=== PATIENT | male | born 1975 | race African-American/Black ===

== ENCOUNTER 2016-09-17 10:47 | Inpatient (IN) | payer OTHER ==
[2016-09-17 12:53] VITALS: BMI 31.3
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
[2016-09-17] MEDS ORDERED: guaiFENesin/D-METHORPHAN HB 10 ML UNIT-DOSE CUPS PO PRN (15:58)
[2016-09-17] MEDS ORDERED: NICOTINE POLACRILEX 4 MG GUM BC PRN (15:58)
[2016-09-17] MEDS ORDERED: MAGNESIUM HYDROX 2400MG/30ML ORAL SUSPENSION 30 ML CUP PO PRN (15:58)
[2016-09-17] MEDS ORDERED: hydrOXYzine PAMOATE 50 MG CAPSULE (FP) PO PRN (15:58)
[2016-09-17] MEDS ORDERED: LOPERAMIDE HCL 2 MG CAPSULE PO PRN (15:58)
[2016-09-17] MEDS ORDERED: P-EPHED 60MG/TRIPROLIDI 2.5MG TABLET PO PRN (15:58)
[2016-09-17] MEDS ORDERED: IBUPROFEN 400 MG TABLET (FP) PO PRN (15:58)
[2016-09-17] MEDS ORDERED: MENTHOL/PHENOL 1 EACH UD MM PRN (15:58)
[2016-09-17] MEDS ORDERED: MAGNESIUM CITRATE 300 ML BOTTLE PO PRN (15:58)
[2016-09-17] MEDS: LIPASE/PROTEASE/AMYLASE 6,000 UNIT CAPSULE PO SCH (17:54)
[2016-09-17 21:12] LABS: PH,URINE 5.5 (4.5-8); URINE APPEARANCE Clear; URINE BILIRUBIN Negative (NEGATIVE); URINE BLOOD Negative (NEGATIVE); URINE GLUCOSE (UA) Negative (NEGATIVE); URINE KETONE Trace (NEGATIVE); URINE LEUK ESTERASE Negative (NEGATIVE); URINE NITRITE Negative (NEGATIVE); URINE PROTEIN Negative (NEGATIVE); URINE UROBILINOGEN 0.2 E.U/dl (0.2-1.0)
[2016-09-17 21:13] LABS: URINE COLOR YELLOW
[2016-09-17] MEDS: diphenhydrAMINE HCL 50 MG CAPSULE PO PRN (21:41)
[2016-09-17] MEDS: THIAMINE HCL 100 MG TABLET (FP) PO SCH (21:41)
[2016-09-18] MEDS: LIPASE/PROTEASE/AMYLASE 6,000 UNIT CAPSULE PO SCH ×3 (07:47→17:46)
[2016-09-18] MEDS: PRENATAL VITAMINS W/ FOLIC ACID TABLET (FP) PO SCH (09:47)
[2016-09-18] MEDS: LISINOPRIL 10 MG TABLET (FP) PO SCH (09:47)
[2016-09-18] MEDS: NICOTINE 21 MG/24 HOURS TOPICAL PATCH TD SCH (09:48)
[2016-09-18] MEDS ORDERED: PANTOPRAZOLE 40 MG TABLET (FP) PO SCH (10:00)
[2016-09-18] MEDS ORDERED: PANTOPRAZOLE 40 MG TABLET (FP) PO ONE (10:00)
[2016-09-18 10:38] LABS: MCH 28.6 pg (25.7-33.7); MCHC 32.6 g/dl (32.0-35.9); MEAN CELL VOLUME 87.5 fl (80-96); MEAN PLT VOLUME 9.7 fl (7.5-11.1); PLATELET COUNT 166 K/MM3 (134-434); RDW 17.1 % (11.9-15.9)
[2016-09-18 11:25] LABS: ALBUMIN 3.6 g/dl (3.4-5.0); BILIRUBIN,TOTAL 0.4 mg/dL (0.2-1.0); COCKROFT - GAULT 83.15; CREATININE 1.5 mg/dL (0.7-1.3); TOT PROT 6.9 g/dl (6.4-8.2)
[2016-09-18] MEDS ORDERED: PT OWN MED DRAWER 7, Y5N ONE ×2 (12:53→16:59)
[2016-09-18] MEDS: THIAMINE HCL 100 MG TABLET (FP) PO SCH (21:14)
[2016-09-18] MEDS: diphenhydrAMINE HCL 50 MG CAPSULE PO PRN (21:14)
[2016-09-19] MEDS: PANTOPRAZOLE 40 MG TABLET (FP) PO SCH (06:08)
[2016-09-19] MEDS: ACETAMINOPHEN 325 MG TABLET (FP) PO PRN ×2 (07:43→16:57)
[2016-09-19] MEDS: LIPASE/PROTEASE/AMYLASE 6,000 UNIT CAPSULE PO SCH ×3 (07:43→17:04)
[2016-09-19] MEDS: NICOTINE 21 MG/24 HOURS TOPICAL PATCH TD SCH (10:05)
[2016-09-19] MEDS: PRENATAL VITAMINS W/ FOLIC ACID TABLET (FP) PO SCH (10:05)
[2016-09-19] MEDS: LISINOPRIL 10 MG TABLET (FP) PO SCH (10:05)
[2016-09-19] MEDS ORDERED: PT OWN MED DRAWER 7, Y5N ONE (16:26)
[2016-09-19] MEDS: THIAMINE HCL 100 MG TABLET (FP) PO SCH (21:25)
[2016-09-19] MEDS: diphenhydrAMINE HCL 50 MG CAPSULE PO PRN (21:25)
[2016-09-20] MEDS: MAG HYDROX/AL HYDROX/SIMETH 30 ML UNIT-DOSE CUP PO PRN ×2 (01:07→21:27)
[2016-09-20] MEDS: PANTOPRAZOLE 40 MG TABLET (FP) PO SCH (06:16)
[2016-09-20] MEDS: LIPASE/PROTEASE/AMYLASE 6,000 UNIT CAPSULE PO SCH ×3 (07:46→17:00)
[2016-09-20] MEDS ORDERED: PT OWN MED DRAWER 7, Y5N ONE (08:42)
[2016-09-20] MEDS: NICOTINE 21 MG/24 HOURS TOPICAL PATCH TD SCH (10:14)
[2016-09-20] MEDS: LISINOPRIL 10 MG TABLET (FP) PO SCH (10:14)
[2016-09-20] MEDS: PRENATAL VITAMINS W/ FOLIC ACID TABLET (FP) PO SCH (10:14)
[2016-09-20] MEDS: ACETAMINOPHEN 325 MG TABLET (FP) PO PRN (10:17)
--- NOTE | 2016-09-20 11:36 | EKG ---
Test Reason : Blood Pressure : / mmHG Vent. Rate : 068 BPM Atrial Rate : 068 BPM P-R Int : 146 ms QRS Dur : 090 ms QT Int : 392 ms P-R-T Axes : 066 045 059 degrees QTc Int : 416 ms NORMAL SINUS RHYTHM NORMAL ECG NO PREVIOUS ECGS AVAILABLE Confirmed by REZA BEASLEY MD ([id number]) on 09/20/2016 11:35:40 AM Referred By: Confirmed By:REZA BEASLEY MD
--- NOTE | 2016-09-20 12:46 | HP ---
Psychiatrist Admission - Data Date of interview: 09/20/16 Admission source: Self Identifying data: This is the first [facility] rehabiliotation admissionfor thus 41 years yrars old AA male, single, unempl;oyed , on PA, livig alone with no history of psychiatrioc hospitalization, Patient reports 4- 5 additiona rehabiltation admissions at different locations, all of them successfully completed. Medical History: Denies significant medical oriblem Psychiatric History: Patient reports history of depressiojn and anxiety, reports no history of npsychiatric hisoutalizations, reports taking prior mto admissionjh: Seroquel 100mg po qhs. Zoloft 50mg po qd Physical/Sexual Abuse/Trauma History: Denies Additional Comment: Patient reports long history of abusing Cocaine, Crack, Alcohoil, Nicotine and Cannabis, reports Vital Signs: Vital Signs - 24 hr 09/20/16 09/20/16 09/20/16 00:30 03:30 07:01 Temperature 98.6 F Pulse Rate 78 Respiratory 18 18 18 Rate Blood Pressure 130/92 09/20/16 11:01 Temperature Pulse Rate 78 Respiratory 18 Rate Blood Pressure 128/76 Allergies/Adverse Reactions: Allergies Allergy/AdvReac Type Severity Reaction Status Date / Time No Known Drug Allergies Allergy Verified 09/17/16 15:24 shellfish derived AdvReac Severe Swelling Verified 09/17/16 19:22
[2016-09-20] MEDS: SERTRALINE HCL 50 MG TABLET (FP) PO SCH (13:38)
[2016-09-20] MEDS: THIAMINE HCL 100 MG TABLET (FP) PO SCH (21:03)
[2016-09-20] MEDS: diphenhydrAMINE HCL 50 MG CAPSULE PO PRN (21:03)
[2016-09-20] MEDS: QUEtiapine FUMARATE 100 MG TABLET (FP) PO SCH (21:04)
[2016-09-21] MEDS: MAG HYDROX/AL HYDROX/SIMETH 30 ML UNIT-DOSE CUP PO PRN (02:27)
[2016-09-21] MEDS ORDERED: PT OWN MED DRAWER 7, Y5N ONE ×3 (04:29→17:01)
[2016-09-21] MEDS: PANTOPRAZOLE 40 MG TABLET (FP) PO SCH (06:29)
[2016-09-21] MEDS: LIPASE/PROTEASE/AMYLASE 6,000 UNIT CAPSULE PO SCH ×3 (07:40→17:01)
[2016-09-21] MEDS: SERTRALINE HCL 50 MG TABLET (FP) PO SCH (09:42)
[2016-09-21] MEDS: PRENATAL VITAMINS W/ FOLIC ACID TABLET (FP) PO SCH (09:42)
[2016-09-21] MEDS: LISINOPRIL 10 MG TABLET (FP) PO SCH (09:42)
[2016-09-21] MEDS: ACETAMINOPHEN 325 MG TABLET (FP) PO PRN (09:44)
[2016-09-21] MEDS: NICOTINE 21 MG/24 HOURS TOPICAL PATCH TD SCH (09:45)
[2016-09-21] MEDS ORDERED: SERTRALINE HCL 50 MG TABLET (FP) PO SCH (10:00)
[2016-09-21] MEDS ORDERED: ONDANSETRON 8 MG TABLET (FP) PO PRN (17:51)
[2016-09-21] MEDS ORDERED: ONDANSETRON *ODT* 4 MG TABLET SL PRN (18:03)
[2016-09-21] MEDS: diphenhydrAMINE HCL 50 MG CAPSULE PO PRN (21:08)
[2016-09-21] MEDS: THIAMINE HCL 100 MG TABLET (FP) PO SCH (21:08)
[2016-09-21] MEDS: QUEtiapine FUMARATE 100 MG TABLET (FP) PO SCH (21:08)
[2016-09-22] MEDS: MAG HYDROX/AL HYDROX/SIMETH 30 ML UNIT-DOSE CUP PO PRN ×3 (02:07→21:07)
[2016-09-22] MEDS: PANTOPRAZOLE 40 MG TABLET (FP) PO SCH (06:25)
[2016-09-22] MEDS: LIPASE/PROTEASE/AMYLASE 6,000 UNIT CAPSULE PO SCH ×3 (07:54→16:49)
[2016-09-22] MEDS: ACETAMINOPHEN 325 MG TABLET (FP) PO PRN (07:54)
[2016-09-22] MEDS: NICOTINE 21 MG/24 HOURS TOPICAL PATCH TD SCH (10:13)
[2016-09-22] MEDS: PRENATAL VITAMINS W/ FOLIC ACID TABLET (FP) PO SCH (10:13)
[2016-09-22] MEDS: LISINOPRIL 10 MG TABLET (FP) PO SCH (10:13)
[2016-09-22] MEDS: SERTRALINE HCL 50 MG TABLET (FP) PO SCH (10:13)
[2016-09-22] MEDS: QUEtiapine FUMARATE 100 MG TABLET (FP) PO SCH (21:07)
[2016-09-22] MEDS: diphenhydrAMINE HCL 50 MG CAPSULE PO PRN (21:07)
[2016-09-22] MEDS: THIAMINE HCL 100 MG TABLET (FP) PO SCH (21:07)
[2016-09-23] MEDS: MAG HYDROX/AL HYDROX/SIMETH 30 ML UNIT-DOSE CUP PO PRN (02:23)
[2016-09-23] MEDS: PANTOPRAZOLE 40 MG TABLET (FP) PO SCH (06:00)
[2016-09-23] MEDS: LIPASE/PROTEASE/AMYLASE 6,000 UNIT CAPSULE PO SCH ×3 (07:53→17:00)
[2016-09-23] MEDS: PRENATAL VITAMINS W/ FOLIC ACID TABLET (FP) PO SCH (10:00)
[2016-09-23] MEDS: NICOTINE 21 MG/24 HOURS TOPICAL PATCH TD SCH (10:01)
[2016-09-23] MEDS: SERTRALINE HCL 50 MG TABLET (FP) PO SCH (10:01)
[2016-09-23] MEDS: LISINOPRIL 10 MG TABLET (FP) PO SCH (10:01)
[2016-09-23] MEDS: ACETAMINOPHEN 325 MG TABLET (FP) PO PRN (12:40)
[2016-09-23] MEDS: diphenhydrAMINE HCL 50 MG CAPSULE PO PRN (21:18)
[2016-09-23] MEDS: THIAMINE HCL 100 MG TABLET (FP) PO SCH (21:18)
[2016-09-23] MEDS: QUEtiapine FUMARATE 100 MG TABLET (FP) PO SCH (21:18)
[2016-09-23] MEDS ORDERED: RANITIDINE HCL 150 MG TABLET (FP) PO SCH (22:00)
[2016-09-24] MEDS: LIPASE/PROTEASE/AMYLASE 6,000 UNIT CAPSULE PO SCH (07:21)
[2016-09-24 07:33] VITALS: BP 126/91; PULSE 113; TEMP 99
== END 2016-09-24 07:25 | disposition home or self-care (01) | DRG 772 ==
LOC: YASAS 10:47 → Y3W 16:54
PROVIDERS: ADMIT Psychiatry & Neurology Psychiatry; ATTEND Psychiatry & Neurology Psychiatry
PROC: HZ42ZZZ Group Counseling for Substance Abuse Treatment, Cognitive-Behavioral (ICD-10-PCS; principal; 2016-09-24)
DX: F11.20 Opioid dependence, uncomplicated (principal); F14.20 Cocaine dependence, uncomplicated; F17.210 Nicotine dependence, cigarettes, uncomplicated; I10 Essential (primary) hypertension; K21.9 Gastro-esophageal reflux disease without esophagitis; Z21 Asymptomatic human immunodeficiency virus [HIV] infection status
CPT/HCPCS: 36415; 80053; 81003; 85027; 86593; 86780; 93005; 93010

== ENCOUNTER 2017-02-06 20:59 | Inpatient (IN) | payer OTHER ==
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
[2017-02-06 21:46] VITALS: BMI 34.4
[2017-02-06] MEDS ORDERED: MAGNESIUM CITRATE 300 ML BOTTLE PO PRN (21:46)
[2017-02-06] MEDS ORDERED: chlordiazePOXIDE HCL 25 MG CAPSULE PO ONE (21:46)
[2017-02-06] MEDS ORDERED: diphenhydrAMINE HCL 50 MG CAPSULE PO PRN (21:46)
[2017-02-06] MEDS ORDERED: MAGNESIUM HYDROX 2400MG/30ML ORAL SUSPENSION 30 ML CUP PO PRN (21:46)
[2017-02-06] MEDS ORDERED: LOPERAMIDE HCL 2 MG CAPSULE PO PRN (21:46)
[2017-02-06] MEDS ORDERED: IBUPROFEN 400 MG TABLET (FP) PO PRN (21:46)
[2017-02-06] MEDS ORDERED: hydrOXYzine PAMOATE 25 MG CAPSULE (FP) PO PRN (21:46)
[2017-02-06] MEDS ORDERED: P-EPHED 60MG/TRIPROLIDI 2.5MG TABLET PO PRN (21:46)
[2017-02-06] MEDS ORDERED: chlordiazePOXIDE HCL 25 MG CAPSULE PO PRN (21:46)
[2017-02-06] MEDS ORDERED: MAG HYDROX/AL HYDROX/SIMETH 30 ML UNIT-DOSE CUP PO PRN (21:46)
[2017-02-06] MEDS ORDERED: guaiFENesin/D-METHORPHAN HB 10 ML UNIT-DOSE CUPS PO PRN (21:46)
[2017-02-06] MEDS ORDERED: NICOTINE POLACRILEX 4 MG GUM BC PRN (21:46)
[2017-02-06] MEDS ORDERED: MENTHOL/PHENOL 1 EACH UD MM PRN (21:46)
[2017-02-06] MEDS ORDERED: THIAMINE HCL 100 MG TABLET (FP) PO SCH (22:00)
[2017-02-06] MEDS: PANTOPRAZOLE 20 MG TABLET (FP) PO SCH (23:29)
[2017-02-06] MEDS: chlordiazePOXIDE HCL 25 MG CAPSULE PO SCH (23:34)
[2017-02-07] MEDS: chlordiazePOXIDE HCL 25 MG CAPSULE PO SCH ×3 (05:50→17:28)
[2017-02-07 09:42] LABS: URINE APPEARANCE CLEAR; URINE BILIRUBIN NEGATIVE (NEGATIVE); URINE BLOOD NEGATIVE (NEGATIVE); URINE GLUCOSE (UA) NEGATIVE (NEGATIVE); URINE KETONE NEGATIVE (NEGATIVE); URINE NITRITE NEGATIVE (NEGATIVE); URINE PROTEIN NEGATIVE (NEGATIVE); URINE UROBILINOGEN 0.2 mg/dL (0.2-1.0)
[2017-02-07 09:45] LABS: URINE COLOR YELLOW
[2017-02-07 09:47] LABS: MCH 28.1 pg (25.7-33.7); MEAN CELL VOLUME 85.2 fl (80-96); MEAN PLT VOLUME 9.2 fl (7.5-11.1); PLATELET COUNT 192 K/MM3 (134-434); RDW 16.7 % (11.9-15.9); WHITE BLOOD COUNT 8.7 K/mm3 (4.0-10.0)
[2017-02-07 09:53] LABS: SGOT/AST 50 U/L (15-37); SGPT/ALT 35 U/L (12-78)
--- NOTE | 2017-02-07 09:57 | PN ---
S CIWA - CIWA Score Nausea/Vomitin-No Nausea/No Vomiting Muscle Tremors: 4-Moderate,w/Arms Extend Anxiety: 3 Agitation: 4-Moderately Restless Paroxysmal Sweats: 3 Orientation: 0-Oriented Tacttile Disturbances: 0-None Auditory Disturbances: 0-None Visual Disturbances: 0-None Headache: 1-Very Mild CIWA-Ar Total Score: 15 [facility] Progress Note (SOAP) Subjective: shakes sweats jittery leg cramps agitation interrupted sleep Objective: 02/07/17 09:58 Vital Signs Temperature 97.9 F 02/07/17 06:03 Pulse Rate 93 H 02/07/17 06:03 Respiratory Rate 18 02/07/17 06:03 Blood Pressure 112/81 02/07/17 06:03 O2 Sat by Pulse Oximetry (%) Laboratory Tests 02/07/17 02/07/17 02/07/17 07:00 07:00 07:00 WBC 8.7 D RBC 4.53 Hgb 12.7 D Hct 38.6 MCV 85.2 MCH 28.1 MCHC 33.0 RDW 16.7 H Plt Count 192 MPV 9.2 Sodium 141 Potassium 3.7 Chloride 108 H AST 50 H D ALT 35 D Urine Color Yellow Urine Appearance Clear Urine pH 6.0 Urine Protein Negative Urine Glucose (UA) Negative Urine Ketones Negative Urine Blood Negative Urine Nitrite Negative Urine Bilirubin Negative Urine Urobilinogen 0.2 labs pending [id number] ambulating no acute distress Assessment: 02/07/17 10:01 withdrawal sx Plan: continue detox increase fluids labs pending
[2017-02-07 09:58] LABS: ALBUMIN 3.2 g/dl (3.4-5.0); ALK PHOS 75 U/L (45-117); ANION GAP 8 (8-16); BILIRUBIN,TOTAL 0.2 mg/dL (0.2-1.0); CALCIUM 8.3 mg/dL (8.5-10.1); CO2 25 mmol/L (21-32); CREATININE 1.3 mg/dL (0.7-1.3); GLUCOSE,RANDOM 110 mg/dL (74-106); TOT PROT 6.4 g/dl (6.4-8.2)
[2017-02-07] MEDS ORDERED: PRENATAL VITAMINS W/ FOLIC ACID TABLET (FP) PO SCH (10:00)
[2017-02-07] MEDS ORDERED: NICOTINE 21 MG/24 HOURS TOPICAL PATCH TD SCH (10:00)
[2017-02-07] MEDS ORDERED: HYDROCHLOROTHIAZIDE 25 MG TABLET (FP) PO SCH (10:00)
[2017-02-07] MEDS: PANTOPRAZOLE 20 MG TABLET (FP) PO SCH (10:08)
[2017-02-07] MEDS: ACETAMINOPHEN 325 MG TABLET (FP) PO PRN ×2 (10:09→17:28)
[2017-02-07] MEDS: CYCLOBENZAPRINE HCL 10 MG TABLET (FP) PO PRN ×2 (10:09→18:05)
[2017-02-07 17:02] LABS: URINE LEUK ESTERASE Negative (NEGATIVE)
[2017-02-07 18:43] VITALS: BP 120/70; PULSE 96; TEMP 97.2
[2017-02-07] MEDS ORDERED: chlordiazePOXIDE HCL 25 MG CAPSULE PO SCH (23:00)
--- NOTE | 2017-02-08 00:03 | DS ---
[facility] Detox Discharge Summary Admission Date: 02/06/17 Discharge Date: 02/07/17 - History Present History: Alcohol Dependence, Cannabis Dependence, Cocaine Dependence Additional Comments: received nurse call that the patient insists to leave the facility, refuses to wait face to face with the provider Pertinent Past History: hiv hypertension gerd - Physical Exam Results Vital Signs: Vital Signs Temperature 97.2 F L 02/07/17 18:42 Pulse Rate 96 H 02/07/17 18:42 Respiratory Rate 18 02/07/17 18:42 Blood Pressure 120/70 02/07/17 18:42 O2 Sat by Pulse Oximetry (%) Pertinent Admission Physical Exam Findings: withdrawal sx Laboratory Last Values WBC 8.7 K/mm3 (4.0-10.0) D 02/07/17 07:00 RBC 4.53 M/mm3 (4.00-5.60) 02/07/17 07:00 Hgb 12.7 GM/dL (11.7-16.9) D 02/07/17 07:00 Hct 38.6 % (35.4-49) 02/07/17 07:00 MCV 85.2 fl (80-96) 02/07/17 07:00 MCH 28.1 pg (25.7-33.7) 02/07/17 07:00 MCHC 33.0 g/dl (32.0-35.9) 02/07/17 07:00 RDW 16.7 % (11.9-15.9) H 02/07/17 07:00 Plt Count 192 K/MM3 (134-434) 02/07/17 07:00 MPV 9.2 fl (7.5-11.1) 02/07/17 07:00 Sodium 141 mmol/L (136-145) 02/07/17 07:00 Potassium 3.7 mmol/L (3.5-5.1) 02/07/17 07:00 Chloride 108 mmol/L (98-107) H 02/07/17 07:00 Carbon Dioxide 25 mmol/L (21-32) 02/07/17 07:00 Anion Gap 8 (8-16) 02/07/17 07:00 BUN 15 mg/dL (7-18) 02/07/17 07:00 Creatinine 1.3 mg/dL (0.7-1.3) 02/07/17 07:00 Creat Clearance w eGFR > 60 (>60) 02/07/17 07:00 Random Glucose 110 mg/dL (74-106) H 02/07/17 07:00 Calcium 8.3 mg/dL (8.5-10.1) L 02/07/17 07:00 Total Bilirubin 0.2 mg/dL (0.2-1.0) D 02/07/17 07:00 AST 50 U/L (15-37) H D 02/07/17 07:00 ALT 35 U/L (12-78) D 02/07/17 07:00 Alkaline Phosphatase 75 U/L (45-117) 02/07/17 07:00 Total Protein 6.4 g/dl (6.4-8.2) 02/07/17 07:00 Albumin 3.2 g/dl (3.4-5.0) L 02/07/17 07:00 Urine Color Yellow 02/07/17 07:00 Urine Appearance Clear 02/07/17 07:00 Urine pH 6.0 (5.0-8.0) 02/07/17 07:00 Ur Specific Wyatt 1.020 (1.005-1.025) 02/07/17 07:00 Urine Protein Negative (NEGATIVE) 02/07/17 07:00 Urine Glucose (UA) Negative (NEGATIVE) 02/07/17 07:00 Urine Ketones Negative (NEGATIVE) 02/07/17 07:00 Urine Blood Negative (NEGATIVE) 02/07/17 07:00 Urine Nitrite Negative (NEGATIVE) 02/07/17 07:00 Urine Bilirubin Negative (NEGATIVE) 02/07/17 07:00 Urine Urobilinogen 0.2 mg/dL (0.2-1.0) 02/07/17 07:00 Ur Leukocyte Esterase Negative (NEGATIVE) 02/07/17 07:00 RPR Titer Nonreactive (NONREACTIVE) D 02/07/17 07:00 lab noted - Treatment Hospital Course: Detox Protocol Followed, Responded well - Medication Discharge Medications: Ambulatory Orders Omeprazole [Prilosec] 40 mg PO DAILY 08/20/15 Elviteg/Lulu/Emtric/Tenofo Ala [Genvoya Tablet] 1 each PO DAILY 09/17/16 - Diagnosis (1) Acid reflux disease Status: Chronic Qualifiers: Esophagitis presence: without esophagitis Qualified Code(s): K21.9 - Gastro-esophageal reflux disease without esophagitis; K21.9 - Gastro- esophageal reflux disease without esophagitis; K21.9 - Gastro-esophageal reflux disease without esophagitis (2) Alcohol dependence with uncomplicated withdrawal Status: Acute (3) HIV (human immunodeficiency virus infection) Status: Chronic (4) Hypertension Status: Chronic Qualifiers: Hypertension type: essential hypertension Qualified Code(s): I10 - Essential (primary) hypertension; I10 - Essential (primary) hypertension; I10 - Essential (primary) hypertension (5) Nicotine dependence Status: Acute Qualifiers: Nicotine product type: cigarettes Substance use status: in withdrawal Qualified Code(s): F17.213 - Nicotine dependence, cigarettes, with withdrawal; F17.213 - Nicotine dependence, cigarettes, with withdrawal - AMA Did Patient Leave Against Medical Advice: Yes
--- NOTE | 2017-02-08 07:22 | EKG ---
Test Reason : Blood Pressure : / mmHG Vent. Rate : 095 BPM Atrial Rate : 095 BPM P-R Int : 152 ms QRS Dur : 088 ms QT Int : 362 ms P-R-T Axes : 052 036 052 degrees QTc Int : 454 ms NORMAL SINUS RHYTHM NORMAL ECG WHEN COMPARED WITH ECG OF 17-SEP-2016 20:15, NO SIGNIFICANT CHANGE WAS FOUND Confirmed by MELANIE LOWRY MD ([id number]) on 02/08/2017 7:22:37 AM Referred By: Courtney Huerta Confirmed By:MELANIE LOWRY MD
[2017-02-08] MEDS ORDERED: chlordiazePOXIDE 5 MG CAPSULE PO SCH (23:00)
[2017-02-09] MEDS ORDERED: chlordiazePOXIDE HCL 10 MG CAPSULE PO SCH (23:00)
== END 2017-02-07 20:00 | disposition left against medical advice (07) | DRG 770 ==
LOC: YASAS 20:59 → Y6N 21:28
PROVIDERS: ADMIT Internal Medicine; ATTEND Internal Medicine
PROC: HZ2ZZZZ Detoxification Services for Substance Abuse Treatment (ICD-10-PCS; principal; 2017-02-06)
DX: F10.230 Alcohol dependence with withdrawal, uncomplicated (principal); F17.213 Nicotine dependence, cigarettes, with withdrawal; I10 Essential (primary) hypertension; K21.9 Gastro-esophageal reflux disease without esophagitis; Z21 Asymptomatic human immunodeficiency virus [HIV] infection status; Z87.438 Personal history of other diseases of male genital organs; Z90.5 Acquired absence of kidney
CPT/HCPCS: 36415; 80053; 81003; 85027; 86593; 93005; 93010

== ENCOUNTER 2017-04-30 14:32 | Inpatient (IN) | payer OTHER ==
[2017-04-30 16:38] VITALS: BMI 33.8
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
[2017-04-30] MEDS ORDERED: MAGNESIUM HYDROX 2400MG/30ML ORAL SUSPENSION 30 ML CUP PO PRN (17:32)
[2017-04-30] MEDS ORDERED: hydrOXYzine PAMOATE 50 MG CAPSULE (FP) PO PRN (17:32)
[2017-04-30] MEDS ORDERED: MENTHOL/PHENOL 1 EACH UD MM PRN (17:32)
[2017-04-30] MEDS ORDERED: P-EPHED 60MG/TRIPROLIDI 2.5MG TABLET PO PRN (17:32)
[2017-04-30] MEDS ORDERED: IBUPROFEN 400 MG TABLET (FP) PO PRN (17:32)
[2017-04-30] MEDS ORDERED: guaiFENesin/D-METHORPHAN HB 10 ML UNIT-DOSE CUPS PO PRN (17:32)
[2017-04-30] MEDS ORDERED: chlordiazePOXIDE HCL 25 MG CAPSULE PO PRN (17:32)
[2017-04-30] MEDS ORDERED: chlordiazePOXIDE HCL 25 MG CAPSULE PO ONE (17:32)
[2017-04-30] MEDS ORDERED: LOPERAMIDE HCL 2 MG CAPSULE PO PRN (17:32)
[2017-04-30] MEDS ORDERED: MAG HYDROX/AL HYDROX/SIMETH 30 ML UNIT-DOSE CUP PO PRN (17:32)
[2017-04-30] MEDS ORDERED: MAGNESIUM CITRATE 300 ML BOTTLE PO PRN (17:32)
[2017-04-30] MEDS: NICOTINE 21 MG/24 HOURS TOPICAL PATCH TD SCH (18:19)
[2017-04-30 22:10] LABS: URINE APPEARANCE CLEAR; URINE BILIRUBIN NEGATIVE (NEGATIVE); URINE BLOOD NEGATIVE (NEGATIVE); URINE COLOR LTYELLOW; URINE GLUCOSE (UA) NEGATIVE (NEGATIVE); URINE KETONE NEGATIVE (NEGATIVE); URINE LEUK ESTERASE NEGATIVE (NEGATIVE); URINE NITRITE NEGATIVE (NEGATIVE); URINE PROTEIN NEGATIVE (NEGATIVE); URINE UROBILINOGEN NEGATIVE mg/dL (0.2-1.0)
[2017-04-30] MEDS: THIAMINE HCL 100 MG TABLET (FP) PO SCH (22:26)
[2017-04-30] MEDS: chlordiazePOXIDE HCL 25 MG CAPSULE PO SCH (22:26)
[2017-04-30] MEDS ORDERED: cloNIDine HCL 0.1 MG TABLET PO ONE (22:45)
[2017-05-01] MEDS: chlordiazePOXIDE HCL 25 MG CAPSULE PO SCH ×4 (05:43→22:23)
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
[2017-05-01 10:23] LABS: HEMATOCRIT 38.7 % (35.4-49); HEMOGLOBIN 12.8 GM/dL (11.7-16.9); MCH 28.6 pg (25.7-33.7); MCHC 32.9 g/dl (32.0-35.9); MEAN CELL VOLUME 86.8 fl (80-96); MEAN PLT VOLUME 9.6 fl (7.5-11.1); PLATELET COUNT 186 K/MM3 (134-434); RBC 4.46 M/mm3 (4.00-5.60); RDW 17.3 % (11.9-15.9); WHITE BLOOD COUNT 5.9 K/mm3 (4.0-10.0)
[2017-05-01 10:24] LABS: CHLORIDE 107 mmol/L (98-107); POTASSIUM 3.7 mmol/L (3.5-5.1); SODIUM 140 mmol/L (136-145)
[2017-05-01] MEDS: NICOTINE 21 MG/24 HOURS TOPICAL PATCH TD SCH (10:26)
[2017-05-01] MEDS: PRENATAL VITAMINS W/ FOLIC ACID TABLET (FP) PO SCH (10:26)
[2017-05-01] MEDS: PANTOPRAZOLE 40 MG TABLET (FP) PO SCH (10:26)
[2017-05-01] MEDS: METOPROLOL SUCCINATE 25 MG TAB.SR.24H (FP) PO SCH (10:26)
[2017-05-01] MEDS: THIAMINE HCL 100 MG TABLET (FP) PO SCH ×2 (10:26→22:22)
[2017-05-01] MEDS: SERTRALINE HCL 50 MG TABLET (FP) PO SCH (10:27)
[2017-05-01] MEDS: NICOTINE POLACRILEX 2 MG GUM BC PRN (10:27)
[2017-05-01 10:32] LABS: ALBUMIN 3.4 g/dl (3.4-5.0); ALK PHOS 76 U/L (45-117); ANION GAP 8 (8-16); BILIRUBIN,TOTAL 0.5 mg/dL (0.2-1.0); BLOOD UREA NITROGEN 14 mg/dL (7-18); CALCIUM 8.1 mg/dL (8.5-10.1); CO2 25 mmol/L (21-32); CREATININE 1.3 mg/dL (0.7-1.3); GLUCOSE,RANDOM 95 mg/dL (74-106); SGOT/AST 22 U/L (15-37); SGPT/ALT 34 U/L (12-78); TOT PROT 6.5 g/dl (6.4-8.2)
--- NOTE | 2017-05-01 11:38 | EKG ---
Test Reason : Blood Pressure : / mmHG Vent. Rate : 099 BPM Atrial Rate : 099 BPM P-R Int : 154 ms QRS Dur : 076 ms QT Int : 346 ms P-R-T Axes : 055 048 057 degrees QTc Int : 444 ms NORMAL SINUS RHYTHM NORMAL ECG WHEN COMPARED WITH ECG OF 06-FEB-2017 23:20, T WAVE AMPLITUDE HAS INCREASED IN LATERAL LEADS Confirmed by LEEROY WISE MD ([id number]) on 05/01/2017 11:38:24 AM Referred By: Confirmed By:LEEROY WISE MD
--- NOTE | 2017-05-01 13:14 | PN ---
S CIWA - CIWA Score Nausea/Vomitin-Mild Nausea/No Vomiting Muscle Tremors: 3 Anxiety: 4-Mod. Anxious/Guarded Agitation: 3 Paroxysmal Sweats: 3 Orientation: 0-Oriented Tacttile Disturbances: 0-None Auditory Disturbances: 0-None Visual Disturbances: 0-None Headache: 0-None Present CIWA-Ar Total Score: 14 BHS Progress Note (SOAP) Subjective: Anxiety,tremors,sweating,interrupted sleep,restless Objective: 05/01/17 13:13 Vital Signs - 8 hr 05/01/17 05/01/17 06:10 09:51 Temperature 97 F L 96.3 F L Pulse Rate 83 94 H Respiratory 18 16 Rate Blood Pressure 131/85 142/96 Laboratory Tests 04/30/17 05/01/17 05/01/17 21:00 07:40 07:40 WBC 5.9 D RBC 4.46 Hgb 12.8 Hct 38.7 MCV 86.8 MCH 28.6 MCHC 32.9 RDW 17.3 H Plt Count 186 MPV 9.6 Sodium 140 Potassium 3.7 Chloride 107 Carbon Dioxide 25 Anion Gap 8 BUN 14 Creatinine 1.3 Creat Clearance w eGFR > 60 Random Glucose 95 Calcium 8.1 L Total Bilirubin 0.5 D AST 22 D ALT 34 Alkaline Phosphatase 76 Total Protein 6.5 Albumin 3.4 Urine Color Ltyellow Urine Appearance Clear Urine pH 7.0 Ur Specific [place] 1.017 Urine Protein Negative Urine Glucose (UA) Negative Urine Ketones Negative Urine Blood Negative Urine Nitrite Negative Urine Bilirubin Negative Urine Urobilinogen Negative Ur Leukocyte Esterase Negative labs noted, WNL Assessment: 05/01/17 13:13 Withdrawal sx. Plan: Continue detox
[2017-05-01] MEDS: QUEtiapine FUMARATE 100 MG TABLET (FP) PO SCH (22:23)
[2017-05-01] MEDS: ZOLPIDEM TARTRATE 5 MG TABLET PO PRN (22:23)
[2017-05-01] MEDS: ACETAMINOPHEN 325 MG TABLET (FP) PO PRN (22:24)
[2017-05-02] MEDS: chlordiazePOXIDE HCL 25 MG CAPSULE PO SCH ×3 (05:51→17:14)
[2017-05-02] MEDS: PRENATAL VITAMINS W/ FOLIC ACID TABLET (FP) PO SCH (10:42)
[2017-05-02] MEDS: PANTOPRAZOLE 40 MG TABLET (FP) PO SCH (10:42)
[2017-05-02] MEDS: METOPROLOL SUCCINATE 25 MG TAB.SR.24H (FP) PO SCH (10:42)
[2017-05-02] MEDS: SERTRALINE HCL 50 MG TABLET (FP) PO SCH (10:42)
[2017-05-02] MEDS: THIAMINE HCL 100 MG TABLET (FP) PO SCH ×2 (10:42→22:17)
[2017-05-02] MEDS: NICOTINE 21 MG/24 HOURS TOPICAL PATCH TD SCH (10:46)
--- NOTE | 2017-05-02 11:45 | PN ---
[facility] CIWA - CIWA Score Nausea/Vomitin-No Nausea/No Vomiting Muscle Tremors: 4-Moderate,w/Arms Extend Anxiety: 4-Mod. Anxious/Guarded Agitation: 4-Moderately Restless Paroxysmal Sweats: 1-Minimal Palms Moist Orientation: 0-Oriented Tacttile Disturbances: 3-Moderate Itch/Numb/Burn Auditory Disturbances: 0-None Visual Disturbances: 0-None Headache: 0-None Present CIWA-Ar Total Score: 16 S Progress Note (SOAP) Subjective: ANXIETY,DIARRHEA,NAUSEA/VOMITING,SWEATS. Objective: Vital Signs Temperature 98.3 F 05/02/17 10:00 Pulse Rate 104 H 05/02/17 10:00 Respiratory Rate 18 05/02/17 10:00 Blood Pressure 141/92 05/02/17 10:00 O2 Sat by Pulse Oximetry (%) Laboratory Last Values WBC 5.9 K/mm3 (4.0-10.0) D 05/01/17 07:40 RBC 4.46 M/mm3 (4.00-5.60) 05/01/17 07:40 Hgb 12.8 GM/dL (11.7-16.9) 05/01/17 07:40 Hct 38.7 % (35.4-49) 05/01/17 07:40 MCV 86.8 fl (80-96) 05/01/17 07:40 MCH 28.6 pg (25.7-33.7) 05/01/17 07:40 MCHC 32.9 g/dl (32.0-35.9) 05/01/17 07:40 RDW 17.3 % (11.9-15.9) H 05/01/17 07:40 Plt Count 186 K/MM3 (134-434) 05/01/17 07:40 MPV 9.6 fl (7.5-11.1) 05/01/17 07:40 Sodium 140 mmol/L (136-145) 05/01/17 07:40 Potassium 3.7 mmol/L (3.5-5.1) 05/01/17 07:40 Chloride 107 mmol/L (98-107) 05/01/17 07:40 Carbon Dioxide 25 mmol/L (21-32) 05/01/17 07:40 Anion Gap 8 (8-16) 05/01/17 07:40 BUN 14 mg/dL (7-18) 05/01/17 07:40 Creatinine 1.3 mg/dL (0.7-1.3) 05/01/17 07:40 Creat Clearance w eGFR > 60 (>60) 05/01/17 07:40 Random Glucose 95 mg/dL (74-106) 05/01/17 07:40 Calcium 8.1 mg/dL (8.5-10.1) L 05/01/17 07:40 Total Bilirubin 0.5 mg/dL (0.2-1.0) D 05/01/17 07:40 AST 22 U/L (15-37) D 05/01/17 07:40 ALT 34 U/L (12-78) 05/01/17 07:40 Alkaline Phosphatase 76 U/L (45-117) 05/01/17 07:40 Total Protein 6.5 g/dl (6.4-8.2) 05/01/17 07:40 Albumin 3.4 g/dl (3.4-5.0) 05/01/17 07:40 Urine Color Ltyellow 04/30/17 21:00 Urine Appearance Clear 04/30/17 21:00 Urine pH 7.0 (5.0-8.0) 04/30/17 21:00 Ur Specific [place] 1.017 (1.001-1.035) 04/30/17 21:00 Urine Protein Negative (NEGATIVE) 04/30/17 21:00 Urine Glucose (UA) Negative (NEGATIVE) 04/30/17 21:00 Urine Ketones Negative (NEGATIVE) 04/30/17 21:00 Urine Blood Negative (NEGATIVE) 04/30/17 21:00 Urine Nitrite Negative (NEGATIVE) 04/30/17 21:00 Urine Bilirubin Negative (NEGATIVE) 04/30/17 21:00 Urine Urobilinogen Negative mg/dL (0.2-1.0) 04/30/17 21:00 Ur Leukocyte Esterase Negative (NEGATIVE) 04/30/17 21:00 Assessment: 05/02/17 11:51 WITHDRAWAL SX Plan: CONTINUE DETOX ZOFRAN ORDERED.
[2017-05-02] MEDS ORDERED: NON-FORMULARY MED PO ONE (12:45)
[2017-05-02 14:09] LABS: RPR REACTIVE 1:16 (NONREACTIVE)
[2017-05-02 14:11] LABS: TREPONEMA ANTIBODY REACTIVE (NONREACTIVE)
[2017-05-02] MEDS ORDERED: PENICILLIN G BENZATHINE 2,400,000 UNIT/4 ML PFS IM ONE (16:30)
[2017-05-02] MEDS: chlordiazePOXIDE 5 MG CAPSULE PO SCH (22:18)
[2017-05-02] MEDS: QUEtiapine FUMARATE 100 MG TABLET (FP) PO SCH (22:18)
[2017-05-02] MEDS: ZOLPIDEM TARTRATE 5 MG TABLET PO PRN (22:18)
[2017-05-02] MEDS: ACETAMINOPHEN 325 MG TABLET (FP) PO PRN (22:19)
[2017-05-03] MEDS: chlordiazePOXIDE 5 MG CAPSULE PO SCH ×3 (06:18→17:18)
[2017-05-03] MEDS ORDERED: ONDANSETRON 8 MG TABLET (FP) PO PRN (06:19)
[2017-05-03] MEDS ORDERED: ONDANSETRON 4 MG TABLET PO PRN (07:43)
[2017-05-03] MEDS: NICOTINE 21 MG/24 HOURS TOPICAL PATCH TD SCH (10:58)
[2017-05-03] MEDS: NICOTINE POLACRILEX 2 MG GUM BC PRN (10:58)
[2017-05-03] MEDS: PRENATAL VITAMINS W/ FOLIC ACID TABLET (FP) PO SCH (10:59)
[2017-05-03] MEDS: METOPROLOL SUCCINATE 25 MG TAB.SR.24H (FP) PO SCH (11:00)
[2017-05-03] MEDS: NON-FORMULARY MED PO SCH (11:00)
[2017-05-03] MEDS: SERTRALINE HCL 50 MG TABLET (FP) PO SCH (11:00)
[2017-05-03] MEDS ORDERED: ONDANSETRON *ODT* 4 MG TABLET SL PRN (11:04)
--- NOTE | 2017-05-03 11:11 | PN ---
BHS Progress Note (SOAP) Subjective: IRRITABILITY,NAUSEA,PROFUSED SWEATING,ANXIETY,PAIN TO RIGHT BUTTOCK INJ. SITE. Objective: 05/03/17 11:07 Vital Signs Temperature 97.4 F L 05/03/17 10:01 Pulse Rate 122 H 05/03/17 10:01 Respiratory Rate 18 05/03/17 10:01 Blood Pressure 143/90 05/03/17 10:01 O2 Sat by Pulse Oximetry (%) Laboratory Last Values WBC 5.9 K/mm3 (4.0-10.0) D 05/01/17 07:40 RBC 4.46 M/mm3 (4.00-5.60) 05/01/17 07:40 Hgb 12.8 GM/dL (11.7-16.9) 05/01/17 07:40 Hct 38.7 % (35.4-49) 05/01/17 07:40 MCV 86.8 fl (80-96) 05/01/17 07:40 MCH 28.6 pg (25.7-33.7) 05/01/17 07:40 MCHC 32.9 g/dl (32.0-35.9) 05/01/17 07:40 RDW 17.3 % (11.9-15.9) H 05/01/17 07:40 Plt Count 186 K/MM3 (134-434) 05/01/17 07:40 MPV 9.6 fl (7.5-11.1) 05/01/17 07:40 Sodium 140 mmol/L (136-145) 05/01/17 07:40 Potassium 3.7 mmol/L (3.5-5.1) 05/01/17 07:40 Chloride 107 mmol/L (98-107) 05/01/17 07:40 Carbon Dioxide 25 mmol/L (21-32) 05/01/17 07:40 Anion Gap 8 (8-16) 05/01/17 07:40 BUN 14 mg/dL (7-18) 05/01/17 07:40 Creatinine 1.3 mg/dL (0.7-1.3) 05/01/17 07:40 Creat Clearance w eGFR > 60 (>60) 05/01/17 07:40 Random Glucose 95 mg/dL (74-106) 01/07/18 07:40 Calcium 8.1 mg/dL (8.5-10.1) L 05/01/17 07:40 Total Bilirubin 0.5 mg/dL (0.2-1.0) D 05/01/17 07:40 AST 22 U/L (15-37) D 05/01/17 07:40 ALT 34 U/L (12-78) 05/01/17 07:40 Alkaline Phosphatase 76 U/L (45-117) 05/01/17 07:40 Total Protein 6.5 g/dl (6.4-8.2) 05/01/17 07:40 Albumin 3.4 g/dl (3.4-5.0) 05/01/17 07:40 Urine Color Ltyellow 04/30/17 21:00 Urine Appearance Clear 04/30/17 21:00 Urine pH 7.0 (5.0-8.0) 04/30/17 21:00 Ur Specific [place] 1.017 (1.001-1.035) 04/30/17 21:00 Urine Protein Negative (NEGATIVE) 04/30/17 21:00 Urine Glucose (UA) Negative (NEGATIVE) 04/30/17 21:00 Urine Ketones Negative (NEGATIVE) 04/30/17 21:00 Urine Blood Negative (NEGATIVE) 04/30/17 21:00 Urine Nitrite Negative (NEGATIVE) 04/30/17 21:00 Urine Bilirubin Negative (NEGATIVE) 04/30/17 21:00 Urine Urobilinogen Negative mg/dL (0.2-1.0) 04/30/17 21:00 Ur Leukocyte Esterase Negative (NEGATIVE) 04/30/17 21:00 RPR Titer Reactive 1:16 (NONREACTIVE) H D 05/01/17 07:40 T.pallidum Ab (MHA) Reactive (NONREACTIVE) 05/01/17 07:40 LABS NOTED. PT REPORTS TREATMENT WITH PENICILLIN X 3 A YEAR OR MORE AGO. REPORTS RECENT POSSIBLE RE-EXPOSURE AND OPEN TO BOOSTER TX. Assessment: 05/03/17 11:08 WITHDRAWAL SX Plan: CONTINUE DETOX BICILLIN LA INJ X 1 GIVEN DIRECTED.
[2017-05-03] MEDS: THIAMINE HCL 100 MG TABLET (FP) PO SCH ×2 (11:15→22:06)
[2017-05-03] MEDS: chlordiazePOXIDE HCL 10 MG CAPSULE PO SCH (22:04)
[2017-05-03] MEDS: QUEtiapine FUMARATE 100 MG TABLET (FP) PO SCH (22:04)
[2017-05-03] MEDS: ZOLPIDEM TARTRATE 5 MG TABLET PO PRN (22:05)
[2017-05-04] MEDS: chlordiazePOXIDE HCL 10 MG CAPSULE PO SCH ×2 (04:37→10:36)
[2017-05-04 10:14] VITALS: BP 124/86; PULSE 98; TEMP 97.6
[2017-05-04] MEDS: PRENATAL VITAMINS W/ FOLIC ACID TABLET (FP) PO SCH (10:33)
[2017-05-04] MEDS: SERTRALINE HCL 50 MG TABLET (FP) PO SCH (10:33)
[2017-05-04] MEDS: THIAMINE HCL 100 MG TABLET (FP) PO SCH (10:34)
[2017-05-04] MEDS: METOPROLOL SUCCINATE 25 MG TAB.SR.24H (FP) PO SCH (10:34)
[2017-05-04] MEDS: NON-FORMULARY MED PO SCH (10:35)
[2017-05-04] MEDS: NICOTINE 21 MG/24 HOURS TOPICAL PATCH TD SCH (10:37)
[2017-05-04] MEDS ORDERED: HYDROCORTISONE 2.5% TOPICAL CREAM 30 GM TUBE TP SCH (11:15)
--- NOTE | 2017-05-04 13:24 | DS ---
[facility] Detox Discharge Summary Admission Date: 04/30/17 Discharge Date: 05/04/17 - History Present History: Alcohol Dependence, Cannabis Dependence, Cocaine Dependence Additional Comments: DETOX COMPLETED. NAD. C/O HX HEMORRHOIDS AND RECTAL BLEEDING ON BM DUE TO HARD STOOL TODAY. STARTED ON ANUSOL HC 2.5% CREAM TO BE CONTINUED IN REHAB. Pertinent Past History: SEE DX BELOW - Physical Exam Results Vital Signs: Vital Signs Temperature 97.6 F 05/04/17 10:13 Pulse Rate 98 H 05/04/17 10:13 Respiratory Rate 20 05/04/17 10:13 Blood Pressure 124/86 05/04/17 10:13 O2 Sat by Pulse Oximetry (%) Pertinent Admission Physical Exam Findings: WITHDRAWAL SX Laboratory Last Values WBC 5.9 K/mm3 (4.0-10.0) D 05/01/17 07:40 RBC 4.46 M/mm3 (4.00-5.60) 05/01/17 07:40 Hgb 12.8 GM/dL (11.7-16.9) 05/01/17 07:40 Hct 38.7 % (35.4-49) 05/01/17 07:40 MCV 86.8 fl (80-96) 05/01/17 07:40 MCH 28.6 pg (25.7-33.7) 05/01/17 07:40 MCHC 32.9 g/dl (32.0-35.9) 05/01/17 07:40 RDW 17.3 % (11.9-15.9) H 05/01/17 07:40 Plt Count 186 K/MM3 (134-434) 05/01/17 07:40 MPV 9.6 fl (7.5-11.1) 05/01/17 07:40 Sodium 140 mmol/L (136-145) 05/01/17 07:40 Potassium 3.7 mmol/L (3.5-5.1) 05/01/17 07:40 Chloride 107 mmol/L (98-107) 05/01/17 07:40 Carbon Dioxide 25 mmol/L (21-32) 05/01/17 07:40 Anion Gap 8 (8-16) 05/01/17 07:40 BUN 14 mg/dL (7-18) 05/01/17 07:40 Creatinine 1.3 mg/dL (0.7-1.3) 05/01/17 07:40 Creat Clearance w eGFR > 60 (>60) 05/01/17 07:40 Random Glucose 95 mg/dL (74-106) 05/01/17 07:40 Calcium 8.1 mg/dL (8.5-10.1) L 05/01/17 07:40 Total Bilirubin 0.5 mg/dL (0.2-1.0) D 05/01/17 07:40 AST 22 U/L (15-37) D 05/01/17 07:40 ALT 34 U/L (12-78) 05/01/17 07:40 Alkaline Phosphatase 76 U/L (45-117) 05/01/17 07:40 Total Protein 6.5 g/dl (6.4-8.2) 05/01/17 07:40 Albumin 3.4 g/dl (3.4-5.0) 05/01/17 07:40 Urine Color Ltyellow 04/30/17 21:00 Urine Appearance Clear 04/30/17 21:00 Urine pH 7.0 (5.0-8.0) 04/30/17 21:00 Ur Specific [place] 1.017 (1.001-1.035) 04/30/17 21:00 Urine Protein Negative (NEGATIVE) 04/30/17 21:00 Urine Glucose (UA) Negative (NEGATIVE) 04/30/17 21:00 Urine Ketones Negative (NEGATIVE) 04/30/17 21:00 Urine Blood Negative (NEGATIVE) 04/30/17 21:00 Urine Nitrite Negative (NEGATIVE) 04/30/17 21:00 Urine Bilirubin Negative (NEGATIVE) 04/30/17 21:00 Urine Urobilinogen Negative mg/dL (0.2-1.0) 04/30/17 21:00 Ur Leukocyte Esterase Negative (NEGATIVE) 04/30/17 21:00 RPR Titer Reactive 1:16 (NONREACTIVE) H D 05/01/17 07:40 T.pallidum Ab (MHA) Reactive (NONREACTIVE) 05/01/17 07:40 TREATED WITH BICILLIN X 1 IN DETOX. - Treatment Hospital Course: Detox Protocol Followed, Detoxed Safely, Responded well, Discharged Condition Good, Rehab Referral Accepted Patient has Accepted a Rehab Referral to: [facility] - Medication Discharge Medications: Ambulatory Orders Elviteg/Cob/Emtri/Tenof Alafen [Genvoya Tablet] 1 each PO DAILY 09/17/16 Esomeprazole Magnesium [Nexium 24Hr] 40 mg PO DAILY 04/30/17 Metoprolol Succinate [Toprol Xl] 25 mg PO DAILY 04/30/17 Multivitamin,Therapeutic [Thera] 1 each PO DAILY 04/30/17 Thiamine HCl [Vitamin B1 -] 100 mg PO DAILY 04/30/17 Quetiapine Fumarate [Seroquel] 100 mg PO HS #30 tablet 05/01/17 Sertraline HCl [Zoloft -] 50 mg PO DAILY #30 tablet 05/01/17 - Diagnosis (1) Alcohol dependence with uncomplicated withdrawal Status: Acute (2) History of nephrectomy, unilateral Status: Chronic (3) Hx of abdominal surgery Status: Chronic (4) Cocaine dependence Status: Acute Qualifiers: Substance use status: uncomplicated Qualified Code(s): F14.20 - Cocaine dependence, uncomplicated (5) Acid reflux disease Status: Chronic Qualifiers: Esophagitis presence: without esophagitis Qualified Code(s): K21.9 - Gastro -esophageal reflux disease without esophagitis (6) HIV (human immunodeficiency virus infection) Status: Chronic (7) Hypertension Status: Chronic Qualifiers: Hypertension type: essential hypertension (8) Nicotine dependence Status: Acute Qualifiers: Nicotine product type: cigarettes Substance use status: in withdrawal Qualified Code(s): F17.213 - Nicotine dependence, cigarettes, with withdrawal (9) Cannabis dependence, uncomplicated Status: Acute (10) History of hemorrhoids Status: Chronic - AMA Did Patient Leave Against Medical Advice: No
== END 2017-05-04 12:38 | disposition other institution (70) | DRG 774 ==
LOC: YASAS 14:32 → Y3N 17:03
PROVIDERS: ADMIT Internal Medicine; ATTEND Internal Medicine
PROC: HZ2ZZZZ Detoxification Services for Substance Abuse Treatment (ICD-10-PCS; principal; 2017-04-30)
DX: F10.230 Alcohol dependence with withdrawal, uncomplicated (principal); F14.20 Cocaine dependence, uncomplicated; F12.20 Cannabis dependence, uncomplicated; F17.210 Nicotine dependence, cigarettes, uncomplicated; F19.282 Other psychoactive substance dependence with psychoactive substance-induced sleep disorder; F19.24 Other psychoactive substance dependence with psychoactive substance-induced mood disorder; F33.1 Major depressive disorder, recurrent, moderate; I10 Essential (primary) hypertension; K21.9 Gastro-esophageal reflux disease without esophagitis; Z21 Asymptomatic human immunodeficiency virus [HIV] infection status; Z87.19 Personal history of other diseases of the digestive system; Z98.890 Other specified postprocedural states; Z90.5 Acquired absence of kidney
CPT/HCPCS: 36415; 80053; 81003; 85027; 86593; 86780; 93005; 93010

== ENCOUNTER 2017-05-04 13:35 | Inpatient (IN) | payer OTHER ==
[2017-05-04] MEDS ORDERED: P-EPHED 60MG/TRIPROLIDI 2.5MG TABLET PO PRN ×2 (14:27→16:21)
[2017-05-04] MEDS ORDERED: hydrOXYzine PAMOATE 50 MG CAPSULE (FP) PO PRN (14:27)
[2017-05-04] MEDS ORDERED: MAGNESIUM CITRATE 300 ML BOTTLE PO PRN ×2 (14:27→16:21)
[2017-05-04] MEDS ORDERED: IBUPROFEN 400 MG TABLET (FP) PO PRN ×2 (14:27→16:21)
[2017-05-04] MEDS ORDERED: NICOTINE POLACRILEX 2 MG GUM BUC PRN ×2 (14:27→16:21)
[2017-05-04] MEDS ORDERED: ACETAMINOPHEN 325 MG TABLET (FP) PO PRN ×2 (14:27→16:21)
[2017-05-04] MEDS ORDERED: LOPERAMIDE HCL 2 MG CAPSULE PO PRN ×2 (14:27→16:21)
[2017-05-04] MEDS ORDERED: MAG HYDROX/AL HYDROX/SIMETH 30 ML UNIT-DOSE CUP PO PRN ×2 (14:27→16:21)
[2017-05-04] MEDS ORDERED: MAGNESIUM HYDROX 2400MG/30ML ORAL SUSPENSION 30 ML CUP PO PRN ×2 (14:27→16:21)
[2017-05-04] MEDS ORDERED: guaiFENesin/D-METHORPHAN HB 10 ML UNIT-DOSE CUPS PO PRN ×2 (14:27→16:21)
[2017-05-04] MEDS ORDERED: MENTHOL/PHENOL 1 EACH UD MM PRN ×2 (14:27→16:21)
--- NOTE | 2017-05-04 14:27 | HP ---
[facility] Rehab Assess/Revision - Admission History Admitted to Rehab from: [facility] Date of Admission to Rehab: 05/04/2017 - Vital signs Vital Signs: vitalsigns and labs reeviewed - Findings Detox History & Physical reviewed: Yes Concur with findings: Yes Inpatient Rehab Admission - Initial Determination Are CD services needed?: Yes Free of communicable disease: Yes Not in need of hospitalization: Yes - Rehab Admission Criteria Comorbidities: Yes Lacks judgement: Yes Patient is meeting Inpatient Rehab admission criteria:: Yes
[2017-05-04 14:28] VITALS: BP 129/85; PULSE 67; TEMP 97.8
[2017-05-04] MEDS ORDERED: NICOTINE 14 MG/24 HOURS TOPICAL PATCH TD PRN (16:21)
[2017-05-04] MEDS ORDERED: DOCUSATE SODIUM 100 MG CAPSULE (FP) PO SCH (22:00)
[2017-05-04] MEDS ORDERED: THIAMINE HCL 100 MG TABLET (FP) PO SCH ×2 (22:00)
[2017-05-05] MEDS ORDERED: PATIENT'S OWN MEDICATION (NON-FORMULARY) (Esomeprazole Magnesium [Nexium 24hr] 40 MG) PO SCH (06:00)
[2017-05-05] MEDS ORDERED: NICOTINE 14 MG/24 HOURS TOPICAL PATCH TD SCH (10:00)
[2017-05-05] MEDS ORDERED: METOPROLOL SUCCINATE 25 MG TAB.SR.24H (FP) PO SCH (10:00)
[2017-05-05] MEDS ORDERED: PATIENT'S OWN MEDICATION (NON-FORMULARY) (Elviteg/Cob/Emtri/Tenof Alafen 1 EACH) PO SCH (10:00)
[2017-05-05] MEDS ORDERED: PRENATAL VITAMINS W/ FOLIC ACID TABLET (FP) PO SCH ×2 (10:00)
== END 2017-05-04 15:16 | disposition left against medical advice (07) | DRG 770 ==
LOC: YASAS 13:35 → Y3W 13:36
PROVIDERS: ADMIT Psychiatry & Neurology Psychiatry; ATTEND Psychiatry & Neurology Psychiatry
PROC: HZ42ZZZ Group Counseling for Substance Abuse Treatment, Cognitive-Behavioral (ICD-10-PCS; principal; 2017-05-04)
DX: F10.20 Alcohol dependence, uncomplicated (principal); F14.20 Cocaine dependence, uncomplicated; F12.20 Cannabis dependence, uncomplicated; F17.213 Nicotine dependence, cigarettes, with withdrawal; I10 Essential (primary) hypertension; K21.9 Gastro-esophageal reflux disease without esophagitis; F32.9 Major depressive disorder, single episode, unspecified

== ENCOUNTER 2017-08-19 14:00 | Inpatient (IN) | payer OTHER ==
[2017-08-19 17:21] VITALS: BMI 31.3
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
[2017-08-19] MEDS ORDERED: MAGNESIUM HYDROX 2400MG/30ML ORAL SUSPENSION 30 ML CUP PO PRN (18:43)
[2017-08-19] MEDS ORDERED: MAGNESIUM CITRATE 300 ML BOTTLE PO PRN (18:43)
[2017-08-19] MEDS ORDERED: LOPERAMIDE HCL 2 MG CAPSULE PO PRN (18:43)
[2017-08-19] MEDS ORDERED: guaiFENesin/D-METHORPHAN HB 10 ML UNIT-DOSE CUPS PO PRN (18:43)
[2017-08-19] MEDS ORDERED: MENTHOL/PHENOL 1 EACH UD MM PRN (18:43)
[2017-08-19] MEDS ORDERED: MAG HYDROX/AL HYDROX/SIMETH 30 ML UNIT-DOSE CUP PO PRN (18:43)
[2017-08-19] MEDS ORDERED: P-EPHED 60MG/TRIPROLIDI 2.5MG TABLET PO PRN (18:43)
[2017-08-19] MEDS ORDERED: NICOTINE POLACRILEX 2 MG GUM BUC PRN (18:56)
[2017-08-19] MEDS: chlordiazePOXIDE HCL 25 MG CAPSULE PO PRN (20:34)
[2017-08-19] MEDS: ACETAMINOPHEN 325 MG TABLET (FP) PO PRN (20:35)
[2017-08-19] MEDS: THIAMINE HCL 100 MG TABLET (FP) PO SCH (22:15)
[2017-08-19] MEDS: chlordiazePOXIDE HCL 25 MG CAPSULE PO SCH (22:53)
[2017-08-20] MEDS: chlordiazePOXIDE HCL 25 MG CAPSULE PO SCH ×4 (05:14→22:13)
[2017-08-20] MEDS: IBUPROFEN 400 MG TABLET (FP) PO PRN ×3 (05:16→23:45)
[2017-08-20] MEDS ORDERED: PATIENT'S OWN MEDICATION (NON-FORMULARY) (Esomeprazole Magnesium [Nexium 24hr] 40 MG) PO SCH (10:00)
[2017-08-20] MEDS ORDERED: LISINOPRIL 20 MG TABLET (FP) PO SCH (10:00)
[2017-08-20] MEDS ORDERED: PATIENT'S OWN MEDICATION (NON-FORMULARY) (Elviteg/Cob/Emtri/Tenof Alafen 1 EACH) PO SCH (10:00)
--- NOTE | 2017-08-20 10:08 | PN ---
BHS CIWA - CIWA Score Nausea/Vomitin Muscle Tremors: 3 Anxiety: 2 Agitation: 2 Paroxysmal Sweats: 1-Minimal Palms Moist Orientation: 0-Oriented Tacttile Disturbances: 1-Very Mild Itch/Numbness Auditory Disturbances: 1-Very Mild Visual Disturbances: 0-None Headache: 2-Mild CIWA-Ar Total Score: 15 BHS Progress Note (SOAP) Subjective: ALERT,IRRITABLE,ANXIOUS,INTERRUPTED SLEEP,TREMOR Objective: 08/20/17 10:06 Vital Signs Temperature 98.1 F 08/20/17 10:00 Pulse Rate 87 08/20/17 10:00 Respiratory Rate 18 08/20/17 10:00 Blood Pressure 123/82 08/20/17 10:00 O2 Sat by Pulse Oximetry (%) 08/20/17 10:06 EKG NSR,NORMAL ECG PROLONG QT 376/436 LABS PENDING Assessment: 08/20/17 10:07 WITHDRAWAL SYMPTOM Plan: CONTINUE DETOX
[2017-08-20] MEDS: PRENATAL VITAMINS W/ FOLIC ACID TABLET (FP) PO SCH (10:13)
[2017-08-20] MEDS: LISINOPRIL 20 MG TABLET (FP) PO SCH (10:13)
[2017-08-20] MEDS: NICOTINE 21 MG/24 HOURS TOPICAL PATCH TD SCH (10:14)
[2017-08-20] MEDS: PANTOPRAZOLE 40 MG TABLET (FP) PO SCH (10:14)
[2017-08-20] MEDS: hydrOXYzine PAMOATE 50 MG CAPSULE (FP) PO PRN (10:14)
[2017-08-20 10:18] LABS: URINE APPEARANCE CLEAR; URINE BILIRUBIN NEGATIVE (<2.0 mg/dL); URINE BLOOD NEGATIVE (NEGATIVE); URINE COLOR LTYELLOW; URINE GLUCOSE (UA) NEGATIVE (NEGATIVE); URINE KETONE NEGATIVE (NEGATIVE); URINE LEUK ESTERASE NEGATIVE (NEGATIVE); URINE NITRITE NEGATIVE (NEGATIVE); URINE PROTEIN NEGATIVE (NEGATIVE); URINE UROBILINOGEN NEGATIVE mg/dL (0.2-1.0)
[2017-08-20 10:25] LABS: ALBUMIN 3.6 g/dl (3.4-5.0); ANION GAP 5 (8-16); BILIRUBIN,TOTAL 0.4 mg/dL (0.2-1.0); BLOOD UREA NITROGEN 13 mg/dL (7-18); CHLORIDE 108 mmol/L (98-107); CO2 27 mmol/L (21-32); CREATININE 1.2 mg/dL (0.7-1.3); GLUCOSE,RANDOM 108 mg/dL (74-106); POTASSIUM 4.2 mmol/L (3.5-5.1); SGOT/AST 23 U/L (15-37); SGPT/ALT 18 U/L (12-78); SODIUM 140 mmol/L (136-145); TOT PROT 7.1 g/dl (6.4-8.2)
[2017-08-20 10:26] LABS: ALK PHOS 80 U/L (45-117); CALCIUM 8.4 mg/dL (8.5-10.1)
[2017-08-20 10:29] LABS: HEMATOCRIT 39.6 % (35.4-49); HEMOGLOBIN 13.4 GM/dL (11.7-16.9); MCH 28.7 pg (25.7-33.7); MCHC 33.8 g/dl (32.0-35.9); MEAN CELL VOLUME 84.8 fl (80-96); MEAN PLT VOLUME 9.4 fl (7.5-11.1); PLATELET COUNT 162 K/MM3 (134-434); RBC 4.67 M/mm3 (4.00-5.60); RDW 16.2 % (11.9-15.9); WHITE BLOOD COUNT 9.5 K/mm3 (4.0-10.0)
--- NOTE | 2017-08-20 11:36 | EKG ---
Test Reason : Blood Pressure : / mmHG Vent. Rate : 081 BPM Atrial Rate : 081 BPM P-R Int : 156 ms QRS Dur : 088 ms QT Int : 376 ms P-R-T Axes : 054 055 056 degrees QTc Int : 436 ms NORMAL SINUS RHYTHM NORMAL ECG WHEN COMPARED WITH ECG OF 30-APR-2017 19:24, NO SIGNIFICANT CHANGE WAS FOUND Confirmed by ASHLEY VELEZ MD ([id number]) on 08/20/2017 11:36:08 AM Referred By: Confirmed By:ASHLEY VELEZ MD
[2017-08-20 11:53] LABS: RPR REACTIVE 1:4 (NONREACTIVE)
[2017-08-20 11:54] LABS: TREPONEMA ANTIBODY PREVIOUSLY REACTIVE (NONREACTIVE)
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
[2017-08-20] MEDS: chlordiazePOXIDE HCL 25 MG CAPSULE PO PRN (14:37)
[2017-08-20] MEDS: THIAMINE HCL 100 MG TABLET (FP) PO SCH (22:13)
[2017-08-20] MEDS: QUEtiapine FUMARATE 100 MG TABLET (FP) PO SCH (22:13)
[2017-08-20] MEDS: MELATONIN 5 MG TABLETS PO PRN (22:16)
[2017-08-20] MEDS: ACETAMINOPHEN 325 MG TABLET (FP) PO PRN (22:17)
[2017-08-21] MEDS: chlordiazePOXIDE HCL 25 MG CAPSULE PO SCH ×3 (05:50→18:11)
[2017-08-21] MEDS: IBUPROFEN 400 MG TABLET (FP) PO PRN ×3 (05:52→20:06)
--- NOTE | 2017-08-21 06:48 | PN ---
[facility] Progress Note Note: Patient reports " My tooth hurts". Patient was seen and examined at bedside. Vital Signs Temperature 97.9 F 08/21/17 07:07 Pulse Rate 87 08/21/17 07:07 Respiratory Rate 18 08/21/17 07:07 Blood Pressure 108/68 08/21/17 07:07 O2 Sat by Pulse Oximetry (%) Laboratory Last Value WBC 9.5 K/mm3 (4.0-10.0) D 08/20/17 07:40 RBC 4.67 M/mm3 (4.00-5.60) 08/20/17 07:40 Hgb 13.4 GM/dL (11.7-16.9) 08/20/17 07:40 Hct 39.6 % (35.4-49) 08/20/17 07:40 MCV 84.8 fl (80-96) 08/20/17 07:40 MCH 28.7 pg (25.7-33.7) 08/20/17 07:40 MCHC 33.8 g/dl (32.0-35.9) 08/20/17 07:40 RDW 16.2 % (11.9-15.9) H 08/20/17 07:40 Plt Count 162 K/MM3 (134-434) 08/20/17 07:40 MPV 9.4 fl (7.5-11.1) 08/20/17 07:40 Sodium 140 mmol/L (136-145) 08/20/17 07:40 Potassium 4.2 mmol/L (3.5-5.1) 08/20/17 07:40 Chloride 108 mmol/L (98-107) H 08/20/17 07:40 Carbon Dioxide 27 mmol/L (21-32) 08/20/17 07:40 Anion Gap 5 (8-16) L 08/20/17 07:40 BUN 13 mg/dL (7-18) 08/20/17 07:40 Creatinine 1.2 mg/dL (0.7-1.3) 08/20/17 07:40 Creat Clearance w eGFR > 60 (>60) 08/20/17 07:40 Random Glucose 108 mg/dL (74-106) H 08/20/17 07:40 Calcium 8.4 mg/dL (8.5-10.1) L 08/20/17 07:40 Total Bilirubin 0.4 mg/dL (0.2-1.0) 08/20/17 07:40 AST 23 U/L (15-37) 08/20/17 07:40 ALT 18 U/L (12-78) D 08/20/17 07:40 Alkaline Phosphatase 80 U/L (45-117) 08/20/17 07:40 Total Protein 7.1 g/dl (6.4-8.2) 08/20/17 07:40 Albumin 3.6 g/dl (3.4-5.0) 08/20/17 07:40 Urine Color Ltyellow 08/20/17 07:40 Urine Appearance Clear 08/20/17 07:40 Urine pH 5.0 (5.0-8.0) D 08/20/17 07:40 Ur Specific [place] 1.023 (1.001-1.035) 08/20/17 07:40 Urine Protein Negative (NEGATIVE) 08/20/17 07:40 Urine Glucose (UA) Negative (NEGATIVE) 08/20/17 07:40 Urine Ketones Negative (NEGATIVE) 08/20/17 07:40 Urine Blood Negative (NEGATIVE) 08/20/17 07:40 Urine Nitrite Negative (NEGATIVE) 08/20/17 07:40 Urine Bilirubin Negative (<2.0 mg/dL) 08/20/17 07:40 Urine Urobilinogen Negative mg/dL (0.2-1.0) 08/20/17 07:40 Ur Leukocyte Esterase Negative (NEGATIVE) 08/20/17 07:40 RPR Titer Reactive 1:4 (NONREACTIVE) H D 08/20/17 07:40 T.pallidum Ab (MHA) Previously reactive (NONREACTIVE) 08/20/17 07:40 ACTION: Lidocaine 2% viscous oral 20ML mm Q6H PRN X 3 days ordered.
[2017-08-21] MEDS ORDERED: ONDANSETRON *ODT* 4 MG TABLET SL PRN (09:52)
--- NOTE | 2017-08-21 09:55 | PN ---
S CIWA - CIWA Score Nausea/Vomitin-Mild Nausea/No Vomiting Muscle Tremors: 4-Moderate,w/Arms Extend Anxiety: 3 Agitation: 3 Paroxysmal Sweats: 2 Orientation: 0-Oriented Tacttile Disturbances: 0-None Auditory Disturbances: 0-None Visual Disturbances: 0-None Headache: 0-None Present CIWA-Ar Total Score: 13 BHS Progress Note (SOAP) Subjective: sweats tooth ache nausea interrupted sleep Objective: 08/21/17 09:54 Vital Signs Temperature 97.9 F 08/21/17 07:07 Pulse Rate 87 08/21/17 07:07 Respiratory Rate 18 08/21/17 07:07 Blood Pressure 108/68 08/21/17 07:07 O2 Sat by Pulse Oximetry (%) Laboratory Tests 08/20/17 08/20/17 08/20/17 07:40 07:40 07:40 WBC 9.5 D RBC 4.67 Hgb 13.4 Hct 39.6 MCV 84.8 MCH 28.7 MCHC 33.8 RDW 16.2 H Plt Count 162 MPV 9.4 Sodium 140 Potassium 4.2 Chloride 108 H Carbon Dioxide 27 Anion Gap 5 L BUN 13 Creatinine 1.2 Creat Clearance w eGFR > 60 Random Glucose 108 H Calcium 8.4 L Total Bilirubin 0.4 AST 23 ALT 18 D Alkaline Phosphatase 80 Total Protein 7.1 Albumin 3.6 Urine Color Urine Appearance Urine pH Ur Specific [place] Urine Protein Urine Glucose (UA) Urine Ketones Urine Blood Urine Nitrite Urine Bilirubin Urine Urobilinogen Ur Leukocyte Esterase RPR Titer Reactive 1:4 H D T.pallidum Ab (A) Previously reactive 08/20/17 07:40 WBC RBC Hgb Hct MCV MCH MCHC RDW Plt Count MPV Sodium Potassium Chloride Carbon Dioxide Anion Gap BUN Creatinine Creat Clearance w eGFR Random Glucose Calcium Total Bilirubin AST ALT Alkaline Phosphatase Total Protein Albumin Urine Color Ltyellow Urine Appearance Clear Urine pH 5.0 D Ur Specific [place] 1.023 Urine Protein Negative Urine Glucose (UA) Negative Urine Ketones Negative Urine Blood Negative Urine Nitrite Negative Urine Bilirubin Negative Urine Urobilinogen Negative Ur Leukocyte Esterase Negative RPR Titer T.pallidum Ab (MHA) aaox3 ambulating no acute distress Assessment: 08/21/17 09:54 withdrawal sx Plan: continue detox increase fluids continue lidocaine s/s zofran SL prn
[2017-08-21] MEDS: PANTOPRAZOLE 40 MG TABLET (FP) PO SCH (10:08)
[2017-08-21] MEDS: hydrOXYzine PAMOATE 50 MG CAPSULE (FP) PO PRN (10:08)
[2017-08-21] MEDS: PRENATAL VITAMINS W/ FOLIC ACID TABLET (FP) PO SCH (10:08)
[2017-08-21] MEDS: LISINOPRIL 20 MG TABLET (FP) PO SCH (10:09)
[2017-08-21] MEDS: NICOTINE 21 MG/24 HOURS TOPICAL PATCH TD SCH (10:09)
[2017-08-21] MEDS ORDERED: COLLOIDAL OATMEAL 1 BAR EACH TP PRN (10:17)
[2017-08-21] MEDS: LIDOCAINE VISCOUS 2% ORAL/TOP 20 ML UNIT-DOSE CUP MM PRN ×2 (10:19→19:24)
[2017-08-21] MEDS: QUEtiapine FUMARATE 100 MG TABLET (FP) PO SCH (22:12)
[2017-08-21] MEDS: MELATONIN 5 MG TABLETS PO PRN (22:12)
[2017-08-21] MEDS: THIAMINE HCL 100 MG TABLET (FP) PO SCH (22:13)
[2017-08-21] MEDS: chlordiazePOXIDE 5 MG CAPSULE PO SCH (22:13)
[2017-08-22] MEDS: IBUPROFEN 400 MG TABLET (FP) PO PRN (04:48)
[2017-08-22] MEDS: chlordiazePOXIDE 5 MG CAPSULE PO SCH ×3 (05:10→17:42)
--- NOTE | 2017-08-22 10:07 | PN ---
S Progress Note (SOAP) Subjective: ALERT,IRRITABLE,INTERRUPTED SLEEP Objective: 08/22/17 10:06 Vital Signs Temperature 98.2 F 08/22/17 09:49 Pulse Rate 99 H 08/22/17 09:49 Respiratory Rate 20 08/22/17 09:49 Blood Pressure 137/97 08/22/17 09:49 O2 Sat by Pulse Oximetry (%) 08/22/17 10:10 Laboratory Last Values WBC 9.5 K/mm3 (4.0-10.0) D 08/20/17 07:40 RBC 4.67 M/mm3 (4.00-5.60) 08/20/17 07:40 Hgb 13.4 GM/dL (11.7-16.9) 08/20/17 07:40 Hct 39.6 % (35.4-49) 08/20/17 07:40 MCV 84.8 fl (80-96) 08/20/17 07:40 MCH 28.7 pg (25.7-33.7) 08/20/17 07:40 MCHC 33.8 g/dl (32.0-35.9) 08/20/17 07:40 RDW 16.2 % (11.9-15.9) H 08/20/17 07:40 Plt Count 162 K/MM3 (134-434) 08/20/17 07:40 MPV 9.4 fl (7.5-11.1) 08/20/17 07:40 Sodium 140 mmol/L (136-145) 08/20/17 07:40 Potassium 4.2 mmol/L (3.5-5.1) 08/20/17 07:40 Chloride 108 mmol/L (98-107) H 08/20/17 07:40 Carbon Dioxide 27 mmol/L (21-32) 08/20/17 07:40 Anion Gap 5 (8-16) L 08/20/17 07:40 BUN 13 mg/dL (7-18) 08/20/17 07:40 Creatinine 1.2 mg/dL (0.7-1.3) 08/20/17 07:40 Creat Clearance w eGFR > 60 (>60) 08/20/17 07:40 Random Glucose 108 mg/dL (74-106) H 08/20/17 07:40 Calcium 8.4 mg/dL (8.5-10.1) L 08/20/17 07:40 Total Bilirubin 0.4 mg/dL (0.2-1.0) 08/20/17 07:40 AST 23 U/L (15-37) 08/20/17 07:40 ALT 18 U/L (12-78) D 08/20/17 07:40 Alkaline Phosphatase 80 U/L (45-117) 08/20/17 07:40 Total Protein 7.1 g/dl (6.4-8.2) 08/20/17 07:40 Albumin 3.6 g/dl (3.4-5.0) 08/20/17 07:40 Urine Color Ltyellow 08/20/17 07:40 Urine Appearance Clear 08/20/17 07:40 Urine pH 5.0 (5.0-8.0) D 08/20/17 07:40 Ur Specific [place] 1.023 (1.001-1.035) 08/20/17 07:40 Urine Protein Negative (NEGATIVE) 08/20/17 07:40 Urine Glucose (UA) Negative (NEGATIVE) 08/20/17 07:40 Urine Ketones Negative (NEGATIVE) 08/20/17 07:40 Urine Blood Negative (NEGATIVE) 08/20/17 07:40 Urine Nitrite Negative (NEGATIVE) 08/20/17 07:40 Urine Bilirubin Negative (<2.0 mg/dL) 08/20/17 07:40 Urine Urobilinogen Negative mg/dL (0.2-1.0) 08/20/17 07:40 Ur Leukocyte Esterase Negative (NEGATIVE) 08/20/17 07:40 RPR Titer Reactive 1:4 (NONREACTIVE) H D 08/20/17 07:40 T.pallidum Ab (MHA) Previously reactive (NONREACTIVE) 08/20/17 07:40 PREVIOUSLY TREATED FOR SYPHILIS Assessment: 08/22/17 10:11 WITHDRAWAL SYMPTOM Plan: CONTINUE DETOX,DISCHARGE IN AM
[2017-08-22] MEDS: NICOTINE 21 MG/24 HOURS TOPICAL PATCH TD SCH (10:33)
[2017-08-22] MEDS: PANTOPRAZOLE 40 MG TABLET (FP) PO SCH (10:33)
[2017-08-22] MEDS: LISINOPRIL 20 MG TABLET (FP) PO SCH (10:33)
[2017-08-22] MEDS: PRENATAL VITAMINS W/ FOLIC ACID TABLET (FP) PO SCH (10:33)
[2017-08-22] MEDS: CYCLOBENZAPRINE HCL 10 MG TABLET (FP) PO PRN ×2 (11:36→20:31)
[2017-08-22] MEDS: MELATONIN 5 MG TABLETS PO PRN (22:10)
[2017-08-22] MEDS: chlordiazePOXIDE HCL 10 MG CAPSULE PO SCH (22:10)
[2017-08-22] MEDS: THIAMINE HCL 100 MG TABLET (FP) PO SCH (22:10)
[2017-08-22] MEDS: QUEtiapine FUMARATE 100 MG TABLET (FP) PO SCH (22:10)
[2017-08-23] MEDS: chlordiazePOXIDE HCL 10 MG CAPSULE PO SCH ×2 (05:08→10:11)
[2017-08-23] MEDS: CYCLOBENZAPRINE HCL 10 MG TABLET (FP) PO PRN (05:09)
--- NOTE | 2017-08-23 09:08 | PN ---
S Progress Note (SOAP) Subjective: ALERT,NO COMPLAINT Objective: 08/23/17 09:07 Vital Signs Temperature 97.9 F 08/23/17 06:22 Pulse Rate 98 H 08/23/17 06:22 Respiratory Rate 18 08/23/17 06:22 Blood Pressure 119/78 08/23/17 06:22 O2 Sat by Pulse Oximetry (%) Assessment: 08/23/17 09:07 DETOX COMPLETED,NO WITHDRAWAL SYMPTOM Plan: DISCHARGE TODAY,FOLLOW UP WITH AFTER CARE PROGRAM ARRANGEMENT
--- NOTE | 2017-08-23 09:14 | DS ---
[facility] Detox Discharge Summary Admission Date: 08/19/17 Discharge Date: 08/23/17 - History Present History: Alcohol Dependence, Cannabis Dependence, Cocaine Dependence Additional Comments: FOLLOW UP WITH AFTER CARE PROGRAM REVELATION ARRANGEMENT Pertinent Past History: NICOTINE DEPENDENCE DEHYDRATION HISTORY OF SYPHILIS - Physical Exam Results Vital Signs: Vital Signs Temperature 97.9 F 08/23/17 06:22 Pulse Rate 98 H 08/23/17 06:22 Respiratory Rate 18 08/23/17 06:22 Blood Pressure 119/78 08/23/17 06:22 O2 Sat by Pulse Oximetry (%) Pertinent Admission Physical Exam Findings: WITHDRAWAL SIGNS AND SYMPTOM Laboratory Last Values WBC 9.5 K/mm3 (4.0-10.0) D 08/20/17 07:40 RBC 4.67 M/mm3 (4.00-5.60) 08/20/17 07:40 Hgb 13.4 GM/dL (11.7-16.9) 08/20/17 07:40 Hct 39.6 % (35.4-49) 08/20/17 07:40 MCV 84.8 fl (80-96) 08/20/17 07:40 MCH 28.7 pg (25.7-33.7) 08/20/17 07:40 MCHC 33.8 g/dl (32.0-35.9) 08/20/17 07:40 RDW 16.2 % (11.9-15.9) H 08/20/17 07:40 Plt Count 162 K/MM3 (134-434) 08/20/17 07:40 MPV 9.4 fl (7.5-11.1) 08/20/17 07:40 Sodium 140 mmol/L (136-145) 08/20/17 07:40 Potassium 4.2 mmol/L (3.5-5.1) 08/20/17 07:40 Chloride 108 mmol/L (98-107) H 08/20/17 07:40 Carbon Dioxide 27 mmol/L (21-32) 08/20/17 07:40 Anion Gap 5 (8-16) L 08/20/17 07:40 BUN 13 mg/dL (7-18) 08/20/17 07:40 Creatinine 1.2 mg/dL (0.7-1.3) 08/20/17 07:40 Creat Clearance w eGFR > 60 (>60) 08/20/17 07:40 Random Glucose 108 mg/dL (74-106) H 08/20/17 07:40 Calcium 8.4 mg/dL (8.5-10.1) L 08/20/17 07:40 Total Bilirubin 0.4 mg/dL (0.2-1.0) 08/20/17 07:40 AST 23 U/L (15-37) 08/20/17 07:40 ALT 18 U/L (12-78) D 08/20/17 07:40 Alkaline Phosphatase 80 U/L (45-117) 08/20/17 07:40 Total Protein 7.1 g/dl (6.4-8.2) 08/20/17 07:40 Albumin 3.6 g/dl (3.4-5.0) 08/20/17 07:40 Urine Color Ltyellow 08/20/17 07:40 Urine Appearance Clear 08/20/17 07:40 Urine pH 5.0 (5.0-8.0) D 08/20/17 07:40 Ur Specific [place] 1.023 (1.001-1.035) 08/20/17 07:40 Urine Protein Negative (NEGATIVE) 08/20/17 07:40 Urine Glucose (UA) Negative (NEGATIVE) 08/20/17 07:40 Urine Ketones Negative (NEGATIVE) 08/20/17 07:40 Urine Blood Negative (NEGATIVE) 08/20/17 07:40 Urine Nitrite Negative (NEGATIVE) 08/20/17 07:40 Urine Bilirubin Negative (<2.0 mg/dL) 08/20/17 07:40 Urine Urobilinogen Negative mg/dL (0.2-1.0) 08/20/17 07:40 Ur Leukocyte Esterase Negative (NEGATIVE) 08/20/17 07:40 RPR Titer Reactive 1:4 (NONREACTIVE) H D 08/20/17 07:40 T.pallidum Ab (MHA) Previously reactive (NONREACTIVE) 08/20/17 07:40 Vital Signs Temperature 97.9 F 08/23/17 06:22 Pulse Rate 98 H 08/23/17 06:22 Respiratory Rate 18 08/23/17 06:22 Blood Pressure 119/78 08/23/17 06:22 O2 Sat by Pulse Oximetry (%) - Treatment Hospital Course: Detox Protocol Followed, Detoxed Safely, Responded well, Discharged Condition Good, Rehab Referral Accepted (BIBI) Patient has Accepted a Rehab Referral to: BIBI - Medication Discharge Medications: Ambulatory Orders Elviteg/Cob/Emtri/Tenof Alafen [Genvoya Tablet] 1 each PO DAILY 09/17/16 Esomeprazole Magnesium [Nexium 24Hr] 40 mg PO DAILY 04/30/17 Multivitamin,Therapeutic [Thera] 1 each PO DAILY 04/30/17 Thiamine HCl [Vitamin B1 -] 100 mg PO DAILY 04/30/17 Quetiapine Fumarate [Seroquel] 100 mg PO HS #30 tablet 05/01/17 Lisinopril 25 mg PO DAILY 08/19/17 Quetiapine Fumarate [Seroquel] 100 mg PO HS #30 tablet 08/20/17 - Diagnosis (1) Alcohol dependence with uncomplicated withdrawal Current Visit: Yes Status: Chronic (2) Nicotine dependence Current Visit: Yes Status: Acute Qualifiers: Nicotine product type: cigarettes Substance use status: uncomplicated Qualified Code(s): F17.210 - Nicotine dependence, cigarettes, uncomplicated (3) Cannabis dependence, uncomplicated Current Visit: Yes Status: Chronic (4) Cocaine dependence Current Visit: Yes Status: Chronic Qualifiers: Substance use status: uncomplicated Qualified Code(s): F14.20 - Cocaine dependence, uncomplicated (5) Acid reflux disease Current Visit: Yes Status: Chronic Qualifiers: Esophagitis presence: without esophagitis Qualified Code(s): K21.9 - Gastro -esophageal reflux disease without esophagitis (6) HIV (human immunodeficiency virus infection) Current Visit: Yes Status: Chronic (7) History of syphilis Current Visit: Yes Status: Acute - AMA Did Patient Leave Against Medical Advice: No
[2017-08-23] MEDS ORDERED: RANITIDINE HCL 150 MG TABLET (FP) PO SCH (10:00)
[2017-08-23] MEDS: LISINOPRIL 20 MG TABLET (FP) PO SCH (10:10)
[2017-08-23] MEDS: NICOTINE 21 MG/24 HOURS TOPICAL PATCH TD SCH (10:11)
[2017-08-23] MEDS: PRENATAL VITAMINS W/ FOLIC ACID TABLET (FP) PO SCH (10:11)
[2017-08-23 10:27] VITALS: BP 135/88; PULSE 109; TEMP 97.7
== END 2017-08-23 11:25 | disposition other institution (70) | DRG 774 ==
LOC: YASAS 14:00 → Y6N 18:58
PROVIDERS: ADMIT Internal Medicine; ATTEND Internal Medicine
PROC: HZ2ZZZZ Detoxification Services for Substance Abuse Treatment (ICD-10-PCS; principal; 2017-08-19)
DX: F10.230 Alcohol dependence with withdrawal, uncomplicated (principal); F14.20 Cocaine dependence, uncomplicated; F12.20 Cannabis dependence, uncomplicated; F17.210 Nicotine dependence, cigarettes, uncomplicated; F19.24 Other psychoactive substance dependence with psychoactive substance-induced mood disorder; F19.282 Other psychoactive substance dependence with psychoactive substance-induced sleep disorder; F33.2 Major depressive disorder, recurrent severe without psychotic features; I10 Essential (primary) hypertension; K64.8 Other hemorrhoids; K21.9 Gastro-esophageal reflux disease without esophagitis; Z21 Asymptomatic human immunodeficiency virus [HIV] infection status; G47.00 Insomnia, unspecified; K08.89 Other specified disorders of teeth and supporting structures; Z87.438 Personal history of other diseases of male genital organs; Z90.5 Acquired absence of kidney; Z91.013 Allergy to seafood
CPT/HCPCS: 36415; 80053; 81003; 85027; 86593; 86780; 93005; 93010; Q0162

== ENCOUNTER 2017-08-23 11:34 | Inpatient (IN) | payer OTHER ==
[2017-08-23 12:15] VITALS: BMI 32.2
[2017-08-23 12:25] VITALS: BP 143/95; PULSE 110; TEMP 98.6
--- NOTE | 2017-08-23 13:10 | HP ---
[facility] Rehab Assess/Revision - Admission History Admitted to Rehab from: [facility] [place] Date of Admission to Rehab: 08/23/17 - Vital signs Vital Signs: Vital Signs Period Temp Pulse Resp BP Sys/Prakash Pulse Ox Last 24 Hr 98.6 F 110 18 143/95 - Findings Detox History & Physical reviewed: Yes Concur with findings: Yes Comments/Additional Findings: for rehab as protocol Inpatient Rehab Admission - Initial Determination Are CD services needed?: Yes Free of communicable disease: Yes Not in need of hospitalization: Yes - Rehab Admission Criteria Previous failed treatment: Yes Poor recovery environment: Yes Comorbidities: Yes Lacks judgement: No Patient is meeting Inpatient Rehab admission criteria:: Yes
[2017-08-23] MEDS ORDERED: MAG HYDROX/AL HYDROX/SIMETH 30 ML UNIT-DOSE CUP PO PRN (13:13)
[2017-08-23] MEDS ORDERED: MENTHOL/PHENOL 1 EACH UD MM PRN (13:13)
[2017-08-23] MEDS ORDERED: P-EPHED 60MG/TRIPROLIDI 2.5MG TABLET PO PRN (13:13)
[2017-08-23] MEDS ORDERED: LOPERAMIDE HCL 2 MG CAPSULE PO PRN (13:13)
[2017-08-23] MEDS ORDERED: MAGNESIUM HYDROX 2400MG/30ML ORAL SUSPENSION 30 ML CUP PO PRN (13:13)
[2017-08-23] MEDS ORDERED: hydrOXYzine PAMOATE 50 MG CAPSULE (FP) PO PRN (13:13)
[2017-08-23] MEDS ORDERED: ACETAMINOPHEN 325 MG TABLET (FP) PO PRN (13:13)
[2017-08-23] MEDS ORDERED: IBUPROFEN 400 MG TABLET (FP) PO PRN (13:13)
[2017-08-23] MEDS ORDERED: MAGNESIUM CITRATE 300 ML BOTTLE PO PRN (13:13)
[2017-08-23] MEDS ORDERED: guaiFENesin/D-METHORPHAN HB 10 ML UNIT-DOSE CUPS PO PRN (13:13)
[2017-08-23] MEDS ORDERED: NICOTINE 21 MG/24 HOURS TOPICAL PATCH TD SCH (13:15)
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
[2017-08-23] MEDS ORDERED: MELATONIN 5 MG TABLETS PO PRN (22:00)
[2017-08-23] MEDS ORDERED: QUEtiapine FUMARATE 100 MG TABLET (FP) PO SCH (22:00)
[2017-08-23] MEDS ORDERED: THIAMINE HCL 100 MG TABLET (FP) PO SCH (22:00)
[2017-08-24] MEDS ORDERED: RANITIDINE HCL 150 MG TABLET (FP) PO SCH (10:00)
[2017-08-24] MEDS ORDERED: LISINOPRIL 20 MG TABLET (FP) PO SCH (10:00)
[2017-08-24] MEDS ORDERED: PRENATAL VITAMINS W/ FOLIC ACID TABLET (FP) PO SCH (10:00)
[2017-08-24] MEDS ORDERED: SERTRALINE HCL 50 MG TABLET (FP) PO SCH (10:00)
== END 2017-08-23 18:40 | disposition left against medical advice (07) | DRG 770 ==
LOC: YASAS 11:34 → Y3W 11:35
PROVIDERS: ADMIT Psychiatry & Neurology Psychiatry; ATTEND Psychiatry & Neurology Psychiatry
PROC: HZ42ZZZ Group Counseling for Substance Abuse Treatment, Cognitive-Behavioral (ICD-10-PCS; principal; 2017-08-23)
DX: F10.20 Alcohol dependence, uncomplicated (principal); F14.20 Cocaine dependence, uncomplicated; F12.20 Cannabis dependence, uncomplicated; F11.10 Opioid abuse, uncomplicated; F17.210 Nicotine dependence, cigarettes, uncomplicated; F19.24 Other psychoactive substance dependence with psychoactive substance-induced mood disorder; F19.282 Other psychoactive substance dependence with psychoactive substance-induced sleep disorder; F33.2 Major depressive disorder, recurrent severe without psychotic features; I10 Essential (primary) hypertension; K21.9 Gastro-esophageal reflux disease without esophagitis; Z21 Asymptomatic human immunodeficiency virus [HIV] infection status; G47.00 Insomnia, unspecified; Z87.438 Personal history of other diseases of male genital organs; Z90.5 Acquired absence of kidney; Z91.013 Allergy to seafood

== ENCOUNTER 2017-10-04 21:55 | Inpatient (IN) | payer OTHER ==
[2017-10-04] MEDS ORDERED: MELATONIN 5 MG TABLETS PO PRN (22:00)
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
[2017-10-04] MEDS ORDERED: chlordiazePOXIDE HCL 25 MG CAPSULE PO PRN (23:13)
[2017-10-04] MEDS ORDERED: guaiFENesin/D-METHORPHAN HB 10 ML UNIT-DOSE CUPS PO PRN (23:13)
[2017-10-04] MEDS ORDERED: ACETAMINOPHEN 325 MG TABLET (FP) PO PRN (23:13)
[2017-10-04] MEDS ORDERED: MENTHOL/PHENOL 1 EACH UD MM PRN (23:13)
[2017-10-04] MEDS ORDERED: MAG HYDROX/AL HYDROX/SIMETH 30 ML UNIT-DOSE CUP PO PRN (23:13)
[2017-10-04] MEDS ORDERED: LOPERAMIDE HCL 2 MG CAPSULE PO PRN (23:13)
[2017-10-04] MEDS ORDERED: MAGNESIUM HYDROX 2400MG/30ML ORAL SUSPENSION 30 ML CUP PO PRN (23:13)
[2017-10-04] MEDS ORDERED: NICOTINE POLACRILEX 2 MG GUM BC PRN (23:13)
[2017-10-04] MEDS ORDERED: MAGNESIUM CITRATE 300 ML BOTTLE PO PRN (23:13)
[2017-10-04] MEDS ORDERED: P-EPHED 60MG/TRIPROLIDI 2.5MG TABLET PO PRN (23:13)
[2017-10-04] MEDS ORDERED: IBUPROFEN 400 MG TABLET (FP) PO PRN (23:13)
[2017-10-04] MEDS ORDERED: cloNIDine HCL 0.1 MG TABLET PO ONE (23:58)
[2017-10-05 00:06] VITALS: BMI 32.5
[2017-10-05] MEDS: chlordiazePOXIDE HCL 25 MG CAPSULE PO SCH ×5 (02:42→22:29)
--- NOTE | 2017-10-05 07:43 | CONSULT ---
[facility] Psychiatric Consult - Data Date of interview: 10/05/17 Admission source: [facility] Identifying data: 42 Y.O. MALE WITH LONG HX/O ALCOHOLS HERE FOR DETOX. CLIENT IS KNOWN TO THIS PROGRAM. LAST DC 08/23/2017 BUT HAS SINCE RELAPSED. REFERRED BY [facility] AFTER PRESENTING THERE FOR ALCOHOL ABUSE. REPORTS LONGEST TIME 2.5 YEARS. HX/O ETOH RELATED SEIZURE. LAST EPISODE 04/2017. DENIES A/V HALLUCINATIONS, SI/HI, AND OVERDOSE.
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
--- NOTE | 2017-10-05 09:15 | PN ---
S CIWA - CIWA Score Nausea/Vomitin-Mild Nausea/No Vomiting Muscle Tremors: 4-Moderate,w/Arms Extend Anxiety: 4-Mod. Anxious/Guarded Agitation: 4-Moderately Restless Paroxysmal Sweats: 1-Minimal Palms Moist Orientation: 1-Uncertain about Date Tacttile Disturbances: 1-Very Mild Itch/Numbness Auditory Disturbances: 0-None Visual Disturbances: 0-None Headache: 2-Mild CIWA-Ar Total Score: 18 BHS Progress Note (SOAP) Subjective: headache sweat tremor restlessness anxiety trouble sleep at night I HAVE ONE KIDNEY I CAN NOT HAVE MOTRIN Objective: 10/05/17 09:18 Vital Signs Temperature 97.7 F 10/05/17 06:00 Pulse Rate 67 10/05/17 06:00 Respiratory Rate 18 10/05/17 06:30 Blood Pressure 141/103 10/05/17 06:00 O2 Sat by Pulse Oximetry (%) lab not available at this time received nurse reported that the patient has elevated blood pressure 10/05/17 09:20 recommend administering librium prn and antihypertensant Assessment: 10/05/17 09:22 withdrawal sx hypertension hiv 10/05/17 09:23 LEFT KIDNEY REMOVED BY HISTORY Plan: continue detox encourage bring in own ART while detoxing from alcohol DISCONTINUE MOTRIN
--- NOTE | 2017-10-05 09:38 | EKG ---
Test Reason : Blood Pressure : / mmHG Vent. Rate : 066 BPM Atrial Rate : 066 BPM P-R Int : 146 ms QRS Dur : 092 ms QT Int : 394 ms P-R-T Axes : 042 053 059 degrees QTc Int : 413 ms NORMAL SINUS RHYTHM NORMAL ECG WHEN COMPARED WITH ECG OF 19-AUG-2017 20:45, NO SIGNIFICANT CHANGE WAS FOUND Confirmed by KATELYN KIRKLAND MD ([id number]) on 10/05/2017 9:38:22 AM Referred By: Confirmed By:KATELYN KIRKLAND MD
[2017-10-05] MEDS: PANTOPRAZOLE 40 MG TABLET (FP) PO SCH (10:22)
[2017-10-05] MEDS: PRENATAL VITAMINS W/ FOLIC ACID TABLET (FP) PO SCH (10:22)
[2017-10-05] MEDS: LISINOPRIL 20 MG TABLET (FP) PO SCH (10:22)
[2017-10-05] MEDS: NICOTINE 14 MG/24 HOURS TOPICAL PATCH TD SCH (10:22)
[2017-10-05 11:52] LABS: HEMATOCRIT 39.4 % (35.4-49); HEMOGLOBIN 13.1 GM/dL (11.7-16.9); MCH 28.5 pg (25.7-33.7); MCHC 33.1 g/dl (32.0-35.9); MEAN CELL VOLUME 86.2 fl (80-96); MEAN PLT VOLUME 9.6 fl (7.5-11.1); RBC 4.57 M/mm3 (4.00-5.60); RDW 17.8 % (11.9-15.9); WHITE BLOOD COUNT 8.1 K/mm3 (4.0-10.0)
[2017-10-05 13:20] LABS: ALBUMIN 3.4 g/dl (3.4-5.0); ANION GAP 14 (8-16); BLOOD UREA NITROGEN 15 mg/dL (7-18); CALCIUM 8.7 mg/dL (8.5-10.1); CHLORIDE 107 mmol/L (98-107); CO2 21 mmol/L (21-32); GLUCOSE,RANDOM 111 mg/dL (74-106); POTASSIUM 3.7 mmol/L (3.5-5.1); SODIUM 142 mmol/L (136-145)
[2017-10-05 13:34] LABS: ALK PHOS 73 U/L (45-117); BILIRUBIN,TOTAL 0.3 mg/dL (0.2-1.0); CREATININE 1.3 mg/dL (0.7-1.3); SGOT/AST 20 U/L (15-37); SGPT/ALT 25 U/L (12-78); TOT PROT 7.1 g/dl (6.4-8.2)
--- NOTE | 2017-10-05 17:33 | PN ---
BHS Progress Note Note: c/o of back pain. Vital Signs Temperature 97.5 F L 10/05/17 14:03 Pulse Rate 82 10/05/17 14:03 Respiratory Rate 18 10/05/17 14:03 Blood Pressure 134/84 10/05/17 14:03 O2 Sat by Pulse Oximetry (%) Flexeril 5mg TID PRN increase fluids ambulate continue to monitor
[2017-10-05 18:24] LABS: URINE APPEARANCE TURBID; URINE BILIRUBIN NEGATIVE (<2.0 mg/dL); URINE BLOOD NEGATIVE (NEGATIVE); URINE COLOR YELLOW; URINE GLUCOSE (UA) NEGATIVE (NEGATIVE); URINE KETONE NEGATIVE (NEGATIVE); URINE LEUK ESTERASE TRACE (NEGATIVE); URINE NITRITE NEGATIVE (NEGATIVE); URINE PROTEIN NEGATIVE (NEGATIVE); URINE UROBILINOGEN NEGATIVE mg/dL (0.2-1.0)
[2017-10-05 18:31] LABS: URINE MUCUS MANY
[2017-10-05] MEDS: QUEtiapine FUMARATE 100 MG TABLET (FP) PO SCH (22:29)
[2017-10-05] MEDS: CYCLOBENZAPRINE HCL 5 MG TABLET PO SCH (22:29)
[2017-10-05] MEDS: THIAMINE HCL 100 MG TABLET (FP) PO SCH (22:29)
[2017-10-06] MEDS ORDERED: ONDANSETRON *ODT* 4 MG TABLET SL ONE (09:52)
--- NOTE | 2017-10-06 09:56 | PN ---
[facility] CIWA - CIWA Score Nausea/Vomitin-Mild Nausea/No Vomiting Muscle Tremors: 4-Moderate,w/Arms Extend Anxiety: 4-Mod. Anxious/Guarded Agitation: 4-Moderately Restless Paroxysmal Sweats: 1-Minimal Palms Moist Orientation: 0-Oriented Tacttile Disturbances: 0-None Auditory Disturbances: 0-None Visual Disturbances: 0-None Headache: 0-None Present CIWA-Ar Total Score: 14 S Progress Note (SOAP) Subjective: tremor sweat hot and cold chill anxiety restlessness Objective: 10/06/17 09:54 Vital Signs Temperature 97.9 F 10/06/17 09:14 Pulse Rate 105 H 10/06/17 09:14 Respiratory Rate 18 10/06/17 09:14 Blood Pressure 136/77 10/06/17 09:14 O2 Sat by Pulse Oximetry (%) Laboratory Last Values WBC 8.1 K/mm3 (4.0-10.0) 10/05/17 06:40 RBC 4.57 M/mm3 (4.00-5.60) 10/05/17 06:40 Hgb 13.1 GM/dL (11.7-16.9) 10/05/17 06:40 Hct 39.4 % (35.4-49) 10/05/17 06:40 MCV 86.2 fl (80-96) 10/05/17 06:40 MCH 28.5 pg (25.7-33.7) 10/05/17 06:40 MCHC 33.1 g/dl (32.0-35.9) 10/05/17 06:40 RDW 17.8 % (11.9-15.9) H 10/05/17 06:40 Plt Count K/MM3 (134-434) 10/05/17 06:40 MPV 9.6 fl (7.5-11.1) 10/05/17 06:40 Platelet Comment Slt plt clumping 10/05/17 06:40 Sodium 142 mmol/L (136-145) 10/05/17 06:40 Potassium 3.7 mmol/L (3.5-5.1) 10/05/17 06:40 Chloride 107 mmol/L (98-107) 10/05/17 06:40 Carbon Dioxide 21 mmol/L (21-32) D 10/05/17 06:40 Anion Gap 14 (8-16) 10/05/17 06:40 BUN 15 mg/dL (7-18) 10/05/17 06:40 Creatinine 1.3 mg/dL (0.7-1.3) 10/05/17 06:40 Creat Clearance w eGFR > 60 (>60) 10/05/17 06:40 Random Glucose 111 mg/dL (74-106) H 10/05/17 06:40 Calcium 8.7 mg/dL (8.5-10.1) 10/05/17 06:40 Total Bilirubin 0.3 mg/dL (0.2-1.0) D 10/05/17 06:40 AST 20 U/L (15-37) 10/05/17 06:40 ALT 25 U/L (12-78) D 10/05/17 06:40 Alkaline Phosphatase 73 U/L (45-117) 10/05/17 06:40 Total Protein 7.1 g/dl (6.4-8.2) 10/05/17 06:40 Albumin 3.4 g/dl (3.4-5.0) 10/05/17 06:40 Urine Color Yellow 10/05/17 18:02 Urine Appearance Turbid 10/05/17 18:02 Urine pH 5.0 (5.0-8.0) 10/05/17 18:02 Ur Specific [place] 1.030 (1.001-1.035) 10/05/17 18:02 Urine Protein Negative (NEGATIVE) 10/05/17 18:02 Urine Glucose (UA) Negative (NEGATIVE) 10/05/17 18:02 Urine Ketones Negative (NEGATIVE) 10/05/17 18:02 Urine Blood Negative (NEGATIVE) 10/05/17 18:02 Urine Nitrite Negative (NEGATIVE) 10/05/17 18:02 Urine Bilirubin Negative (<2.0 mg/dL) 10/05/17 18:02 Urine Urobilinogen Negative mg/dL (0.2-1.0) 10/05/17 18:02 Ur Leukocyte Esterase Trace (NEGATIVE) 10/05/17 18:02 Urine WBC (Auto) 13 /hpf (3-5) 10/05/17 18:02 Urine RBC (Auto) 8 /hpf (0-3) 10/05/17 18:02 Urine Mucus Many 06/13/18 18:02 lab noted Assessment: 10/06/17 09:55 withdrawal sx Plan: continue detox
[2017-10-06] MEDS: chlordiazePOXIDE HCL 25 MG CAPSULE PO SCH ×3 (10:25→20:21)
[2017-10-06] MEDS: LISINOPRIL 20 MG TABLET (FP) PO SCH (10:25)
[2017-10-06] MEDS: PANTOPRAZOLE 40 MG TABLET (FP) PO SCH (10:25)
[2017-10-06] MEDS: PRENATAL VITAMINS W/ FOLIC ACID TABLET (FP) PO SCH (10:26)
[2017-10-06] MEDS: NICOTINE 14 MG/24 HOURS TOPICAL PATCH TD SCH (10:26)
[2017-10-06] MEDS: CYCLOBENZAPRINE HCL 5 MG TABLET PO SCH ×3 (12:21→22:37)
[2017-10-06 13:23] LABS: RPR REACTIVE 1:1 (NONREACTIVE)
[2017-10-06 13:24] LABS: TREPONEMA ANTIBODY PREVIOUSLY REACTIVE (NONREACTIVE)
[2017-10-06] MEDS: THIAMINE HCL 100 MG TABLET (FP) PO SCH (22:36)
[2017-10-06] MEDS: chlordiazePOXIDE 5 MG CAPSULE PO SCH (22:37)
[2017-10-06] MEDS: QUEtiapine FUMARATE 100 MG TABLET (FP) PO SCH (22:37)
[2017-10-07] MEDS: CYCLOBENZAPRINE HCL 5 MG TABLET PO SCH ×2 (06:47→14:18)
[2017-10-07] MEDS: chlordiazePOXIDE 5 MG CAPSULE PO SCH ×2 (06:47→11:17)
[2017-10-07] MEDS: PRENATAL VITAMINS W/ FOLIC ACID TABLET (FP) PO SCH (11:17)
[2017-10-07] MEDS: LISINOPRIL 20 MG TABLET (FP) PO SCH (11:17)
[2017-10-07] MEDS: PANTOPRAZOLE 40 MG TABLET (FP) PO SCH (11:17)
[2017-10-07] MEDS: NICOTINE 14 MG/24 HOURS TOPICAL PATCH TD SCH (11:18)
--- NOTE | 2017-10-07 11:48 | PN ---
BHS Progress Note (SOAP) Subjective: ANXIETY,SWEATS,HEARTBURN.ALERT O X 3. OOB AMBULATING WITH STEADY GAIT. Objective: 10/07/17 11:47 Vital Signs 10/07/17 10/07/17 07:19 10:03 Temperature 97.7 F 97.7 F Pulse Rate 100 H 103 H Respiratory 20 16 Rate Blood Pressure 116/72 138/72 Laboratory Tests 10/05/17 10/05/17 10/05/17 06:40 06:40 06:40 WBC 8.1 RBC 4.57 Hgb 13.1 Hct 39.4 MCV 86.2 MCH 28.5 MCHC 33.1 RDW 17.8 H Plt Count MPV 9.6 Platelet Comment Slt plt clumping Sodium 142 Potassium 3.7 Chloride 107 Carbon Dioxide 21 D Anion Gap 14 BUN 15 Creatinine 1.3 Creat Clearance w eGFR > 60 Random Glucose 111 H Calcium 8.7 Total Bilirubin 0.3 D AST 20 ALT 25 D Alkaline Phosphatase 73 Total Protein 7.1 Albumin 3.4 Urine Color Urine Appearance Urine pH Ur Specific [place] Urine Protein Urine Glucose (UA) Urine Ketones Urine Blood Urine Nitrite Urine Bilirubin Urine Urobilinogen Ur Leukocyte Esterase Urine WBC (Auto) Urine RBC (Auto) Urine Mucus RPR Titer Reactive 1:1 H D T.pallidum Ab (A) Previously reactive 10/05/17 18:02 WBC RBC Hgb Hct MCV MCH MCHC RDW Plt Count MPV Platelet Comment Sodium Potassium Chloride Carbon Dioxide Anion Gap BUN Creatinine Creat Clearance w eGFR Random Glucose Calcium Total Bilirubin AST ALT Alkaline Phosphatase Total Protein Albumin Urine Color Yellow Urine Appearance Turbid Urine pH 5.0 Ur Specific [place] 1.030 Urine Protein Negative Urine Glucose (UA) Negative Urine Ketones Negative Urine Blood Negative Urine Nitrite Negative Urine Bilirubin Negative Urine Urobilinogen Negative Ur Leukocyte Esterase Trace Urine WBC (Auto) 13 Urine RBC (Auto) 8 Urine Mucus Many RPR Titer T.pallidum Ab (MHA) Assessment: 10/07/17 11:47 WITHDRAWAL SX Plan: CONTINUE DETOX INCREASE PO FLUIDS. [place] PRN
[2017-10-07 14:30] VITALS: BP 136/89; PULSE 109; TEMP 98.1
--- NOTE | 2017-10-07 18:34 | PN ---
[facility] Progress Note Note: Met w/ patient because he insists on signing out AMA. Discussed risk of relapse and prevention techniques and patient verbalizes an understanding. 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 Patient is alert and oriented and in no distress and is leaving AMA.
--- NOTE | 2017-10-07 18:41 | DS ---
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 - Physical Exam Results Vital Signs: Vital Signs Temperature 98.1 F 10/07/17 14:00 Pulse Rate 109 H 10/07/17 14:00 Respiratory Rate 18 10/07/17 14:00 Blood Pressure 136/89 10/07/17 14:00 O2 Sat by Pulse Oximetry (%) Pertinent Admission Physical Exam Findings: Patient insists on leaving AMA despite discussion r/t potential relapse and overdose risks. Discussed preventive techniques. - Treatment Hospital Course: Responded well - Medication Discharge Medications: Ambulatory Orders Elviteg/Cob/Emtri/Tenof Alafen [Genvoya (Non-Formulary)] 1 each PO DAILY Esomeprazole Magnesium [Nexium 24Hr] 40 mg PO DAILY 04/30/17 Multivitamin,Therapeutic [Thera] 1 each PO DAILY 04/30/17 Lisinopril 20 mg PO DAILY #30 tablet 08/23/17 Quetiapine Fumarate [Seroquel] 100 mg PO HS #30 tablet 10/05/17
[2017-10-07] MEDS ORDERED: chlordiazePOXIDE HCL 10 MG CAPSULE PO SCH (23:00)
== END 2017-10-07 17:15 | disposition left against medical advice (07) | DRG 770 ==
LOC: YASAS 21:55 → Y6N 23:43
PROVIDERS: ADMIT Surgery; ATTEND Surgery
PROC: HZ2ZZZZ Detoxification Services for Substance Abuse Treatment (ICD-10-PCS; principal; 2017-10-04)
DX: F10.230 Alcohol dependence with withdrawal, uncomplicated (principal); F14.20 Cocaine dependence, uncomplicated; F12.20 Cannabis dependence, uncomplicated; F17.213 Nicotine dependence, cigarettes, with withdrawal; F19.24 Other psychoactive substance dependence with psychoactive substance-induced mood disorder; F19.282 Other psychoactive substance dependence with psychoactive substance-induced sleep disorder; F33.2 Major depressive disorder, recurrent severe without psychotic features; K21.9 Gastro-esophageal reflux disease without esophagitis; Z21 Asymptomatic human immunodeficiency virus [HIV] infection status; I10 Essential (primary) hypertension; E66.9 Obesity, unspecified; Z68.32 Body mass index [BMI] 32.0-32.9, adult; Z86.69 Personal history of other diseases of the nervous system and sense organs; Z90.5 Acquired absence of kidney; Z87.438 Personal history of other diseases of male genital organs; Z91.013 Allergy to seafood
CPT/HCPCS: 36415; 80053; 81003; 81015; 85027; 86593; 86780; 93005; 93010; J0735; Q0162

== ENCOUNTER 2018-01-06 11:56 | Inpatient (IN) | payer OTHER ==
[2018-01-06 16:44] VITALS: BMI 31.3
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
[2018-01-06] MEDS ORDERED: guaiFENesin/D-METHORPHAN HB 10 ML UNIT-DOSE CUPS PO PRN (18:34)
[2018-01-06] MEDS ORDERED: MAGNESIUM HYDROX 2400MG/30ML ORAL SUSPENSION 30 ML CUP PO PRN (18:34)
[2018-01-06] MEDS ORDERED: MENTHOL/PHENOL 1 EACH UD MM PRN (18:34)
[2018-01-06] MEDS ORDERED: ACETAMINOPHEN 325 MG TABLET (FP) PO PRN (18:34)
[2018-01-06] MEDS ORDERED: IBUPROFEN 400 MG TABLET (FP) PO PRN (18:34)
[2018-01-06] MEDS ORDERED: LOPERAMIDE HCL 2 MG CAPSULE PO PRN (18:34)
[2018-01-06] MEDS ORDERED: NICOTINE POLACRILEX 2 MG GUM BC PRN (18:34)
[2018-01-06] MEDS ORDERED: MAGNESIUM CITRATE 300 ML BOTTLE PO PRN (18:34)
[2018-01-06] MEDS ORDERED: P-EPHED 60MG/TRIPROLIDI 2.5MG TABLET PO PRN (18:34)
[2018-01-06] MEDS ORDERED: chlordiazePOXIDE HCL 25 MG CAPSULE PO ONE (20:37)
[2018-01-06] MEDS ORDERED: chlordiazePOXIDE HCL 25 MG CAPSULE PO PRN (20:37)
[2018-01-06] MEDS: chlordiazePOXIDE HCL 25 MG CAPSULE PO SCH (22:11)
[2018-01-06] MEDS: THIAMINE HCL 100 MG TABLET (FP) PO SCH (22:11)
[2018-01-06] MEDS: MELATONIN 5 MG TABLETS PO PRN (22:11)
[2018-01-07] MEDS: chlordiazePOXIDE HCL 25 MG CAPSULE PO SCH ×4 (05:20→22:38)
[2018-01-07] MEDS ORDERED: PATIENT'S OWN MEDICATION (NON-FORMULARY) (Elviteg/Cob/Emtri/Tenof Alafen 1 EACH) PO SCH (10:00)
[2018-01-07] MEDS ORDERED: LISINOPRIL 20 MG TABLET (FP) PO SCH (10:00)
[2018-01-07] MEDS: PRENATAL VITAMINS W/ FOLIC ACID TABLET (FP) PO SCH (10:37)
[2018-01-07] MEDS: amLODIPine BESYLATE 10 MG TABLET (FP) PO SCH (10:37)
[2018-01-07] MEDS: NICOTINE 21 MG/24 HOURS TOPICAL PATCH TD SCH (10:38)
[2018-01-07] MEDS: OMEPRAZOLE MAGNESIUM 40 MG PO SCH (10:38)
[2018-01-07 11:20] LABS: ALBUMIN 3.4 g/dl (3.4-5.0); ANION GAP 11 MMOL/L (8-16); BLOOD UREA NITROGEN 14 mg/dL (7-18); CALCIUM 8.6 mg/dL (8.5-10.1); CHLORIDE 107 mmol/L (98-107); CO2 24 mmol/L (21-32); CREATININE 1.1 mg/dL (0.55-1.3); GLUCOSE,RANDOM 105 mg/dL (74-106); POTASSIUM 3.8 mmol/L (3.5-5.1); SGOT/AST 23 U/L (15-37); SGPT/ALT 21 U/L (13-61); SODIUM 142 mmol/L (136-145)
[2018-01-07 11:21] LABS: HEMATOCRIT 40.9 % (35.4-49); HEMOGLOBIN 13.5 GM/dL (11.7-16.9); MCH 28.2 pg (25.7-33.7); MCHC 32.9 g/dl (32.0-35.9); MEAN CELL VOLUME 85.7 fl (80-96); MEAN PLT VOLUME 9.1 fl (7.5-11.1); PLATELET COUNT 161 K/MM3 (134-434); RBC 4.77 M/mm3 (4.00-5.60); RDW 18.7 % (11.9-15.9); WHITE BLOOD COUNT 5.2 K/mm3 (4.0-10.0)
[2018-01-07 11:23] LABS: ALK PHOS 67 U/L (45-117); BILIRUBIN,TOTAL 0.3 mg/dL (0.2-1.0); TOT PROT 7.1 g/dl (6.4-8.2)
[2018-01-07 11:40] LABS: RPR REACTIVE 1:1 (NONREACTIVE)
[2018-01-07 11:41] LABS: TREPONEMA ANTIBODY PREVIOUSLY REACTIVE (NONREACTIVE)
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
[2018-01-07 17:56] LABS: URINE APPEARANCE CLEAR; URINE BILIRUBIN NEGATIVE (<2.0 mg/dL); URINE COLOR LTYELLOW; URINE GLUCOSE (UA) NEGATIVE (NEGATIVE); URINE KETONE NEGATIVE (NEGATIVE); URINE LEUK ESTERASE NEGATIVE (NEGATIVE); URINE NITRITE NEGATIVE (NEGATIVE); URINE PROTEIN NEGATIVE (NEGATIVE); URINE UROBILINOGEN NEGATIVE mg/dL (0.2-1.0)
[2018-01-07] MEDS: METHOCARBAMOL 500 MG TABLET PO PRN (18:54)
[2018-01-07] MEDS: THIAMINE HCL 100 MG TABLET (FP) PO SCH (22:38)
[2018-01-07] MEDS: QUEtiapine FUMARATE 100 MG TABLET (FP) PO SCH (22:38)
[2018-01-07] MEDS: MELATONIN 5 MG TABLETS PO PRN (22:39)
[2018-01-08] MEDS: MAG HYDROX/AL HYDROX/SIMETH 30 ML UNIT-DOSE CUP PO PRN ×2 (01:25→10:45)
[2018-01-08] MEDS: chlordiazePOXIDE HCL 25 MG CAPSULE PO SCH ×3 (05:17→17:14)
[2018-01-08] MEDS: OMEPRAZOLE MAGNESIUM 40 MG PO SCH (10:43)
[2018-01-08] MEDS: SERTRALINE HCL 50 MG TABLET (FP) PO SCH (10:43)
[2018-01-08] MEDS: amLODIPine BESYLATE 10 MG TABLET (FP) PO SCH (10:43)
[2018-01-08] MEDS: NICOTINE 21 MG/24 HOURS TOPICAL PATCH TD SCH (10:44)
[2018-01-08] MEDS: PRENATAL VITAMINS W/ FOLIC ACID TABLET (FP) PO SCH (10:44)
--- NOTE | 2018-01-08 14:52 | PN ---
S CIWA - CIWA Score Nausea/Vomitin Muscle Tremors: 4-Moderate,w/Arms Extend Anxiety: 4-Mod. Anxious/Guarded Agitation: 4-Moderately Restless Paroxysmal Sweats: 3 Orientation: 0-Oriented Tacttile Disturbances: 1-Very Mild Itch/Numbness Auditory Disturbances: 0-None Visual Disturbances: 0-None Headache: 0-None Present CIWA-Ar Total Score: 18 [facility] Progress Note (SOAP) Subjective: Interrupted sleep, chills, body ache, legs/arms hurt. Patient requesting to change omeprazole to earlier (0700) time daily Objective: 01/08/18 14:51 Last Vital Signs Temp Pulse Resp BP Pulse Ox 97.5 F L 106 H 18 132/88 01/08/18 13:53 01/08/18 13:53 01/08/18 13:53 01/08/18 13:53 Laboratory Tests 01/07/18 01/07/18 01/07/18 07:50 07:50 07:50 WBC 5.2 RBC 4.77 Hgb 13.5 Hct 40.9 MCV 85.7 MCH 28.2 MCHC 32.9 RDW 18.7 H Plt Count 161 MPV 9.1 Sodium 142 Potassium 3.8 Chloride 107 Carbon Dioxide 24 Anion Gap 11 BUN 14 Creatinine 1.1 Creat Clearance w eGFR > 60 Random Glucose 105 Calcium 8.6 Total Bilirubin 0.3 AST 23 ALT 21 Alkaline Phosphatase 67 Total Protein 7.1 Albumin 3.4 Urine Color Urine Appearance Urine pH Ur Specific [place] Urine Protein Urine Glucose (UA) Urine Ketones Urine Blood Urine Nitrite Urine Bilirubin Urine Urobilinogen Ur Leukocyte Esterase RPR Titer Reactive 1:1 H T.pallidum Ab (A) Previously reactive 01/07/18 12:23 WBC RBC Hgb Hct MCV MCH MCHC RDW Plt Count MPV Sodium Potassium Chloride Carbon Dioxide Anion Gap BUN Creatinine Creat Clearance w eGFR Random Glucose Calcium Total Bilirubin AST ALT Alkaline Phosphatase Total Protein Albumin Urine Color Ltyellow Urine Appearance Clear Urine pH 6.0 Ur Specific [place] 1.013 Urine Protein Negative Urine Glucose (UA) Negative Urine Ketones Negative Urine Blood Negative Urine Nitrite Negative Urine Bilirubin Negative Urine Urobilinogen Negative Ur Leukocyte Esterase Negative RPR Titer T.pallidum Ab (A) Labs reviewed Assessment: 01/08/18 14:52 Withdrawal symptoms Plan: Continue detox
[2018-01-08] MEDS: METHOCARBAMOL 500 MG TABLET PO PRN (17:15)
[2018-01-08] MEDS: hydrOXYzine PAMOATE 50 MG CAPSULE (FP) PO PRN (19:18)
[2018-01-08] MEDS: QUEtiapine FUMARATE 100 MG TABLET (FP) PO SCH (22:03)
[2018-01-08] MEDS: chlordiazePOXIDE 5 MG CAPSULE PO SCH (22:03)
[2018-01-08] MEDS: THIAMINE HCL 100 MG TABLET (FP) PO SCH (22:03)
[2018-01-08] MEDS: MELATONIN 5 MG TABLETS PO PRN (22:03)
--- NOTE | 2018-01-08 22:33 | EKG ---
Test Reason : Blood Pressure : / mmHG Vent. Rate : 083 BPM Atrial Rate : 083 BPM P-R Int : 146 ms QRS Dur : 084 ms QT Int : 354 ms P-R-T Axes : 051 063 066 degrees QTc Int : 415 ms NORMAL SINUS RHYTHM NORMAL ECG WHEN COMPARED WITH ECG OF 05-OCT-2017 01:55, NO SIGNIFICANT CHANGE WAS FOUND Confirmed by STUATR DAWSON MD ([id number]) on 01/08/2018 10:33:32 PM Referred By: Confirmed By:STUART DAWSON MD
[2018-01-09] MEDS: chlordiazePOXIDE 5 MG CAPSULE PO SCH ×3 (06:01→17:27)
[2018-01-09] MEDS ORDERED: OMEPRAZOLE MAGNESIUM 40 MG PO SCH (07:00)
[2018-01-09] MEDS: SERTRALINE HCL 50 MG TABLET (FP) PO SCH (10:43)
[2018-01-09] MEDS: amLODIPine BESYLATE 10 MG TABLET (FP) PO SCH (10:43)
[2018-01-09] MEDS: NICOTINE 21 MG/24 HOURS TOPICAL PATCH TD SCH (10:43)
[2018-01-09] MEDS: PRENATAL VITAMINS W/ FOLIC ACID TABLET (FP) PO SCH (10:43)
[2018-01-09] MEDS: METHOCARBAMOL 500 MG TABLET PO PRN ×2 (10:45→17:27)
--- NOTE | 2018-01-09 16:24 | PN ---
[facility] Progress Note Note: Vital Signs Temperature 97.4 F L 01/09/18 13:25 Pulse Rate 98 H 01/09/18 13:25 Respiratory Rate 18 01/09/18 13:25 Blood Pressure 126/71 01/09/18 13:25 O2 Sat by Pulse Oximetry (%) Patient reports he will have his Genvoya delivered to the facility.
[2018-01-09 17:54] VITALS: BP 128/73; PULSE 107; TEMP 98.5
--- NOTE | 2018-01-09 18:09 | PN ---
[facility] CIWA - CIWA Score Nausea/Vomitin Muscle Tremors: 3 Anxiety: 3 Agitation: 2 Paroxysmal Sweats: 3 Orientation: 0-Oriented Tacttile Disturbances: 0-None Auditory Disturbances: 0-None Visual Disturbances: 0-None Headache: 0-None Present CIWA-Ar Total Score: 13 [facility] Progress Note (SOAP) Subjective: Sweats shakes Objective: 01/09/18 18:08 A & O x 3 Anxious Unlabored breathing Vital Signs Temperature 98.5 F 01/09/18 17:53 Pulse Rate 107 H 01/09/18 17:53 Respiratory Rate 20 01/09/18 17:53 Blood Pressure 128/73 01/09/18 17:53 O2 Sat by Pulse Oximetry (%) Assessment: 01/09/18 18:08 withdrawal sx Anxiety Plan: continue detox
[2018-01-09] MEDS: hydrOXYzine PAMOATE 50 MG CAPSULE (FP) PO PRN (20:13)
[2018-01-09] MEDS: QUEtiapine FUMARATE 100 MG TABLET (FP) PO SCH (22:02)
[2018-01-09] MEDS: THIAMINE HCL 100 MG TABLET (FP) PO SCH (22:02)
[2018-01-09] MEDS ORDERED: chlordiazePOXIDE HCL 10 MG CAPSULE PO SCH (23:00)
--- NOTE | 2018-01-09 23:45 | DS ---
[facility] Detox Discharge Summary Admission Date: 01/06/18 Discharge Date: 01/09/18 - History Present History: Alcohol Dependence, Cannabis Dependence, Cocaine Dependence Pertinent Past History: SANDI HIV HTN NICOTINE DEP OBESITY - Physical Exam Results Vital Signs: Vital Signs Temperature 98.5 F 01/09/18 17:53 Pulse Rate 107 H 01/09/18 17:53 Respiratory Rate 20 01/09/18 17:53 Blood Pressure 128/73 01/09/18 17:53 O2 Sat by Pulse Oximetry (%) Pertinent Admission Physical Exam Findings: WITHDRAWAL SX'S - Treatment Hospital Course: Discharged Condition Good Patient has Accepted a Rehab Referral to: [facility]CL[facility]ED - Medication Discharge Medications: Ambulatory Orders Elviteg/Cob/Emtri/Tenof Alafen [Genvoya (Non-Formulary)] 1 each PO DAILY Multivitamin,Therapeutic [Thera] 1 each PO DAILY 04/30/17 Lisinopril 20 mg PO DAILY #30 tablet 08/23/17 Amlodipine Besylate [Norvasc -] 10 mg PO DAILY 01/06/18 Omeprazole Magnesium [Acid Underground [employer]] 40 mg PO DAILY 01/06/18 Quetiapine Fumarate [Seroquel] 50 mg PO HS 01/06/18 Sertraline HCl [Zoloft -] 25 mg PO DAILY 01/06/18 - Diagnosis (1) Alcohol dependence with uncomplicated withdrawal Status: Acute (2) Cocaine dependence Status: Acute Qualifiers: (3) Insomnia Status: Acute (4) Substance induced mood disorder Status: Acute (5) Cannabis dependence, uncomplicated Status: Chronic (6) Drug-induced mood disorder Status: Chronic (7) GERD (gastroesophageal reflux disease) Status: Chronic Qualifiers: Esophagitis presence: esophagitis presence not specified Qualified Code(s) : K21.9 - Gastro-esophageal reflux disease without esophagitis (8) HIV (human immunodeficiency virus infection) Status: Chronic (9) HTN (hypertension) Status: Chronic Qualifiers: Hypertension type: essential hypertension Qualified Code(s): I10 - Essential (primary) hypertension (10) Nicotine dependence Status: Chronic Qualifiers: Nicotine product type: cigarettes Substance use status: in withdrawal Qualified Code(s): F17.213 - Nicotine dependence, cigarettes, with withdrawal (11) Obesity (BMI 30.0-34.9) Status: Chronic - AMA Did Patient Leave Against Medical Advice: Yes (CLIENT DID NOT WANT TO CONTINUE WITH HIS TXMENT)
== END 2018-01-09 23:34 | disposition left against medical advice (07) | DRG 770 ==
LOC: YASAS 11:56 → Y3N 17:47
PROC: HZ2ZZZZ Detoxification Services for Substance Abuse Treatment (ICD-10-PCS; principal; 2018-01-06)
DX: F10.230 Alcohol dependence with withdrawal, uncomplicated (principal); F14.20 Cocaine dependence, uncomplicated; F12.20 Cannabis dependence, uncomplicated; F17.213 Nicotine dependence, cigarettes, with withdrawal; F19.24 Other psychoactive substance dependence with psychoactive substance-induced mood disorder; F19.282 Other psychoactive substance dependence with psychoactive substance-induced sleep disorder; F33.1 Major depressive disorder, recurrent, moderate; Z21 Asymptomatic human immunodeficiency virus [HIV] infection status; I10 Essential (primary) hypertension; K21.9 Gastro-esophageal reflux disease without esophagitis; G47.00 Insomnia, unspecified; E66.9 Obesity, unspecified; Z68.31 Body mass index [BMI] 31.0-31.9, adult; Z91.013 Allergy to seafood
CPT/HCPCS: 36415; 80053; 81003; 85027; 86593; 86780; 93005; 93010

== ENCOUNTER 2018-03-24 15:25 | Inpatient (IN) | payer OTHER ==
[2018-03-24 16:28] VITALS: BMI 33.5
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
[2018-03-24] MEDS ORDERED: IBUPROFEN 400 MG TABLET (FP) PO PRN (19:23)
[2018-03-24] MEDS ORDERED: MENTHOL/PHENOL 1 EACH UD MM PRN (19:23)
[2018-03-24] MEDS ORDERED: MAGNESIUM HYDROX 2400MG/30ML ORAL SUSPENSION 30 ML CUP PO PRN (19:23)
[2018-03-24] MEDS ORDERED: NICOTINE POLACRILEX 2 MG GUM BUC PRN (19:23)
[2018-03-24] MEDS ORDERED: MAGNESIUM CITRATE 300 ML BOTTLE PO PRN (19:23)
[2018-03-24] MEDS ORDERED: chlordiazePOXIDE HCL 25 MG CAPSULE PO ONE (19:23)
[2018-03-24] MEDS ORDERED: chlordiazePOXIDE HCL 25 MG CAPSULE PO PRN (19:23)
[2018-03-24] MEDS ORDERED: ACETAMINOPHEN 325 MG TABLET (FP) PO PRN (19:23)
[2018-03-24] MEDS ORDERED: LOPERAMIDE HCL 2 MG CAPSULE PO PRN (19:23)
[2018-03-24] MEDS ORDERED: cloNIDine HCL 0.1 MG TABLET PO ONE (19:28)
[2018-03-24] MEDS ORDERED: MELATONIN 5 MG TABLETS PO PRN (22:00)
[2018-03-24] MEDS: MAG HYDROX/AL HYDROX/SIMETH 30 ML UNIT-DOSE CUP PO PRN (22:28)
[2018-03-24] MEDS: chlordiazePOXIDE HCL 25 MG CAPSULE PO SCH (22:52)
[2018-03-24] MEDS: THIAMINE HCL 100 MG TABLET (FP) PO SCH (22:52)
[2018-03-24 23:17] LABS: URINE APPEARANCE CLEAR; URINE BILIRUBIN NEGATIVE (<2.0 mg/dL); URINE COLOR STRAW; URINE GLUCOSE (UA) NEGATIVE (NEGATIVE); URINE KETONE NEGATIVE (NEGATIVE); URINE LEUK ESTERASE NEGATIVE (NEGATIVE); URINE NITRITE NEGATIVE (NEGATIVE); URINE PROTEIN NEGATIVE (NEGATIVE); URINE UROBILINOGEN NEGATIVE mg/dL (0.2-1.0)
[2018-03-25] MEDS: MAG HYDROX/AL HYDROX/SIMETH 30 ML UNIT-DOSE CUP PO PRN ×2 (04:04→09:27)
[2018-03-25] MEDS: chlordiazePOXIDE HCL 25 MG CAPSULE PO SCH ×4 (05:50→22:13)
[2018-03-25] MEDS ORDERED: OMEPRAZOLE MAGNESIUM 40 MG PO SCH (10:00)
[2018-03-25] MEDS ORDERED: PANTOPRAZOLE 40 MG TABLET (FP) PO SCH (10:00)
[2018-03-25] MEDS: PRENATAL VITAMINS W/ FOLIC ACID TABLET (FP) PO SCH (10:04)
[2018-03-25] MEDS: NICOTINE 21 MG/24 HOURS TOPICAL PATCH TD SCH (10:04)
[2018-03-25] MEDS ORDERED: OMEPRAZOLE MAGNESIUM PO SCH (12:00)
--- NOTE | 2018-03-25 12:05 | PN ---
[facility] CIWA - CIWA Score Nausea/Vomitin Muscle Tremors: 2 Anxiety: 3 Agitation: 3 Paroxysmal Sweats: 2 Orientation: 0-Oriented Tacttile Disturbances: 0-None Auditory Disturbances: 0-None Visual Disturbances: 0-None Headache: 0-None Present CIWA-Ar Total Score: 13 S Progress Note (SOAP) Subjective: HEART BURN - STATES HE CANNOT TOLERATE PROTONIX AND WANTS TO CONTINUE OWN OMEPRAZOLE, STATES FURTHER THAT HE WILL CALL HIS MD ON TUESDAY TO SEND PRESCRIPTION OMEPRAZOLE TO [facility] TO USE WHEN HE GOES TO REHAB NAUSEOUS ANXIETY Objective: 03/25/18 12:02 A & O X 3 GAIT STEADY ANXIOUS Vital Signs Temperature 97.9 F 03/25/18 10:37 Pulse Rate 87 03/25/18 10:37 Respiratory Rate 18 03/25/18 10:37 Blood Pressure 145/97 03/25/18 10:37 O2 Sat by Pulse Oximetry (%) Laboratory Last Values Urine Color Straw 03/24/18 23:00 Urine Appearance Clear 03/24/18 23:00 Urine pH 6.0 (5.0-8.0) 03/24/18 23:00 Ur Specific [place] 1.015 (1.010-1.035) 03/24/18 23:00 Urine Protein Negative (NEGATIVE) 03/24/18 23:00 Urine Glucose (UA) Negative (NEGATIVE) 03/24/18 23:00 Urine Ketones Negative (NEGATIVE) 03/24/18 23:00 Urine Blood Negative (NEGATIVE) 03/24/18 23:00 Urine Nitrite Negative (NEGATIVE) 03/24/18 23:00 Urine Bilirubin Negative (<2.0 mg/dL) 03/24/18 23:00 Urine Urobilinogen Negative mg/dL (0.2-1.0) 03/24/18 23:00 Ur Leukocyte Esterase Negative (NEGATIVE) 03/24/18 23:00 UA NOTED LABS PENDING Assessment: 03/25/18 12:05 WITHDRAWAL SX ACID REFLUX Plan: CONTINUE DETOX SWITCH PROTONIX FOR PT'S STOCK OF OMEPRAZOLE
[2018-03-25] MEDS: amLODIPine BESYLATE 10 MG TABLET (FP) PO SCH (14:40)
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
[2018-03-25] MEDS ORDERED: QUEtiapine FUMARATE 100 MG TABLET (FP) PO SCH (22:00)
[2018-03-25] MEDS: THIAMINE HCL 100 MG TABLET (FP) PO SCH (22:12)
[2018-03-26] MEDS: chlordiazePOXIDE HCL 25 MG CAPSULE PO SCH ×3 (05:24→17:32)
--- NOTE | 2018-03-26 09:26 | PN ---
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 patient request to have acid reductant now for today and follow up at before breakfast tremor sweat gi distress Objective: 03/26/18 14:21 Vital Signs Temperature 98.1 F 03/26/18 13:56 Pulse Rate 98 H 03/26/18 13:56 Respiratory Rate 18 03/26/18 13:56 Blood Pressure 116/70 03/26/18 13:56 O2 Sat by Pulse Oximetry (%) Laboratory Last Values WBC 6.1 K/mm3 (4.0-10.0) 03/26/18 07:10 RBC 4.64 M/mm3 (4.00-5.60) 03/26/18 07:10 Hgb 13.1 GM/dL (11.7-16.9) 03/26/18 07:10 Hct 40.5 % (35.4-49) 03/26/18 07:10 MCV 87.3 fl (80-96) 03/26/18 07:10 MCH 28.2 pg (25.7-33.7) 03/26/18 07:10 MCHC 32.3 g/dl (32.0-35.9) 03/26/18 07:10 RDW 16.9 % (11.9-15.9) H 03/26/18 07:10 Plt Count 206 K/MM3 (134-434) D 03/26/18 07:10 MPV 9.3 fl (7.5-11.1) 03/26/18 07:10 Sodium 140 mmol/L (136-145) 03/26/18 07:10 Potassium 3.6 mmol/L (3.5-5.1) 03/26/18 07:10 Chloride 105 mmol/L (98-107) 03/26/18 07:10 Carbon Dioxide 25 mmol/L (21-32) 03/26/18 07:10 Anion Gap 10 MMOL/L (8-16) 03/26/18 07:10 BUN 15 mg/dL (7-18) 03/26/18 07:10 Creatinine 1.3 mg/dL (0.55-1.3) 03/26/18 07:10 Creat Clearance w eGFR > 60 (>60) 03/26/18 07:10 Random Glucose 118 mg/dL (74-106) H 03/26/18 07:10 Calcium 8.3 mg/dL (8.5-10.1) L 03/26/18 07:10 Total Bilirubin 0.2 mg/dL (0.2-1) 03/26/18 07:10 AST 18 U/L (15-37) 03/26/18 07:10 ALT 25 U/L (13-61) 03/26/18 07:10 Alkaline Phosphatase 70 U/L (45-117) 03/26/18 07:10 Total Protein 7.1 g/dl (6.4-8.2) 03/26/18 07:10 Albumin 3.5 g/dl (3.4-5.0) 03/26/18 07:10 Urine Color Straw 03/24/18 23:00 Urine Appearance Clear 03/24/18 23:00 Urine pH 6.0 (5.0-8.0) 03/24/18 23:00 Ur Specific [place] 1.015 (1.010-1.035) 03/24/18 23:00 Urine Protein Negative (NEGATIVE) 03/24/18 23:00 Urine Glucose (UA) Negative (NEGATIVE) 03/24/18 23:00 Urine Ketones Negative (NEGATIVE) 03/24/18 23:00 Urine Blood Negative (NEGATIVE) 03/24/18 23:00 Urine Nitrite Negative (NEGATIVE) 03/24/18 23:00 Urine Bilirubin Negative (<2.0 mg/dL) 03/24/18 23:00 Urine Urobilinogen Negative mg/dL (0.2-1.0) 03/24/18 23:00 Ur Leukocyte Esterase Negative (NEGATIVE) 03/24/18 23:00 RPR Titer Reactive 1:1 (NONREACTIVE) H 03/26/18 07:10 T.pallidum Ab (MHA) Previously reactive (NONREACTIVE) 03/26/18 07:10 lab noted + serum syphilis since 04/2017 treated current 1:1 ratio with previously reaction Assessment: 03/26/18 09:27 withdrawal sx acid reflux Plan: continue detox change acid reductant to before breakfast
[2018-03-26] MEDS ORDERED: OMEPRAZOLE MAGNESIUM 20 MG PO SCH (09:30)
[2018-03-26] MEDS: amLODIPine BESYLATE 10 MG TABLET (FP) PO SCH (09:41)
[2018-03-26] MEDS: PRENATAL VITAMINS W/ FOLIC ACID TABLET (FP) PO SCH (09:41)
[2018-03-26] MEDS: NICOTINE 21 MG/24 HOURS TOPICAL PATCH TD SCH (09:41)
[2018-03-26] MEDS ORDERED: SERTRALINE HCL 50 MG TABLET (FP) PO SCH (10:00)
[2018-03-26 10:43] LABS: HEMATOCRIT 40.5 % (35.4-49); HEMOGLOBIN 13.1 GM/dL (11.7-16.9); MCH 28.2 pg (25.7-33.7); MCHC 32.3 g/dl (32.0-35.9); MEAN CELL VOLUME 87.3 fl (80-96); MEAN PLT VOLUME 9.3 fl (7.5-11.1); PLATELET COUNT 206 K/MM3 (134-434); RBC 4.64 M/mm3 (4.00-5.60); RDW 16.9 % (11.9-15.9); WHITE BLOOD COUNT 6.1 K/mm3 (4.0-10.0)
[2018-03-26 10:56] LABS: ALBUMIN 3.5 g/dl (3.4-5.0); ALK PHOS 70 U/L (45-117); ANION GAP 10 MMOL/L (8-16); BILIRUBIN,TOTAL 0.2 mg/dL (0.2-1); BLOOD UREA NITROGEN 15 mg/dL (7-18); CALCIUM 8.3 mg/dL (8.5-10.1); CHLORIDE 105 mmol/L (98-107); CO2 25 mmol/L (21-32); CREATININE 1.3 mg/dL (0.55-1.3); GLUCOSE,RANDOM 118 mg/dL (74-106); POTASSIUM 3.6 mmol/L (3.5-5.1); SGOT/AST 18 U/L (15-37); SGPT/ALT 25 U/L (13-61); SODIUM 140 mmol/L (136-145); TOT PROT 7.1 g/dl (6.4-8.2)
[2018-03-26 12:23] LABS: RPR REACTIVE 1:1 (NONREACTIVE)
[2018-03-26 12:24] LABS: TREPONEMA ANTIBODY PREVIOUSLY REACTIVE (NONREACTIVE)
[2018-03-26 22:05] VITALS: BP 146/96; PULSE 106; TEMP 97.9
--- NOTE | 2018-03-26 22:54 | DS ---
[facility] Detox Discharge Summary Admission Date: 03/24/18 - Physical Exam Results Vital Signs: Vital Signs Temperature 97.9 F 03/26/18 22:04 Pulse Rate 106 H 03/26/18 22:04 Respiratory Rate 18 03/26/18 22:04 Blood Pressure 146/96 03/26/18 22:04 O2 Sat by Pulse Oximetry (%) - Medication Discharge Medications: Ambulatory Orders Elviteg/Cob/Emtri/Tenof Alafen [Genvoya (Non-Formulary)] 1 each PO DAILY Amlodipine Besylate [Norvasc -] 10 mg PO DAILY 01/06/18 Omeprazole Magnesium [Acid General Contractor] 40 mg PO DAILY 01/06/18 Sertraline HCl [Zoloft -] 25 mg PO DAILY 01/06/18 Quetiapine Fumarate [Seroquel] 100 mg PO HS 03/24/18 Omeprazole Magnesium [Acid General Contractor] 20 mg PO ONCE 03/26/18
[2018-03-26] MEDS ORDERED: chlordiazePOXIDE 5 MG CAPSULE PO SCH (23:00)
[2018-03-27] MEDS ORDERED: OMEPRAZOLE MAGNESIUM 40 MG PO SCH (07:00)
[2018-03-27] MEDS ORDERED: chlordiazePOXIDE HCL 10 MG CAPSULE PO SCH (23:00)
== END 2018-03-26 22:32 | disposition left against medical advice (07) | DRG 770 ==
LOC: YASAS 15:25 → Y6N 19:35
PROC: HZ2ZZZZ Detoxification Services for Substance Abuse Treatment (ICD-10-PCS; principal; 2018-03-24)
DX: F10.230 Alcohol dependence with withdrawal, uncomplicated (principal); F13.20 Sedative, hypnotic or anxiolytic dependence, uncomplicated; F14.20 Cocaine dependence, uncomplicated; F12.20 Cannabis dependence, uncomplicated; F17.213 Nicotine dependence, cigarettes, with withdrawal; F19.24 Other psychoactive substance dependence with psychoactive substance-induced mood disorder; Z21 Asymptomatic human immunodeficiency virus [HIV] infection status; G47.00 Insomnia, unspecified; K21.9 Gastro-esophageal reflux disease without esophagitis; Z90.5 Acquired absence of kidney
CPT/HCPCS: 36415; 80053; 81003; 85027; 86593; 86780; J0735

== ENCOUNTER 2018-05-25 14:44 | Inpatient (IN) | payer OTHER ==
[2018-05-25 16:47] VITALS: BMI 32.8
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
[2018-05-25] MEDS ORDERED: LOPERAMIDE HCL 2 MG CAPSULE PO PRN (19:07)
[2018-05-25] MEDS ORDERED: MAGNESIUM CITRATE 300 ML BOTTLE PO PRN (19:07)
[2018-05-25] MEDS ORDERED: P-EPHED 60MG/TRIPROLIDI 2.5MG TABLET PO PRN (19:07)
[2018-05-25] MEDS ORDERED: MAGNESIUM HYDROX 2400MG/30ML ORAL SUSPENSION 30 ML CUP PO PRN (19:07)
[2018-05-25] MEDS ORDERED: MAG HYDROX/AL HYDROX/SIMETH 30 ML UNIT-DOSE CUP PO PRN (19:07)
[2018-05-25] MEDS ORDERED: diazePAM 5 MG TABLET PO PRN (19:07)
[2018-05-25] MEDS ORDERED: MENTHOL/PHENOL 1 EACH UD MM PRN (19:07)
[2018-05-25] MEDS ORDERED: NICOTINE POLACRILEX 2 MG GUM BC PRN (19:07)
[2018-05-25] MEDS ORDERED: ACETAMINOPHEN 325 MG TABLET (FP) PO PRN (19:07)
[2018-05-25] MEDS ORDERED: IBUPROFEN 400 MG TABLET (FP) PO PRN (19:07)
[2018-05-25] MEDS ORDERED: diazePAM 5 MG TABLET PO ONE (20:00)
[2018-05-25] MEDS ORDERED: PRAVASTATIN SODIUM PO SCH (22:00)
[2018-05-25] MEDS: diazePAM 5 MG TABLET PO SCH (22:10)
[2018-05-25] MEDS: MELATONIN 5 MG TABLETS PO PRN (22:11)
[2018-05-25] MEDS: THIAMINE HCL 100 MG TABLET (FP) PO SCH (22:30)
[2018-05-26 02:13] LABS: URINE APPEARANCE CLEAR; URINE BILIRUBIN NEGATIVE (<2.0 mg/dL); URINE COLOR STRAW; URINE GLUCOSE (UA) NEGATIVE (NEGATIVE); URINE KETONE NEGATIVE (NEGATIVE); URINE LEUK ESTERASE NEGATIVE (NEGATIVE); URINE NITRITE NEGATIVE (NEGATIVE); URINE PROTEIN NEGATIVE (NEGATIVE); URINE UROBILINOGEN NEGATIVE mg/dL (0.2-1.0)
[2018-05-26] MEDS: diazePAM 5 MG TABLET PO SCH ×3 (05:07→22:13)
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
[2018-05-26] MEDS ORDERED: NICOTINE 14 MG/24 HOURS TOPICAL PATCH TD SCH (10:00)
[2018-05-26] MEDS ORDERED: PRENATAL VITAMINS W/ FOLIC ACID TABLET (FP) PO SCH (10:00)
[2018-05-26] MEDS ORDERED: amLODIPine BESYLATE 10 MG TABLET (FP) PO SCH (10:00)
[2018-05-26] MEDS ORDERED: OMEPRAZOLE MAGNESIUM 40 MG PO SCH (10:00)
[2018-05-26] MEDS ORDERED: SERTRALINE HCL 50 MG TABLET (FP) PO SCH (10:00)
[2018-05-26 10:43] LABS: ALBUMIN 3.6 g/dl (3.4-5.0); ALK PHOS 77 U/L (45-117); ANION GAP 8 MMOL/L (8-16); BILIRUBIN,TOTAL 0.4 mg/dL (0.2-1); BLOOD UREA NITROGEN 14 mg/dL (7-18); CALCIUM 9.1 mg/dL (8.5-10.1); CHLORIDE 106 mmol/L (98-107); CO2 26 mmol/L (21-32); CREATININE 1.3 mg/dL (0.55-1.3); GLUCOSE,RANDOM 95 mg/dL (74-106); POTASSIUM 4.4 mmol/L (3.5-5.1); SGOT/AST 22 U/L (15-37); SGPT/ALT 23 U/L (13-61); SODIUM 140 mmol/L (136-145); TOT PROT 7.3 g/dl (6.4-8.2)
[2018-05-26 10:54] LABS: HEMATOCRIT 39.9 % (35.4-49); HEMOGLOBIN 13.5 GM/dL (11.7-16.9); MCH 29.4 pg (25.7-33.7); MCHC 33.8 g/dl (32.0-35.9); MEAN CELL VOLUME 86.9 fl (80-96); PLATELET COUNT 233 K/MM3 (134-434); RBC 4.59 M/mm3 (4.00-5.60); RDW 17.3 % (11.9-15.9); WHITE BLOOD COUNT 6.2 K/mm3 (4.0-10.0)
[2018-05-26] MEDS: CYCLOBENZAPRINE HCL 10 MG TABLET (FP) PO PRN ×2 (14:17→22:13)
--- NOTE | 2018-05-26 14:43 | PN ---
S CIWA - CIWA Score Nausea/Vomitin-No Nausea/No Vomiting Muscle Tremors: 3 Anxiety: 0-No Anxiety, at Ease Agitation: 0-Normal Activity Paroxysmal Sweats: 3 Orientation: 0-Oriented Tacttile Disturbances: 2-Mild Itch/Numbness/Burn Auditory Disturbances: 1-Very Mild Visual Disturbances: 2-Mild Sensitivity Headache: 3-Moderate CIWA-Ar Total Score: 14 BHS Progress Note (SOAP) Subjective: Stomach Cramping, H/A, Body Aches, Tremors. Objective: PATIENT A & O X 3, OBSERVED AMBULATING ON UNIT. IN NO ACUTE DISTRESS. 05/26/18 14:49 Vital Signs Temperature 98.4 F 05/26/18 13:03 Pulse Rate 98 H 05/26/18 13:03 Respiratory Rate 18 05/26/18 13:03 Blood Pressure 137/87 05/26/18 13:03 O2 Sat by Pulse Oximetry (%) Laboratory Tests 05/26/18 05/26/18 05/26/18 00:30 07:00 07:00 WBC 6.2 RBC 4.59 Hgb 13.5 Hct 39.9 MCV 86.9 MCH 29.4 MCHC 33.8 RDW 17.3 H Plt Count 233 MPV 9.0 Sodium 140 Potassium 4.4 Chloride 106 Carbon Dioxide 26 Anion Gap 8 BUN 14 Creatinine 1.3 Creat Clearance w eGFR > 60 Random Glucose 95 Calcium 9.1 Total Bilirubin 0.4 AST 22 ALT 23 Alkaline Phosphatase 77 Total Protein 7.3 Albumin 3.6 Urine Color Straw Urine Appearance Clear Urine pH 6.0 Ur Specific [place] 1.005 L Urine Protein Negative Urine Glucose (UA) Negative Urine Ketones Negative Urine Blood Negative Urine Nitrite Negative Urine Bilirubin Negative Urine Urobilinogen Negative Ur Leukocyte Esterase Negative LABS NOTED. RPR RESULT PENDING. 05/26/18 14:51 05/26/18 14:51 Assessment: 05/26/18 14:49 WITHDRAWAL SYMPTOMS. Plan: CONTINUE DETOX. PRN FLEXERIL FOR BODY ACHES / MUSCLE SPASMS.
[2018-05-26] MEDS ORDERED: QUEtiapine FUMARATE 100 MG TABLET (FP) PO SCH (22:00)
[2018-05-26] MEDS ORDERED: PATIENT'S OWN MEDICATION (NON-FORMULARY) (Pravastatin Sodium 20 MG) PO SCH (22:00)
[2018-05-26] MEDS: THIAMINE HCL 100 MG TABLET (FP) PO SCH (22:13)
[2018-05-26] MEDS: MELATONIN 5 MG TABLETS PO PRN (22:14)
[2018-05-27 06:03] VITALS: BP 105/67; PULSE 90; TEMP 97.1
[2018-05-27] MEDS ORDERED: diazePAM 5 MG TABLET PO SCH (10:00)
[2018-05-27 10:15] LABS: RPR REACTIVE 1:1 (NONREACTIVE)
[2018-05-27 10:16] LABS: TREPONEMA ANTIBODY PREVIOUSLY REACTIVE (NONREACTIVE)
--- NOTE | 2018-05-27 14:10 | PN ---
S CIWA - CIWA Score Nausea/Vomitin-No Nausea/No Vomiting Muscle Tremors: 3 Anxiety: 3 Agitation: 2 Paroxysmal Sweats: No Perspiration Orientation: 0-Oriented Tacttile Disturbances: 1-Very Mild Itch/Numbness Auditory Disturbances: 0-None Visual Disturbances: 1-Very Mild Sensitivity Headache: 0-None Present CIWA-Ar Total Score: 10 BHS Progress Note (SOAP) Subjective: Stomach Cramping, Body Aches, Tremors. Objective: PATIENT A & O X 3, OBSERVED AMBULATING ON UNIT. IN NO ACUTE DISTRESS. 05/27/18 14:11 Vital Signs Temperature 97.1 F L 05/27/18 06:02 Pulse Rate 90 05/27/18 06:02 Respiratory Rate 18 05/27/18 06:02 Blood Pressure 105/67 05/27/18 06:02 O2 Sat by Pulse Oximetry (%) Laboratory Tests 05/26/18 05/26/18 05/26/18 00:30 07:00 07:00 WBC 6.2 RBC 4.59 Hgb 13.5 Hct 39.9 MCV 86.9 MCH 29.4 MCHC 33.8 RDW 17.3 H Plt Count 233 MPV 9.0 Sodium 140 Potassium 4.4 Chloride 106 Carbon Dioxide 26 Anion Gap 8 BUN 14 Creatinine 1.3 Creat Clearance w eGFR > 60 Random Glucose 95 Calcium 9.1 Total Bilirubin 0.4 AST 22 ALT 23 Alkaline Phosphatase 77 Total Protein 7.3 Albumin 3.6 Urine Color Straw Urine Appearance Clear Urine pH 6.0 Ur Specific [place] 1.005 L Urine Protein Negative Urine Glucose (UA) Negative Urine Ketones Negative Urine Blood Negative Urine Nitrite Negative Urine Bilirubin Negative Urine Urobilinogen Negative Ur Leukocyte Esterase Negative RPR Titer T.pallidum Ab (MHA) 05/26/18 07:00 WBC RBC Hgb Hct MCV MCH MCHC RDW Plt Count MPV Sodium Potassium Chloride Carbon Dioxide Anion Gap BUN Creatinine Creat Clearance w eGFR Random Glucose Calcium Total Bilirubin AST ALT Alkaline Phosphatase Total Protein Albumin Urine Color Urine Appearance Urine pH Ur Specific [place] Urine Protein Urine Glucose (UA) Urine Ketones Urine Blood Urine Nitrite Urine Bilirubin Urine Urobilinogen Ur Leukocyte Esterase RPR Titer Reactive 1:1 H T.pallidum Ab (MHA) Previously reactive LABS NOTED. Assessment: 05/27/18 14:11 WITHDRAWAL SYMPTOMS. Plan: CONTINUE DETOX.
--- NOTE | 2018-05-27 14:17 | DS ---
[facility] Detox Discharge Summary Admission Date: 05/25/18 Discharge Date: 05/27/18 - History Present History: Alcohol Dependence, Cannabis Dependence, Cocaine Dependence, Opioid Dependence Additional Comments: PATIENT REPORTS "FAMILY EMERGENCY" THAT HE MUST ATTEND TO QUICKLY AND THAT HE DOES NOT WISH TO REMAIN TO COMPLETE DETOX REGIMEN. RISKS OF LEAVING DETOX UNIT AGAINST MEDICAL ADVICE AND PRIOR TO COMPLETION OF DETOX REGIMEN EXPLAINED TO PATIENT. PATIENT ADVISED TO GO IMMEDIATELY TO NEAREST ER SHOULD ANY INTOLERABLE DETOX SYMPTOMS DEVELOP AT ANY TIME. PATIENT VERBALIZED UNDERSTANDING OF ALL INFORMATION / RECOMMENDATIONS PRESENTED TO HIM PRIOR TO DEPARTURE FROM DETOX UNIT. PATIENT DECLINED OFFER OF MEDICATION PRESCRIPTION FOR HOME MEDICATION AT TIME OF DISCHARGE FROM DETOX, NOTING THAT HE CURRENTLY HAS ADEQUATE SUPPLIES OF ALL PRESCRIBED HOME MEDICATIONS AT HOME. PATIENT LEFT DETOX UNIT IN STABLE MEDICAL CONDITION. Pertinent Past History: HTN, History of Nephrectomy (Unilateral), Nicotine Dependence, G.E.R.D., Major Depressive Disorder, History of P.T.S.D. - Physical Exam Results Vital Signs: Vital Signs Temperature 97.1 F L 05/27/18 06:02 Pulse Rate 90 05/27/18 06:02 Respiratory Rate 18 05/27/18 06:02 Blood Pressure 105/67 05/27/18 06:02 O2 Sat by Pulse Oximetry (%) Pertinent Admission Physical Exam Findings: WITHDRAWAL SYMPTOMS. Laboratory Tests 05/26/18 05/26/18 05/26/18 00:30 07:00 07:00 WBC 6.2 RBC 4.59 Hgb 13.5 Hct 39.9 MCV 86.9 MCH 29.4 MCHC 33.8 RDW 17.3 H Plt Count 233 MPV 9.0 Sodium 140 Potassium 4.4 Chloride 106 Carbon Dioxide 26 Anion Gap 8 BUN 14 Creatinine 1.3 Creat Clearance w eGFR > 60 Random Glucose 95 Calcium 9.1 Total Bilirubin 0.4 AST 22 ALT 23 Alkaline Phosphatase 77 Total Protein 7.3 Albumin 3.6 Urine Color Straw Urine Appearance Clear Urine pH 6.0 Ur Specific [place] 1.005 L Urine Protein Negative Urine Glucose (UA) Negative Urine Ketones Negative Urine Blood Negative Urine Nitrite Negative Urine Bilirubin Negative Urine Urobilinogen Negative Ur Leukocyte Esterase Negative RPR Titer T.pallidum Ab (MHA) 05/26/18 07:00 WBC RBC Hgb Hct MCV MCH MCHC RDW Plt Count MPV Sodium Potassium Chloride Carbon Dioxide Anion Gap BUN Creatinine Creat Clearance w eGFR Random Glucose Calcium Total Bilirubin AST ALT Alkaline Phosphatase Total Protein Albumin Urine Color Urine Appearance Urine pH Ur Specific [place] Urine Protein Urine Glucose (UA) Urine Ketones Urine Blood Urine Nitrite Urine Bilirubin Urine Urobilinogen Ur Leukocyte Esterase RPR Titer Reactive 1:1 H T.pallidum Ab (MHA) Previously reactive LABS NOTED. - Treatment Hospital Course: Detoxed Safely - Medication Discharge Medications: Ambulatory Orders Elviteg/Cob/Emtri/Tenof Alafen [Genvoya (Non-Formulary)] 1 each PO DAILY Amlodipine Besylate [Norvasc -] 10 mg PO DAILY 01/06/18 Omeprazole Magnesium [Acid Sintering Press Operator] 40 mg PO DAILY 01/06/18 Sertraline HCl [Zoloft -] 25 mg PO DAILY 01/06/18 Quetiapine Fumarate [Seroquel] 100 mg PO HS 03/24/18 Pravastatin Sodium [Pravachol (Nf)] 20 mg PO HS 05/25/18 - Diagnosis (1) Alcohol dependence with uncomplicated withdrawal Status: Acute (2) Cannabis dependence, uncomplicated Status: Acute (3) Cocaine dependence Status: Acute Qualifiers: Substance use status: uncomplicated Qualified Code(s): F14.20 - Cocaine dependence, uncomplicated (4) Sedative, hypnotic or anxiolytic dependence with withdrawal, unspecified Status: Acute (5) Depression Status: Chronic Qualifiers: Depression Type: unspecified Qualified Code(s): F32.9 - Major depressive disorder, single episode, unspecified (6) GERD (gastroesophageal reflux disease) Status: Chronic Qualifiers: Esophagitis presence: esophagitis presence not specified Qualified Code(s) : K21.9 - Gastro-esophageal reflux disease without esophagitis (7) HIV (human immunodeficiency virus infection) Status: Chronic Qualifiers: HIV symptom status: unspecified Qualified Code(s): B20 - Human immunodeficiency virus [HIV] disease (8) HTN (hypertension) Status: Chronic Qualifiers: Hypertension type: essential hypertension Qualified Code(s): I10 - Essential (primary) hypertension (9) History of nephrectomy, unilateral Status: Chronic (10) MDD (major depressive disorder), recurrent episode, moderate Status: Chronic (11) Nicotine dependence Status: Chronic Qualifiers: Nicotine product type: cigarettes Substance use status: in withdrawal Qualified Code(s): F17.213 - Nicotine dependence, cigarettes, with withdrawal (12) Obesity (BMI 30.0-34.9) Status: Chronic (13) Post traumatic stress disorder (PTSD) Status: Chronic (14) Substance induced mood disorder Status: Acute (15) Substance-induced sleep disorder Status: Acute - AMA Did Patient Leave Against Medical Advice: Yes (PT HAD FAMILY EMERGENCY AND DOES NOT WITH WISH TO REMAIN TO COMPLETE DETOX.)
--- NOTE | 2018-05-27 16:02 | PN ---
[facility] Progress Note Note: RECEIVED REPORT FROM Lillie ALVAREZ OF [facility] OF RPR RESULT: REACTIVE 1:1. MHATP: PREVIOUSLY REACTIVE. PATIENT HAS HAD REACTIVE RPR RESULTS ON PREVIOUS ADMISSIONS. PATIENT LEFT DETOX UNIT AGAINST MEDICAL ADVICE BEFORE RESULT WAS MADE AVAILABLE AND BEFORE RESULT COULD BE DISCUSSED WITH HIM. Gauri SANABRIA NP
[2018-05-29] MEDS ORDERED: diazePAM 5 MG TABLET PO SCH (10:00)
== END 2018-05-27 09:00 | disposition left against medical advice (07) | DRG 770 ==
LOC: YASAS 14:44 → Y3N 19:39
PROVIDERS: ADMIT Neuromusculoskeletal Medicine & OMM; ATTEND Neuromusculoskeletal Medicine & OMM
PROC: HZ2ZZZZ Detoxification Services for Substance Abuse Treatment (ICD-10-PCS; principal; 2018-05-25)
DX: F10.230 Alcohol dependence with withdrawal, uncomplicated (principal); F13.230 Sedative, hypnotic or anxiolytic dependence with withdrawal, uncomplicated; F14.20 Cocaine dependence, uncomplicated; F12.20 Cannabis dependence, uncomplicated; F17.210 Nicotine dependence, cigarettes, uncomplicated; F33.1 Major depressive disorder, recurrent, moderate; F43.10 Post-traumatic stress disorder, unspecified; F19.282 Other psychoactive substance dependence with psychoactive substance-induced sleep disorder; F19.24 Other psychoactive substance dependence with psychoactive substance-induced mood disorder; I10 Essential (primary) hypertension; Z21 Asymptomatic human immunodeficiency virus [HIV] infection status; K21.9 Gastro-esophageal reflux disease without esophagitis; R00.0 Tachycardia, unspecified; E78.5 Hyperlipidemia, unspecified; E66.9 Obesity, unspecified; Z68.32 Body mass index [BMI] 32.0-32.9, adult; Z86.69 Personal history of other diseases of the nervous system and sense organs; Z90.5 Acquired absence of kidney; Z87.438 Personal history of other diseases of male genital organs; Z91.013 Allergy to seafood
CPT/HCPCS: 36415; 80053; 81003; 85027; 86593; 86780

== ENCOUNTER 2018-06-26 11:06 | Inpatient (IN) | payer OTHER ==
[2018-06-26 12:56] VITALS: BMI 34.0
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
[2018-06-26] MEDS ORDERED: MAGNESIUM CITRATE 300 ML BOTTLE PO PRN (13:27)
[2018-06-26] MEDS ORDERED: guaiFENesin/D-METHORPHAN HB 10 ML UNIT-DOSE CUPS PO PRN (13:27)
[2018-06-26] MEDS ORDERED: MAGNESIUM HYDROX 2400MG/30ML ORAL SUSPENSION 30 ML CUP PO PRN (13:27)
[2018-06-26] MEDS ORDERED: LOPERAMIDE HCL 2 MG CAPSULE PO PRN (13:27)
[2018-06-26] MEDS ORDERED: IBUPROFEN 400 MG TABLET (FP) PO PRN (13:27)
[2018-06-26] MEDS ORDERED: MENTHOL/PHENOL 1 EACH UD MM PRN (13:27)
[2018-06-26] MEDS ORDERED: P-EPHED 60MG/TRIPROLIDI 2.5MG TABLET PO PRN (13:27)
[2018-06-26] MEDS ORDERED: NICOTINE POLACRILEX 2 MG GUM BUC PRN (13:27)
[2018-06-26] MEDS ORDERED: ACETAMINOPHEN 325 MG TABLET (FP) PO PRN (13:27)
[2018-06-26] MEDS: diazePAM 5 MG TABLET PO SCH ×2 (14:52→22:03)
[2018-06-26] MEDS: MAG HYDROX/AL HYDROX/SIMETH 30 ML UNIT-DOSE CUP PO PRN (16:44)
[2018-06-26] MEDS ORDERED: RANITIDINE HCL 150 MG TABLET (FP) PO SCH (22:00)
[2018-06-26] MEDS: ATORVASTATIN CA 10 MG TABLET (FP) PO SCH (22:03)
[2018-06-26] MEDS: THIAMINE HCL 100 MG TABLET (FP) PO SCH (22:03)
[2018-06-26] MEDS: MELATONIN 5 MG TABLETS PO PRN (22:04)
[2018-06-27] MEDS: diazePAM 5 MG TABLET PO SCH ×3 (05:38→22:40)
[2018-06-27] MEDS: RANITIDINE HCL 150 MG TABLET (FP) PO SCH ×2 (07:40→22:40)
[2018-06-27] MEDS: diazePAM 5 MG TABLET PO PRN (10:23)
[2018-06-27] MEDS: PRENATAL VITAMINS W/ FOLIC ACID TABLET (FP) PO SCH (10:24)
[2018-06-27] MEDS: amLODIPine BESYLATE 10 MG TABLET (FP) PO SCH (10:24)
[2018-06-27] MEDS: NICOTINE 21 MG/24 HOURS TOPICAL PATCH TD SCH (10:24)
[2018-06-27 10:54] LABS: HEMATOCRIT 40.8 % (35.4-49); HEMOGLOBIN 13.6 GM/dL (11.7-16.9); MCH 29.2 pg (25.7-33.7); MCHC 33.4 g/dl (32.0-35.9); MEAN CELL VOLUME 87.4 fl (80-96); MEAN PLT VOLUME 10.7 fl (7.5-11.1); PLATELET COUNT 215 K/MM3 (134-434); RBC 4.66 M/mm3 (4.00-5.60); RDW 17.4 % (11.9-15.9); WHITE BLOOD COUNT 5.8 K/mm3 (4.0-10.0)
[2018-06-27 11:08] LABS: ALBUMIN 3.9 g/dl (3.4-5.0); ALK PHOS 92 U/L (45-117); ANION GAP 11 MMOL/L (8-16); BILIRUBIN,TOTAL 0.5 mg/dL (0.2-1); BLOOD UREA NITROGEN 16 mg/dL (7-18); CALCIUM 8.5 mg/dL (8.5-10.1); CHLORIDE 108 mmol/L (98-107); CO2 21 mmol/L (21-32); CREATININE 1.5 mg/dL (0.55-1.3); GLUCOSE,RANDOM 94 mg/dL (74-106); SGOT/AST 44 U/L (15-37); SGPT/ALT 44 U/L (13-61); SODIUM 140 mmol/L (136-145)
--- NOTE | 2018-06-27 11:13 | PN ---
S CIWA - CIWA Score Nausea/Vomitin Muscle Tremors: 2 Anxiety: 2 Agitation: 2 Paroxysmal Sweats: 1-Minimal Palms Moist Orientation: 0-Oriented Tacttile Disturbances: 1-Very Mild Itch/Numbness Auditory Disturbances: 1-Very Mild Visual Disturbances: 0-None Headache: 2-Mild CIWA-Ar Total Score: 13 BHS Progress Note (SOAP) Subjective: alert,irritable,anxious,interrupted sleep,tremor,pain in the right foot Objective: 06/27/18 11:13 Vital Signs Temperature 98.2 F 06/27/18 09:30 Pulse Rate 92 H 06/27/18 09:30 Respiratory Rate 18 06/27/18 09:30 Blood Pressure 152/93 06/27/18 09:30 O2 Sat by Pulse Oximetry (%) Laboratory Last Values WBC 5.8 K/mm3 (4.0-10.0) 06/27/18 05:50 RBC 4.66 M/mm3 (4.00-5.60) 06/27/18 05:50 Hgb 13.6 GM/dL (11.7-16.9) 06/27/18 05:50 Hct 40.8 % (35.4-49) 06/27/18 05:50 MCV 87.4 fl (80-96) 06/27/18 05:50 MCH 29.2 pg (25.7-33.7) 06/27/18 05:50 MCHC 33.4 g/dl (32.0-35.9) 06/27/18 05:50 RDW 17.4 % (11.9-15.9) H 06/27/18 05:50 Plt Count 215 K/MM3 (134-434) 06/27/18 05:50 MPV 10.7 fl (7.5-11.1) D 06/27/18 05:50 Sodium 140 mmol/L (136-145) 06/27/18 05:50 Potassium 4.0 mmol/L (3.5-5.1) 06/27/18 05:50 Chloride 108 mmol/L (98-107) H 06/27/18 05:50 Carbon Dioxide 21 mmol/L (21-32) 06/27/18 05:50 Anion Gap 11 MMOL/L (8-16) 06/27/18 05:50 BUN 16 mg/dL (7-18) 06/27/18 05:50 Creatinine 1.5 mg/dL (0.55-1.3) H 06/27/18 05:50 Creat Clearance w eGFR 51.32 (>60) 06/27/18 05:50 Random Glucose 94 mg/dL (74-106) 06/27/18 05:50 Calcium 8.5 mg/dL (8.5-10.1) 06/27/18 05:50 Total Bilirubin 0.5 mg/dL (0.2-1) 06/27/18 05:50 AST 44 U/L (15-37) H 06/27/18 05:50 ALT 44 U/L (13-61) 06/27/18 05:50 Alkaline Phosphatase 92 U/L (45-117) 06/27/18 05:50 Total Protein 8.0 g/dl (6.4-8.2) 06/27/18 05:50 Albumin 3.9 g/dl (3.4-5.0) 06/27/18 05:50 Assessment: 06/27/18 11:13 withdrawal symptom 06/27/18 11:13 cyst dorsal aspect of right foot r/o ganglion 0.5x0.5 cm Plan: withdrawal symptom,continue detox
[2018-06-27] MEDS: CYCLOBENZAPRINE HCL 10 MG TABLET (FP) PO PRN ×2 (11:38→22:42)
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
--- NOTE | 2018-06-27 14:41 | PN ---
[facility] Progress Note Note: bp 144/101,withdrawal symptom,clonidine 0.1 mg po now ,bp monitoring
[2018-06-27] MEDS: hydrOXYzine PAMOATE 50 MG CAPSULE (FP) PO PRN (14:50)
[2018-06-27] MEDS ORDERED: cloNIDine HCL 0.1 MG TABLET PO ONE (15:00)
[2018-06-27] MEDS: ATORVASTATIN CA 10 MG TABLET (FP) PO SCH (22:39)
[2018-06-27] MEDS: THIAMINE HCL 100 MG TABLET (FP) PO SCH (22:40)
[2018-06-27] MEDS: QUEtiapine FUMARATE 100 MG TABLET (FP) PO SCH (22:40)
[2018-06-28] MEDS: CYCLOBENZAPRINE HCL 10 MG TABLET (FP) PO PRN ×3 (05:42→21:18)
[2018-06-28] MEDS: diazePAM 5 MG TABLET PO PRN (05:42)
[2018-06-28] MEDS: RANITIDINE HCL 150 MG TABLET (FP) PO SCH ×2 (06:30→21:18)
[2018-06-28] MEDS ORDERED: diazePAM 5 MG TABLET PO ONE (10:00)
[2018-06-28] MEDS: SERTRALINE HCL 50 MG TABLET (FP) PO SCH (10:51)
[2018-06-28] MEDS: PRENATAL VITAMINS W/ FOLIC ACID TABLET (FP) PO SCH (10:51)
[2018-06-28] MEDS: amLODIPine BESYLATE 10 MG TABLET (FP) PO SCH (10:51)
[2018-06-28] MEDS: NICOTINE 21 MG/24 HOURS TOPICAL PATCH TD SCH (10:51)
[2018-06-28] MEDS: diazePAM 5 MG TABLET PO SCH ×2 (10:52→21:18)
--- NOTE | 2018-06-28 15:01 | PN ---
S CIWA - CIWA Score Nausea/Vomitin-No Nausea/No Vomiting Muscle Tremors: 1-None Visible, but [place] Anxiety: 1-Mildly Anxious Agitation: 0-Normal Activity Paroxysmal Sweats: No Perspiration Orientation: 0-Oriented Tacttile Disturbances: 0-None Auditory Disturbances: 0-None Visual Disturbances: 0-None Headache: 0-None Present CIWA-Ar Total Score: 2 [facility] Progress Note (SOAP) Subjective: pt states he is doing well with detox protocol, c/o pain of R ankle area- medial ankle, denies injury, does not remember if he may have twisted this ankle. Says has had pain for about 2 weeks but states he did not seek medical attention PE ganglion cyst vs lipoma of dorsal aspect of R foot, R ankle pain with 1+ swelling of medial aspect Vital Signs - 24 hr 06/27/18 06/27/18 06/28/18 17:22 21:30 00:30 Temperature 98.1 F 97.9 F Pulse Rate 87 69 Respiratory 18 18 18 Rate Blood Pressure 132/83 134/80 06/28/18 06/28/18 06/28/18 03:30 08:10 09:21 Temperature 97.7 F 97.7 F Pulse Rate 95 H 103 H Respiratory 18 20 18 Rate Blood Pressure 135/91 156/94 06/28/18 12:59 Temperature 98.1 F Pulse Rate 112 H Respiratory 18 Rate Blood Pressure 136/96 Laboratory Tests 06/27/18 06/27/18 06/27/18 05:50 05:50 05:50 WBC 5.8 RBC 4.66 Hgb 13.6 Hct 40.8 MCV 87.4 MCH 29.2 MCHC 33.4 RDW 17.4 H Plt Count 215 MPV 10.7 D Sodium 140 Potassium 4.0 Chloride 108 H Carbon Dioxide 21 Anion Gap 11 BUN 16 Creatinine 1.5 H Creat Clearance w eGFR 51.32 Random Glucose 94 Calcium 8.5 Total Bilirubin 0.5 AST 44 H ALT 44 Alkaline Phosphatase 92 Total Protein 8.0 Albumin 3.9 RPR Titer Nonreactive D a/p continue detox protocol labs WNL R ankle swelling- xray ordered
[2018-06-28] MEDS: MAG HYDROX/AL HYDROX/SIMETH 30 ML UNIT-DOSE CUP PO PRN (18:06)
[2018-06-28] MEDS: THIAMINE HCL 100 MG TABLET (FP) PO SCH (21:18)
[2018-06-28] MEDS: ATORVASTATIN CA 10 MG TABLET (FP) PO SCH (21:18)
[2018-06-28] MEDS: MELATONIN 5 MG TABLETS PO PRN (21:18)
[2018-06-28] MEDS: QUEtiapine FUMARATE 100 MG TABLET (FP) PO SCH (21:18)
[2018-06-29] MEDS: MAG HYDROX/AL HYDROX/SIMETH 30 ML UNIT-DOSE CUP PO PRN ×2 (01:06→10:53)
[2018-06-29] MEDS: RANITIDINE HCL 150 MG TABLET (FP) PO SCH (06:31)
[2018-06-29] MEDS: CYCLOBENZAPRINE HCL 10 MG TABLET (FP) PO PRN ×2 (06:32→14:47)
--- NOTE | 2018-06-29 10:22 | PN ---
S Progress Note (SOAP) Subjective: alert,no complaint Objective: 06/29/18 10:20 Vital Signs Temperature 97.9 F 06/29/18 09:54 Pulse Rate 106 H 06/29/18 09:54 Respiratory Rate 18 06/29/18 09:54 Blood Pressure 116/65 06/29/18 09:54 O2 Sat by Pulse Oximetry (%) Assessment: 06/29/18 10:20 no withdrawal symptom xray of right foot and ankle no pathology on 06/28/18 Plan: stable for discharge to rehab for further level of care today
--- NOTE | 2018-06-29 10:26 | DS ---
[facility] Detox Discharge Summary Admission Date: 06/26/18 Discharge Date: 06/29/18 - History Present History: Alcohol Dependence, Cannabis Dependence, Cocaine Dependence Additional Comments: stable for discharge to rehab today Pertinent Past History: gerd hiv hypertension history of left nephrectomy post trauma r/o ganglion of right foot - Physical Exam Results Vital Signs: Vital Signs Temperature 97.9 F 06/29/18 09:54 Pulse Rate 106 H 06/29/18 09:54 Respiratory Rate 18 06/29/18 09:54 Blood Pressure 116/65 06/29/18 09:54 O2 Sat by Pulse Oximetry (%) - Treatment Hospital Course: Detox Protocol Followed, Detoxed Safely, Responded well, Discharged Condition Good, Rehab Referral Accepted Patient has Accepted a Rehab Referral to: [facility] - Medication Discharge Medications: Ambulatory Orders Elviteg/Cob/Emtri/Tenof Alafen [Genvoya (Non-Formulary)] 1 each PO DAILY Amlodipine Besylate [Norvasc -] 10 mg PO DAILY 01/06/18 Omeprazole Magnesium [Acid Procurement Representative] 40 mg PO DAILY 01/06/18 Sertraline HCl [Zoloft -] 25 mg PO DAILY 01/06/18 Quetiapine Fumarate [Seroquel] 100 mg PO HS 03/24/18 Pravastatin Sodium [Pravachol (Nf)] 20 mg PO HS 05/25/18 - Diagnosis (1) Alcohol dependence with uncomplicated withdrawal Current Visit: Yes Status: Acute (2) Cannabis dependence, uncomplicated Current Visit: Yes Status: Chronic (3) Cocaine dependence Current Visit: Yes Status: Chronic Qualifiers: Substance use status: uncomplicated Qualified Code(s): F14.20 - Cocaine dependence, uncomplicated (4) GERD (gastroesophageal reflux disease) Current Visit: No Status: Chronic Qualifiers: Esophagitis presence: esophagitis presence not specified Qualified Code(s) : K21.9 - Gastro-esophageal reflux disease without esophagitis (5) HIV (human immunodeficiency virus infection) Current Visit: No Status: Chronic Qualifiers: HIV symptom status: unspecified Qualified Code(s): B20 - Human immunodeficiency virus [HIV] disease (6) HTN (hypertension) Current Visit: No Status: Chronic Qualifiers: Hypertension type: essential hypertension Qualified Code(s): I10 - Essential (primary) hypertension (7) History of nephrectomy, unilateral Current Visit: No Status: Chronic (8) Hx of abdominal surgery Current Visit: No Status: Chronic (9) Post traumatic stress disorder (PTSD) Current Visit: Yes Status: Chronic (10) Weight loss Current Visit: Yes Status: Acute (11) Depression Current Visit: Yes Status: Acute - AMA Did Patient Leave Against Medical Advice: No
[2018-06-29] MEDS: PRENATAL VITAMINS W/ FOLIC ACID TABLET (FP) PO SCH (10:51)
[2018-06-29] MEDS: NICOTINE 21 MG/24 HOURS TOPICAL PATCH TD SCH (10:51)
[2018-06-29] MEDS: SERTRALINE HCL 50 MG TABLET (FP) PO SCH (10:51)
[2018-06-29] MEDS: amLODIPine BESYLATE 10 MG TABLET (FP) PO SCH (10:51)
[2018-06-29] MEDS: diazePAM 5 MG TABLET PO SCH (10:52)
[2018-06-29 13:51] VITALS: BP 137/92; PULSE 108; TEMP 97.7
[2018-06-29] MEDS: hydrOXYzine PAMOATE 50 MG CAPSULE (FP) PO PRN (14:47)
== END 2018-06-29 15:23 | disposition other institution (70) | DRG 774 ==
LOC: YASAS 11:06 → Y6N 14:01
PROVIDERS: ADMIT Surgery; ATTEND Surgery
PROC: HZ2ZZZZ Detoxification Services for Substance Abuse Treatment (ICD-10-PCS; principal; 2018-06-26)
DX: F10.230 Alcohol dependence with withdrawal, uncomplicated (principal); F14.20 Cocaine dependence, uncomplicated; F12.20 Cannabis dependence, uncomplicated; F33.1 Major depressive disorder, recurrent, moderate; F43.10 Post-traumatic stress disorder, unspecified; F19.282 Other psychoactive substance dependence with psychoactive substance-induced sleep disorder; Z21 Asymptomatic human immunodeficiency virus [HIV] infection status; I10 Essential (primary) hypertension; K21.9 Gastro-esophageal reflux disease without esophagitis; R63.4 Abnormal weight loss; Z68.34 Body mass index [BMI] 34.0-34.9, adult; Z98.890 Other specified postprocedural states; Z90.5 Acquired absence of kidney; Z91.013 Allergy to seafood
CPT/HCPCS: 36415; 73610-TC-RT-FY; 73630-TC-RT-FY; 80053; 85027; 86593; J0735

== ENCOUNTER 2018-06-29 15:29 | Inpatient (IN) | payer OTHER ==
[2018-06-29 15:58] VITALS: BMI 33.5
--- NOTE | 2018-06-29 19:38 | HP ---
[facility] Rehab Assess/Revision - Admission History Admitted to Rehab from: [facility] Date of Admission to Rehab: 06/29/18 - Vital signs Vital Signs: Vital Signs Period Temp Pulse Resp BP Sys/Prakash Pulse Ox Last 24 Hr 98 F 89 19 125/86 - Findings Detox History & Physical reviewed: Yes Concur with findings: Yes Inpatient Rehab Admission - Rehab Decision to Admit Inpatient rehab admission?: Yes - Initial Determination Are CD services needed?: Yes Free of communicable disease: Yes Not in need of hospitalization: Yes - Rehab Admission Criteria Previous failed treatment: Yes Poor recovery environment: Yes Comorbidities: Yes Lacks judgement: Yes Patient is meeting Inpatient Rehab admission criteria:: Yes
[2018-06-29] MEDS ORDERED: MAGNESIUM HYDROX 2400MG/30ML ORAL SUSPENSION 30 ML CUP PO PRN (19:39)
[2018-06-29] MEDS ORDERED: LOPERAMIDE HCL 2 MG CAPSULE PO PRN (19:39)
[2018-06-29] MEDS ORDERED: IBUPROFEN 400 MG TABLET (FP) PO PRN (19:39)
[2018-06-29] MEDS ORDERED: P-EPHED 60MG/TRIPROLIDI 2.5MG TABLET PO PRN (19:39)
[2018-06-29] MEDS ORDERED: guaiFENesin 200 MG/10 ML 10 ML UNIT-DOSE CUPS PO PRN (19:39)
[2018-06-29] MEDS ORDERED: MAGNESIUM CITRATE 300 ML BOTTLE PO PRN (19:39)
[2018-06-29] MEDS ORDERED: MENTHOL/PHENOL 1 EACH UD MM PRN (19:39)
[2018-06-29] MEDS ORDERED: NICOTINE POLACRILEX 2 MG GUM BUC PRN (19:40)
[2018-06-29] MEDS: MAG HYDROX/AL HYDROX/SIMETH 30 ML UNIT-DOSE CUP PO PRN (19:53)
[2018-06-29] MEDS: QUEtiapine FUMARATE 100 MG TABLET (FP) PO SCH (21:24)
[2018-06-29] MEDS: THIAMINE HCL 100 MG TABLET (FP) PO SCH (21:24)
[2018-06-29] MEDS: RANITIDINE HCL 150 MG TABLET (FP) PO SCH (21:24)
[2018-06-29] MEDS: ATORVASTATIN CA 10 MG TABLET (FP) PO SCH (21:24)
[2018-06-29] MEDS: MELATONIN 5 MG TABLETS PO PRN (21:24)
[2018-06-30] MEDS: ACETAMINOPHEN 325 MG TABLET (FP) PO PRN (06:20)
[2018-06-30] MEDS: RANITIDINE HCL 150 MG TABLET (FP) PO SCH (06:20)
[2018-06-30] MEDS: MAG HYDROX/AL HYDROX/SIMETH 30 ML UNIT-DOSE CUP PO PRN ×3 (08:36→23:43)
[2018-06-30] MEDS ORDERED: PANTOPRAZOLE 40 MG TABLET (FP) PO SCH (10:00)
[2018-06-30] MEDS: PRENATAL VITAMINS W/ FOLIC ACID TABLET (FP) PO SCH (10:00)
[2018-06-30] MEDS: amLODIPine BESYLATE 10 MG TABLET (FP) PO SCH (10:00)
[2018-06-30] MEDS: SERTRALINE HCL 50 MG TABLET (FP) PO SCH (10:00)
[2018-06-30] MEDS: CYCLOBENZAPRINE HCL 10 MG TABLET (FP) PO PRN ×2 (10:01→23:42)
[2018-06-30] MEDS: NICOTINE 14 MG/24 HOURS TOPICAL PATCH TD SCH (10:02)
[2018-06-30] MEDS: PANTOPRAZOLE 20 MG TABLET (FP) PO SCH ×2 (10:28→23:43)
[2018-06-30] MEDS ORDERED: MAG HYDROX/ALH/SMC/DPHA/LIDO 240 ML MOUTHWASH MM PRN ×2 (14:41→15:27)
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
[2018-06-30] MEDS: ATORVASTATIN CA 10 MG TABLET (FP) PO SCH (23:42)
[2018-06-30] MEDS: QUEtiapine FUMARATE 100 MG TABLET (FP) PO SCH (23:43)
[2018-06-30] MEDS: MELATONIN 5 MG TABLETS PO PRN (23:43)
[2018-06-30] MEDS: THIAMINE HCL 100 MG TABLET (FP) PO SCH (23:43)
[2018-07-01] MEDS: PANTOPRAZOLE 20 MG TABLET (FP) PO SCH (09:36)
[2018-07-01] MEDS: NICOTINE 14 MG/24 HOURS TOPICAL PATCH TD SCH (09:36)
[2018-07-01] MEDS: PRENATAL VITAMINS W/ FOLIC ACID TABLET (FP) PO SCH (09:36)
[2018-07-01] MEDS: amLODIPine BESYLATE 10 MG TABLET (FP) PO SCH (09:36)
[2018-07-01] MEDS: SERTRALINE HCL 50 MG TABLET (FP) PO SCH (09:36)
[2018-07-01] MEDS: ACETAMINOPHEN 325 MG TABLET (FP) PO PRN (09:37)
[2018-07-01] MEDS: CYCLOBENZAPRINE HCL 10 MG TABLET (FP) PO PRN ×2 (09:37→18:53)
[2018-07-01] MEDS: RANITIDINE HCL 150 MG TABLET (FP) PO SCH (13:32)
[2018-07-01] MEDS: MAG HYDROX/AL HYDROX/SIMETH 30 ML UNIT-DOSE CUP PO PRN ×2 (14:01→21:55)
[2018-07-01] MEDS: THIAMINE HCL 100 MG TABLET (FP) PO SCH (21:11)
[2018-07-01] MEDS: QUEtiapine FUMARATE 100 MG TABLET (FP) PO SCH (21:12)
[2018-07-01] MEDS: ATORVASTATIN CA 10 MG TABLET (FP) PO SCH (21:12)
[2018-07-01] MEDS: MELATONIN 5 MG TABLETS PO PRN (21:12)
[2018-07-01] MEDS ORDERED: RANITIDINE HCL 150 MG TABLET (FP) PO ONE (22:00)
[2018-07-02] MEDS: MAG HYDROX/AL HYDROX/SIMETH 30 ML UNIT-DOSE CUP PO PRN ×3 (08:26→21:58)
[2018-07-02] MEDS: SERTRALINE HCL 50 MG TABLET (FP) PO SCH (10:05)
[2018-07-02] MEDS: NICOTINE 14 MG/24 HOURS TOPICAL PATCH TD SCH (10:05)
[2018-07-02] MEDS: PRENATAL VITAMINS W/ FOLIC ACID TABLET (FP) PO SCH (10:05)
[2018-07-02] MEDS: CYCLOBENZAPRINE HCL 10 MG TABLET (FP) PO PRN ×3 (10:05→21:31)
[2018-07-02] MEDS: RANITIDINE HCL 150 MG TABLET (FP) PO SCH (10:05)
[2018-07-02] MEDS: amLODIPine BESYLATE 10 MG TABLET (FP) PO SCH (10:05)
[2018-07-02] MEDS ORDERED: PT OWN MED DRAWER 7, Y5N ONE (12:10)
[2018-07-02] MEDS: THIAMINE HCL 100 MG TABLET (FP) PO SCH (21:29)
[2018-07-02] MEDS: ATORVASTATIN CA 10 MG TABLET (FP) PO SCH (21:30)
[2018-07-02] MEDS: QUEtiapine FUMARATE 100 MG TABLET (FP) PO SCH (21:30)
[2018-07-02] MEDS: MELATONIN 5 MG TABLETS PO PRN (21:30)
[2018-07-02] MEDS ORDERED: RANITIDINE HCL 150 MG TABLET (FP) PO ONE (22:00)
[2018-07-03] MEDS: CYCLOBENZAPRINE HCL 10 MG TABLET (FP) PO PRN ×2 (06:13→21:55)
[2018-07-03] MEDS: MAG HYDROX/AL HYDROX/SIMETH 30 ML UNIT-DOSE CUP PO PRN ×2 (06:13→14:55)
[2018-07-03] MEDS: NICOTINE 14 MG/24 HOURS TOPICAL PATCH TD SCH (10:08)
[2018-07-03] MEDS: PRENATAL VITAMINS W/ FOLIC ACID TABLET (FP) PO SCH (10:08)
[2018-07-03] MEDS: amLODIPine BESYLATE 10 MG TABLET (FP) PO SCH (10:08)
[2018-07-03] MEDS: SERTRALINE HCL 50 MG TABLET (FP) PO SCH (10:08)
[2018-07-03] MEDS: RANITIDINE HCL 150 MG TABLET (FP) PO SCH (10:08)
[2018-07-03] MEDS: ACETAMINOPHEN 325 MG TABLET (FP) PO PRN (10:09)
--- NOTE | 2018-07-03 10:44 | PN ---
S Progress Note Note: PATIENT SEEN FOR C/O RIGHT INNER ANKLE DISCOMFORT. PATIENT REPORTS PAIN NON- RADIATING, DULL ACHE, LEVEL 4/10. PATIENT DENIES RECENT INJURY TO FOOT/ANKLE. Vital Signs Temperature 97.8 F 07/03/18 07:10 Pulse Rate 107 H 07/03/18 10:00 Respiratory Rate 20 07/03/18 10:00 Blood Pressure 125/78 07/03/18 10:00 O2 Sat by Pulse Oximetry (%) PE: ALERT AND ORIENTED X 3 SKIN WARM AND DRY EXT TRACE SWELLING AT RIGHT INNER MALLEOLUS AREA/FOOT. NO REDNESS. FULL ROM. AMB AD CRISTIANO A/P; MILD SWELLING OF RIGHT INNER MALLEOLUS/FOOT LEG ELEVATION NO NSAIDS DUE TO GERD LIDOCAINE PATCH 5% TP DAILY MONITOR CLINICALLY
[2018-07-03] MEDS ORDERED: LIDOCAINE 5% TOPICAL PATCH TP SCH (10:45)
[2018-07-03] MEDS: LIDOCAINE 5% TOPICAL PATCH TP SCH (14:03)
[2018-07-03] MEDS: THIAMINE HCL 100 MG TABLET (FP) PO SCH (21:55)
[2018-07-03] MEDS: QUEtiapine FUMARATE 100 MG TABLET (FP) PO SCH (21:55)
[2018-07-03] MEDS: LIDOCAINE PATCH REMOVAL MC SCH (21:55)
[2018-07-03] MEDS: ATORVASTATIN CA 10 MG TABLET (FP) PO SCH (21:55)
[2018-07-03] MEDS: MELATONIN 5 MG TABLETS PO PRN (21:55)
[2018-07-04] MEDS: MAG HYDROX/AL HYDROX/SIMETH 30 ML UNIT-DOSE CUP PO PRN ×2 (01:07→10:17)
[2018-07-04] MEDS: RANITIDINE HCL 150 MG TABLET (FP) PO PRN ×2 (05:47→10:16)
[2018-07-04] MEDS: NICOTINE 14 MG/24 HOURS TOPICAL PATCH TD SCH (10:16)
[2018-07-04] MEDS: CYCLOBENZAPRINE HCL 10 MG TABLET (FP) PO PRN ×2 (10:16→21:25)
[2018-07-04] MEDS: SERTRALINE HCL 50 MG TABLET (FP) PO SCH (10:16)
[2018-07-04] MEDS: PRENATAL VITAMINS W/ FOLIC ACID TABLET (FP) PO SCH (10:16)
[2018-07-04] MEDS: amLODIPine BESYLATE 10 MG TABLET (FP) PO SCH (10:16)
[2018-07-04] MEDS: LIDOCAINE 5% TOPICAL PATCH TP SCH (10:17)
--- NOTE | 2018-07-04 10:30 | PN ---
S Progress Note (SOAP) Subjective: Client c/o abd pain, States he thew up twice last night. hx of GERD. Was on Omeprozole at home, received Protonix here, but states that it irritated his stomach; was changed to Ranitidine,prn. States relief with ranitidine. Objective: 07/04/18 10:29 abd soft, non-tender, non-distended, positive bowel sounds. Assessment: 07/04/18 10:30 GERD Plan: Ranitidine changed to standing order; PRN order discontinued.
--- NOTE | 2018-07-04 18:33 | PN ---
[facility] Progress Note Note: Vital Signs Temperature 98.2 F 07/04/18 09:26 Pulse Rate 109 H 07/04/18 09:26 Respiratory Rate 18 07/04/18 09:26 Blood Pressure 130/69 07/04/18 09:26 O2 Sat by Pulse Oximetry (%) c/o of nausea and vomiting. Patient seen by provider earlier this morning. one time dose tigan ordered fluids as tolerated continue to monitor
[2018-07-04] MEDS ORDERED: TRIMETHOBENZAMIDE HCL 200MG/2ML INJ IM ONE (18:45)
[2018-07-04] MEDS: LIDOCAINE PATCH REMOVAL MC SCH (21:23)
[2018-07-04] MEDS: THIAMINE HCL 100 MG TABLET (FP) PO SCH (21:23)
[2018-07-04] MEDS: RANITIDINE HCL 150 MG TABLET (FP) PO SCH (21:24)
[2018-07-04] MEDS: ATORVASTATIN CA 10 MG TABLET (FP) PO SCH (21:24)
[2018-07-04] MEDS: MELATONIN 5 MG TABLETS PO PRN (21:24)
[2018-07-04] MEDS: QUEtiapine FUMARATE 100 MG TABLET (FP) PO SCH (21:24)
[2018-07-05] MEDS: MAG HYDROX/AL HYDROX/SIMETH 30 ML UNIT-DOSE CUP PO PRN ×2 (08:25→19:02)
[2018-07-05] MEDS: PRENATAL VITAMINS W/ FOLIC ACID TABLET (FP) PO SCH (09:56)
[2018-07-05] MEDS: NICOTINE 14 MG/24 HOURS TOPICAL PATCH TD SCH (09:56)
[2018-07-05] MEDS: SERTRALINE HCL 50 MG TABLET (FP) PO SCH (09:56)
[2018-07-05] MEDS: RANITIDINE HCL 150 MG TABLET (FP) PO SCH ×2 (09:56→21:19)
[2018-07-05] MEDS: amLODIPine BESYLATE 10 MG TABLET (FP) PO SCH (09:56)
[2018-07-05] MEDS: LIDOCAINE 5% TOPICAL PATCH TP SCH (09:56)
[2018-07-05] MEDS: CYCLOBENZAPRINE HCL 10 MG TABLET (FP) PO PRN (09:58)
[2018-07-05] MEDS: MAG HYDROX/ALH/SMC/DPHA/LIDO 240 ML MOUTHWASH MM SCH ×3 (12:14→23:00)
[2018-07-05] MEDS ORDERED: PT OWN MED DRAWER 7, Y5N ONE (16:24)
[2018-07-05] MEDS: LIDOCAINE PATCH REMOVAL MC SCH (21:18)
[2018-07-05] MEDS: QUEtiapine FUMARATE 100 MG TABLET (FP) PO SCH (21:19)
[2018-07-05] MEDS: THIAMINE HCL 100 MG TABLET (FP) PO SCH (21:19)
[2018-07-05] MEDS: MELATONIN 5 MG TABLETS PO PRN (21:19)
[2018-07-05] MEDS: ATORVASTATIN CA 10 MG TABLET (FP) PO SCH (21:20)
[2018-07-06] MEDS: MAG HYDROX/AL HYDROX/SIMETH 30 ML UNIT-DOSE CUP PO PRN ×2 (01:58→18:48)
[2018-07-06] MEDS: MAG HYDROX/ALH/SMC/DPHA/LIDO 240 ML MOUTHWASH MM SCH ×4 (06:18→23:10)
[2018-07-06] MEDS: RANITIDINE HCL 150 MG TABLET (FP) PO SCH ×2 (07:14→21:21)
--- NOTE | 2018-07-06 09:21 | PN ---
S Progress Note Note: client has needed tigan at night for the past 2 days. PRN order placed if needed again in the next 3 days.
--- NOTE | 2018-07-06 09:23 | PN ---
[facility] Progress Note Note: Note from pharmacy indicating that patient is on several medications that may suppress respirations; pt with hx of COPD. Melatonin discontinued; psych consult to review the psych medications.
[2018-07-06] MEDS: PRENATAL VITAMINS W/ FOLIC ACID TABLET (FP) PO SCH (10:23)
[2018-07-06] MEDS: LIDOCAINE 5% TOPICAL PATCH TP SCH (10:23)
[2018-07-06] MEDS: NICOTINE 14 MG/24 HOURS TOPICAL PATCH TD SCH (10:24)
[2018-07-06] MEDS: amLODIPine BESYLATE 10 MG TABLET (FP) PO SCH (10:24)
[2018-07-06] MEDS: SERTRALINE HCL 50 MG TABLET (FP) PO SCH (10:24)
[2018-07-06] MEDS: CYCLOBENZAPRINE HCL 10 MG TABLET (FP) PO PRN ×3 (10:26→21:23)
[2018-07-06] MEDS: QUEtiapine FUMARATE 100 MG TABLET (FP) PO SCH (21:21)
[2018-07-06] MEDS: MELATONIN 5 MG TABLETS PO PRN (21:21)
[2018-07-06] MEDS: LIDOCAINE PATCH REMOVAL MC SCH (21:21)
[2018-07-06] MEDS: ATORVASTATIN CA 10 MG TABLET (FP) PO SCH (21:21)
[2018-07-06] MEDS: THIAMINE HCL 100 MG TABLET (FP) PO SCH (21:21)
[2018-07-07] MEDS: RANITIDINE HCL 150 MG TABLET (FP) PO SCH ×2 (06:29→21:15)
[2018-07-07] MEDS: MAG HYDROX/ALH/SMC/DPHA/LIDO 240 ML MOUTHWASH MM SCH ×4 (06:29→23:15)
[2018-07-07] MEDS: SERTRALINE HCL 50 MG TABLET (FP) PO SCH (09:57)
[2018-07-07] MEDS: amLODIPine BESYLATE 10 MG TABLET (FP) PO SCH (09:57)
[2018-07-07] MEDS: PRENATAL VITAMINS W/ FOLIC ACID TABLET (FP) PO SCH (09:57)
[2018-07-07] MEDS: LIDOCAINE 5% TOPICAL PATCH TP SCH (09:58)
[2018-07-07] MEDS: NICOTINE 14 MG/24 HOURS TOPICAL PATCH TD SCH (09:58)
[2018-07-07] MEDS: CYCLOBENZAPRINE HCL 10 MG TABLET (FP) PO PRN ×2 (09:59→21:15)
[2018-07-07] MEDS: MAG HYDROX/AL HYDROX/SIMETH 30 ML UNIT-DOSE CUP PO PRN (13:29)
[2018-07-07] MEDS: THIAMINE HCL 100 MG TABLET (FP) PO SCH (21:14)
[2018-07-07] MEDS: LIDOCAINE PATCH REMOVAL MC SCH (21:15)
[2018-07-07] MEDS: QUEtiapine FUMARATE 100 MG TABLET (FP) PO SCH (21:15)
[2018-07-07] MEDS: ATORVASTATIN CA 10 MG TABLET (FP) PO SCH (21:15)
[2018-07-07] MEDS: MELATONIN 5 MG TABLETS PO PRN (21:15)
[2018-07-07] MEDS: TRIMETHOBENZAMIDE HCL 300 MG CAPSULE PO PRN (22:16)
[2018-07-08] MEDS: MAG HYDROX/ALH/SMC/DPHA/LIDO 240 ML MOUTHWASH MM SCH ×3 (06:25→17:39)
[2018-07-08] MEDS: RANITIDINE HCL 150 MG TABLET (FP) PO SCH ×2 (06:25→21:18)
[2018-07-08] MEDS: PRENATAL VITAMINS W/ FOLIC ACID TABLET (FP) PO SCH (10:13)
[2018-07-08] MEDS: SERTRALINE HCL 50 MG TABLET (FP) PO SCH (10:13)
[2018-07-08] MEDS: amLODIPine BESYLATE 10 MG TABLET (FP) PO SCH (10:13)
[2018-07-08] MEDS: LIDOCAINE 5% TOPICAL PATCH TP SCH (10:14)
[2018-07-08] MEDS: NICOTINE 14 MG/24 HOURS TOPICAL PATCH TD SCH (10:14)
[2018-07-08] MEDS: CYCLOBENZAPRINE HCL 10 MG TABLET (FP) PO PRN ×2 (10:15→17:39)
[2018-07-08] MEDS: TRIMETHOBENZAMIDE HCL 300 MG CAPSULE PO PRN (13:22)
[2018-07-08] MEDS: MAG HYDROX/AL HYDROX/SIMETH 30 ML UNIT-DOSE CUP PO PRN (14:58)
[2018-07-08] MEDS: QUEtiapine FUMARATE 100 MG TABLET (FP) PO SCH (21:18)
[2018-07-08] MEDS: THIAMINE HCL 100 MG TABLET (FP) PO SCH (21:18)
[2018-07-08] MEDS: MELATONIN 5 MG TABLETS PO PRN (21:18)
[2018-07-08] MEDS: ATORVASTATIN CA 10 MG TABLET (FP) PO SCH (21:18)
[2018-07-08] MEDS: LIDOCAINE PATCH REMOVAL MC SCH (21:20)
[2018-07-09] MEDS: MAG HYDROX/ALH/SMC/DPHA/LIDO 240 ML MOUTHWASH MM SCH ×4 (00:30→17:42)
[2018-07-09] MEDS: RANITIDINE HCL 150 MG TABLET (FP) PO SCH ×2 (06:21→22:11)
[2018-07-09 06:55] VITALS: TEMP 98
[2018-07-09 08:57] VITALS: BP 137/91; PULSE 103
[2018-07-09] MEDS: SERTRALINE HCL 50 MG TABLET (FP) PO SCH (09:43)
[2018-07-09] MEDS: amLODIPine BESYLATE 10 MG TABLET (FP) PO SCH (09:43)
[2018-07-09] MEDS: PRENATAL VITAMINS W/ FOLIC ACID TABLET (FP) PO SCH (09:43)
[2018-07-09] MEDS: NICOTINE 14 MG/24 HOURS TOPICAL PATCH TD SCH (09:43)
[2018-07-09] MEDS: LIDOCAINE 5% TOPICAL PATCH TP SCH (09:44)
[2018-07-09] MEDS: MAG HYDROX/AL HYDROX/SIMETH 30 ML UNIT-DOSE CUP PO PRN (09:45)
[2018-07-09] MEDS: CYCLOBENZAPRINE HCL 10 MG TABLET (FP) PO PRN (09:45)
[2018-07-09] MEDS: ATORVASTATIN CA 10 MG TABLET (FP) PO SCH (22:10)
[2018-07-09] MEDS: MELATONIN 5 MG TABLETS PO PRN (22:10)
[2018-07-09] MEDS: THIAMINE HCL 100 MG TABLET (FP) PO SCH (22:10)
[2018-07-09] MEDS: QUEtiapine FUMARATE 100 MG TABLET (FP) PO SCH (22:11)
[2018-07-09] MEDS: LIDOCAINE PATCH REMOVAL MC SCH (22:12)
[2018-07-10] MEDS: MAG HYDROX/ALH/SMC/DPHA/LIDO 240 ML MOUTHWASH MM SCH (00:17)
--- NOTE | 2018-07-10 00:56 | PN ---
[facility] Progress Note Note: Patient admitted with complaint of alcohol dependence left against medical advice. Patient states 'I just want to leave as per nurse, Ms Cole Jones. Patient has medical history of HIV, hypertension, GERD and depression. I was informed that patient left ad did not want to see a provider when I went up to see the patient Vital Signs Temperature 98 F 07/09/18 06:54 Pulse Rate 103 H 07/09/18 08:56 Respiratory Rate 18 07/09/18 06:54 Blood Pressure 137/91 07/09/18 08:56 O2 Sat by Pulse Oximetry (%)
== END 2018-07-10 00:15 | disposition left against medical advice (07) | DRG 770 ==
LOC: YASAS 15:29 → Y3W 15:31
PROVIDERS: ADMIT Neuromusculoskeletal Medicine & OMM; ATTEND Neuromusculoskeletal Medicine & OMM
PROC: HZ42ZZZ Group Counseling for Substance Abuse Treatment, Cognitive-Behavioral (ICD-10-PCS; principal; 2018-06-29)
DX: F10.20 Alcohol dependence, uncomplicated (principal); F14.20 Cocaine dependence, uncomplicated; F12.20 Cannabis dependence, uncomplicated; F17.210 Nicotine dependence, cigarettes, uncomplicated; I10 Essential (primary) hypertension; Z21 Asymptomatic human immunodeficiency virus [HIV] infection status; K21.9 Gastro-esophageal reflux disease without esophagitis; R22.43 Localized swelling, mass and lump, lower limb, bilateral; E66.9 Obesity, unspecified; Z68.33 Body mass index [BMI] 33.0-33.9, adult; Z90.5 Acquired absence of kidney

== ENCOUNTER 2018-09-19 17:52 | Inpatient (IN) | payer OTHER ==
[2018-09-19 21:39] VITALS: BMI 33.2
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
[2018-09-19] MEDS ORDERED: NICOTINE POLACRILEX 2 MG GUM BUC PRN (23:45)
[2018-09-19] MEDS ORDERED: MENTHOL/PHENOL 1 EACH UD MM PRN (23:45)
[2018-09-19] MEDS ORDERED: MAGNESIUM CITRATE 300 ML BOTTLE PO PRN (23:45)
[2018-09-19] MEDS ORDERED: IBUPROFEN 400 MG TABLET (FP) PO PRN (23:45)
[2018-09-19] MEDS ORDERED: ACETAMINOPHEN 325 MG TABLET (FP) PO PRN ×2 (23:45)
[2018-09-19] MEDS ORDERED: hydrOXYzine PAMOATE 25 MG CAPSULE (FP) PO PRN (23:45)
[2018-09-19] MEDS ORDERED: BISMUTH SUBSALICYLATE 524 MG/30 ML UD PO PRN (23:45)
[2018-09-19] MEDS ORDERED: MAGNESIUM HYDROX 2400MG/30ML ORAL SUSPENSION 30 ML CUP PO PRN (23:45)
[2018-09-20] MEDS: MAG HYDROX/AL HYDROX/SIMETH 30 ML UNIT-DOSE CUP PO PRN (00:36)
[2018-09-20] MEDS: diazePAM 5 MG TABLET PO PRN ×2 (00:36→10:20)
[2018-09-20] MEDS: MELATONIN 5 MG TABLETS PO PRN (00:36)
[2018-09-20] MEDS ORDERED: cloNIDine HCL 0.1 MG TABLET PO ONE (00:39)
[2018-09-20] MEDS: diazePAM 5 MG TABLET PO SCH ×4 (00:41→17:20)
--- NOTE | 2018-09-20 00:42 | PN ---
S Progress Note Note: Patient's blood pressure is B/P 160/112. Patient is asymptomatic Vital Signs Temperature 97.9 F 09/20/18 00:33 Pulse Rate 78 09/20/18 00:33 Respiratory Rate 18 09/20/18 00:33 Blood Pressure 160/112 H 09/20/18 00:33 O2 Sat by Pulse Oximetry (%) Action: Clonidine 01mg tablet oral ordered
[2018-09-20] MEDS: RANITIDINE HCL 150 MG TABLET (FP) PO SCH ×2 (07:46→22:09)
[2018-09-20] MEDS ORDERED: ONDANSETRON *ODT* 4 MG TABLET SL ONE (08:48)
[2018-09-20] MEDS ORDERED: RANITIDINE HCL 150 MG TABLET (FP) PO ONE (10:00)
[2018-09-20] MEDS: NICOTINE 14 MG/24 HOURS TOPICAL PATCH TD SCH (10:16)
[2018-09-20] MEDS: METHOCARBAMOL 500 MG TABLET PO PRN ×2 (10:18→17:20)
[2018-09-20] MEDS: amLODIPine BESYLATE 10 MG TABLET (FP) PO SCH (10:18)
[2018-09-20] MEDS: PRENATAL VITAMINS W/ FOLIC ACID TABLET (FP) PO SCH (10:18)
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
--- NOTE | 2018-09-20 10:53 | PN ---
[facility] CIWA - CIWA Score Nausea/Vomitin-Mild Nausea/No Vomiting Muscle Tremors: 3 Anxiety: 3 Agitation: 3 Paroxysmal Sweats: 1-Minimal Palms Moist Orientation: 0-Oriented Tacttile Disturbances: 0-None Auditory Disturbances: 0-None Visual Disturbances: 0-None Headache: 2-Mild CIWA-Ar Total Score: 13 [facility] Progress Note (SOAP) Subjective: feeling nausea after breakfast zofrain sl 4 mg x 1 Objective: 09/20/18 10:56 Vital Signs Temperature 97.7 F 09/20/18 09:05 Pulse Rate 88 09/20/18 09:05 Respiratory Rate 18 09/20/18 09:05 Blood Pressure 125/80 09/20/18 09:05 O2 Sat by Pulse Oximetry (%) lab pending Assessment: 09/20/18 10:56 alcohol withdrawal sx Plan: continue detox
[2018-09-20] MEDS ORDERED: SERTRALINE HCL 25 MG TABLET (FP) PO ONE (10:56)
[2018-09-20 12:05] LABS: HEMATOCRIT 40.7 % (35.4-49); HEMOGLOBIN 13.3 GM/dL (11.7-16.9); MCHC 32.6 g/dl (32.0-35.9); MEAN CELL VOLUME 85.9 fl (80-96); MEAN PLT VOLUME 9.8 fl (7.5-11.1); PLATELET COUNT 197 K/MM3 (134-434); RBC 4.73 M/mm3 (4.00-5.60); RDW 15.4 % (11.9-15.9); WHITE BLOOD COUNT 5.2 K/mm3 (4.0-10.0)
[2018-09-20 12:07] LABS: ALBUMIN 3.4 g/dl (3.4-5.0); BILIRUBIN,TOTAL 0.4 mg/dL (0.2-1); CALCIUM 8.6 mg/dL (8.5-10.1); CREATININE 1.3 mg/dL (0.55-1.3); POTASSIUM 3.8 mmol/L (3.5-5.1); TOT PROT 7.1 g/dl (6.4-8.2)
[2018-09-20] MEDS: THIAMINE HCL 100 MG TABLET (FP) PO SCH (22:09)
[2018-09-20] MEDS: QUEtiapine FUMARATE 100 MG TABLET (FP) PO SCH (22:09)
[2018-09-20] MEDS: ATORVASTATIN CA 10 MG TABLET (FP) PO SCH (22:09)
[2018-09-21] MEDS ORDERED: diazePAM 5 MG TABLET PO ONE (06:00)
[2018-09-21] MEDS: RANITIDINE HCL 150 MG TABLET (FP) PO SCH ×2 (06:17→22:03)
[2018-09-21] MEDS: NICOTINE 14 MG/24 HOURS TOPICAL PATCH TD SCH (10:17)
[2018-09-21] MEDS: PRENATAL VITAMINS W/ FOLIC ACID TABLET (FP) PO SCH (10:20)
[2018-09-21] MEDS: diazePAM 5 MG TABLET PO PRN ×3 (10:20→22:05)
[2018-09-21] MEDS: amLODIPine BESYLATE 10 MG TABLET (FP) PO SCH (10:20)
[2018-09-21] MEDS: SERTRALINE HCL 25 MG TABLET (FP) PO SCH (10:20)
[2018-09-21] MEDS: MAG HYDROX/AL HYDROX/SIMETH 30 ML UNIT-DOSE CUP PO PRN ×2 (10:22→17:08)
--- NOTE | 2018-09-21 11:13 | PN ---
S CIWA - CIWA Score Nausea/Vomitin-Mild Nausea/No Vomiting Muscle Tremors: 3 Anxiety: 2 Agitation: 3 Paroxysmal Sweats: 1-Minimal Palms Moist Orientation: 1-Uncertain about Date Tacttile Disturbances: 0-None Auditory Disturbances: 0-None Visual Disturbances: 0-None Headache: 1-Very Mild CIWA-Ar Total Score: 12 S Progress Note (SOAP) Subjective: tremor muscle sore anxious Objective: 09/21/18 11:12 Vital Signs Temperature 97.6 F 09/21/18 09:15 Pulse Rate 84 09/21/18 09:15 Respiratory Rate 18 09/21/18 09:15 Blood Pressure 128/86 09/21/18 09:15 O2 Sat by Pulse Oximetry (%) Laboratory Last Values WBC 5.2 K/mm3 (4.0-10.0) 09/20/18 08:35 RBC 4.73 M/mm3 (4.00-5.60) 09/20/18 08:35 Hgb 13.3 GM/dL (11.7-16.9) 09/20/18 08:35 Hct 40.7 % (35.4-49) 09/20/18 08:35 MCV 85.9 fl (80-96) 09/20/18 08:35 MCH 28.0 pg (25.7-33.7) 09/20/18 08:35 MCHC 32.6 g/dl (32.0-35.9) 09/20/18 08:35 RDW 15.4 % (11.9-15.9) D 09/20/18 08:35 Plt Count 197 K/MM3 (134-434) 09/20/18 08:35 MPV 9.8 fl (7.5-11.1) 09/20/18 08:35 Sodium 138 mmol/L (136-145) 09/20/18 08:35 Potassium 3.8 mmol/L (3.5-5.1) 09/20/18 08:35 Chloride 104 mmol/L (98-107) 09/20/18 08:35 Carbon Dioxide 24 mmol/L (21-32) 09/20/18 08:35 Anion Gap 10 MMOL/L (8-16) 09/20/18 08:35 BUN 12 mg/dL (7-18) 09/20/18 08:35 Creatinine 1.3 mg/dL (0.55-1.3) 09/20/18 08:35 Est GFR (CKD-EPI)AfAm 77.45 09/20/18 08:35 Est GFR (CKD-EPI)NonAf 66.83 09/20/18 08:35 Random Glucose 137 mg/dL (74-106) H 09/20/18 08:35 Calcium 8.6 mg/dL (8.5-10.1) 09/20/18 08:35 Total Bilirubin 0.4 mg/dL (0.2-1) 09/20/18 08:35 AST 20 U/L (15-37) 09/20/18 08:35 ALT 24 U/L (13-61) 09/20/18 08:35 Alkaline Phosphatase 69 U/L (45-117) 09/20/18 08:35 Total Protein 7.1 g/dl (6.4-8.2) 09/20/18 08:35 Albumin 3.4 g/dl (3.4-5.0) 09/20/18 08:35 RPR Titer Nonreactive (NONREACTIVE) 09/20/18 08:35 lab noted Assessment: 09/21/18 11:13 alcohol withdrawal sx Plan: continue detox
[2018-09-21] MEDS: METHOCARBAMOL 500 MG TABLET PO PRN (17:07)
[2018-09-21] MEDS: THIAMINE HCL 100 MG TABLET (FP) PO SCH (22:03)
[2018-09-21] MEDS: QUEtiapine FUMARATE 100 MG TABLET (FP) PO SCH (22:03)
[2018-09-21] MEDS: MELATONIN 5 MG TABLETS PO PRN (22:04)
[2018-09-21] MEDS: ATORVASTATIN CA 10 MG TABLET (FP) PO SCH (22:04)
[2018-09-22] MEDS: MAG HYDROX/AL HYDROX/SIMETH 30 ML UNIT-DOSE CUP PO PRN (02:48)
[2018-09-22] MEDS: RANITIDINE HCL 150 MG TABLET (FP) PO SCH (06:30)
[2018-09-22 09:37] VITALS: BP 132/92; PULSE 96; TEMP 97
[2018-09-22] MEDS: SERTRALINE HCL 25 MG TABLET (FP) PO SCH (10:17)
[2018-09-22] MEDS: PRENATAL VITAMINS W/ FOLIC ACID TABLET (FP) PO SCH (10:17)
[2018-09-22] MEDS: amLODIPine BESYLATE 10 MG TABLET (FP) PO SCH (10:17)
[2018-09-22] MEDS: METHOCARBAMOL 500 MG TABLET PO PRN (10:18)
[2018-09-22] MEDS: NICOTINE 14 MG/24 HOURS TOPICAL PATCH TD SCH (10:19)
--- NOTE | 2018-09-22 11:51 | PN ---
S CIWA - CIWA Score Nausea/Vomitin-No Nausea/No Vomiting Muscle Tremors: None Anxiety: 1-Mildly Anxious Agitation: 1-Slight > Activity Paroxysmal Sweats: No Perspiration Orientation: 0-Oriented Tacttile Disturbances: 0-None Auditory Disturbances: 0-None Visual Disturbances: 0-None Headache: 1-Very Mild CIWA-Ar Total Score: 3 [facility] Progress Note (SOAP) Subjective: alert,no complaint Objective: 09/22/18 11:49 Vital Signs Temperature 97.0 F L 09/22/18 09:36 Pulse Rate 96 H 09/22/18 09:36 Respiratory Rate 18 09/22/18 09:36 Blood Pressure 132/92 09/22/18 09:36 O2 Sat by Pulse Oximetry (%) Assessment: 09/22/18 11:49 detox completed,no withdrawal symptom Plan: discharge today to rehab
--- NOTE | 2018-09-22 11:54 | DS ---
[facility] Detox Discharge Summary Admission Date: 09/19/18 Discharge Date: 09/22/18 - History Present History: Alcohol Dependence, Cocaine Dependence, Sedative Dependence Additional Comments: follow up with [facility] arrangement today Pertinent Past History: hypertension hypercholesterolemia gerd jiv hypertension nicotine dependence - Physical Exam Results Vital Signs: Vital Signs Temperature 97.0 F L 09/22/18 09:36 Pulse Rate 96 H 09/22/18 09:36 Respiratory Rate 18 09/22/18 09:36 Blood Pressure 132/92 09/22/18 09:36 O2 Sat by Pulse Oximetry (%) Pertinent Admission Physical Exam Findings: withdrawal signs and symptom Vital Signs Temperature 97.0 F L 09/22/18 09:36 Pulse Rate 96 H 09/22/18 09:36 Respiratory Rate 18 09/22/18 09:36 Blood Pressure 132/92 09/22/18 09:36 O2 Sat by Pulse Oximetry (%) Laboratory Last Values WBC 5.2 K/mm3 (4.0-10.0) 09/20/18 08:35 RBC 4.73 M/mm3 (4.00-5.60) 09/20/18 08:35 Hgb 13.3 GM/dL (11.7-16.9) 09/20/18 08:35 Hct 40.7 % (35.4-49) 09/20/18 08:35 MCV 85.9 fl (80-96) 09/20/18 08:35 MCH 28.0 pg (25.7-33.7) 09/20/18 08:35 MCHC 32.6 g/dl (32.0-35.9) 09/20/18 08:35 RDW 15.4 % (11.9-15.9) D 09/20/18 08:35 Plt Count 197 K/MM3 (134-434) 09/20/18 08:35 MPV 9.8 fl (7.5-11.1) 09/20/18 08:35 Sodium 138 mmol/L (136-145) 09/20/18 08:35 Potassium 3.8 mmol/L (3.5-5.1) 09/20/18 08:35 Chloride 104 mmol/L (98-107) 09/20/18 08:35 Carbon Dioxide 24 mmol/L (21-32) 09/20/18 08:35 Anion Gap 10 MMOL/L (8-16) 09/20/18 08:35 BUN 12 mg/dL (7-18) 09/20/18 08:35 Creatinine 1.3 mg/dL (0.55-1.3) 09/20/18 08:35 Est GFR (CKD-EPI)AfAm 77.45 09/20/18 08:35 Est GFR (CKD-EPI)NonAf 66.83 09/20/18 08:35 Random Glucose 137 mg/dL (74-106) H 09/20/18 08:35 Calcium 8.6 mg/dL (8.5-10.1) 09/20/18 08:35 Total Bilirubin 0.4 mg/dL (0.2-1) 09/20/18 08:35 AST 20 U/L (15-37) 09/20/18 08:35 ALT 24 U/L (13-61) 09/20/18 08:35 Alkaline Phosphatase 69 U/L (45-117) 09/20/18 08:35 Total Protein 7.1 g/dl (6.4-8.2) 09/20/18 08:35 Albumin 3.4 g/dl (3.4-5.0) 09/20/18 08:35 RPR Titer Nonreactive (NONREACTIVE) 09/20/18 08:35 - Treatment Hospital Course: Detox Protocol Followed, Detoxed Safely, Responded well, Discharged Condition Good, Rehab Referral Accepted - Medication Discharge Medications: Ambulatory Orders Elviteg/Cob/Emtri/Tenof Alafen [Genvoya (Non-Formulary)] 1 each PO DAILY Amlodipine Besylate [Norvasc -] 10 mg PO DAILY 01/06/18 Omeprazole Magnesium [Acid Project Eng] 40 mg PO DAILY 01/06/18 Sertraline HCl [Zoloft -] 50 mg PO DAILY 01/06/18 Quetiapine Fumarate [Seroquel] 100 mg PO HS 03/24/18 Pravastatin Sodium [Pravachol (Nf)] 20 mg PO HS 05/25/18 Atorvastatin Ca [Lipitor] 10 mg PO HS tablet 06/29/18 Ranitidine [Zantac -] 150 mg PO BID@0700,2200 tablet 06/29/18 - Diagnosis (1) Alcohol dependence with uncomplicated withdrawal Current Visit: Yes Status: Acute (2) Sedative, hypnotic or anxiolytic dependence with withdrawal, unspecified Current Visit: Yes Status: Acute (3) Cocaine dependence Current Visit: Yes Status: Chronic Qualifiers: Substance use status: uncomplicated Qualified Code(s): F14.20 - Cocaine dependence, uncomplicated (4) GERD (gastroesophageal reflux disease) Current Visit: Yes Status: Chronic Qualifiers: Esophagitis presence: esophagitis presence not specified (5) HIV (human immunodeficiency virus infection) Current Visit: Yes Status: Chronic Qualifiers: HIV symptom status: unspecified (6) HTN (hypertension) Current Visit: Yes Status: Chronic Qualifiers: Hypertension type: essential hypertension (7) Nicotine dependence Current Visit: Yes Status: Chronic Qualifiers: Nicotine product type: cigarettes Substance use status: uncomplicated Qualified Code(s): F17.210 - Nicotine dependence, cigarettes, uncomplicated (8) PTSD (post-traumatic stress disorder) Current Visit: Yes Status: Chronic (9) Anxiolytic withdrawal without complication Current Visit: No Status: Acute - AMA Did Patient Leave Against Medical Advice: No
== END 2018-09-22 12:35 | disposition home or self-care (01) | DRG 774 ==
LOC: YASAS 17:52 → Y3N 23:48
PROVIDERS: ADMIT Surgery; ATTEND Surgery
PROC: HZ2ZZZZ Detoxification Services for Substance Abuse Treatment (ICD-10-PCS; principal; 2018-09-19)
DX: F10.230 Alcohol dependence with withdrawal, uncomplicated (principal); F13.230 Sedative, hypnotic or anxiolytic dependence with withdrawal, uncomplicated; F14.20 Cocaine dependence, uncomplicated; F12.20 Cannabis dependence, uncomplicated; F17.210 Nicotine dependence, cigarettes, uncomplicated; F43.10 Post-traumatic stress disorder, unspecified; F19.24 Other psychoactive substance dependence with psychoactive substance-induced mood disorder; F32.9 Major depressive disorder, single episode, unspecified; I10 Essential (primary) hypertension; K21.9 Gastro-esophageal reflux disease without esophagitis; Z21 Asymptomatic human immunodeficiency virus [HIV] infection status; E78.00 Pure hypercholesterolemia, unspecified; Z91.013 Allergy to seafood; Z90.5 Acquired absence of kidney
CPT/HCPCS: 36415; 80053; 85027; 86593; J0735; Q0162

== ENCOUNTER 2018-09-22 12:48 | Inpatient (IN) | payer OTHER ==
[2018-09-22] MEDS ORDERED: guaiFENesin 200 MG/10 ML 10 ML UNIT-DOSE CUPS PO PRN (15:05)
[2018-09-22] MEDS ORDERED: LOPERAMIDE HCL 2 MG CAPSULE PO PRN (15:05)
[2018-09-22] MEDS ORDERED: ACETAMINOPHEN 325 MG TABLET (FP) PO PRN (15:05)
[2018-09-22] MEDS ORDERED: MAGNESIUM CITRATE 300 ML BOTTLE PO PRN (15:05)
[2018-09-22] MEDS ORDERED: P-EPHED 60MG/TRIPROLIDI 2.5MG TABLET PO PRN (15:05)
[2018-09-22] MEDS ORDERED: NICOTINE POLACRILEX 2 MG GUM BUC PRN ×2 (15:05→15:06)
[2018-09-22] MEDS ORDERED: MAGNESIUM HYDROX 2400MG/30ML ORAL SUSPENSION 30 ML CUP PO PRN (15:05)
[2018-09-22] MEDS ORDERED: MENTHOL/PHENOL 1 EACH UD MM PRN (15:05)
--- NOTE | 2018-09-22 15:10 | HP ---
[facility] Rehab Assess/Revision - Admission History Admitted to Rehab from: [facility] Date of Admission to Rehab: 09/22/18 - Vital signs Vital Signs: Vital Signs Period Temp Pulse Resp BP Sys/Prakash Pulse Ox Last 24 Hr 97.3 F 100 18 135/80 - Findings Detox History & Physical reviewed: Yes Concur with findings: Yes Inpatient Rehab Admission - Rehab Decision to Admit Inpatient rehab admission?: Yes - Initial Determination Are CD services needed?: Yes Free of communicable disease: Yes Not in need of hospitalization: Yes - Rehab Admission Criteria Previous failed treatment: Yes Poor recovery environment: Yes Comorbidities: Yes Lacks judgement: No Patient is meeting Inpatient Rehab admission criteria:: Yes
[2018-09-22] MEDS: MAG HYDROX/AL HYDROX/SIMETH 30 ML UNIT-DOSE CUP PO PRN ×2 (15:39→21:56)
[2018-09-22] MEDS: THIAMINE HCL 100 MG TABLET (FP) PO SCH (21:54)
[2018-09-22] MEDS: RANITIDINE HCL 150 MG TABLET (FP) PO SCH (21:54)
[2018-09-22] MEDS: ATORVASTATIN CA 10 MG TABLET (FP) PO SCH ×2 (21:55)
[2018-09-22] MEDS: QUEtiapine FUMARATE 100 MG TABLET (FP) PO SCH (21:55)
[2018-09-22] MEDS ORDERED: MELATONIN 5 MG TABLETS PO PRN (22:00)
[2018-09-23] MEDS: MAG HYDROX/AL HYDROX/SIMETH 30 ML UNIT-DOSE CUP PO PRN ×4 (02:57→21:23)
[2018-09-23] MEDS: IBUPROFEN 400 MG TABLET (FP) PO PRN (06:29)
[2018-09-23] MEDS: RANITIDINE HCL 150 MG TABLET (FP) PO SCH ×2 (06:29→21:23)
[2018-09-23] MEDS: NICOTINE 14 MG/24 HOURS TOPICAL PATCH TD SCH (10:00)
[2018-09-23] MEDS: SERTRALINE HCL 50 MG TABLET (FP) PO SCH (10:00)
[2018-09-23] MEDS ORDERED: NICOTINE 21 MG/24 HOURS TOPICAL PATCH TD SCH (10:00)
[2018-09-23] MEDS: PRENATAL VITAMINS W/ FOLIC ACID TABLET (FP) PO SCH (10:00)
[2018-09-23] MEDS: amLODIPine BESYLATE 10 MG TABLET (FP) PO SCH (10:00)
[2018-09-23] MEDS: hydrOXYzine PAMOATE 50 MG CAPSULE (FP) PO PRN (10:01)
[2018-09-23] MEDS ORDERED: ONDANSETRON *ODT* 4 MG TABLET SL PRN (11:55)
--- NOTE | 2018-09-23 13:53 | PN ---
[facility] Progress Note Note: Psychiatric nurse practitioner note: Patient reports poor sleep. Will d/c melatonin 5mg and order melatonin 10mg. Verbal consent given.
--- NOTE | 2018-09-23 17:50 | PN ---
S Progress Note (SOAP) Subjective: Abdominal discomfort, nausea Objective: 09/23/18 17:47 Hx: GERD, HTN, HLD Vital Signs Temperature 98.1 F 09/23/18 06:53 Pulse Rate 98 H 09/23/18 10:00 Respiratory Rate 18 09/23/18 06:53 Blood Pressure 120/76 09/23/18 10:00 O2 Sat by Pulse Oximetry (%) Abdomen: BS x4, NT, ND soft, well healed mid-abdominal scar r/t renal surgery Mild epigastric tenderness Had nausea this morning, zofran was given with good effect Assessment: 09/23/18 17:49 GERD Plan: Continue zantac and maalox
[2018-09-23] MEDS: ATORVASTATIN CA 10 MG TABLET (FP) PO SCH ×2 (21:23→21:25)
[2018-09-23] MEDS: QUEtiapine FUMARATE 100 MG TABLET (FP) PO SCH (21:23)
[2018-09-23] MEDS: THIAMINE HCL 100 MG TABLET (FP) PO SCH (21:23)
[2018-09-23] MEDS ORDERED: MELATONIN 5 MG TABLETS PO PRN (22:00)
[2018-09-24] MEDS: MAG HYDROX/AL HYDROX/SIMETH 30 ML UNIT-DOSE CUP PO PRN ×2 (01:21→10:07)
[2018-09-24] MEDS: RANITIDINE HCL 150 MG TABLET (FP) PO SCH (06:25)
[2018-09-24] MEDS: NICOTINE 14 MG/24 HOURS TOPICAL PATCH TD SCH (10:06)
[2018-09-24] MEDS: PRENATAL VITAMINS W/ FOLIC ACID TABLET (FP) PO SCH (10:06)
[2018-09-24] MEDS: amLODIPine BESYLATE 10 MG TABLET (FP) PO SCH (10:06)
[2018-09-24] MEDS: SERTRALINE HCL 50 MG TABLET (FP) PO SCH (10:06)
[2018-09-24] MEDS: IBUPROFEN 400 MG TABLET (FP) PO PRN (14:11)
[2018-09-24] MEDS: hydrOXYzine PAMOATE 50 MG CAPSULE (FP) PO PRN (14:11)
[2018-09-24 21:11] VITALS: BP 150/95; PULSE 105; TEMP 98.3
--- NOTE | 2018-09-25 07:09 | PN ---
[facility] Progress Note Note: LATE ENTRY FOR 09/24/2018 AT 2100 Discharge Summary Patient Name: PAYAL MENDOSA Date of : 75 Patient Status: Inpatient Attending Provider: Liz Florian Date: 09/25/18 07:02 Initialization Date: 09/25/18 07:02 Discharge Summary Admission Date: 09/22/18 Discharge Date: 09/24/18 - History Present History: Alcohol Dependence, Cannabis Dependence, Cocaine Dependence, Sedative Dependence Additional Comments: CLIENT SIGNED OUT AMA. DID NOT WANT TO SHARE WITH PROVIDER OR DISCUSS. HE IS A/ O X3 WITH NO COMPLAINTS OFFERED, NAD UNRECEPTIVE TO ANY DISCUSSIONS/ ENCOURAGEMENT TO CONTINUE TREATMENT. CLIENT ALSO REFUSED TO WAIT TO SPEAK WITH COUNSELOR IN THE MORNING. Pertinent Past History: PTSD. MOOD D/O, HTN, HIV, GERD, DEPRESSION - Physical Exam Results Vital Signs: Vital Signs Temperature 98.3 F 09/24/18 21:10 Pulse Rate 105 H 09/24/18 21:10 Respiratory Rate 18 09/24/18 21:10 Blood Pressure 150/95 09/24/18 21:10 O2 Sat by Pulse Oximetry (%) Pertinent Admission Physical Exam Findings: TRANSFER FROM DETOX - Treatment Hospital Course: Discharged Condition Good Patient has Accepted a Rehab Referral to: [facility] - Medication Discharge Medications: Ambulatory Orders Elviteg/Cob/Emtri/Tenof Alafen [Genvoya (Non-Formulary)] 1 each PO DAILY Amlodipine Besylate [Norvasc -] 10 mg PO DAILY 01/06/18 Omeprazole Magnesium [Acid [employer]] 40 mg PO DAILY 01/06/18 Sertraline HCl [Zoloft -] 50 mg PO DAILY 01/06/18 Quetiapine Fumarate [Seroquel] 100 mg PO HS 03/24/18 Pravastatin Sodium [Pravachol (Nf)] 20 mg PO HS 05/25/18 Atorvastatin Ca [Lipitor] 10 mg PO HS tablet 06/29/18 Ranitidine [Zantac -] 150 mg PO BID@0700,2200 tablet 06/29/18 Nicotine Patch [Nicoderm Patch -] 14 mg TD DAILY patch 09/22/18 Nicotine Polacrilex [Nicorelief -] 2 mg BUC Q2H PRN gum 09/22/18 - Diagnosis (1) Drug-induced mood disorder Status: Chronic (2) Substance-induced sleep disorder Status: Chronic (3) Acid reflux disease Status: Chronic Qualifiers: (4) Alcohol dependence Status: Chronic Qualifiers: (5) Cannabis dependence, uncomplicated Status: Chronic (6) Cocaine dependence Status: Chronic Qualifiers: (7) Depression Status: Chronic Qualifiers: (8) Depression Status: Chronic Qualifiers: (9) GERD (gastroesophageal reflux disease) Status: Chronic Qualifiers: (10) HIV (human immunodeficiency virus infection) Status: Chronic Qualifiers: (11) HTN (hypertension) Status: Chronic Qualifiers: (12) Nicotine dependence Status: Chronic Qualifiers: (13) Post traumatic stress disorder (PTSD) Status: Chronic - AMA Did Patient Leave Against Medical Advice: Yes
== END 2018-09-24 21:32 | disposition left against medical advice (07) | DRG 770 ==
LOC: YASAS 12:48 → Y5N 12:49
PROVIDERS: ADMIT Neuromusculoskeletal Medicine & OMM; ATTEND Neuromusculoskeletal Medicine & OMM
PROC: HZ42ZZZ Group Counseling for Substance Abuse Treatment, Cognitive-Behavioral (ICD-10-PCS; principal; 2018-09-22)
DX: F10.20 Alcohol dependence, uncomplicated (principal); F14.20 Cocaine dependence, uncomplicated; F12.20 Cannabis dependence, uncomplicated; F17.210 Nicotine dependence, cigarettes, uncomplicated; F19.24 Other psychoactive substance dependence with psychoactive substance-induced mood disorder; F19.282 Other psychoactive substance dependence with psychoactive substance-induced sleep disorder; F43.10 Post-traumatic stress disorder, unspecified; F32.9 Major depressive disorder, single episode, unspecified; Z21 Asymptomatic human immunodeficiency virus [HIV] infection status; I10 Essential (primary) hypertension; K21.9 Gastro-esophageal reflux disease without esophagitis
CPT/HCPCS: Q0162

== ENCOUNTER 2018-12-02 14:04 | Inpatient (IN) | payer OTHER | END 2018-12-05 12:18 | LOC: YASAS 14:04 → Y3N 19:17 ==

== ENCOUNTER 2019-02-01 09:21 | Inpatient (IN) | payer OTHER ==
[2019-02-01 10:05] VITALS: BMI 32.8
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
[2019-02-01] MEDS ORDERED: ACETAMINOPHEN 325 MG TABLET (FP) PO PRN ×2 (12:49)
[2019-02-01] MEDS ORDERED: MAGNESIUM CITRATE 300 ML BOTTLE PO PRN (12:49)
[2019-02-01] MEDS ORDERED: MAGNESIUM HYDROX 2400MG/30ML ORAL SUSPENSION 30 ML CUP PO PRN (12:49)
[2019-02-01] MEDS ORDERED: BISMUTH SUBSALICYLATE 524 MG/30 ML UD PO PRN (12:49)
[2019-02-01] MEDS ORDERED: MENTHOL/PHENOL 1 EACH UD MM PRN (12:49)
--- NOTE | 2019-02-01 13:06 | PN ---
Teaching Attending Note Name of Resident: Phillip Woods ATTENDING PHYSICIAN STATEMENT I saw and evaluated the patient. I reviewed the resident's note and discussed the case with the resident. I agree with the resident's findings and plan as documented. SUBJECTIVE: Agree with subjective findings of resident. OBJECTIVE: Agree with objective findings of resident. ASSESSMENT AND PLAN: Agree with admission for detox.
[2019-02-01] MEDS: diazePAM 5 MG TABLET PO SCH ×2 (13:23→22:06)
[2019-02-01] MEDS: METHOCARBAMOL 500 MG TABLET PO PRN ×2 (14:34→22:06)
[2019-02-01 17:48] LABS: HEMATOCRIT 42.8 % (35.4-49); MCH 28.3 pg (25.7-33.7); MCHC 32.7 g/dl (32.0-35.9); MEAN CELL VOLUME 86.5 fl (80-96); RBC 4.94 M/mm3 (4.00-5.60); RDW 17.5 % (11.9-15.9); WHITE BLOOD COUNT 5.8 K/mm3 (4.0-10.0)
[2019-02-01 18:03] LABS: ALBUMIN 3.8 g/dl (3.4-5.0); BILIRUBIN,TOTAL 0.4 mg/dL (0.2-1); BLOOD UREA NITROGEN 13.2 mg/dL (7-18); CALCIUM 8.7 mg/dL (8.5-10.1); CREATININE 1.3 mg/dL (0.55-1.3); TOT PROT 7.7 g/dl (6.4-8.2)
[2019-02-01 18:29] LABS: MEAN PLT VOLUME 9.3 fl (7.5-11.1)
[2019-02-01 18:30] LABS: PLATELET COUNT 206 K/MM3 (134-434)
[2019-02-01] MEDS ORDERED: PATIENT'S OWN MEDICATION (NON-FORMULARY) (Pravastatin Sodium 20 MG) PO SCH (22:00)
[2019-02-01] MEDS: MELATONIN 5 MG TABLETS PO PRN (22:06)
[2019-02-01] MEDS: THIAMINE HCL 100 MG TABLET (FP) PO SCH (22:07)
[2019-02-01] MEDS: MAG HYDROX/AL HYDROX/SIMETH 30 ML UNIT-DOSE CUP PO PRN (22:08)
[2019-02-02] MEDS: METHOCARBAMOL 500 MG TABLET PO PRN (05:50)
[2019-02-02] MEDS: diazePAM 5 MG TABLET PO SCH ×3 (05:50→22:08)
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
[2019-02-02] MEDS ORDERED: PANTOPRAZOLE 40 MG TABLET (FP) PO SCH (10:00)
[2019-02-02] MEDS ORDERED: PATIENT'S OWN MEDICATION (NON-FORMULARY) (Bictegrav/Emtricit/Tenofov Ala 1 EACH) PO SCH ×2 (10:00)
[2019-02-02] MEDS: NICOTINE 14 MG/24 HOURS TOPICAL PATCH TD SCH (10:32)
[2019-02-02] MEDS: diazePAM 5 MG TABLET PO PRN ×2 (10:36→17:21)
[2019-02-02] MEDS: amLODIPine BESYLATE 10 MG TABLET (FP) PO SCH (10:36)
[2019-02-02] MEDS: PRENATAL VITAMINS W/ FOLIC ACID TABLET (FP) PO SCH (10:37)
[2019-02-02] MEDS: SERTRALINE HCL 50 MG TABLET (FP) PO SCH (11:46)
[2019-02-02] MEDS ORDERED: FLU VACCINE QUAD 60 MCG/0.5 ML (MDV 19-20) IM ONE (12:00)
--- NOTE | 2019-02-02 13:28 | PN ---
S CIWA - CIWA Score Nausea/Vomitin-No Nausea/No Vomiting Muscle Tremors: 3 Anxiety: 2 Agitation: 2 Paroxysmal Sweats: 2 Orientation: 0-Oriented Tacttile Disturbances: 0-None Auditory Disturbances: 0-None Visual Disturbances: 0-None Headache: 0-None Present CIWA-Ar Total Score: 9 BHS Progress Note (SOAP) Subjective: sweats agitation restless interrupted sleep Objective: 02/02/19 13:25 Vital Signs Temperature 97.7 F 02/02/19 13:16 Pulse Rate 96 H 02/02/19 13:16 Respiratory Rate 18 02/02/19 13:16 Blood Pressure 147/91 02/02/19 13:16 O2 Sat by Pulse Oximetry (%) Laboratory Tests 02/01/19 02/01/19 02/01/19 14:00 14:00 14:00 WBC 5.8 RBC 4.94 Hgb 14.0 Hct 42.8 MCV 86.5 MCH 28.3 MCHC 32.7 RDW 17.5 H Plt Count 206 MPV 9.3 Sodium 140 Potassium 4.0 Chloride 109 H Carbon Dioxide 23 Anion Gap 9 BUN 13.2 Creatinine 1.3 Est GFR (CKD-EPI)AfAm 77.45 Est GFR (CKD-EPI)NonAf 66.83 Random Glucose 110 H Calcium 8.7 Total Bilirubin 0.4 AST 21 ALT 22 Alkaline Phosphatase 73 Total Protein 7.7 Albumin 3.8 RPR Titer Nonreactive labs noted aaox3 ambulating no acute distress Assessment: 02/02/19 13:26 withdrawal sx Plan: continue detox increase fluids pt prefers to use his own meloxicam and omperazole; pt brought his own medication pending verification.
[2019-02-02] MEDS: MAG HYDROX/AL HYDROX/SIMETH 30 ML UNIT-DOSE CUP PO PRN (14:14)
[2019-02-02] MEDS: MELOXICAM 15 MG PO PRN (19:26)
[2019-02-02] MEDS: PATIENT'S OWN MEDICATION (NON-FORMULARY) (Omeprazole 40 MG) PO SCH (19:27)
[2019-02-02] MEDS: THIAMINE HCL 100 MG TABLET (FP) PO SCH (22:09)
[2019-02-02] MEDS: MELATONIN 5 MG TABLETS PO PRN (22:09)
[2019-02-02] MEDS: QUEtiapine FUMARATE 100 MG TABLET (FP) PO SCH (22:09)
[2019-02-03] MEDS: diazePAM 5 MG TABLET PO SCH ×2 (05:30→17:27)
[2019-02-03] MEDS ORDERED: OMEPRAZOLE 40 MG PO SCH (10:00)
[2019-02-03] MEDS: PRENATAL VITAMINS W/ FOLIC ACID TABLET (FP) PO SCH (10:12)
[2019-02-03] MEDS: amLODIPine BESYLATE 10 MG TABLET (FP) PO SCH (10:12)
[2019-02-03] MEDS: PATIENT'S OWN MEDICATION (NON-FORMULARY) (Omeprazole 40 MG) PO SCH (10:13)
[2019-02-03] MEDS: IBUPROFEN 400 MG TABLET (FP) PO PRN (10:14)
[2019-02-03] MEDS: SERTRALINE HCL 50 MG TABLET (FP) PO SCH (10:14)
[2019-02-03] MEDS: NICOTINE 14 MG/24 HOURS TOPICAL PATCH TD SCH (10:14)
[2019-02-03] MEDS: diazePAM 5 MG TABLET PO PRN (10:17)
--- NOTE | 2019-02-03 13:19 | PN ---
S CIWA - CIWA Score Nausea/Vomitin-No Nausea/No Vomiting Muscle Tremors: 3 Anxiety: 3 Agitation: 3 Paroxysmal Sweats: 3 Orientation: 0-Oriented Tacttile Disturbances: 0-None Auditory Disturbances: 0-None Visual Disturbances: 0-None Headache: 0-None Present CIWA-Ar Total Score: 12 BHS Progress Note (SOAP) Subjective: restless sweats chills body aches Objective: 02/03/19 13:17 Vital Signs Temperature 96.6 F L 02/03/19 09:24 Pulse Rate 91 H 02/03/19 09:24 Respiratory Rate 16 02/03/19 09:24 Blood Pressure 145/89 02/03/19 09:24 O2 Sat by Pulse Oximetry (%) Laboratory Tests 02/01/19 02/01/19 02/01/19 14:00 14:00 14:00 WBC 5.8 RBC 4.94 Hgb 14.0 Hct 42.8 MCV 86.5 MCH 28.3 MCHC 32.7 RDW 17.5 H Plt Count 206 MPV 9.3 Sodium 140 Potassium 4.0 Chloride 109 H Carbon Dioxide 23 Anion Gap 9 BUN 13.2 Creatinine 1.3 Est GFR (CKD-EPI)AfAm 77.45 Est GFR (CKD-EPI)NonAf 66.83 Random Glucose 110 H Calcium 8.7 Total Bilirubin 0.4 AST 21 ALT 22 Alkaline Phosphatase 73 Total Protein 7.7 Albumin 3.8 RPR Titer Nonreactive aaox3 ambulating no acute distress Assessment: 02/03/19 13:17 withdrawal sx Plan: continue detox increase fluids pt will remain until tuesday for a safe transition to rehab. pt is at risk of relapse if he is d/c tomorrow.
[2019-02-03] MEDS: THIAMINE HCL 100 MG TABLET (FP) PO SCH (21:20)
[2019-02-03] MEDS: QUEtiapine FUMARATE 100 MG TABLET (FP) PO SCH (21:20)
[2019-02-03] MEDS: MELATONIN 5 MG TABLETS PO PRN (21:21)
[2019-02-04] MEDS: IBUPROFEN 400 MG TABLET (FP) PO PRN ×2 (05:41→20:02)
[2019-02-04] MEDS ORDERED: diazePAM 5 MG TABLET PO ONE (06:00)
[2019-02-04] MEDS: PRENATAL VITAMINS W/ FOLIC ACID TABLET (FP) PO SCH (10:06)
[2019-02-04] MEDS: SERTRALINE HCL 50 MG TABLET (FP) PO SCH (10:07)
[2019-02-04] MEDS: amLODIPine BESYLATE 10 MG TABLET (FP) PO SCH (10:07)
[2019-02-04] MEDS: NICOTINE 14 MG/24 HOURS TOPICAL PATCH TD SCH (10:08)
[2019-02-04] MEDS: PATIENT'S OWN MEDICATION (NON-FORMULARY) (Omeprazole 40 MG) PO SCH (11:26)
[2019-02-04] MEDS: diazePAM 5 MG TABLET PO PRN (11:28)
--- NOTE | 2019-02-04 12:55 | DS ---
[facility] Detox Discharge Summary Admission Date: 02/01/19 Discharge Date: 02/04/19 - History Present History: Alcohol Dependence, Cannabis Dependence, Cocaine Dependence, Sedative Dependence Additional Comments: Patient completed detox successfully and discharged safely. Patient denies any complaints. Instructed to follow up with PCP within 1 week. Pertinent Past History: HIV HTN Nicotine dependence GERD Alcohol dependence Cocaine dependence Cannabis dependence Benzo dependence HLD - Physical Exam Results Vital Signs: Vital Signs Temperature 97.9 F 02/04/19 09:08 Pulse Rate 96 H 02/04/19 09:08 Respiratory Rate 18 02/04/19 09:08 Blood Pressure 113/78 02/04/19 09:08 O2 Sat by Pulse Oximetry (%) Pertinent Admission Physical Exam Findings: Withdrawal sxs Laboratory Tests 02/01/19 02/01/19 02/01/19 14:00 14:00 14:00 WBC 5.8 RBC 4.94 Hgb 14.0 Hct 42.8 MCV 86.5 MCH 28.3 MCHC 32.7 RDW 17.5 H Plt Count 206 MPV 9.3 Sodium 140 Potassium 4.0 Chloride 109 H Carbon Dioxide 23 Anion Gap 9 BUN 13.2 Creatinine 1.3 Est GFR (CKD-EPI)AfAm 77.45 Est GFR (CKD-EPI)NonAf 66.83 Random Glucose 110 H Calcium 8.7 Total Bilirubin 0.4 AST 21 ALT 22 Alkaline Phosphatase 73 Total Protein 7.7 Albumin 3.8 RPR Titer Nonreactive Labs reviewed - Treatment Hospital Course: Detox Protocol Followed, Detoxed Safely, Responded well, Discharged Condition Good - Medication Discharge Medications: Ambulatory Orders Amlodipine Besylate [Norvasc -] 10 mg PO DAILY 01/06/18 Sertraline HCl [Zoloft -] 50 mg PO DAILY 01/06/18 Quetiapine Fumarate [Seroquel -] 100 mg PO HS 03/24/18 Pravastatin Sodium [Pravachol -] 20 mg PO HS 05/25/18 Bictegrav/Emtricit/Tenofov Ala [Biktarvy 50-200-25 mg Tablet] 1 each PO DAILY Meloxicam 15 mg PO PRN PRN 02/01/19 Omeprazole 40 mg PO DAILY 02/01/19 - Diagnosis (1) HLD (hyperlipidemia) Current Visit: Yes Status: Chronic (2) Alcohol dependence with uncomplicated withdrawal Current Visit: Yes Status: Acute (3) Cannabis dependence, uncomplicated Current Visit: Yes Status: Chronic (4) Cocaine dependence Current Visit: Yes Status: Chronic Qualifiers: (5) Sedative, hypnotic or anxiolytic dependence with withdrawal, unspecified Current Visit: Yes Status: Acute (6) GERD (gastroesophageal reflux disease) Current Visit: Yes Status: Chronic Qualifiers: Esophagitis presence: without esophagitis Qualified Code(s): K21.9 - Gastro -esophageal reflux disease without esophagitis (7) HIV (human immunodeficiency virus infection) Current Visit: Yes Status: Chronic Qualifiers: HIV symptom status: asymptomatic Qualified Code(s): Z21 - Asymptomatic human immunodeficiency virus [HIV] infection status (8) HTN (hypertension) Current Visit: Yes Status: Chronic Qualifiers: Hypertension type: essential hypertension Qualified Code(s): I10 - Essential (primary) hypertension (9) Nicotine dependence Current Visit: Yes Status: Chronic Qualifiers: Nicotine product type: cigarettes Substance use status: in withdrawal Qualified Code(s): F17.213 - Nicotine dependence, cigarettes, with withdrawal - AMA Did Patient Leave Against Medical Advice: No (Instructed to follow up with PCP within 1 week)
[2019-02-04] MEDS: MELOXICAM 15 MG PO PRN (16:34)
[2019-02-04] MEDS: hydrOXYzine PAMOATE 25 MG CAPSULE (FP) PO PRN (20:02)
[2019-02-04] MEDS: QUEtiapine FUMARATE 100 MG TABLET (FP) PO SCH (22:29)
[2019-02-04] MEDS: MELATONIN 5 MG TABLETS PO PRN (22:29)
[2019-02-04] MEDS: THIAMINE HCL 100 MG TABLET (FP) PO SCH (22:29)
--- NOTE | 2019-02-05 09:07 | DS ---
[facility] Detox Discharge Summary Admission Date: 02/01/19 Discharge Date: 02/05/19 - History Present History: Alcohol Dependence, Cannabis Dependence, Sedative Dependence - Physical Exam Results Vital Signs: Vital Signs Temperature 97.7 F 02/05/19 07:08 Pulse Rate 89 02/05/19 07:08 Respiratory Rate 20 02/05/19 07:08 Blood Pressure 117/79 02/05/19 07:08 O2 Sat by Pulse Oximetry (%) Pertinent Admission Physical Exam Findings: pt arrived in withdrawals Laboratory Tests 02/01/19 02/01/19 02/01/19 14:00 14:00 14:00 WBC 5.8 RBC 4.94 Hgb 14.0 Hct 42.8 MCV 86.5 MCH 28.3 MCHC 32.7 RDW 17.5 H Plt Count 206 MPV 9.3 Sodium 140 Potassium 4.0 Chloride 109 H Carbon Dioxide 23 Anion Gap 9 BUN 13.2 Creatinine 1.3 Est GFR (CKD-EPI)AfAm 77.45 Est GFR (CKD-EPI)NonAf 66.83 Random Glucose 110 H Calcium 8.7 Total Bilirubin 0.4 AST 21 ALT 22 Alkaline Phosphatase 73 Total Protein 7.7 Albumin 3.8 RPR Titer Nonreactive today pt is aaox3 ambulating no acute distress no s/s of withdrawals - Treatment Hospital Course: Detox Protocol Followed, Detoxed Safely, Responded well, Discharged Condition Good, Rehab Referral Accepted Patient has Accepted a Rehab Referral to: pt referral provided - Medication Discharge Medications: Ambulatory Orders Amlodipine Besylate [Norvasc -] 10 mg PO DAILY 01/06/18 Sertraline HCl [Zoloft -] 50 mg PO DAILY 01/06/18 Quetiapine Fumarate [Seroquel -] 100 mg PO HS 03/24/18 Pravastatin Sodium [Pravachol -] 20 mg PO HS 05/25/18 Bictegrav/Emtricit/Tenofov Ala [Biktarvy 50-200-25 mg Tablet] 1 each PO DAILY Meloxicam 15 mg PO PRN PRN 02/01/19 Omeprazole 40 mg PO DAILY 02/01/19 - Diagnosis (1) Alcohol dependence with uncomplicated withdrawal Current Visit: Yes Status: Chronic (2) Sedative, hypnotic or anxiolytic dependence with withdrawal, unspecified Current Visit: Yes Status: Chronic (3) Substance-induced anxiety disorder Current Visit: Yes Status: Acute (4) Cannabis dependence, uncomplicated Current Visit: Yes Status: Chronic (5) Cocaine dependence Current Visit: Yes Status: Chronic Qualifiers: Substance use status: uncomplicated (6) GERD (gastroesophageal reflux disease) Current Visit: Yes Status: Chronic Qualifiers: Esophagitis presence: without esophagitis Qualified Code(s): K21.9 - Gastro -esophageal reflux disease without esophagitis (7) HIV (human immunodeficiency virus infection) Current Visit: Yes Status: Chronic Qualifiers: HIV symptom status: unspecified Qualified Code(s): B20 - Human immunodeficiency virus [HIV] disease (8) HLD (hyperlipidemia) Current Visit: Yes Status: Chronic (9) HTN (hypertension) Current Visit: Yes Status: Chronic Qualifiers: Hypertension type: essential hypertension Qualified Code(s): I10 - Essential (primary) hypertension (10) Nicotine dependence Current Visit: Yes Status: Chronic Qualifiers: Nicotine product type: cigarettes Substance use status: uncomplicated Qualified Code(s): F17.210 - Nicotine dependence, cigarettes, uncomplicated (11) Anxiolytic withdrawal without complication Current Visit: No Status: Acute (12) Insomnia Current Visit: No Status: Acute (13) Opioid abuse Current Visit: No Status: Acute (14) Substance induced mood disorder Current Visit: No Status: Acute (15) Substance-induced sleep disorder Current Visit: No Status: Acute (16) Acid reflux disease Current Visit: No Status: Chronic Qualifiers: (17) Depression Current Visit: No Status: Chronic Qualifiers: (18) Depression Current Visit: No Status: Chronic Qualifiers: (19) Drug-induced mood disorder Current Visit: No Status: Chronic (20) History of hemorrhoids Current Visit: No Status: Chronic (21) History of nephrectomy, unilateral Current Visit: No Status: Chronic (22) MDD (major depressive disorder), recurrent episode, moderate Current Visit: No Status: Chronic (23) Non-compliance Current Visit: No Status: Chronic (24) Obesity (BMI 30.0-34.9) Current Visit: No Status: Chronic (25) Post traumatic stress disorder (PTSD) Current Visit: No Status: Chronic (26) Substance-induced sleep disorder Current Visit: No Status: Chronic (27) H/O left nephrectomy Current Visit: No Status: Suspected (28) History of fractured pelvis Current Visit: No Status: Suspected (29) Substance induced mood disorder Current Visit: No Status: Suspected - AMA Did Patient Leave Against Medical Advice: No
[2019-02-05 09:16] VITALS: BP 129/85; PULSE 106; TEMP 97.9
[2019-02-05] MEDS: NICOTINE 14 MG/24 HOURS TOPICAL PATCH TD SCH (10:36)
[2019-02-05] MEDS: amLODIPine BESYLATE 10 MG TABLET (FP) PO SCH (10:36)
[2019-02-05] MEDS: PRENATAL VITAMINS W/ FOLIC ACID TABLET (FP) PO SCH (10:36)
[2019-02-05] MEDS: SERTRALINE HCL 50 MG TABLET (FP) PO SCH (10:36)
[2019-02-05] MEDS: PATIENT'S OWN MEDICATION (NON-FORMULARY) (Omeprazole 40 MG) PO SCH (10:38)
[2019-02-05] MEDS: hydrOXYzine PAMOATE 25 MG CAPSULE (FP) PO PRN (11:15)
[2019-02-05] MEDS ORDERED: PATIENT'S OWN MEDICATION (NON-FORMULARY) (Biktarvy 1 TAB) PO SCH (11:45)
[2019-02-05] MEDS ORDERED: ATORVASTATIN CA 20 MG TABLET (FP) PO SCH (22:00)
== END 2019-02-05 11:49 | disposition home or self-care (01) | DRG 774 ==
LOC: YASAS 09:21 → Y6N 12:45
PROVIDERS: ADMIT Allergy & Immunology; ATTEND Allergy & Immunology
PROC: HZ2ZZZZ Detoxification Services for Substance Abuse Treatment (ICD-10-PCS; principal; 2019-02-01)
DX: F10.230 Alcohol dependence with withdrawal, uncomplicated (principal); F13.230 Sedative, hypnotic or anxiolytic dependence with withdrawal, uncomplicated; F14.20 Cocaine dependence, uncomplicated; F12.20 Cannabis dependence, uncomplicated; F17.210 Nicotine dependence, cigarettes, uncomplicated; F19.280 Other psychoactive substance dependence with psychoactive substance-induced anxiety disorder; F19.282 Other psychoactive substance dependence with psychoactive substance-induced sleep disorder; F19.24 Other psychoactive substance dependence with psychoactive substance-induced mood disorder; F43.10 Post-traumatic stress disorder, unspecified; F33.1 Major depressive disorder, recurrent, moderate; Z21 Asymptomatic human immunodeficiency virus [HIV] infection status; I10 Essential (primary) hypertension; E78.5 Hyperlipidemia, unspecified; K21.9 Gastro-esophageal reflux disease without esophagitis; E66.9 Obesity, unspecified; Z68.32 Body mass index [BMI] 32.0-32.9, adult; Z90.5 Acquired absence of kidney; Z87.81 Personal history of (healed) traumatic fracture; Z98.890 Other specified postprocedural states; Z91.013 Allergy to seafood; Z91.19 Patient's noncompliance with other medical treatment and regimen
CPT/HCPCS: 36415; 80053; 85027; 86593; Q2036

== ENCOUNTER 2019-02-05 12:02 | Inpatient (IN) | payer OTHER ==
[2019-02-05] MEDS ORDERED: MAG HYDROX/AL HYDROX/SIMETH 30 ML UNIT-DOSE CUP PO PRN (12:07)
[2019-02-05] MEDS ORDERED: NICOTINE POLACRILEX 4 MG GUM BUC PRN (12:07)
[2019-02-05] MEDS ORDERED: LOPERAMIDE HCL 2 MG CAPSULE PO PRN (12:07)
[2019-02-05] MEDS ORDERED: IBUPROFEN 400 MG TABLET (FP) PO PRN (12:07)
[2019-02-05] MEDS ORDERED: ACETAMINOPHEN 325 MG TABLET (FP) PO PRN (12:07)
[2019-02-05] MEDS ORDERED: P-EPHED 60MG/TRIPROLIDI 2.5MG TABLET PO PRN (12:07)
[2019-02-05] MEDS ORDERED: MAGNESIUM CITRATE 300 ML BOTTLE PO PRN (12:07)
[2019-02-05] MEDS ORDERED: MAGNESIUM HYDROX 2400MG/30ML ORAL SUSPENSION 30 ML CUP PO PRN (12:07)
[2019-02-05] MEDS ORDERED: guaiFENesin 200 MG/10 ML 10 ML UNIT-DOSE CUPS PO PRN (12:07)
[2019-02-05] MEDS ORDERED: MENTHOL/PHENOL 1 EACH UD MM PRN (12:07)
--- NOTE | 2019-02-05 12:07 | HP ---
MAKAY[facility] Rehab Assess/Revision - Admission History Admitted to Rehab from[facility] - Findings Detox History & Physical reviewed: Yes Concur with findings: Yes Inpatient Rehab Admission - Rehab Decision to Admit Inpatient rehab admission?: Yes - Initial Determination Are CD services needed?: Yes Free of communicable disease: Yes Not in need of hospitalization: Yes - Rehab Admission Criteria Previous failed treatment: Yes Poor recovery environment: Yes Comorbidities: Yes Lacks judgement: Yes Patient is meeting Inpatient Rehab admission criteria:: Yes
[2019-02-05] MEDS ORDERED: PATIENT'S OWN MEDICATION (NON-FORMULARY) (Meloxicam [Meloxicam] 15 MG) PO PRN ×2 (12:08→12:56)
[2019-02-05] MEDS ORDERED: QUEtiapine FUMARATE 50 MG TABLET ONE (21:22)
[2019-02-05] MEDS: THIAMINE HCL 100 MG TABLET (FP) PO SCH (21:22)
[2019-02-05] MEDS: ATORVASTATIN CA 20 MG TABLET (FP) PO SCH (21:23)
[2019-02-05] MEDS: MELATONIN 5 MG TABLETS PO PRN (21:23)
[2019-02-05] MEDS: QUEtiapine FUMARATE 100 MG TABLET (FP) PO SCH (21:23)
[2019-02-06] MEDS ORDERED: PT OWN MED DRAWER 7, Y5N ONE (08:53)
[2019-02-06] MEDS: amLODIPine BESYLATE 10 MG TABLET (FP) PO SCH (09:34)
[2019-02-06] MEDS: PRENATAL VITAMINS W/ FOLIC ACID TABLET (FP) PO SCH (09:34)
[2019-02-06] MEDS: SERTRALINE HCL 25 MG TABLET (FP) PO SCH (09:34)
[2019-02-06] MEDS: BICTEGRAV/EMTRICIT/TENOFOV (BIKTARVY) 50-200-25 MG TABLET PO SCH (09:34)
[2019-02-06] MEDS: PATIENT'S OWN MEDICATION (NON-FORMULARY) (Omeprazole 40 MG) PO SCH (09:34)
[2019-02-06] MEDS: NICOTINE 21 MG/24 HOURS TOPICAL PATCH TD SCH (09:35)
[2019-02-06] MEDS: hydrOXYzine PAMOATE 50 MG CAPSULE (FP) PO PRN (09:36)
[2019-02-06] MEDS: THIAMINE HCL 100 MG TABLET (FP) PO SCH (21:32)
[2019-02-06] MEDS: ATORVASTATIN CA 20 MG TABLET (FP) PO SCH (21:32)
[2019-02-06] MEDS: QUEtiapine FUMARATE 100 MG TABLET (FP) PO SCH (21:32)
[2019-02-06] MEDS: MELATONIN 5 MG TABLETS PO PRN (21:32)
[2019-02-07 07:09] VITALS: TEMP 98
[2019-02-07] MEDS ORDERED: PT OWN MED DRAWER 7, Y5N ONE ×3 (08:57→23:19)
[2019-02-07] MEDS: SERTRALINE HCL 25 MG TABLET (FP) PO SCH (09:47)
[2019-02-07] MEDS: NICOTINE 21 MG/24 HOURS TOPICAL PATCH TD SCH (09:47)
[2019-02-07] MEDS: PATIENT'S OWN MEDICATION (NON-FORMULARY) (Omeprazole 40 MG) PO SCH (09:47)
[2019-02-07] MEDS: BICTEGRAV/EMTRICIT/TENOFOV (BIKTARVY) 50-200-25 MG TABLET PO SCH (09:47)
[2019-02-07] MEDS: PRENATAL VITAMINS W/ FOLIC ACID TABLET (FP) PO SCH (09:47)
[2019-02-07] MEDS: amLODIPine BESYLATE 10 MG TABLET (FP) PO SCH (09:47)
[2019-02-07 09:52] VITALS: BP 128/78; PULSE 112
[2019-02-07] MEDS: hydrOXYzine PAMOATE 50 MG CAPSULE (FP) PO PRN (15:58)
[2019-02-07] MEDS: THIAMINE HCL 100 MG TABLET (FP) PO SCH (21:44)
[2019-02-07] MEDS: ATORVASTATIN CA 20 MG TABLET (FP) PO SCH (21:44)
[2019-02-07] MEDS: QUEtiapine FUMARATE 100 MG TABLET (FP) PO SCH (21:44)
[2019-02-07] MEDS: MELATONIN 5 MG TABLETS PO PRN (21:44)
--- NOTE | 2019-02-07 23:44 | DS ---
[facility] Rehab Discharge Summary - [facility] Rehab Discharge Summary Admission Date: 02/05/19 Discharge Date: 02/08/19 - History Additional Comments: Patient reports that he has changed his mind about completing Rehab. and want to go back to his day program. He states that he has been struggling to stay since this morning but has made up his mind to go home for a personal reason. Discussed with patient about risks and consequences of his action and the fact that it is raining and the weather is bad. He states that his girlfriend will send [facility] to pick him up. Patient is medically stable except that his heart rate is elevated. Patient denies chest pain or discomfort at this time. Patient instructed to follow up with PCP and Public Health Officer as needed Pertinent Past History: Opioid dependence, alcohol dependence, Cannabis dependence, sedative dependence , nicotine dependence, GERD, HIV, hyperlipidemia, depression,Insomnia, - Discharge Physical Exam Vital Signs: Vital Signs Temperature 98 F 02/07/19 07:08 Pulse Rate 112 H 02/07/19 09:30 Respiratory Rate 18 02/07/19 09:30 Blood Pressure 128/78 02/07/19 09:30 O2 Sat by Pulse Oximetry (%) Pertinent Admission Physical Exam Findings: Opioid withdrawal symptoms, nicotine dependence, sedative dependent, alcohol withdrawal symptoms - Medication Discharge Medications: Ambulatory Orders Amlodipine Besylate [Norvasc -] 10 mg PO DAILY 01/06/18 Sertraline HCl [Zoloft -] 50 mg PO DAILY 01/06/18 Quetiapine Fumarate [Seroquel -] 100 mg PO HS 03/24/18 Pravastatin Sodium [Pravachol -] 20 mg PO HS 05/25/18 Bictegrav/Emtricit/Tenofov Ala [Biktarvy 50-200-25 mg Tablet] 1 each PO DAILY Meloxicam 15 mg PO PRN PRN 02/01/19 Omeprazole 40 mg PO DAILY 02/01/19 - Medication-Assisted Treatment (MAT) Medication-Assisted Treatment (MAT): No - Discharge Instructions Diet, activity, other medical instructions: Diet: Cardiac heathy diet Activity: As tolerated Other medical instructions: F/U with PCP or Public Health Officer to evaluate elevated heart rate - Diagnosis (1) Anxiolytic withdrawal without complication Status: Chronic (2) Acid reflux disease Status: Chronic Qualifiers: (3) Alcohol dependence with uncomplicated withdrawal Status: Chronic (4) Cannabis dependence, uncomplicated Status: Chronic (5) Cocaine dependence Status: Chronic Qualifiers: Substance use status: uncomplicated Qualified Code(s): F14.20 - Cocaine dependence, uncomplicated (6) Depression Status: Chronic Qualifiers: (7) GERD (gastroesophageal reflux disease) Status: Chronic Qualifiers: Esophagitis presence: without esophagitis Qualified Code(s): K21.9 - Gastro -esophageal reflux disease without esophagitis (8) HIV (human immunodeficiency virus infection) Status: Chronic Qualifiers: HIV symptom status: unspecified Qualified Code(s): B20 - Human immunodeficiency virus [HIV] disease (9) HLD (hyperlipidemia) Status: Chronic (10) HTN (hypertension) Status: Chronic Qualifiers: Hypertension type: essential hypertension Qualified Code(s): I10 - Essential (primary) hypertension (11) History of hemorrhoids Status: Chronic (12) History of nephrectomy, unilateral Status: Chronic (13) MDD (major depressive disorder), recurrent episode, moderate Status: Chronic (14) Nicotine dependence Status: Chronic Qualifiers: Nicotine product type: cigarettes Substance use status: uncomplicated Qualified Code(s): F17.210 - Nicotine dependence, cigarettes, uncomplicated (15) Post traumatic stress disorder (PTSD) Status: Chronic (16) Sedative, hypnotic or anxiolytic dependence with withdrawal, unspecified Status: Chronic - AMA Did Patient Leave Against Medical Advice: Yes
== END 2019-02-07 23:25 | disposition left against medical advice (07) | DRG 770 ==
LOC: YASAS 12:02 → Y3W 12:03
PROVIDERS: ADMIT Neuromusculoskeletal Medicine & OMM; ATTEND Neuromusculoskeletal Medicine & OMM
PROC: HZ42ZZZ Group Counseling for Substance Abuse Treatment, Cognitive-Behavioral (ICD-10-PCS; principal; 2019-02-05)
DX: F10.20 Alcohol dependence, uncomplicated (principal); F13.20 Sedative, hypnotic or anxiolytic dependence, uncomplicated; F14.20 Cocaine dependence, uncomplicated; F12.20 Cannabis dependence, uncomplicated; F17.210 Nicotine dependence, cigarettes, uncomplicated; F43.10 Post-traumatic stress disorder, unspecified; F33.1 Major depressive disorder, recurrent, moderate; I10 Essential (primary) hypertension; Z21 Asymptomatic human immunodeficiency virus [HIV] infection status; K21.9 Gastro-esophageal reflux disease without esophagitis; E78.5 Hyperlipidemia, unspecified

== ENCOUNTER 2019-04-07 15:25 | Inpatient (IN) | payer OTHER ==
[2019-04-07 16:21] VITALS: BMI 33.5
--- NOTE | 2019-04-07 17:11 | HP ---
CIWA Score Nausea/Vomitin Muscle Tremors: 4-Moderate,w/Arms Extend Anxiety: 1-Mildly Anxious Agitation: 1-Slight > Activity Paroxysmal Sweats: 3 (Increased facial moisture) Orientation: 1-Uncertain about Date Tacttile Disturbances: 0-None Auditory Disturbances: 0-None Visual Disturbances: 0-None Headache: 0-None Present CIWA-Ar Total Score: 13 - Admission Criteria OASAS Guidelines: Admission for Medically Managed Detox: Requires at least one of the followin. CIWA greater than 12 2. Seizures within the past 24 hours 3. Delirium tremens within the past 24 hours 4. Hallucinations within the past 24 hours 5. Acute intervention needed for co occurring medical disorder 6. Acute intervention needed for co occurring psychiatric disorder 7. Severe withdrawal that cannot be handled at a lower level of care (continued vomiting, continued diarrhea, abnormal vital signs) requiring intravenous medication and/or fluids 8. Patient presents the following: CIWA greater than 12 Admission Criteria Met: Admission criteria met Admitting History and Physical - Smoking History Smoking history: Current every day smoker Have you smoked in the past 12 months: Yes Aproximately how many cigarettes per day: 6 - Alcohol/Substance Use Hx Alcohol Use: Yes Admission ROS S - HPI Chief Complaint: "My life is unmanageable. I need to get myself clean." Allergies/Adverse Reactions: Allergies Allergy/AdvReac Type Severity Reaction Status Date / Time No Known Drug Allergies Allergy Verified 02/05/19 13:24 shellfish derived AdvReac Severe Swelling Verified 04/07/19 16:08 History of Present Illness: 43 yo present w/ alcohol withdrawal seeking detox. Alcohol use since age 19. Currently drinks approx 1 pint daily w/ 5-6- 24 oz beers. Marijuana use since age 18. Currently smokes $20 daily. Cocaine use since age 27. Currently smokes $50-100 daily. Nicotine use disorder since age 18. Smokes 1/2 PPD. Xanax use disorder since age 40. Stopped 1.5 months ago. [facility] relapsed same day after last discharge in January. Hx: Chronic blackouts - last one 3 days ago. Denies falls. Denies overdose or seizures. Longest length of sobriety was about 2.5 years while receiving sponsors at the [facility]. PMHx: HTN, GERD, and HIV(+). [facility] has an appt w/ HIV Provider on 04/16 @ [facility] [place]. Encouraged to keep the appt. 01/06/18 EKG reviewed w/ NSR. MHHx: Insomnia, Depression. Denies thoughts of harming self or others. Compliant w/ meds. States HIV provider prescribed Zoloft until seen by MH Provider. Search Terms: Denver Emerson, 1975 Search Date: 04/07/2019 05:15:54 PM The Drug Utilization Report below displays all of the controlled substance prescriptions, if any, that your patient has filled in the last twelve months. The information displayed on this report is compiled from pharmacy submissions to the Department, and accurately reflects the information as submitted by the pharmacies. This report was requested by: Ivanna Reyez | Reference #: [id number] There are no results for the search terms that you entered. Exam Limitations: No Limitations - Ebola screening Have you traveled outside of the country in the last 21 days: No (N) Have you had contact with anyone from an Ebola affected area: No Have you been sick,other than usual withdrawal symptoms: No Do you have a fever: No - Review of Systems Constitutional: Chills, Diaphoresis, Changes in sleep (Difficulty staying asleep. Was on Seroquel in the past.) EENT: reports: Dental Problems (Cavities. Chews and swallows ok) Respiratory: reports: No Symptoms reported Cardiac: reports: No Symptoms Reported GI: reports: Diarrhea (earlier-watery, light brown x 2), Nausea, Vomiting (Last vomited a few minutes ago.), Indigestion (GERD) : reports: No Symptoms Reported Musculoskeletal: reports: Joint Swelling (Intermittent Omar ankle pain. (Achy/ sharp). "O" at this time. Increases in a.m.) Integumentary: reports: No Symptoms Reported Neuro: reports: Tremors Endocrine: reports: Increased Thirst Hematology: reports: Other (HIV+) Psychiatric: reports: Judgement Intact, Mood/Affect Appropiate, Orientated x3 ( Missed ay by 1), Anxious Patient History - Patient Medical History Hx Anemia: No Hx Asthma: No Hx Chronic Obstructive Pulmonary Disease (COPD): No Hx Cancer: No Hx Cardiac Disorders: No Hx Congestive Heart Failure: No Hx Hypertension: Yes (Amlodipine) Hx Hypercholesterolemia: Yes (Lipitor) Hx Pacemaker: No HX Cerebrovascular Accident: No Hx Seizures: No Hx Dementia: No Hx Diabetes: No Hx Gastrointestinal Disorders: Yes (GERD -Zantac) Hx Liver Disease: No Hx Genitourinary Disorders: No Hx Sexually Transmitted Disorders: Yes (HIV) Hx Renal Disease (ESRD): No Hx Thyroid Disease: No Hx Human Immunodeficiency Virus (HIV): Yes (2005 tcell 982 viral load 32.-) Hx Hepatitis C: No Hx Depression: Yes (Zoloft) Hx Suicide Attempt: No Hx Bipolar Disorder: No Hx Schizophrenia: No - Patient Surgical History Past Surgical History: Yes Hx Neurologic Surgery: No Hx Cataract Extraction: No Hx Cardiac Surgery: No Hx Lung Surgery: No Hx Breast Surgery: No Hx Breast Biopsy: No Hx Abdominal Surgery: Yes (in 1994 ([facility])) Hx Appendectomy: No Hx Cholecystectomy: No Hx Genitourinary Surgery: Yes (left nephrectomy in 1994 ([facility])) Hx Section: No Hx Orthopedic Surgery: Yes (fx, right upper arm IN 1994 ([facility])) Other Surgical History: left nephrectomy, 1994,fx of pelvis 1994 Anesthesia Reaction: No - PPD History Previous Implant?: Yes Documented Results: Negative w/proof Implanted On Prior R Admission?: Yes Date: 02/03/19 Results: 0 mm PPD to be Administered?: No - Smoking Cessation Smoking history: Current every day smoker Have you smoked in the past 12 months: Yes Aproximately how many cigarettes per day: 10 Cigars Per Day: 0 Hx Chewing Tobacco Use: No Initiated information on smoking cessation: Yes 'Breaking Loose' booklet given: 04/07/19 - Substance & Tx. History Hx Alcohol Use: Yes Hx Substance Use: Yes Substance Use Type: Alcohol, Cocaine, Marijuana, Tranquilizers (Xanax) Hx Substance Use Treatment: No (rehab, detox, long-term) - Substances abused Alcohol Substance route: Oral Frequency: Daily Amount used: 2 PINT VODKA, 4-5 24 ounce/beer can Age of first use: 19 Date of last use: 04/07/19 Cocaine Substance route: Smoking Frequency: Daily Amount used: $50-100 Age of first use: 27 Date of last use: 04/07/19 Marijuana/Hashish Substance route: Smoking Frequency: Daily Amount used: $20/day Age of first use: 19 Date of last use: 04/07/19 Alprazolam (Xanax) Substance route: Oral Frequency: 3-6 times per week Amount used: 12mg/day Age of first use: 40 Date of last use: 02/01/19 Admission Physical Exam [facility] - Vital Signs Vital Signs: Vital Signs - 24 hr 04/07/19 16:15 Temperature 99.9 F H Pulse Rate 111 H Respiratory 16 Rate Blood Pressure 107/72 - Physical General Appearance: Yes: Nourished, Mild Distress, Obese, Tremorous, Sweating ( Increased facial moisture), Anxious HEENTM: Yes: EOMI (Jerking movement of eyes upon (R) lateral gaze), Hearing grossly Normal, Normocephalic, Normal Voice, NIKO Respiratory: Yes: Lungs Clear (Pulse Ox = 98 %), Normal Breath Sounds, No Respiratory Distress Neck: Yes: No masses,lesions,Nodules, Supple Breast: Yes: Breast Exam Deferred Cardiology: Yes: Regular Rhythm, S1, S2, Tachycardia (HR: 106) Abdominal: Yes: Normal Bowel Sounds, Non Tender, Soft, Protuberent Genitourinary: Yes: Within Normal Limits Back: Yes: Normal Inspection Musculoskeletal: Yes: full range of Motion, Gait Steady, Joint swelling ((R) innner malleolus enlarged.) Extremities: Yes: Normal Capillary Refill (Periph pulses +. No edema.), Other ( Tip (R) middle finger w/ slight deformity. FROM. 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 NML intact (Jerking movement of eyes upon (R) lateral gaze), Fully Oriented, Alert, Motor Strength 5/5 Integumentary: Yes: Normal Color, Warm, Moist Lymphatic: Yes: Within Normal Limits - Diagnostic (1) Hx of fracture of ankle Current Visit: Yes Status: Acute (2) Acid reflux disease Current Visit: No Status: Chronic (3) Alcohol dependence with uncomplicated withdrawal Current Visit: No Status: Chronic (4) Cannabis dependence, uncomplicated Current Visit: No Status: Chronic (5) Cocaine dependence Current Visit: No Status: Chronic Qualifiers: Substance use status: uncomplicated Qualified Code(s): F14.20 - Cocaine dependence, uncomplicated (6) HIV (human immunodeficiency virus infection) Current Visit: No Status: Chronic Qualifiers: HIV symptom status: unspecified Qualified Code(s): B20 - Human immunodeficiency virus [HIV] disease Comment: Not being treated at this time. F/u encouraged w/ HIV provider. (7) HTN (hypertension) Current Visit: No Status: Chronic Qualifiers: Hypertension type: essential hypertension Qualified Code(s): I10 - Essential (primary) hypertension (8) Nicotine dependence Current Visit: No Status: Chronic Qualifiers: Nicotine product type: cigarettes Substance use status: uncomplicated Qualified Code(s): F17.210 - Nicotine dependence, cigarettes, uncomplicated (9) Obesity (BMI 30.0-34.9) Current Visit: No Status: Chronic Cleared for Admission [facility] - Detox or Rehab [facility] Level of Care: Medically Managed Detox Regimen/Protocol: Valium Claeared for Rehab Admission: No Breathalyzer - Breathalyzer Breathalyzer: 0 Urine Drug Screen - Test Device Lot number: [id number] Expiration date: 11/21/20 - Control Is test valid?: Yes - Results Drug screen NEGATIVE: No Urine drug screen results: THC-Marijuana, TAMIKO-Cocaine, BZO-Benzodiazepines Inpatient Rehab Admission - Rehab Decision to Admit Inpatient rehab admission?: No
[2019-04-07] MEDS ORDERED: MENTHOL/PHENOL 1 EACH UD MM PRN (17:56)
[2019-04-07] MEDS ORDERED: MAGNESIUM HYDROX 2400MG/30ML ORAL SUSPENSION 30 ML CUP PO PRN (17:56)
[2019-04-07] MEDS ORDERED: MAGNESIUM CITRATE 300 ML BOTTLE PO PRN (17:56)
[2019-04-07] MEDS ORDERED: diazePAM 5 MG TABLET PO ONE (17:56)
[2019-04-07] MEDS ORDERED: ACETAMINOPHEN 325 MG TABLET (FP) PO PRN ×2 (17:56)
[2019-04-07] MEDS ORDERED: NICOTINE POLACRILEX 2 MG GUM BUC PRN (17:56)
[2019-04-07] MEDS ORDERED: IBUPROFEN 400 MG TABLET (FP) PO PRN (17:56)
[2019-04-07] MEDS ORDERED: BISMUTH SUBSALICYLATE 524 MG/30 ML UD PO PRN (17:56)
[2019-04-07] MEDS: MAG HYDROX/AL HYDROX/SIMETH 30 ML UNIT-DOSE CUP PO PRN (19:26)
[2019-04-07] MEDS ORDERED: QUEtiapine FUMARATE 100 MG TABLET (FP) PO ONE (22:00)
[2019-04-07] MEDS: PANTOPRAZOLE 20 MG TABLET (FP) PO SCH (22:20)
[2019-04-07] MEDS: diazePAM 5 MG TABLET PO SCH (22:20)
[2019-04-07] MEDS: MELATONIN 5 MG TABLETS PO PRN (22:21)
[2019-04-07] MEDS: THIAMINE HCL 100 MG TABLET (FP) PO SCH (22:21)
[2019-04-07] MEDS: ONDANSETRON *ODT* 4 MG TABLET SL PRN (23:25)
[2019-04-08] MEDS: diazePAM 5 MG TABLET PO SCH ×3 (05:30→22:02)
[2019-04-08] MEDS: diazePAM 5 MG TABLET PO PRN ×2 (08:36→17:50)
[2019-04-08] MEDS ORDERED: ONDANSETRON *ODT* 4 MG TABLET SL ONE (09:17)
--- NOTE | 2019-04-08 09:22 | PN ---
S CIWA - CIWA Score Nausea/Vomitin Muscle Tremors: 3 Anxiety: 3 Agitation: 1-Slight > Activity Paroxysmal Sweats: 2 Orientation: 0-Oriented Tacttile Disturbances: 1-Very Mild Itch/Numbness Auditory Disturbances: 0-None Visual Disturbances: 0-None Headache: 0-None Present CIWA-Ar Total Score: 12 [facility] Progress Note (SOAP) Subjective: 43 years old male admitted on 04/07/19 for alcohol and benzo withdrawal sx management treating with Valium detox regimen c/o coughing at night oral pharyngeal no redness no swell no drooling no cervical lymphaedematous breathing ease and even mucinex 600 mg po bid claritin 10 mg po hs c/o nausea from alcohol withdrawal zofran 8 mg sl x 1 Objective: 04/08/19 09:22 Vital Signs Temperature 97.9 F 04/08/19 09:13 Pulse Rate 104 H 04/08/19 09:13 Respiratory Rate 18 04/08/19 09:13 Blood Pressure 112/76 04/08/19 09:13 O2 Sat by Pulse Oximetry (%) 04/08/19 09:22 lab pending Assessment: 04/08/19 09:22 alcohol and benzo withdrawal Plan: valium regimen
--- NOTE | 2019-04-08 10:15 | EKG ---
Test Reason : Blood Pressure : / mmHG Vent. Rate : 105 BPM Atrial Rate : 105 BPM P-R Int : 136 ms QRS Dur : 082 ms QT Int : 332 ms P-R-T Axes : 048 033 063 degrees QTc Int : 438 ms SINUS TACHYCARDIA OTHERWISE NORMAL ECG WHEN COMPARED WITH ECG OF 06-JAN-2018 20:25, NO SIGNIFICANT CHANGE WAS FOUND Confirmed by ASHLEY VELEZ MD ([id number]) on 04/08/2019 10:15:27 AM Referred By: Confirmed By:ASHLEY VELEZ MD
[2019-04-08] MEDS: NICOTINE 14 MG/24 HOURS TOPICAL PATCH TD SCH (10:17)
[2019-04-08] MEDS: PRENATAL VITAMINS W/ FOLIC ACID TABLET (FP) PO SCH (10:18)
[2019-04-08] MEDS: PANTOPRAZOLE 20 MG TABLET (FP) PO SCH ×2 (10:18→22:02)
[2019-04-08] MEDS: HYDROCHLOROTHIAZIDE 25 MG TABLET (FP) PO SCH (10:18)
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
[2019-04-08 11:03] LABS: HEMATOCRIT 42.8 % (35.4-49); HEMOGLOBIN 14.1 GM/dL (11.7-16.9); MCH 28.7 pg (25.7-33.7); MCHC 32.9 g/dl (32.0-35.9); MEAN PLT VOLUME 9.5 fl (7.5-11.1); PLATELET COUNT 220 K/MM3 (134-434); RBC 4.92 M/mm3 (4.00-5.60); RDW 17.1 % (11.9-15.9); WHITE BLOOD COUNT 6.1 K/mm3 (4.0-10.0)
[2019-04-08 11:13] LABS: ALBUMIN 3.5 g/dl (3.4-5.0); BILIRUBIN,TOTAL 0.4 mg/dL (0.2-1); BLOOD UREA NITROGEN 18.1 mg/dL (7-18); CALCIUM 8.8 mg/dL (8.5-10.1); CREATININE 1.6 mg/dL (0.55-1.3); POTASSIUM 3.9 mmol/L (3.5-5.1); TOT PROT 7.3 g/dl (6.4-8.2)
[2019-04-08] MEDS: guaiFENesin 600 MG TABLET.ER (FP) PO SCH ×2 (12:26→22:02)
[2019-04-08] MEDS: METHOCARBAMOL 500 MG TABLET PO PRN (12:26)
[2019-04-08] MEDS: MAG HYDROX/AL HYDROX/SIMETH 30 ML UNIT-DOSE CUP PO PRN (17:51)
[2019-04-08] MEDS: ONDANSETRON *ODT* 4 MG TABLET SL PRN (17:51)
[2019-04-08] MEDS ORDERED: QUEtiapine FUMARATE 100 MG TABLET (FP) PO SCH (22:00)
[2019-04-08] MEDS ORDERED: LORATADINE 10 MG TABLET PO SCH (22:00)
[2019-04-08] MEDS: THIAMINE HCL 100 MG TABLET (FP) PO SCH (22:02)
[2019-04-08] MEDS: MELATONIN 5 MG TABLETS PO PRN (22:02)
[2019-04-09] MEDS: diazePAM 5 MG TABLET PO SCH ×2 (05:29→17:29)
[2019-04-09] MEDS: METHOCARBAMOL 500 MG TABLET PO PRN (05:29)
[2019-04-09] MEDS: MAG HYDROX/AL HYDROX/SIMETH 30 ML UNIT-DOSE CUP PO PRN (07:52)
--- NOTE | 2019-04-09 09:20 | PN ---
[facility] CIWA - CIWA Score Nausea/Vomitin-Mild Nausea/No Vomiting Muscle Tremors: 2 Anxiety: 2 Agitation: 2 Paroxysmal Sweats: 1-Minimal Palms Moist Orientation: 0-Oriented Tacttile Disturbances: 0-None Auditory Disturbances: 0-None Visual Disturbances: 0-None Headache: 1-Very Mild CIWA-Ar Total Score: 9 S Progress Note (SOAP) Subjective: 43 years old male admitted on 04/07/19 for alcohol and benzo withdrawal sx management treating with valium detox regimen c/o long history of GERD and protonix not working for him discontinue protonix 20mg po bid begin pepcid 20 mg po bid and carafate 2g bid x 4 doses discontinue motrin c/o loose x 4 imodium 4 mg po x 1 now discontinue pepto discontinue citric of Magnesium and MOM Objective: 04/09/19 09:22 Vital Signs Temperature 97.3 F L 04/09/19 09:15 Pulse Rate 107 H 04/09/19 09:15 Respiratory Rate 19 04/09/19 09:15 Blood Pressure 95/65 04/09/19 09:15 O2 Sat by Pulse Oximetry (%) Laboratory Last Values WBC 6.1 K/mm3 (4.0-10.0) 04/08/19 08:00 RBC 4.92 M/mm3 (4.00-5.60) 04/08/19 08:00 Hgb 14.1 GM/dL (11.7-16.9) 04/08/19 08:00 Hct 42.8 % (35.4-49) 04/08/19 08:00 MCV 87.0 fl (80-96) 04/08/19 08:00 MCH 28.7 pg (25.7-33.7) 04/08/19 08:00 MCHC 32.9 g/dl (32.0-35.9) 04/08/19 08:00 RDW 17.1 % (11.9-15.9) H 04/08/19 08:00 Plt Count 220 K/MM3 (134-434) 04/08/19 08:00 MPV 9.5 fl (7.5-11.1) 04/08/19 08:00 Sodium 138 mmol/L (136-145) 04/08/19 08:00 Potassium 3.9 mmol/L (3.5-5.1) 04/08/19 08:00 Chloride 102 mmol/L (98-107) 04/08/19 08:00 Carbon Dioxide 26 mmol/L (21-32) 04/08/19 08:00 Anion Gap 11 MMOL/L (8-16) 04/08/19 08:00 BUN 18.1 mg/dL (7-18) H 04/08/19 08:00 Creatinine 1.6 mg/dL (0.55-1.3) H 04/08/19 08:00 Est GFR (CKD-EPI)AfAm 60.26 04/08/19 08:00 Est GFR (CKD-EPI)NonAf 51.99 04/08/19 08:00 Random Glucose 113 mg/dL (74-106) H 04/08/19 08:00 Calcium 8.8 mg/dL (8.5-10.1) 04/08/19 08:00 Total Bilirubin 0.4 mg/dL (0.2-1) 04/08/19 08:00 AST 46 U/L (15-37) H 04/08/19 08:00 ALT 45 U/L (13-61) 04/08/19 08:00 Alkaline Phosphatase 80 U/L (45-117) 04/08/19 08:00 Total Protein 7.3 g/dl (6.4-8.2) 04/08/19 08:00 Albumin 3.5 g/dl (3.4-5.0) 04/08/19 08:00 lab noted increase oral fluid Assessment: 04/09/19 09:24 alcohol and benzo withdrawal Plan: valium regimen
[2019-04-09] MEDS: ONDANSETRON *ODT* 4 MG TABLET SL PRN (09:35)
[2019-04-09] MEDS ORDERED: LOPERAMIDE HCL 2 MG CAPSULE PO ONE (10:00)
[2019-04-09] MEDS ORDERED: SERTRALINE HCL 50 MG TABLET (FP) PO SCH (10:00)
[2019-04-09] MEDS ORDERED: FAMOTIDINE 20 MG TABLET PO SCH (10:00)
[2019-04-09] MEDS: HYDROCHLOROTHIAZIDE 25 MG TABLET (FP) PO SCH (10:12)
[2019-04-09] MEDS: NICOTINE 14 MG/24 HOURS TOPICAL PATCH TD SCH (10:13)
[2019-04-09] MEDS: guaiFENesin 600 MG TABLET.ER (FP) PO SCH (10:13)
[2019-04-09] MEDS: PRENATAL VITAMINS W/ FOLIC ACID TABLET (FP) PO SCH (10:15)
[2019-04-09 11:10] LABS: PH,URINE 5.5 (5.0-8.0); URINE APPEARANCE CLEAR; URINE BILIRUBIN NEGATIVE (NEGATIVE); URINE COLOR YELLOW; URINE GLUCOSE (UA) NEGATIVE (NEGATIVE); URINE KETONE NEGATIVE (NEGATIVE); URINE LEUK ESTERASE NEGATIVE (NEGATIVE); URINE NITRITE NEGATIVE (NEGATIVE); URINE PROTEIN TRACE (NEGATIVE); URINE UROBILINOGEN 0.2 mg/dL (0.2-1.0)
[2019-04-09] MEDS ORDERED: SUCRALFATE 1 GM TABLET (FP) PO SCH (13:00)
[2019-04-09] MEDS: SUCRALFATE 1 GM TABLET (FP) PO SCH ×2 (13:02→18:01)
[2019-04-09] MEDS: diazePAM 5 MG TABLET PO PRN (13:03)
[2019-04-09 17:22] VITALS: BP 124/83; PULSE 112; TEMP 97.5
--- NOTE | 2019-04-09 18:26 | DS ---
[facility] Detox Discharge Summary Admission Date: 04/07/19 Discharge Date: 04/09/19 - History Present History: Alcohol Dependence, Cannabis Dependence, Cocaine Dependence Pertinent Past History: Hx: HTN, GERD, and HIV(+). - Physical Exam Results Vital Signs: Vital Signs Temperature 97.5 F L 04/09/19 17:20 Pulse Rate 112 H 04/09/19 17:20 Respiratory Rate 16 04/09/19 17:20 Blood Pressure 124/83 04/09/19 17:20 O2 Sat by Pulse Oximetry (%) Pertinent Admission Physical Exam Findings: 43 yo admitted w/ alcohol withdrawal symptoms. Alcohol use since age 19. Marijuana use since age 18. Cocaine use since age 27. Nicotine use disorder. Laboratory Last Values WBC 6.1 K/mm3 (4.0-10.0) 04/08/19 08:00 RBC 4.92 M/mm3 (4.00-5.60) 04/08/19 08:00 Hgb 14.1 GM/dL (11.7-16.9) 04/08/19 08:00 Hct 42.8 % (35.4-49) 04/08/19 08:00 MCV 87.0 fl (80-96) 04/08/19 08:00 MCH 28.7 pg (25.7-33.7) 04/08/19 08:00 MCHC 32.9 g/dl (32.0-35.9) 04/08/19 08:00 RDW 17.1 % (11.9-15.9) H 04/08/19 08:00 Plt Count 220 K/MM3 (134-434) 04/08/19 08:00 MPV 9.5 fl (7.5-11.1) 04/08/19 08:00 Sodium 138 mmol/L (136-145) 04/08/19 08:00 Potassium 3.9 mmol/L (3.5-5.1) 04/08/19 08:00 Chloride 102 mmol/L (98-107) 04/08/19 08:00 Carbon Dioxide 26 mmol/L (21-32) 04/08/19 08:00 Anion Gap 11 MMOL/L (8-16) 04/08/19 08:00 BUN 18.1 mg/dL (7-18) H 04/08/19 08:00 Creatinine 1.6 mg/dL (0.55-1.3) H 04/08/19 08:00 Est GFR (CKD-EPI)AfAm 60.26 04/08/19 08:00 Est GFR (CKD-EPI)NonAf 51.99 04/08/19 08:00 Random Glucose 113 mg/dL (74-106) H 04/08/19 08:00 Calcium 8.8 mg/dL (8.5-10.1) 04/08/19 08:00 Total Bilirubin 0.4 mg/dL (0.2-1) 04/08/19 08:00 AST 46 U/L (15-37) H 04/08/19 08:00 ALT 45 U/L (13-61) 04/08/19 08:00 Alkaline Phosphatase 80 U/L (45-117) 04/08/19 08:00 Total Protein 7.3 g/dl (6.4-8.2) 04/08/19 08:00 Albumin 3.5 g/dl (3.4-5.0) 04/08/19 08:00 Urine Color Yellow 04/09/19 08:15 Urine Appearance Clear 04/09/19 08:15 Urine pH 5.5 (5.0-8.0) 04/09/19 08:15 Ur Specific [place] 1.033 (1.010-1.035) 04/09/19 08:15 Urine Protein Trace (NEGATIVE) 04/09/19 08:15 Urine Glucose (UA) Negative (NEGATIVE) 04/09/19 08:15 Urine Ketones Negative (NEGATIVE) 04/09/19 08:15 Urine Blood Negative (NEGATIVE) 04/09/19 08:15 Urine Nitrite Negative (NEGATIVE) 04/09/19 08:15 Urine Bilirubin Negative (NEGATIVE) 04/09/19 08:15 Urine Urobilinogen 0.2 mg/dL (0.2-1.0) 04/09/19 08:15 Ur Leukocyte Esterase Negative (NEGATIVE) 04/09/19 08:15 Labs reviewed. - Treatment Hospital Course: Detox Protocol Followed, Detoxed Safely, Responded well, Discharged Condition Good Patient has Accepted a Rehab Referral to: Patient states has an appt at [facility] in [place] for 03/1719 - Medication Discharge Medications: Ambulatory Orders Sertraline HCl [Zoloft -] 50 mg PO DAILY 01/06/18 Quetiapine Fumarate [Seroquel -] 100 mg PO HS 03/24/18 Pravastatin Sodium [Pravachol -] 20 mg PO HS 05/25/18 Bictegrav/Emtricit/Tenofov Ala [Biktarvy 50-200-25 mg Tablet] 1 each PO DAILY Meloxicam 15 mg PO PRN PRN 02/01/19 Omeprazole 40 mg PO DAILY 02/01/19 Hydrochlorothiazide [Hctz -] 25 mg PO DAILY 04/07/19 - Diagnosis (1) Hx of fracture of ankle Status: Chronic (2) Acid reflux disease Status: Chronic Qualifiers: Esophagitis presence: without esophagitis Qualified Code(s): K21.9 - Gastro -esophageal reflux disease without esophagitis (3) Alcohol dependence with uncomplicated withdrawal Status: Acute (4) Cannabis dependence, uncomplicated Status: Chronic (5) Cocaine dependence Status: Chronic Qualifiers: Substance use status: uncomplicated Qualified Code(s): F14.20 - Cocaine dependence, uncomplicated (6) HIV (human immunodeficiency virus infection) Status: Chronic Qualifiers: HIV symptom status: unspecified Qualified Code(s): B20 - Human immunodeficiency virus [HIV] disease (7) HTN (hypertension) Status: Chronic Qualifiers: Hypertension type: essential hypertension Qualified Code(s): I10 - Essential (primary) hypertension (8) Nicotine dependence Status: Chronic Qualifiers: Nicotine product type: cigarettes Substance use status: uncomplicated Qualified Code(s): F17.210 - Nicotine dependence, cigarettes, uncomplicated (9) Obesity (BMI 30.0-34.9) Status: Chronic - AMA Did Patient Leave Against Medical Advice: No
[2019-04-10] MEDS ORDERED: diazePAM 5 MG TABLET PO ONE (06:00)
[2019-04-11] MEDS ORDERED: diazePAM 5 MG TABLET PO SCH (06:00)
== END 2019-04-09 18:33 | disposition home or self-care (01) | DRG 774 ==
LOC: YASAS 15:25 → Y3N 17:36
PROVIDERS: ADMIT Allergy & Immunology; ATTEND Allergy & Immunology
PROC: HZ2ZZZZ Detoxification Services for Substance Abuse Treatment (ICD-10-PCS; principal; 2019-04-07)
DX: F10.230 Alcohol dependence with withdrawal, uncomplicated (principal); F13.230 Sedative, hypnotic or anxiolytic dependence with withdrawal, uncomplicated; F14.20 Cocaine dependence, uncomplicated; F12.20 Cannabis dependence, uncomplicated; F17.210 Nicotine dependence, cigarettes, uncomplicated; F19.24 Other psychoactive substance dependence with psychoactive substance-induced mood disorder; F19.282 Other psychoactive substance dependence with psychoactive substance-induced sleep disorder; F43.10 Post-traumatic stress disorder, unspecified; I10 Essential (primary) hypertension; K21.9 Gastro-esophageal reflux disease without esophagitis; Z21 Asymptomatic human immunodeficiency virus [HIV] infection status; E78.5 Hyperlipidemia, unspecified; G62.9 Polyneuropathy, unspecified; R00.0 Tachycardia, unspecified; E66.9 Obesity, unspecified; Z68.33 Body mass index [BMI] 33.0-33.9, adult; Z86.69 Personal history of other diseases of the nervous system and sense organs; Z87.438 Personal history of other diseases of male genital organs; Z62.810 Personal history of physical and sexual abuse in childhood; Z91.013 Allergy to seafood
CPT/HCPCS: 36415; 80053; 81003; 85027; 93005; 93010; Q0162

== ENCOUNTER 2019-05-01 10:42 | Inpatient (IN) | payer OTHER ==
[2019-05-01 12:20] VITALS: BMI 32.5
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
[2019-05-01] MEDS ORDERED: chlordiazePOXIDE HCL 25 MG CAPSULE PO PRN (14:12)
[2019-05-01] MEDS ORDERED: MAGNESIUM CITRATE 300 ML BOTTLE PO PRN (14:12)
[2019-05-01] MEDS ORDERED: IBUPROFEN 400 MG TABLET (FP) PO PRN (14:12)
[2019-05-01] MEDS ORDERED: BISMUTH SUBSALICYLATE 262 MG/15 ML BTL PO PRN (14:12)
[2019-05-01] MEDS ORDERED: ONDANSETRON *ODT* 4 MG TABLET SL PRN (14:12)
[2019-05-01] MEDS ORDERED: ACETAMINOPHEN 325 MG TABLET (FP) PO PRN ×2 (14:12)
[2019-05-01] MEDS ORDERED: MENTHOL/PHENOL 1 EACH UD MM PRN (14:12)
[2019-05-01] MEDS: HYDROCHLOROTHIAZIDE 25 MG TABLET (FP) PO SCH (15:17)
[2019-05-01] MEDS: METHOCARBAMOL 500 MG TABLET PO PRN (16:49)
[2019-05-01] MEDS: MAG HYDROX/AL HYDROX/SIMETH 30 ML UNIT-DOSE CUP PO PRN (16:49)
[2019-05-01] MEDS: chlordiazePOXIDE HCL 25 MG CAPSULE PO SCH ×2 (16:49→21:59)
[2019-05-01 17:16] LABS: HEMATOCRIT 41.7 % (35.4-49); HEMOGLOBIN 13.6 GM/dL (11.7-16.9); MCH 28.6 pg (25.7-33.7); MCHC 32.7 g/dl (32.0-35.9); MEAN CELL VOLUME 87.5 fl (80-96); MEAN PLT VOLUME 9.3 fl (7.5-11.1); PLATELET COUNT 220 K/MM3 (134-434); RBC 4.76 M/mm3 (4.00-5.60); RDW 16.7 % (11.9-15.9); WHITE BLOOD COUNT 6.2 K/mm3 (4.0-10.0)
[2019-05-01 17:32] LABS: ALBUMIN 3.7 g/dl (3.4-5.0); BILIRUBIN,TOTAL 0.5 mg/dL (0.2-1); BLOOD UREA NITROGEN 16.6 mg/dL (7-18); CALCIUM 8.6 mg/dL (8.5-10.1); CREATININE 1.3 mg/dL (0.55-1.3); TOT PROT 7.4 g/dl (6.4-8.2)
[2019-05-01] MEDS: ATORVASTATIN CA 10 MG TABLET (FP) PO SCH (21:59)
[2019-05-01] MEDS: THIAMINE HCL 100 MG TABLET (FP) PO SCH (21:59)
[2019-05-01] MEDS: MELATONIN 5 MG TABLETS PO PRN (22:00)
[2019-05-01] MEDS: hydrOXYzine PAMOATE 25 MG CAPSULE (FP) PO PRN (22:01)
[2019-05-02] MEDS: MAG HYDROX/AL HYDROX/SIMETH 30 ML UNIT-DOSE CUP PO PRN (01:32)
[2019-05-02] MEDS: chlordiazePOXIDE HCL 25 MG CAPSULE PO SCH ×4 (05:48→22:29)
[2019-05-02] MEDS: METHOCARBAMOL 500 MG TABLET PO PRN ×2 (05:48→17:18)
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
[2019-05-02] MEDS ORDERED: PANTOPRAZOLE 40 MG TABLET (FP) PO SCH (10:00)
--- NOTE | 2019-05-02 10:21 | PN ---
S CIWA - CIWA Score Nausea/Vomitin-No Nausea/No Vomiting Muscle Tremors: 3 Anxiety: 3 Agitation: 3 Paroxysmal Sweats: 3 Orientation: 0-Oriented Tacttile Disturbances: 0-None Auditory Disturbances: 0-None Visual Disturbances: 0-None Headache: 0-None Present CIWA-Ar Total Score: 12 [facility] Progress Note (SOAP) Subjective: sweats shakes interrupted sleep i need my protonix at 6am. Objective: 05/02/19 10:24 Vital Signs Temperature 98.5 F 05/02/19 09:19 Pulse Rate 100 H 05/02/19 09:19 Respiratory Rate 18 05/02/19 09:19 Blood Pressure 127/66 05/02/19 09:19 O2 Sat by Pulse Oximetry (%) Laboratory Tests 05/01/19 05/01/19 05/01/19 15:00 15:00 15:00 WBC 6.2 RBC 4.76 Hgb 13.6 Hct 41.7 MCV 87.5 MCH 28.6 MCHC 32.7 RDW 16.7 H Plt Count 220 MPV 9.3 Sodium 139 Potassium 4.0 Chloride 108 H Carbon Dioxide 25 Anion Gap 6 L BUN 16.6 Creatinine 1.3 Est GFR (CKD-EPI)AfAm 77.45 Est GFR (CKD-EPI)NonAf 66.83 Random Glucose 111 H Calcium 8.6 Total Bilirubin 0.5 AST 34 ALT 45 Alkaline Phosphatase 71 Total Protein 7.4 Albumin 3.7 RPR Titer Nonreactive aaox3 ambulating no acute distress Assessment: 05/02/19 10:29 withdrawals Plan: continue detox increase fluids protonix scheduled for 6am as per pt request
[2019-05-02] MEDS: SERTRALINE HCL 50 MG TABLET (FP) PO SCH (10:25)
[2019-05-02] MEDS: PRENATAL VITAMINS W/ FOLIC ACID TABLET (FP) PO SCH (10:25)
[2019-05-02] MEDS: NICOTINE 21 MG/24 HOURS TOPICAL PATCH TD SCH (10:25)
[2019-05-02] MEDS: MAGNESIUM HYDROX 2400MG/30ML ORAL SUSPENSION 30 ML CUP PO PRN (10:28)
[2019-05-02] MEDS: HYDROCHLOROTHIAZIDE 25 MG TABLET (FP) PO SCH (10:45)
[2019-05-02] MEDS: hydrOXYzine PAMOATE 25 MG CAPSULE (FP) PO PRN (19:11)
[2019-05-02] MEDS: ATORVASTATIN CA 10 MG TABLET (FP) PO SCH (22:29)
[2019-05-02] MEDS: QUEtiapine FUMARATE 100 MG TABLET (FP) PO SCH (22:29)
[2019-05-02] MEDS: MELATONIN 5 MG TABLETS PO PRN (22:32)
[2019-05-02] MEDS: THIAMINE HCL 100 MG TABLET (FP) PO SCH (22:32)
[2019-05-03] MEDS: MAG HYDROX/AL HYDROX/SIMETH 30 ML UNIT-DOSE CUP PO PRN (03:56)
[2019-05-03] MEDS: chlordiazePOXIDE HCL 25 MG CAPSULE PO SCH ×4 (05:41→22:06)
[2019-05-03] MEDS: PANTOPRAZOLE 40 MG TABLET (FP) PO SCH (05:41)
--- NOTE | 2019-05-03 10:15 | PN ---
S CIWA - CIWA Score Nausea/Vomitin-No Nausea/No Vomiting Muscle Tremors: 3 Anxiety: 2 Agitation: 2 Paroxysmal Sweats: No Perspiration Orientation: 0-Oriented Tacttile Disturbances: 0-None Auditory Disturbances: 0-None Visual Disturbances: 0-None Headache: 0-None Present CIWA-Ar Total Score: 7 BHS Progress Note (SOAP) Subjective: agitation restless anxiety Objective: 05/03/19 10:15 Vital Signs Temperature 97.7 F 05/03/19 09:32 Pulse Rate 94 H 05/03/19 09:32 Respiratory Rate 19 05/03/19 09:32 Blood Pressure 154/94 05/03/19 09:32 O2 Sat by Pulse Oximetry (%) Laboratory Tests 05/01/19 05/01/19 05/01/19 15:00 15:00 15:00 WBC 6.2 RBC 4.76 Hgb 13.6 Hct 41.7 MCV 87.5 MCH 28.6 MCHC 32.7 RDW 16.7 H Plt Count 220 MPV 9.3 Sodium 139 Potassium 4.0 Chloride 108 H Carbon Dioxide 25 Anion Gap 6 L BUN 16.6 Creatinine 1.3 Est GFR (CKD-EPI)AfAm 77.45 Est GFR (CKD-EPI)NonAf 66.83 Random Glucose 111 H Calcium 8.6 Total Bilirubin 0.5 AST 34 ALT 45 Alkaline Phosphatase 71 Total Protein 7.4 Albumin 3.7 RPR Titer Nonreactive aaox3 ambulating no acute distress Assessment: 05/03/19 10:15 withdrawals Plan: continue detox
[2019-05-03] MEDS: NICOTINE 21 MG/24 HOURS TOPICAL PATCH TD SCH (10:16)
[2019-05-03] MEDS: PRENATAL VITAMINS W/ FOLIC ACID TABLET (FP) PO SCH (10:17)
[2019-05-03] MEDS: HYDROCHLOROTHIAZIDE 25 MG TABLET (FP) PO SCH (10:17)
[2019-05-03] MEDS: SERTRALINE HCL 50 MG TABLET (FP) PO SCH (10:17)
--- NOTE | 2019-05-03 10:18 | PN ---
Marisela Progress Note Note: press writer confirmed with pt pharmacy that the last time pt was prescribed his HIV medication Biktarvy was 09/2018. pt was advised to see his PCP or ID MD after detox and have a f/u and have new Rx for his HIV medication. pt in agreement.
[2019-05-03] MEDS: METHOCARBAMOL 500 MG TABLET PO PRN (16:42)
[2019-05-03] MEDS: MAGNESIUM HYDROX 2400MG/30ML ORAL SUSPENSION 30 ML CUP PO PRN (21:19)
[2019-05-03] MEDS: hydrOXYzine PAMOATE 25 MG CAPSULE (FP) PO PRN (21:32)
[2019-05-03] MEDS: QUEtiapine FUMARATE 100 MG TABLET (FP) PO SCH (22:06)
[2019-05-03] MEDS: ATORVASTATIN CA 10 MG TABLET (FP) PO SCH (22:06)
[2019-05-03] MEDS: THIAMINE HCL 100 MG TABLET (FP) PO SCH (22:07)
[2019-05-03] MEDS: MELATONIN 5 MG TABLETS PO PRN (22:07)
[2019-05-04] MEDS ORDERED: chlordiazePOXIDE HCL 10 MG CAPSULE PO PRN
[2019-05-04] MEDS: chlordiazePOXIDE HCL 10 MG CAPSULE PO SCH ×4 (06:37→22:20)
[2019-05-04] MEDS: PANTOPRAZOLE 40 MG TABLET (FP) PO SCH (06:37)
[2019-05-04] MEDS: METHOCARBAMOL 500 MG TABLET PO PRN ×2 (06:38→16:39)
[2019-05-04] MEDS: MAG HYDROX/AL HYDROX/SIMETH 30 ML UNIT-DOSE CUP PO PRN ×2 (09:23→16:39)
[2019-05-04] MEDS: SERTRALINE HCL 50 MG TABLET (FP) PO SCH (10:10)
[2019-05-04] MEDS: PRENATAL VITAMINS W/ FOLIC ACID TABLET (FP) PO SCH (10:10)
[2019-05-04] MEDS: HYDROCHLOROTHIAZIDE 25 MG TABLET (FP) PO SCH (10:10)
[2019-05-04] MEDS: NICOTINE 21 MG/24 HOURS TOPICAL PATCH TD SCH (10:11)
--- NOTE | 2019-05-04 11:00 | PN ---
S CIWA - CIWA Score Nausea/Vomitin-No Nausea/No Vomiting Muscle Tremors: 2 Anxiety: 2 Agitation: 2 Paroxysmal Sweats: 2 Orientation: 0-Oriented Tacttile Disturbances: 0-None Auditory Disturbances: 0-None Visual Disturbances: 0-None Headache: 0-None Present CIWA-Ar Total Score: 8 BHS Progress Note (SOAP) Subjective: sweats restless agitation interrupted sleep Objective: 05/04/19 10:59 Vital Signs Temperature 97.9 F 05/04/19 10:13 Pulse Rate 105 H 05/04/19 10:13 Respiratory Rate 18 05/04/19 10:13 Blood Pressure 145/83 05/04/19 10:13 O2 Sat by Pulse Oximetry (%) Laboratory Tests 05/01/19 05/01/19 05/01/19 15:00 15:00 15:00 WBC 6.2 RBC 4.76 Hgb 13.6 Hct 41.7 MCV 87.5 MCH 28.6 MCHC 32.7 RDW 16.7 H Plt Count 220 MPV 9.3 Sodium 139 Potassium 4.0 Chloride 108 H Carbon Dioxide 25 Anion Gap 6 L BUN 16.6 Creatinine 1.3 Est GFR (CKD-EPI)AfAm 77.45 Est GFR (CKD-EPI)NonAf 66.83 Random Glucose 111 H Calcium 8.6 Total Bilirubin 0.5 AST 34 ALT 45 Alkaline Phosphatase 71 Total Protein 7.4 Albumin 3.7 RPR Titer Nonreactive aaox3 ambulating no acute distress Assessment: 05/04/19 10:59 withdrawals Plan: continue detox increase fluids
[2019-05-04] MEDS: MELATONIN 5 MG TABLETS PO PRN (21:17)
[2019-05-04] MEDS: ATORVASTATIN CA 10 MG TABLET (FP) PO SCH (21:17)
[2019-05-04] MEDS: QUEtiapine FUMARATE 100 MG TABLET (FP) PO SCH (21:17)
[2019-05-04] MEDS: THIAMINE HCL 100 MG TABLET (FP) PO SCH (22:20)
[2019-05-05] MEDS: MAG HYDROX/AL HYDROX/SIMETH 30 ML UNIT-DOSE CUP PO PRN (01:59)
[2019-05-05] MEDS: chlordiazePOXIDE HCL 10 MG CAPSULE PO SCH ×2 (05:51→17:14)
[2019-05-05] MEDS: METHOCARBAMOL 500 MG TABLET PO PRN ×2 (05:51→17:14)
[2019-05-05] MEDS: PANTOPRAZOLE 40 MG TABLET (FP) PO SCH (05:51)
[2019-05-05] MEDS: NICOTINE 21 MG/24 HOURS TOPICAL PATCH TD SCH (10:08)
[2019-05-05] MEDS: PRENATAL VITAMINS W/ FOLIC ACID TABLET (FP) PO SCH (10:08)
[2019-05-05] MEDS: SERTRALINE HCL 50 MG TABLET (FP) PO SCH (10:08)
[2019-05-05] MEDS: HYDROCHLOROTHIAZIDE 25 MG TABLET (FP) PO SCH (10:09)
[2019-05-05] MEDS: hydrOXYzine PAMOATE 25 MG CAPSULE (FP) PO PRN ×2 (10:11→17:14)
--- NOTE | 2019-05-05 12:12 | PN ---
[facility] CIWA - CIWA Score Nausea/Vomitin-No Nausea/No Vomiting Muscle Tremors: 1-None Visible, but [place] Anxiety: 1-Mildly Anxious Agitation: 1-Slight > Activity Paroxysmal Sweats: 1-Minimal Palms Moist Orientation: 0-Oriented Tacttile Disturbances: 0-None Auditory Disturbances: 0-None Visual Disturbances: 0-None Headache: 0-None Present CIWA-Ar Total Score: 4 BHS Progress Note (SOAP) Subjective: anxiety Objective: 05/05/19 12:11 Vital Signs Temperature 97.6 F 05/05/19 09:35 Pulse Rate 94 H 05/05/19 09:35 Respiratory Rate 17 05/05/19 09:35 Blood Pressure 129/92 05/05/19 09:35 O2 Sat by Pulse Oximetry (%) aaox3 ambulating no acute distress Assessment: 05/05/19 12:11 mild withdrawal Plan: continue detox d/c in am
[2019-05-05] MEDS: MAGNESIUM HYDROX 2400MG/30ML ORAL SUSPENSION 30 ML CUP PO PRN (17:14)
[2019-05-05] MEDS: ATORVASTATIN CA 10 MG TABLET (FP) PO SCH (22:00)
[2019-05-05] MEDS: QUEtiapine FUMARATE 100 MG TABLET (FP) PO SCH (22:00)
[2019-05-05] MEDS: THIAMINE HCL 100 MG TABLET (FP) PO SCH (22:01)
[2019-05-06] MEDS ORDERED: chlordiazePOXIDE HCL 10 MG CAPSULE PO ONE (05:00)
[2019-05-06] MEDS: PANTOPRAZOLE 40 MG TABLET (FP) PO SCH (05:38)
[2019-05-06] MEDS: METHOCARBAMOL 500 MG TABLET PO PRN (05:38)
[2019-05-06 06:44] VITALS: BP 138/82; PULSE 97; TEMP 97.9
[2019-05-06] MEDS: MAG HYDROX/AL HYDROX/SIMETH 30 ML UNIT-DOSE CUP PO PRN (07:41)
--- NOTE | 2019-05-06 17:04 | DS ---
[facility] Detox Discharge Summary Admission Date: 05/01/19 Discharge Date: 05/06/19 - History Present History: Alcohol Dependence, Cannabis Dependence, Cocaine Dependence, Sedative Dependence Additional Comments: Patient completed detox successfully and discharged safely. Patient to follow up with PCP within 1-2 weeks. Pertinent Past History: GERD HIV HTN HLD - Physical Exam Results Vital Signs: Vital Signs Temperature 97.9 F 05/06/19 06:43 Pulse Rate 97 H 05/06/19 06:43 Respiratory Rate 18 05/06/19 06:43 Blood Pressure 138/82 05/06/19 06:43 O2 Sat by Pulse Oximetry (%) Pertinent Admission Physical Exam Findings: Withdrawal sxs Laboratory Tests 05/01/19 05/01/19 05/01/19 15:00 15:00 15:00 WBC 6.2 RBC 4.76 Hgb 13.6 Hct 41.7 MCV 87.5 MCH 28.6 MCHC 32.7 RDW 16.7 H Plt Count 220 MPV 9.3 Sodium 139 Potassium 4.0 Chloride 108 H Carbon Dioxide 25 Anion Gap 6 L BUN 16.6 Creatinine 1.3 Est GFR (CKD-EPI)AfAm 77.45 Est GFR (CKD-EPI)NonAf 66.83 Random Glucose 111 H Calcium 8.6 Total Bilirubin 0.5 AST 34 ALT 45 Alkaline Phosphatase 71 Total Protein 7.4 Albumin 3.7 RPR Titer Nonreactive Labs reviewed: hyperglycemia noted: denies dm, could be withdrawal related, follow up with PCP for monitoring - Treatment Hospital Course: Detox Protocol Followed, Detoxed Safely, Responded well, Discharged Condition Good - Medication Discharge Medications: Ambulatory Orders Sertraline HCl [Zoloft -] 50 mg PO DAILY 01/06/18 Quetiapine Fumarate [Seroquel -] 100 mg PO HS 03/24/18 Pravastatin Sodium [Pravachol -] 20 mg PO HS 05/25/18 Omeprazole 40 mg PO DAILY 02/01/19 Hydrochlorothiazide [Hctz -] 25 mg PO DAILY 04/07/19 - Diagnosis (1) Hyperglycemia Status: Acute (2) Alcohol dependence with uncomplicated withdrawal Status: Acute (3) Cannabis dependence Status: Chronic (4) Cocaine dependence Status: Chronic Qualifiers: Substance use status: uncomplicated Qualified Code(s): F14.20 - Cocaine dependence, uncomplicated (5) Sedative, hypnotic or anxiolytic dependence with withdrawal, unspecified Status: Acute (6) GERD (gastroesophageal reflux disease) Status: Chronic Qualifiers: Esophagitis presence: without esophagitis Qualified Code(s): K21.9 - Gastro -esophageal reflux disease without esophagitis (7) HIV (human immunodeficiency virus infection) Status: Chronic Qualifiers: HIV symptom status: unspecified Qualified Code(s): B20 - Human immunodeficiency virus [HIV] disease (8) HLD (hyperlipidemia) Status: Chronic Qualifiers: Hyperlipidemia type: unspecified Qualified Code(s): E78.5 - Hyperlipidemia , unspecified (9) HTN (hypertension) Status: Chronic Qualifiers: Hypertension type: essential hypertension Qualified Code(s): I10 - Essential (primary) hypertension (10) Nicotine dependence Status: Chronic Qualifiers: Nicotine product type: cigarettes Substance use status: uncomplicated Qualified Code(s): F17.210 - Nicotine dependence, cigarettes, uncomplicated - AMA Did Patient Leave Against Medical Advice: No (Follow up with PCP within 1-2 weeks)
== END 2019-05-06 09:25 | disposition home or self-care (01) | DRG 774 ==
LOC: YASAS 10:42 → Y6N 14:36
PROVIDERS: ADMIT Allergy & Immunology; ATTEND Allergy & Immunology
PROC: HZ2ZZZZ Detoxification Services for Substance Abuse Treatment (ICD-10-PCS; principal; 2019-05-01)
DX: F10.230 Alcohol dependence with withdrawal, uncomplicated (principal); F13.230 Sedative, hypnotic or anxiolytic dependence with withdrawal, uncomplicated; F14.20 Cocaine dependence, uncomplicated; F12.20 Cannabis dependence, uncomplicated; F17.210 Nicotine dependence, cigarettes, uncomplicated; F33.1 Major depressive disorder, recurrent, moderate; F43.10 Post-traumatic stress disorder, unspecified; F19.282 Other psychoactive substance dependence with psychoactive substance-induced sleep disorder; F19.24 Other psychoactive substance dependence with psychoactive substance-induced mood disorder; Z21 Asymptomatic human immunodeficiency virus [HIV] infection status; E78.5 Hyperlipidemia, unspecified; I10 Essential (primary) hypertension; K21.9 Gastro-esophageal reflux disease without esophagitis; R73.9 Hyperglycemia, unspecified; E66.9 Obesity, unspecified; Z68.32 Body mass index [BMI] 32.0-32.9, adult; Z86.69 Personal history of other diseases of the nervous system and sense organs; Z91.013 Allergy to seafood; Z86.19 Personal history of other infectious and parasitic diseases; Z90.5 Acquired absence of kidney
CPT/HCPCS: 36415; 80053; 85027; 86593; Q0162

== ENCOUNTER 2019-06-03 11:08 | Inpatient (IN) | payer OTHER ==
[2019-06-03 12:27] VITALS: BMI 31.3
--- NOTE | 2019-06-03 13:47 | HP ---
CIWA Score Nausea/Vomitin Muscle Tremors: 2 Anxiety: 2 Agitation: 2 Paroxysmal Sweats: 2 Orientation: 0-Oriented Tacttile Disturbances: 1-Very Mild Itch/Numbness Auditory Disturbances: 0-None Visual Disturbances: 2-Mild Sensitivity Headache: 1-Very Mild CIWA-Ar Total Score: 14 - Admission Criteria [facility]ASAS Guidelines: Admission for Medically Managed Detox: Requires at least one of the followin. CIWA greater than 12 2. Seizures within the past 24 hours 3. Delirium tremens within the past 24 hours 4. Hallucinations within the past 24 hours 5. Acute intervention needed for co occurring medical disorder 6. Acute intervention needed for co occurring psychiatric disorder 7. Severe withdrawal that cannot be handled at a lower level of care (continued vomiting, continued diarrhea, abnormal vital signs) requiring intravenous medication and/or fluids 8. 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 Cardiovascular: Yes: HTN, Hyperlipdemia Gastrointestinal: Yes: GERD Infectious Disease: Yes: HIV (since 2005, currently taking Biktarvy..last viral load 52, CD4 920.) Psych: Yes: Depression - Smoking History Smoking history: Current every day smoker Have you smoked in the past 12 months: Yes Aproximately how many cigarettes per day: 10 - Alcohol/Substance Use Hx Alcohol Use: Yes History of Substance Use: reports: Cocaine Date of Last Use: 04/30/19 - Social History ADL: Independent History of Recent Travel: No Admission ROS [facility] - HPI Chief Complaint: My life is still miserable, I want to get my life together Allergies/Adverse Reactions: Allergies Allergy/AdvReac Type Severity Reaction Status Date / Time No Known Drug Allergies Allergy Verified 06/03/19 12:18 shellfish derived AdvReac Severe Swelling Verified 06/03/19 12:18 History of Present Illness: Patient is a 43 years old man with multiple admissions who presents for detox. His last detox treatment was in April of this year. He denies seizures, reports several blackouts, last episode was 2 days ago. Patient has tachycardia (111), EKG on 04/07/19 with no significant findings except sinus tachycardia (105). Patient reports PCP aware of tachycardia which she attributes to current medication. Patient denies palpitation, CP or any other cardiac symptoms. Patient is HIV positive, he reports his HIV meds will be delivered by his pharmacy as he has done in the past. Exam Limitations: No Limitations - Ebola screening Have you traveled outside of the country in the last 21 days: No Have you had contact with anyone from an Ebola affected area: No Have you been sick,other than usual withdrawal symptoms: No Do you have a fever: No - Review of Systems Constitutional: Chills, Loss of Appetite, Changes in sleep EENT: reports: No Symptoms Reported Respiratory: reports: No Symptoms reported Cardiac: reports: No Symptoms Reported GI: reports: Nausea, Poor Appetite, Abdominal cramping : reports: No Symptoms Reported Musculoskeletal: reports: Joint Pain, Muscle Pain Neuro: reports: Headache, Numbness, Tremors Endocrine: reports: No Symptoms Reported Hematology: reports: No Symptoms Reported Psychiatric: reports: Depressed Other Systems: Reviewed and Negative Patient History - Patient Medical History Hx Anemia: No Hx Asthma: No Hx Chronic Obstructive Pulmonary Disease (COPD): No Hx Cancer: No Hx Cardiac Disorders: No Hx Congestive Heart Failure: No Hx Hypertension: Yes Hx Hypercholesterolemia: Yes (Lipitor 10mg) Hx Pacemaker: No HX Cerebrovascular Accident: No Hx Seizures: No Hx Dementia: No Hx Diabetes: No Hx Gastrointestinal Disorders: Yes (acid reflux) Hx Liver Disease: No Hx Genitourinary Disorders: Yes (L nephrectomy) Hx Sexually Transmitted Disorders: Yes (Hx of syphillis) Hx Renal Disease (ESRD): No Hx Thyroid Disease: No Hx Human Immunodeficiency Virus (HIV): Yes (2005 ) Hx Hepatitis C: No Hx Depression: Yes Hx Suicide Attempt: No Hx Bipolar Disorder: No Hx Schizophrenia: No - Patient Surgical History Past Surgical History: Yes Hx Neurologic Surgery: No Hx Cataract Extraction: No Hx Cardiac Surgery: No Hx Lung Surgery: No Hx Breast Surgery: No Hx Breast Biopsy: No Hx Abdominal Surgery: Yes (in 1994 ([facility])) Hx Appendectomy: No Hx Cholecystectomy: No Hx Genitourinary Surgery: Yes (left nephrectomy in 1994 ()) Hx Section: No Hx Orthopedic Surgery: Yes (fx, right upper arm IN 1994 (), left pelvis fx ( [facility])) Anesthesia Reaction: No - PPD History Previous Implant?: Yes Documented Results: Negative w/proof Implanted On Prior [facility] Admission?: Yes Date: 02/03/19 Results: 0 mm PPD to be Administered?: No - Smoking Cessation Smoking history: Current every day smoker Have you smoked in the past 12 months: Yes Aproximately how many cigarettes per day: 10 Cigars Per Day: 0 Hx Chewing Tobacco Use: No Initiated information on smoking cessation: Yes 'Breaking Loose' booklet given: 06/03/19 - Substances abused Alcohol Substance route: Oral Frequency: Daily Amount used: 1-2 pints of vodka/4 (24oz) beers Age of first use: 19 Date of last use: 06/02/19 Alprazolam (Xanax) Substance route: Oral Frequency: 3-6 times per week Amount used: 4-5sticks Age of first use: 41 Date of last use: 06/03/19 Cocaine Substance route: Smoking Frequency: Daily Amount used: 50-100$ Age of first use: 27 Date of last use: 06/03/19 Admission Physical Exam S - Vital Signs Vital Signs: Vital Signs - 24 hr 06/03/19 12:20 Temperature 97.3 F L Pulse Rate 111 H Respiratory 16 Rate Blood Pressure 120/82 - Physical General Appearance: Yes: Within Normal Limits HEENTM: Yes: Hearing grossly Normal, Normal ENT Inspection, Normocephalic, Normal Voice, Pharynx Normal Respiratory: Yes: Chest Non-Tender, Lungs Clear, Normal Breath Sounds, No Respiratory Distress, No Accessory Muscle Use Neck: Yes: No masses,lesions,Nodules, Supple Breast: Yes: Breast Exam Deferred Cardiology: Yes: Regular Rhythm, S1, S2, Tachycardia Abdominal: Yes: Normal Bowel Sounds, Non Tender, Soft Genitourinary: Yes: Within Normal Limits Back: Yes: Normal Inspection Musculoskeletal: Yes: full range of Motion Extremities: Yes: Tremors, Coldness 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: Yes: butcherette II-XII NML intact, Fully Oriented, Alert, Normal Mood/ Affect, Normal Response Integumentary: Yes: Normal Color, Moist Lymphatic: Yes: Within Normal Limits - Diagnostic (1) Alcohol dependence with uncomplicated withdrawal Current Visit: Yes Status: Acute (2) Sedative, hypnotic or anxiolytic dependence with withdrawal, unspecified Current Visit: Yes Status: Acute (3) Cannabis dependence, uncomplicated Current Visit: Yes Status: Acute (4) GERD (gastroesophageal reflux disease) Current Visit: Yes Status: Chronic Qualifiers: Esophagitis presence: without esophagitis Qualified Code(s): K21.9 - Gastro -esophageal reflux disease without esophagitis (5) HIV (human immunodeficiency virus infection) Current Visit: Yes Status: Chronic Qualifiers: HIV symptom status: asymptomatic Qualified Code(s): Z21 - Asymptomatic human immunodeficiency virus [HIV] infection status Comment: Not being treated at this time. F/u encouraged w/ HIV provider. (6) HLD (hyperlipidemia) Current Visit: Yes Status: Chronic Qualifiers: Hyperlipidemia type: other hyperlipidemia Qualified Code(s): E78.49 - Other hyperlipidemia; E78.4 - Other hyperlipidemia (7) HTN (hypertension) Current Visit: Yes Status: Chronic Qualifiers: Hypertension type: essential hypertension Qualified Code(s): I10 - Essential (primary) hypertension (8) MDD (major depressive disorder), recurrent episode, moderate Current Visit: Yes Status: Chronic (9) Nicotine dependence Current Visit: Yes Status: Acute Qualifiers: Nicotine product type: cigarettes Substance use status: uncomplicated Qualified Code(s): F17.210 - Nicotine dependence, cigarettes, uncomplicated (10) Substance-induced sleep disorder Current Visit: Yes Status: Chronic (11) Tachycardia Current Visit: Yes Status: Chronic Cleared for Admission S - Detox or Rehab [facility] Level of Care: Medically Managed Detox Regimen/Protocol: Librium Claeared for Rehab Admission: No Breathalyzer - Breathalyzer Breathalyzer: 0 Urine Drug Screen - Test Device Lot number: [id number] Expiration date: 11/16/20 - Control Is test valid?: Yes - Results Drug screen NEGATIVE: No Urine drug screen results: THC-Marijuana, TAMIKO-Cocaine, BZO-Benzodiazepines Inpatient Rehab Admission - Rehab Decision to Admit Inpatient rehab admission?: No
[2019-06-03] MEDS ORDERED: NICOTINE POLACRILEX 2 MG GUM BUC PRN (13:58)
[2019-06-03] MEDS ORDERED: chlordiazePOXIDE HCL 10 MG CAPSULE PO PRN (13:58)
[2019-06-03] MEDS ORDERED: MAGNESIUM CITRATE 300 ML BOTTLE PO PRN (13:58)
[2019-06-03] MEDS ORDERED: hydrOXYzine PAMOATE 25 MG CAPSULE (FP) PO PRN (13:58)
[2019-06-03] MEDS ORDERED: BISMUTH SUBSALICYLATE 524 MG/30 ML UD PO PRN (13:58)
[2019-06-03] MEDS ORDERED: ACETAMINOPHEN 325 MG TABLET (FP) PO PRN ×2 (13:58)
[2019-06-03] MEDS ORDERED: chlordiazePOXIDE HCL 25 MG CAPSULE PO ONE (13:58)
[2019-06-03] MEDS ORDERED: MENTHOL/PHENOL 1 EACH UD MM PRN (13:58)
[2019-06-03] MEDS ORDERED: MAGNESIUM HYDROX 2400MG/30ML ORAL SUSPENSION 30 ML CUP PO PRN (13:58)
[2019-06-03] MEDS: NICOTINE 14 MG/24 HOURS TOPICAL PATCH TD SCH (14:56)
[2019-06-03] MEDS: METHOCARBAMOL 500 MG TABLET PO PRN (14:57)
[2019-06-03] MEDS: IBUPROFEN 400 MG TABLET (FP) PO PRN (18:40)
[2019-06-03] MEDS: MAG HYDROX/AL HYDROX/SIMETH 30 ML UNIT-DOSE CUP PO PRN (18:40)
[2019-06-03] MEDS ORDERED: QUEtiapine FUMARATE 100 MG TABLET (FP) PO SCH (22:00)
[2019-06-03] MEDS: THIAMINE HCL 100 MG TABLET (FP) PO SCH (22:03)
[2019-06-03] MEDS: chlordiazePOXIDE HCL 25 MG CAPSULE PO SCH (22:03)
[2019-06-03] MEDS: ATORVASTATIN CA 10 MG TABLET (FP) PO SCH (22:03)
[2019-06-03] MEDS: MELATONIN 5 MG TABLETS PO PRN (22:03)
[2019-06-04] MEDS: MAG HYDROX/AL HYDROX/SIMETH 30 ML UNIT-DOSE CUP PO PRN ×3 (02:10→17:38)
[2019-06-04] MEDS: chlordiazePOXIDE HCL 25 MG CAPSULE PO SCH ×3 (05:40→22:03)
[2019-06-04] MEDS: METHOCARBAMOL 500 MG TABLET PO PRN ×2 (05:42→17:37)
--- NOTE | 2019-06-04 09:21 | PN ---
S CIWA - CIWA Score Nausea/Vomitin-Mild Nausea/No Vomiting Muscle Tremors: 4-Moderate,w/Arms Extend Anxiety: 4-Mod. Anxious/Guarded Agitation: 0-Normal Activity Paroxysmal Sweats: 2 Orientation: 0-Oriented Tacttile Disturbances: 0-None Auditory Disturbances: 0-None Visual Disturbances: 0-None Headache: 0-None Present CIWA-Ar Total Score: 11 S Progress Note (SOAP) Subjective: 43 years old male admitted on 06/03/19 for alcohol and benzo withdrawal sx management treating with librium detox regiment feeling ok today resting in bed feeling tired limited conversation with staff Objective: 06/04/19 09:20 Vital Signs Temperature 97.0 F L 06/04/19 05:37 Pulse Rate 95 H 06/04/19 05:37 Respiratory Rate 18 06/04/19 05:37 Blood Pressure 111/72 06/04/19 05:37 O2 Sat by Pulse Oximetry (%) 06/04/19 09:20 lab pending Assessment: 06/04/19 09:20 alcohol and benzo withdrawal Plan: librium regiment
[2019-06-04] MEDS ORDERED: SERTRALINE HCL 25 MG TABLET (FP) PO SCH (10:00)
[2019-06-04] MEDS ORDERED: PANTOPRAZOLE 40 MG TABLET PO SCH (10:00)
[2019-06-04 10:13] LABS: ALBUMIN 3.4 g/dl (3.4-5.0); BILIRUBIN,TOTAL 0.5 mg/dL (0.2-1); BLOOD UREA NITROGEN 21.9 mg/dL (7-18); CALCIUM 8.7 mg/dL (8.5-10.1); CREATININE 1.3 mg/dL (0.55-1.3); HEMATOCRIT 39.9 % (35.4-49); HEMOGLOBIN 13.2 GM/dL (11.7-16.9); MCH 28.6 pg (25.7-33.7); MCHC 33.2 g/dl (32.0-35.9); MEAN CELL VOLUME 86.3 fl (80-96); MEAN PLT VOLUME 9.2 fl (7.5-11.1); PLATELET COUNT 203 K/MM3 (134-434); POTASSIUM 3.9 mmol/L (3.5-5.1); RBC 4.63 M/mm3 (4.00-5.60); RDW 16.4 % (11.9-15.9); WHITE BLOOD COUNT 5.3 K/mm3 (4.0-10.0)
[2019-06-04] MEDS: HYDROCHLOROTHIAZIDE 25 MG TABLET (FP) PO SCH (10:13)
[2019-06-04] MEDS: PRENATAL VITAMINS W/ FOLIC ACID TABLET (FP) PO SCH (10:13)
[2019-06-04] MEDS: NICOTINE 14 MG/24 HOURS TOPICAL PATCH TD SCH (10:14)
[2019-06-04] MEDS: SERTRALINE HCL 50 MG TABLET (FP) PO SCH (12:02)
[2019-06-04] MEDS ORDERED: NON-FORMULARY MED PO SCH (13:15)
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
[2019-06-04] MEDS: ATORVASTATIN CA 10 MG TABLET (FP) PO SCH (22:04)
[2019-06-04] MEDS: THIAMINE HCL 100 MG TABLET (FP) PO SCH (22:04)
[2019-06-04] MEDS: MELATONIN 5 MG TABLETS PO PRN (22:04)
[2019-06-04] MEDS: QUEtiapine FUMARATE 50 MG TABLET PO SCH (22:04)
[2019-06-05] MEDS: chlordiazePOXIDE 5 MG CAPSULE PO SCH ×3 (05:34→21:56)
[2019-06-05] MEDS: METHOCARBAMOL 500 MG TABLET PO PRN ×2 (05:34→14:38)
--- NOTE | 2019-06-05 09:32 | PN ---
S CIWA - CIWA Score Nausea/Vomitin-No Nausea/No Vomiting Muscle Tremors: 2 Anxiety: 3 Agitation: 0-Normal Activity Paroxysmal Sweats: 1-Minimal Palms Moist Orientation: 0-Oriented Tacttile Disturbances: 0-None Auditory Disturbances: 0-None Visual Disturbances: 1-Very Mild Sensitivity Headache: 0-None Present CIWA-Ar Total Score: 7 S Progress Note (SOAP) Subjective: 43 years old male admitted on 06/03/19 for alcohol and benzo withdrawal sx management treating with librium detox regiment feeling ok today report chronic right ankle arthritis pain lidocaine patch encourage to elevation of the right foot and warm or cold compress for comfort requests omeprozole to be given around 6am daily change non formulary omeprazole to 6am begin 06/06/19 Objective: 06/05/19 09:35 Vital Signs Temperature 97.7 F 06/05/19 05:58 Pulse Rate 95 H 06/05/19 05:58 Respiratory Rate 18 06/05/19 05:58 Blood Pressure 130/66 06/05/19 05:58 O2 Sat by Pulse Oximetry (%) Laboratory Last Values WBC 5.3 K/mm3 (4.0-10.0) 06/04/19 08:00 RBC 4.63 M/mm3 (4.00-5.60) 06/04/19 08:00 Hgb 13.2 GM/dL (11.7-16.9) 06/04/19 08:00 Hct 39.9 % (35.4-49) 06/04/19 08:00 MCV 86.3 fl (80-96) 06/04/19 08:00 MCH 28.6 pg (25.7-33.7) 06/04/19 08:00 MCHC 33.2 g/dl (32.0-35.9) 06/04/19 08:00 RDW 16.4 % (11.9-15.9) H 06/04/19 08:00 Plt Count 203 K/MM3 (134-434) 06/04/19 08:00 MPV 9.2 fl (7.5-11.1) 06/04/19 08:00 Sodium 137 mmol/L (136-145) 06/04/19 08:00 Potassium 3.9 mmol/L (3.5-5.1) 06/04/19 08:00 Chloride 103 mmol/L (98-107) 06/04/19 08:00 Carbon Dioxide 26 mmol/L (21-32) 06/04/19 08:00 Anion Gap 7 MMOL/L (8-16) L 06/04/19 08:00 BUN 21.9 mg/dL (7-18) H 06/04/19 08:00 Creatinine 1.3 mg/dL (0.55-1.3) 06/04/19 08:00 Est GFR (CKD-EPI)AfAm 77.45 06/04/19 08:00 Est GFR (CKD-EPI)NonAf 66.83 06/04/19 08:00 Random Glucose 103 mg/dL (74-106) 06/04/19 08:00 Calcium 8.7 mg/dL (8.5-10.1) 06/04/19 08:00 Total Bilirubin 0.5 mg/dL (0.2-1) 06/04/19 08:00 AST 27 U/L (15-37) 06/04/19 08:00 ALT 25 U/L (13-61) 06/04/19 08:00 Alkaline Phosphatase 78 U/L (45-117) 06/04/19 08:00 Total Protein 7.0 g/dl (6.4-8.2) 06/04/19 08:00 Albumin 3.4 g/dl (3.4-5.0) 06/04/19 08:00 RPR Titer Nonreactive (NONREACTIVE) 06/04/19 08:00 lab noted Assessment: 06/05/19 09:35 alcohol and benzo withdrawal Plan: librium regiment
[2019-06-05] MEDS: PRENATAL VITAMINS W/ FOLIC ACID TABLET (FP) PO SCH (10:19)
[2019-06-05] MEDS: SERTRALINE HCL 50 MG TABLET (FP) PO SCH (10:19)
[2019-06-05] MEDS: HYDROCHLOROTHIAZIDE 25 MG TABLET (FP) PO SCH (10:19)
[2019-06-05] MEDS: IBUPROFEN 400 MG TABLET (FP) PO PRN ×2 (10:22→18:22)
[2019-06-05] MEDS: LIDOCAINE 5% TOPICAL PATCH TP SCH (10:33)
[2019-06-05] MEDS: NICOTINE 14 MG/24 HOURS TOPICAL PATCH TD SCH (10:34)
[2019-06-05] MEDS ORDERED: PATIENT'S OWN MEDICATION (NON-FORMULARY) (Omeprazole/Sodium Bicarbonate [Omeprazole-Bicarb PO SCH (11:00)
[2019-06-05] MEDS: THIAMINE HCL 100 MG TABLET (FP) PO SCH (21:56)
[2019-06-05] MEDS: QUEtiapine FUMARATE 50 MG TABLET PO SCH (21:56)
[2019-06-05] MEDS: ATORVASTATIN CA 10 MG TABLET (FP) PO SCH (21:56)
[2019-06-05] MEDS: LIDOCAINE PATCH REMOVAL MC SCH (21:56)
[2019-06-05] MEDS: MELATONIN 5 MG TABLETS PO PRN (21:57)
[2019-06-06] MEDS ORDERED: chlordiazePOXIDE HCL 10 MG CAPSULE PO PRN
[2019-06-06] MEDS ORDERED: NON-FORMULARY MED PO SCH ×2 (06:00)
[2019-06-06] MEDS: chlordiazePOXIDE HCL 10 MG CAPSULE PO SCH ×3 (06:08→22:19)
[2019-06-06] MEDS: METHOCARBAMOL 500 MG TABLET PO PRN ×2 (06:08→19:11)
[2019-06-06] MEDS: PRENATAL VITAMINS W/ FOLIC ACID TABLET (FP) PO SCH (09:25)
[2019-06-06] MEDS: NICOTINE 14 MG/24 HOURS TOPICAL PATCH TD SCH (09:25)
[2019-06-06] MEDS: SERTRALINE HCL 50 MG TABLET (FP) PO SCH (09:25)
[2019-06-06] MEDS: HYDROCHLOROTHIAZIDE 25 MG TABLET (FP) PO SCH (09:25)
[2019-06-06] MEDS: LIDOCAINE 5% TOPICAL PATCH TP SCH (09:26)
[2019-06-06] MEDS ORDERED: PATIENT'S OWN MEDICATION (NON-FORMULARY) (Omeprazole 40 MG) PO SCH (10:00)
--- NOTE | 2019-06-06 11:02 | PN ---
[facility] CIWA - CIWA Score Nausea/Vomitin-No Nausea/No Vomiting Muscle Tremors: 1-None Visible, but [place] Anxiety: 1-Mildly Anxious Agitation: 0-Normal Activity Paroxysmal Sweats: 1-Minimal Palms Moist Orientation: 0-Oriented Tacttile Disturbances: 0-None Auditory Disturbances: 0-None Visual Disturbances: 1-Very Mild Sensitivity Headache: 0-None Present CIWA-Ar Total Score: 4 S Progress Note (SOAP) Subjective: 43 years old male admitted on 06/03/19 for alcohol and benzo withdrawal sx management treating with librium detox regiment feeling better today slept through the night request omeprazole to be given around 5 am less tremor mild anxiety requests to be discharged around 7 am tomorrow "some one picking me up" patient understands the 8 am discharge policy due to transportation that the patient may leave the detox round 7 am Objective: 06/06/19 11:01 Vital Signs Temperature 97.2 F L 06/06/19 08:39 Pulse Rate 106 H 06/06/19 08:39 Respiratory Rate 18 06/06/19 08:39 Blood Pressure 132/90 06/06/19 08:39 O2 Sat by Pulse Oximetry (%) Laboratory Last Values WBC 5.3 K/mm3 (4.0-10.0) 06/04/19 08:00 RBC 4.63 M/mm3 (4.00-5.60) 06/04/19 08:00 Hgb 13.2 GM/dL (11.7-16.9) 06/04/19 08:00 Hct 39.9 % (35.4-49) 06/04/19 08:00 MCV 86.3 fl (80-96) 06/04/19 08:00 MCH 28.6 pg (25.7-33.7) 06/04/19 08:00 MCHC 33.2 g/dl (32.0-35.9) 06/04/19 08:00 RDW 16.4 % (11.9-15.9) H 06/04/19 08:00 Plt Count 203 K/MM3 (134-434) 06/04/19 08:00 MPV 9.2 fl (7.5-11.1) 06/04/19 08:00 Sodium 137 mmol/L (136-145) 06/04/19 08:00 Potassium 3.9 mmol/L (3.5-5.1) 06/04/19 08:00 Chloride 103 mmol/L (98-107) 06/04/19 08:00 Carbon Dioxide 26 mmol/L (21-32) 06/04/19 08:00 Anion Gap 7 MMOL/L (8-16) L 06/04/19 08:00 BUN 21.9 mg/dL (7-18) H 06/04/19 08:00 Creatinine 1.3 mg/dL (0.55-1.3) 06/04/19 08:00 Est GFR (CKD-EPI)AfAm 77.45 06/04/19 08:00 Est GFR (CKD-EPI)NonAf 66.83 06/04/19 08:00 Random Glucose 103 mg/dL (74-106) 06/04/19 08:00 Calcium 8.7 mg/dL (8.5-10.1) 06/04/19 08:00 Total Bilirubin 0.5 mg/dL (0.2-1) 06/04/19 08:00 AST 27 U/L (15-37) 06/04/19 08:00 ALT 25 U/L (13-61) 06/04/19 08:00 Alkaline Phosphatase 78 U/L (45-117) 06/04/19 08:00 Total Protein 7.0 g/dl (6.4-8.2) 06/04/19 08:00 Albumin 3.4 g/dl (3.4-5.0) 06/04/19 08:00 RPR Titer Nonreactive (NONREACTIVE) 06/04/19 08:00 lab noted Assessment: 06/06/19 11:01 alcohol and benzo withdrawal Plan: librum regiment
[2019-06-06] MEDS: IBUPROFEN 400 MG TABLET (FP) PO PRN (19:11)
[2019-06-06] MEDS: THIAMINE HCL 100 MG TABLET (FP) PO SCH (22:19)
[2019-06-06] MEDS: QUEtiapine FUMARATE 50 MG TABLET PO SCH (22:19)
[2019-06-06] MEDS: LIDOCAINE PATCH REMOVAL MC SCH (22:19)
[2019-06-06] MEDS: ATORVASTATIN CA 10 MG TABLET (FP) PO SCH (22:19)
[2019-06-06] MEDS: MELATONIN 5 MG TABLETS PO PRN (22:21)
[2019-06-07] MEDS: MAG HYDROX/AL HYDROX/SIMETH 30 ML UNIT-DOSE CUP PO PRN (00:50)
[2019-06-07] MEDS ORDERED: PATIENT'S OWN MEDICATION (NON-FORMULARY) (Omeprazole 40 MG) PO SCH (05:00)
[2019-06-07] MEDS ORDERED: chlordiazePOXIDE HCL 10 MG CAPSULE PO ONE (05:00)
[2019-06-07 06:25] VITALS: BP 111/77; PULSE 91; TEMP 97
--- NOTE | 2019-06-07 09:58 | DS ---
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3 fl (80-96) 06/04/19 08:00 MCH 28.6 pg (25.7-33.7) 06/04/19 08:00 MCHC 33.2 g/dl (32.0-35.9) 06/04/19 08:00 RDW 16.4 % (11.9-15.9) H 06/04/19 08:00 Plt Count 203 K/MM3 (134-434) 06/04/19 08:00 MPV 9.2 fl (7.5-11.1) 06/04/19 08:00 Sodium 137 mmol/L (136-145) 06/04/19 08:00 Potassium 3.9 mmol/L (3.5-5.1) 06/04/19 08:00 Chloride 103 mmol/L (98-107) 06/04/19 08:00 Carbon Dioxide 26 mmol/L (21-32) 06/04/19 08:00 Anion Gap 7 MMOL/L (8-16) L 06/04/19 08:00 BUN 21.9 mg/dL (7-18) H 06/04/19 08:00 Creatinine 1.3 mg/dL (0.55-1.3) 06/04/19 08:00 Est GFR (CKD-EPI)AfAm 77.45 06/04/19 08:00 Est GFR (CKD-EPI)NonAf 66.83 06/04/19 08:00 Random Glucose 103 mg/dL (74-106) 06/04/19 08:00 Calcium 8.7 mg/dL (8.5-10.1) 06/04/19 08:00 Total Bilirubin 0.5 mg/dL (0.2-1) 06/04/19 08:00 AST 27 U/L (15-37) 06/04/19 08:00 ALT 25 U/L (13-61) 06/04/19 08:00 Alkaline Phosphatase 78 U/L (45-117) 06/04/19 08:00 Total Protein 7.0 g/dl (6.4-8.2) 06/04/19 08:00 Albumin 3.4 g/dl (3.4-5.0) 06/04/19 08:00 RPR Titer Nonreactive (NONREACTIVE) 06/04/19 08:00 lab noted - Treatment Hospital Course: Detox Protocol Followed, Detoxed Safely, Responded well, Discharged Condition Good, Rehab Referral Accepted Patient has Accepted a Rehab Referral to: [facility] - Medication Discharge Medications: Ambulatory Orders Sertraline HCl [Zoloft -] 50 mg PO DAILY 01/06/18 Quetiapine Fumarate [Seroquel -] 100 mg PO HS 03/24/18 Pravastatin Sodium [Pravachol -] 20 mg PO HS 05/25/18 Hydrochlorothiazide [Hctz -] 25 mg PO DAILY 04/07/19 Omeprazole 40 mg PO DAILY 06/05/19 - Diagnosis (1) Alcohol dependence with uncomplicated withdrawal Status: Acute (2) Nicotine dependence Status: Acute Qualifiers: Nicotine product type: cigarettes Substance use status: in withdrawal Qualified Code(s): F17.213 - Nicotine dependence, cigarettes, with withdrawal (3) Sedative, hypnotic or anxiolytic dependence with withdrawal, unspecified Status: Acute (4) GERD (gastroesophageal reflux disease) Status: Chronic Qualifiers: Esophagitis presence: without esophagitis Qualified Code(s): K21.9 - Gastro -esophageal reflux disease without esophagitis (5) HIV (human immunodeficiency virus infection) Status: Chronic Qualifiers: HIV symptom status: asymptomatic Qualified Code(s): Z21 - Asymptomatic human immunodeficiency virus [HIV] infection status (6) HLD (hyperlipidemia) Status: Chronic Qualifiers: Hyperlipidemia type: other hyperlipidemia Qualified Code(s): E78.49 - Other hyperlipidemia; E78.4 - Other hyperlipidemia (7) Obesity (BMI 30.0-34.9) Status: Chronic (8) Substance induced mood disorder Status: Suspected - AMA Did Patient Leave Against Medical Advice: No
== END 2019-06-07 06:47 | disposition home or self-care (01) | DRG 774 ==
LOC: YASAS 11:08 → Y3N 14:19
PROVIDERS: ADMIT Allergy & Immunology; ATTEND Allergy & Immunology
PROC: HZ2ZZZZ Detoxification Services for Substance Abuse Treatment (ICD-10-PCS; principal; 2019-06-03)
DX: F10.230 Alcohol dependence with withdrawal, uncomplicated (principal); F13.230 Sedative, hypnotic or anxiolytic dependence with withdrawal, uncomplicated; F14.20 Cocaine dependence, uncomplicated; F12.20 Cannabis dependence, uncomplicated; F17.210 Nicotine dependence, cigarettes, uncomplicated; F33.1 Major depressive disorder, recurrent, moderate; F19.24 Other psychoactive substance dependence with psychoactive substance-induced mood disorder; Z21 Asymptomatic human immunodeficiency virus [HIV] infection status; E78.5 Hyperlipidemia, unspecified; G47.00 Insomnia, unspecified; K21.9 Gastro-esophageal reflux disease without esophagitis; E66.9 Obesity, unspecified; R00.0 Tachycardia, unspecified; Z62.810 Personal history of physical and sexual abuse in childhood; Z86.19 Personal history of other infectious and parasitic diseases; Z68.31 Body mass index [BMI] 31.0-31.9, adult; Z90.5 Acquired absence of kidney; Z91.013 Allergy to seafood
CPT/HCPCS: 36415; 80053; 85027; 86593

== ENCOUNTER 2020-01-07 09:12 | Inpatient (IN) | payer OTHER ==
--- OUTSIDE RECORDS SUMMARY | 2020-01-07 09:29 | XMS ---
:1975 Author Organization [facility] Support Name Relationship Address Phone UE, UNEMPLOYED Unavailable Unavailable Unavailable UE Unavailable Unavailable Unavailable YUNIOR MENDOSA [address]UN[place] [address] Re-disclosure Warning The records that you are about to access may contain information from federally- assisted alcohol or drug abuse programs. If such information is present, then the following federally mandated warning applies: This information has been disclosed to you from records protected by federal confidentiality rules (42 CFR part 2). The federal rules prohibit you from making any further disclosure of this information unless further disclosure is expressly permitted by the written consent of the person to whom it pertains or as otherwise permitted by 42 CFR part 2. A general authorization for the release of medical or other information is NOT sufficient for this purpose. The Federal rules restrict any use of the information to criminally investigate or prosecute any alcohol or drug abuse patient.The records that you are about to access may contain highly sensitive health information, the redisclosure of which is protected by Article 27-F of the [facility] Public Health law. If you continue you may haveaccess to information: Regarding HIV / AIDS; Provided by facilities licensed or operated by the [facility] Office of Mental Health; or Provided by the [facility] Office for People With Developmental Disabilities. If such information is present, then the following [facility] mandated warning applies: This information has been disclosed to you from confidential records which are protected by state law. State law prohibits you from making any further disclosure of this information without the specific written consent of the person to whom it pertains, or as otherwise permitted by law. Any unauthorized further disclosure in violation of state law may result in a fine or intermediate sentence or both. A general authorization for the release of medical or other information is NOT sufficient authorization for further disclosure. Insurance Providers Payer name Policy type Policy ID Covered Covered alliance party's Policy P tano / Coverage alliance party ID relationship to Benitez Inf ormation type benitez -BEACON [id number] SP [id number] AMIDACARE AMIDACARE [id number] SP [id number] [facility] [id number] SP [id number] AMIDACARE
--- NOTE | 2020-01-07 09:39 | BHS.RME ---
Substance Use & Tx History - Substance Use History Alcohol Substance amount: 1-1.5 pints vodka Frequency of use: Daily Substance route: Oral Date of Last Use: 01/07/20 (1am started age 16) Cocaine-Crack Substance amount: $50-100 Frequency of use: Daily Substance route: Smoking Date of Last Use: 01/07/20 (1am started age 27) Xanax Substance amount: 2mg - 5tabs Frequency of use: Less than 3 times per week Substance route: Oral Date of Last Use: 01/06/20 (started age 43) Marijuana/Hashish Substance amount: $20-30 Frequency of use: Daily Substance route: Smoking Date of Last Use: 01/07/20 (7am started age 19) Nicotine Substance amount: 1/2 pack Frequency of use: Daily Substance route: Smoking Date of Last Use: 01/07/20 (started age 19) - Last Treatment Date of last treatment: 08/20-08/22 Pancreatitis left early Treatment type: Substance Use Disorder (WOODY) Where was last treatment: Detox Physical/Psych/Mental Status - Behavior General Behavior: Increased activity (restlessness, agitation) Eye Contact: Normal - Cooperativeness Cooperativeness: Cooperative - Thinking Thought Processes: Tight, Logical, Goal Directed - Physical Health Problems Is patient presently having any pain?: No Does patient presently have any injuries (include location): No Does patient currently have a fever: No Is patient : No CIWA Nausea/Vomitin Muscle Tremors: 1-None Visible, but [place] Anxiety: 3 Agitation: 2 Paroxysmal Sweats: No Perspiration Orientation: 1-Uncertain about Date Tacttile Disturbances: 0-None Auditory Disturbances: 0-None Visual Disturbances: 0-None Headache: 2-Mild CIWA-Ar Total Score: 12
--- NOTE | 2020-01-07 10:15 | HP ---
CIWA Score Nausea/Vomitin Muscle Tremors: 1-None Visible, but [place] Anxiety: 3 Agitation: 2 Paroxysmal Sweats: No Perspiration Orientation: 1-Uncertain about Date Tacttile Disturbances: 0-None Auditory Disturbances: 0-None Visual Disturbances: 0-None Headache: 2-Mild CIWA-Ar Total Score: 12 - Admission Criteria OASAS Guidelines: Admission for Medically Managed Detox: Requires at least one of the followin. CIWA greater than 12 2. Seizures within the past 24 hours 3. Delirium tremens within the past 24 hours 4. Hallucinations within the past 24 hours 5. Acute intervention needed for co occurring medical disorder 6. Acute intervention needed for co occurring psychiatric disorder 7. Severe withdrawal that cannot be handled at a lower level of care (continued vomiting, continued diarrhea, abnormal vital signs) requiring intravenous medication and/or fluids 8. 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 Cardiovascular: Yes: HTN, Hyperlipdemia Gastrointestinal: Yes: GERD Infectious Disease: Yes: HIV (since 2005, currently taking Biktarvy..last viral load 52, CD4 920.) Psych: Yes: Depression - Past Surgical History Past Surgical History: Yes: Cholecystectomy, Hernia Repair - Smoking History Smoking history: Current every day smoker Have you smoked in the past 12 months: Yes Aproximately how many cigarettes per day: 10 - Alcohol/Substance Use Hx Alcohol Use: Yes History of Substance Use: reports: Cocaine, Heroin Date of Last Use: 04/30/19 - Social History ADL: Independent Occupation: unemployed homeless History of Recent Travel: No Admission [facility] Chief Complaint: " I need to stop drinking and it's affecting my health." Allergies/Adverse Reactions: Allergies Allergy/AdvReac Type Severity Reaction Status Date / Time shellfish derived AdvReac Severe Swelling Verified 07/06/19 16:45 History of Present Illness: 44 year old male with history of alcohol dependence with withdrawal, cocaine use disorder, sedative use disorder, cannabis use disorder and nicotine dependence s eeking detox once again. 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 Cocaine-Crack Substance amount: $50-100 Frequency of use: Daily Substance route: Smoking Date of Last Use: 01/07/20 (1am started age 27) Xanax Substance amount: 2mg - 5tabs Frequency of use: Less than 3 times per week Substance route: Oral Date of Last Use: 01/06/20 (started age 43) Marijuana/Hashish Substance amount: $20-30 Frequency of use: Daily Substance route: Smoking Date of Last Use: 01/07/20 (7am started age 19) Nicotine Substance amount: 1/2 pack Frequency of use: Daily Substance route: Smoking Date of Last Use: 01/07/20 (started age 19) - Last Treatment Date of last treatment: 08/20-08/22 Pancreatitis left early Treatment type: Substance Use Disorder (WOODY) Where was last treatment: Detox PMH: Cholelithiasis 07/2019, HIV, HLD, GERD, HTN Psurg: TREVOR - abdominal surgery and 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 He had said that he will sign behavioral contract for completion of detox this time. MERLENE=0 CIWA=12 Exam Limitations: No Limitations - Ebola screening Have you traveled outside of the country in the last 21 days: No Have you had contact with anyone from an Ebola affected area: No Have you been sick,other than usual withdrawal symptoms: No Do you have a fever: No - Review of Systems Constitutional: Chills EENT: reports: No Symptoms Reported Respiratory: reports: No Symptoms reported Cardiac: reports: No Symptoms Reported GI: reports: No Symptoms Reported : reports: No Symptoms Reported Musculoskeletal: reports: No Symptoms Reported Integumentary: reports: No Symptoms Reported Neuro: reports: No Symptoms reported Endocrine: reports: No Symptoms Reported Hematology: reports: No Symptoms Reported Psychiatric: reports: Judgement Intact, Mood/Affect Appropiate, Orientated x3, Agitated, Anxious Patient History - Patient Medical History Hx Anemia: No Hx Asthma: No Hx Chronic Obstructive Pulmonary Disease (COPD): No Hx Cancer: No Hx Cardiac Disorders: No Hx Congestive Heart Failure: No Hx Hypertension: Yes (HCTZ 25 mg po daily) Hx Hypercholesterolemia: Yes (Lipitor 10mg) Hx Pacemaker: No HX Cerebrovascular Accident: No Hx Seizures: No Hx Dementia: No Hx Diabetes: No Hx Gastrointestinal Disorders: Yes (GERDS-Omeprazole) Hx Liver Disease: No Hx Genitourinary Disorders: No Hx Sexually Transmitted Disorders: Yes Hx Renal Disease (ESRD): No Hx Thyroid Disease: No Hx Human Immunodeficiency Virus (HIV): Yes Hx Hepatitis C: No Hx Depression: Yes Hx Suicide Attempt: No Hx Bipolar Disorder: No Hx Schizophrenia: No - Patient Surgical History Past Surgical History: Yes Hx Neurologic Surgery: No Hx Cataract Extraction: No Hx Cardiac Surgery: No Hx Lung Surgery: No Hx Breast Surgery: No Hx Breast Biopsy: No Hx Abdominal Surgery: Yes (in 1994 ([facility])) Hx Appendectomy: No Hx Cholecystectomy: No Hx Genitourinary Surgery: Yes (left nephrectomy in 1994 ([facility])) Hx Section: No Hx Orthopedic Surgery: Yes (fx, right upper arm IN 1994 ([facility]), left pelvis fx ([facility])) Other Surgical History: left nephrectomy, 1994,fx of pelvis 1994 Anesthesia Reaction: No - PPD History Previous Implant?: Yes Documented Results: Negative w/proof Implanted On Prior [facility] Admission?: Yes Date: 06/27/19 Results: 0 mm PPD to be Administered?: No - Smoking Cessation Smoking history: Current every day smoker Have you smoked in the past 12 months: Yes Aproximately how many cigarettes per day: 10 Cigars Per Day: 0 Hx Chewing Tobacco Use: No Initiated information on smoking cessation: Yes 'Breaking Loose' booklet given: 01/07/20 - Substances abused Alcohol Substance route: Oral Frequency: Daily Amount used: 1-1.5 pints vodka Age of first use: 16 Date of last use: 01/07/20 Crack Substance route: Smoking Frequency: Daily Amount used: $50-100 Age of first use: 27 Date of last use: 01/07/20 Alprazolam (Xanax) Substance route: Oral Frequency: 3-6 times per week Amount used: 2mg - 5 -6 tabs Age of first use: 43 Date of last use: 01/06/20 Marijuana/Hashish Substance route: Smoking Frequency: Daily Amount used: $20-30 Age of first use: 19 Date of last use: 01/07/20 Admission Physical Exam [facility] - Physical General Appearance: Yes: Mild Distress, Tremorous, Irritable, Sweating, Anxious HEENTM: Yes: EOMI, Hearing grossly Normal, Normal ENT Inspection, Normocephalic, Normal Voice, NIKO, Pharynx Normal, Tm's normal Respiratory: Yes: Chest Non-Tender, Lungs Clear, Normal Breath Sounds, No Respiratory Distress, No Accessory Muscle Use Neck: Yes: No masses,lesions,Nodules, Supple, Trachea in good position Breast: Yes: Within Normal Limits Cardiology: Yes: Regular Rhythm, S1, S2, Tachycardia Abdominal: Yes: Normal Bowel Sounds, Non Tender, Flat, Soft Genitourinary: Yes: Within Normal Limits Back: Yes: Normal Inspection Musculoskeletal: Yes: full range of Motion, Gait Steady, Pelvis Stable Extremities: Yes: Normal Capillary Refill, Normal Inspection, Normal Range of Motion, Non-Tender 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: Yes: music 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 intern II-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 NML intact, Fully Oriented, Alert, Motor Strength 5/5, Normal Mood/Affect, Normal Response Integumentary: Yes: Normal Color, Warm Lymphatic: Yes: Within Normal Limits - Diagnostic (1) Alcohol dependence with uncomplicated withdrawal Current Visit: Yes Status: Acute (2) Cannabis dependence, uncomplicated Current Visit: Yes Status: Acute (3) Sedative, hypnotic or anxiolytic dependence with withdrawal, unspecified Current Visit: Yes Status: Acute (4) Substance-induced anxiety disorder Current Visit: Yes Status: Acute (5) Substance-induced sleep disorder Current Visit: Yes Status: Acute (6) Acid reflux disease Current Visit: Yes Status: Chronic Qualifiers: Esophagitis presence: without esophagitis Qualified Code(s): K21.9 - Gastro-esophageal reflux disease without esophagitis (7) HIV (human immunodeficiency virus infection) Current Visit: Yes Status: Chronic Qualifiers: HIV symptom status: asymptomatic Qualified Code(s): Z21 - Asymptomatic human immunodeficiency virus [HIV] infection status Comment: Not being treated at this time. F/u encouraged w/ HIV provider. (8) HLD (hyperlipidemia) Current Visit: Yes Status: Chronic Qualifiers: Hyperlipidemia type: other hyperlipidemia Qualified Code(s): E78.49 - Other hyperlipidemia; E78.4 - Other hyperlipidemia (9) HTN (hypertension) Current Visit: Yes Status: Chronic Qualifiers: Hypertension type: essential hypertension Qualified Code(s): I10 - Essential (primary) hypertension (10) History of depression Current Visit: Yes Status: Chronic Cleared for Admission S - Detox or Rehab [facility] Level of Care: Medically Managed Detox Regimen/Protocol: Librium Claeared for Rehab Admission: No Screened but not Admitted - Documentation of Visit Screened but not Admitted: No Breathalyzer - Breathalyzer Breathalyzer: 0 Vital Signs - Vital Signs Vital signs refused: No Temperature: 96.7 F Pulse Rate: 93 Respiratory Rate: 20 Blood Pressure: 140/96 BP Location: Left Arm Blood Pressure position: Sitting - Height Height: 5 ft 7 in - Weight Weight: 239 lb Weight measurement method: Standing scale - BMI Body Mass Index (BMI): 37.4 - Bowel Function Bowel Movement: No Urine Drug Screen - Test Device Lot number: [id number] Expiration date: 03/24/21 - Control Is test valid?: Yes - Results Drug screen NEGATIVE: No Urine drug screen results: THC-Marijuana, TAMIKO-Cocaine, MET-Methamphetamine, BZO- Benzodiazepines Inpatient Rehab Admission - Rehab Decision to Admit Inpatient rehab admission?: No
[2020-01-07 10:20] VITALS: BMI 37.4
[2020-01-07] MEDS ORDERED: ONDANSETRON *ODT* 4 MG TABLET SL PRN (10:24)
[2020-01-07] MEDS ORDERED: MAGNESIUM HYDROX 2400MG/30ML ORAL SUSPENSION 30 ML CUP PO PRN (10:24)
[2020-01-07] MEDS ORDERED: NICOTINE POLACRILEX 2 MG GUM BUC PRN (10:24)
[2020-01-07] MEDS ORDERED: chlordiazePOXIDE HCL 25 MG CAPSULE PO PRN (10:24)
[2020-01-07] MEDS ORDERED: BISMUTH SUBSALICYLATE 262 MG/15 ML BTL PO PRN (10:24)
[2020-01-07] MEDS ORDERED: ACETAMINOPHEN 325 MG TABLET (FP) PO PRN ×2 (10:24)
[2020-01-07] MEDS ORDERED: IBUPROFEN 400 MG TABLET (FP) PO PRN (10:24)
[2020-01-07] MEDS ORDERED: MENTHOL/PHENOL 1 EACH UD MM PRN (10:24)
[2020-01-07] MEDS ORDERED: MAGNESIUM CITRATE 300 ML BOTTLE PO PRN (10:24)
[2020-01-07] MEDS ORDERED: MAG HYDROX/AL HYDROX/SIMETH 30 ML UNIT-DOSE CUP PO PRN (10:24)
[2020-01-07] MEDS: PRENATAL VITAMINS W/ FOLIC ACID TABLET (FP) PO SCH (12:07)
[2020-01-07] MEDS: PANTOPRAZOLE 40 MG TABLET PO SCH (12:07)
[2020-01-07] MEDS: NICOTINE 7 MG/24 HOURS TOPICAL PATCH TD SCH (12:08)
[2020-01-07] MEDS: chlordiazePOXIDE HCL 25 MG CAPSULE PO SCH ×3 (12:08→22:26)
[2020-01-07] MEDS: hydrOXYzine PAMOATE 25 MG CAPSULE (FP) PO SCH ×3 (14:49→22:27)
[2020-01-07 14:52] LABS: HEMATOCRIT 39.8 % (35.4-49); HEMOGLOBIN 13.1 GM/dL (11.7-16.9); MCH 27.3 pg (25.7-33.7); MCHC 32.8 g/dl (32.0-35.9); MEAN CELL VOLUME 83.2 fl (80-96); MEAN PLT VOLUME 9.5 fl (7.5-11.1); PLATELET COUNT 200 K/MM3 (134-434); RBC 4.79 M/mm3 (4.00-5.60); RDW 17.5 % (11.9-15.9); WHITE BLOOD COUNT 5.9 K/mm3 (4.0-10.0)
[2020-01-07 14:56] LABS: ALBUMIN 3.8 g/dl (3.4-5.0); BILIRUBIN,TOTAL 0.3 mg/dL (0.2-1); BLOOD UREA NITROGEN 12.6 mg/dL (7-18); CALCIUM 8.8 mg/dL (8.5-10.1); CREATININE 1.3 mg/dL (0.55-1.3); POTASSIUM 4.4 mmol/L (3.5-5.1); TOT PROT 8.3 g/dl (6.4-8.2)
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
[2020-01-07] MEDS: MELATONIN 5 MG TABLETS PO SCH (22:26)
[2020-01-07] MEDS: THIAMINE HCL 100 MG TABLET (FP) PO SCH (22:27)
[2020-01-07] MEDS: QUEtiapine FUMARATE 100 MG TABLET (FP) PO SCH (22:27)
[2020-01-07] MEDS: ATORVASTATIN CA 10 MG TABLET (FP) PO SCH (22:27)
[2020-01-08] MEDS: hydrOXYzine PAMOATE 25 MG CAPSULE (FP) PO SCH ×5 (05:40→22:30)
[2020-01-08] MEDS: METHOCARBAMOL 500 MG TABLET PO PRN ×3 (05:40→22:30)
[2020-01-08] MEDS: chlordiazePOXIDE HCL 25 MG CAPSULE PO SCH ×4 (05:40→22:31)
[2020-01-08] MEDS ORDERED: HYDROCHLOROTHIAZIDE 25 MG TABLET (FP) PO SCH ×2 (10:00→14:04)
[2020-01-08] MEDS: NICOTINE 7 MG/24 HOURS TOPICAL PATCH TD SCH (10:33)
[2020-01-08] MEDS: PRENATAL VITAMINS W/ FOLIC ACID TABLET (FP) PO SCH (10:33)
[2020-01-08] MEDS: SERTRALINE HCL 50 MG TABLET (FP) PO SCH (10:34)
[2020-01-08] MEDS: PANTOPRAZOLE 40 MG TABLET PO SCH (10:34)
[2020-01-08] MEDS: ELVITEG/COB/EMTRI/TENOF (GENVOYA) TABLET (NF) PO SCH (10:37)
--- NOTE | 2020-01-08 14:01 | PN ---
S CIWA - CIWA Score Nausea/Vomitin-Mild Nausea/No Vomiting Muscle Tremors: 3 Anxiety: 3 Agitation: 1-Slight > Activity Paroxysmal Sweats: 1-Minimal Palms Moist Orientation: 0-Oriented Tacttile Disturbances: 0-None Auditory Disturbances: 0-None Visual Disturbances: 1-Very Mild Sensitivity Headache: 0-None Present CIWA-Ar Total Score: 10 BHS Progress Note (SOAP) Subjective: 44 YEARS OLD MALE WAS ADMITTED ON 01/07/20 FOR ALCOHOL AND BENZO WITHDRAWAL SX MANAGEMENT TREATING WITH LIBRIUM DETOX REGIMENT MR MENDOSA PREFERS TO TAKE PROTONIX AROUND 5 AM PROTONIX BEGIN TOMORROW AT 5 AM Objective: 01/08/20 14:06 Laboratory Tests 01/07/20 01/07/20 01/07/20 10:00 10:10 10:10 WBC 5.9 RBC 4.79 Hgb 13.1 Hct 39.8 MCV 83.2 MCH 27.3 MCHC 32.8 RDW 17.5 H Plt Count 200 MPV 9.5 Sodium 139 Potassium 4.4 Chloride 108 H Carbon Dioxide 26 Anion Gap 5 L BUN 12.6 Creatinine 1.3 Est GFR (CKD-EPI)AfAm 76.91 Est GFR (CKD-EPI)NonAf 66.36 Random Glucose 113 H Calcium 8.8 Total Bilirubin 0.3 AST 29 ALT 32 Alkaline Phosphatase 74 Total Protein 8.3 H Albumin 3.8 Syphilis Serology RPR Titer COVID-19 (OZZY) Not detected 01/07/20 01/07/20 10:10 10:10 WBC RBC Hgb Hct MCV MCH MCHC RDW Plt Count MPV Sodium Potassium Chloride Carbon Dioxide Anion Gap BUN Creatinine Est GFR (CKD-EPI)AfAm Est GFR (CKD-EPI)NonAf Random Glucose Calcium Total Bilirubin AST ALT Alkaline Phosphatase Total Protein Albumin Syphilis Serology Reactive A* RPR Titer Reactive 1:1 H COVID-19 (OZZY) SYPHILIS CONTACTED TREATED 01/08/20 14:10 Assessment: 01/08/20 14:10 ALCOHOL AND BENZO WITHDRAWAL Plan: LIBRIUM REGIMENT
[2020-01-08] MEDS: amLODIPine BESYLATE 5 MG TABLET (FP) PO SCH (16:10)
[2020-01-08] MEDS: QUEtiapine FUMARATE 100 MG TABLET (FP) PO SCH (22:30)
[2020-01-08] MEDS: ATORVASTATIN CA 10 MG TABLET (FP) PO SCH (22:30)
[2020-01-08] MEDS: MELATONIN 5 MG TABLETS PO SCH (22:30)
[2020-01-08] MEDS: THIAMINE HCL 100 MG TABLET (FP) PO SCH (22:31)
[2020-01-09] MEDS ORDERED: PANTOPRAZOLE 40 MG TABLET PO SCH (05:00)
[2020-01-09] MEDS: hydrOXYzine PAMOATE 25 MG CAPSULE (FP) PO SCH ×4 (05:59→18:05)
[2020-01-09] MEDS: chlordiazePOXIDE HCL 25 MG CAPSULE PO SCH ×3 (06:00→18:05)
[2020-01-09] MEDS: METHOCARBAMOL 500 MG TABLET PO PRN ×2 (06:02→18:05)
[2020-01-09] MEDS ORDERED: HYDROCHLOROTHIAZIDE 25 MG TABLET (FP) PO SCH (10:00)
[2020-01-09] MEDS: amLODIPine BESYLATE 5 MG TABLET (FP) PO SCH (10:17)
[2020-01-09] MEDS: SERTRALINE HCL 50 MG TABLET (FP) PO SCH (10:17)
[2020-01-09] MEDS: ELVITEG/COB/EMTRI/TENOF (GENVOYA) TABLET (NF) PO SCH (10:18)
[2020-01-09] MEDS: PRENATAL VITAMINS W/ FOLIC ACID TABLET (FP) PO SCH (10:18)
[2020-01-09] MEDS: NICOTINE 7 MG/24 HOURS TOPICAL PATCH TD SCH (10:20)
--- NOTE | 2020-01-09 13:46 | PN ---
S CIWA - CIWA Score Nausea/Vomitin-Mild Nausea/No Vomiting Muscle Tremors: 2 Anxiety: 2 Agitation: 1-Slight > Activity Paroxysmal Sweats: No Perspiration Orientation: 0-Oriented Tacttile Disturbances: 0-None Auditory Disturbances: 0-None Visual Disturbances: 0-None Headache: 1-Very Mild CIWA-Ar Total Score: 7 BHS Progress Note (SOAP) Subjective: 44 years old male was admitted on 01/07/20 for alcohol and benzo withdrawal sx management treating with librium detox regiment requests cane for ambulation moving from bed to bathroom slow steady to avoid fall offer cane Objective: 01/09/20 13:49 Laboratory Tests 01/07/20 01/07/20 01/07/20 10:00 10:10 10:10 WBC 5.9 RBC 4.79 Hgb 13.1 Hct 39.8 MCV 83.2 MCH 27.3 MCHC 32.8 RDW 17.5 H Plt Count 200 MPV 9.5 Sodium 139 Potassium 4.4 Chloride 108 H Carbon Dioxide 26 Anion Gap 5 L BUN 12.6 Creatinine 1.3 Est GFR (CKD-EPI)AfAm 76.91 Est GFR (CKD-EPI)NonAf 66.36 Random Glucose 113 H Calcium 8.8 Total Bilirubin 0.3 AST 29 ALT 32 Alkaline Phosphatase 74 Total Protein 8.3 H Albumin 3.8 Syphilis Serology RPR Titer COVID-19 (OZZY) Not detected 01/07/20 01/07/20 10:10 10:10 WBC RBC Hgb Hct MCV MCH MCHC RDW Plt Count MPV Sodium Potassium Chloride Carbon Dioxide Anion Gap BUN Creatinine Est GFR (CKD-EPI)AfAm Est GFR (CKD-EPI)NonAf Random Glucose Calcium Total Bilirubin AST ALT Alkaline Phosphatase Total Protein Albumin Syphilis Serology Reactive A* RPR Titer Reactive 1:1 H COVID-19 (OZZY) syphilis contacted treated Assessment: 01/09/20 13:51 alcohol and benzo withdrawal Plan: librium regiment
--- NOTE | 2020-01-09 19:43 | DS ---
[facility] Detox Discharge Summary Admission Date: 01/07/20 Discharge Date: 01/09/20 - History Additional Comments: Patient is leaving against medical advice because he reports that his is in labor. Risks and consequences of his action and the importance of completing detox reinforced. Patient is alert and oriented x 3, ambulates independently, in no acute distress and vital signs stable. Patient signed the AMA form and left. He reports that he has his medications and will follow up with his infectious disease provider for his HIV medications. Pertinent Past History: Alcohol dependence Nicotine dependence Sedative, hypnotic and anxiolytic dependence HIV Hypertension Cannabis dependence Cocaine dependence Hyperlipidemia Depression Insomnia GERD History of Syphilis - Physical Exam Results Vital Signs: Vital Signs Temperature 97.9 F 01/09/20 19:47 Pulse Rate 99 H 01/09/20 19:47 Respiratory Rate 18 01/09/20 19:47 Blood Pressure 145/93 01/09/20 19:47 O2 Sat by Pulse Oximetry (%) 98 01/09/20 19:47 Temperature 97.6 F 01/09/20 16:33 Pulse Rate 100 H 01/09/20 16:33 Respiratory Rate 18 01/09/20 16:33 Blood Pressure 132/88 01/09/20 16:33 O2 Sat by Pulse Oximetry (%) 98 01/09/20 12:34 Laboratory Last Values WBC 5.9 K/mm3 (4.0-10.0) 01/07/20 10:10 RBC 4.79 M/mm3 (4.00-5.60) 01/07/20 10:10 Hgb 13.1 GM/dL (11.7-16.9) 01/07/20 10:10 Hct 39.8 % (35.4-49) 01/07/20 10:10 MCV 83.2 fl (80-96) 01/07/20 10:10 MCH 27.3 pg (25.7-33.7) 01/07/20 10:10 MCHC 32.8 g/dl (32.0-35.9) 01/07/20 10:10 RDW 17.5 % (11.9-15.9) H 01/07/20 10:10 Plt Count 200 K/MM3 (134-434) 01/07/20 10:10 MPV 9.5 fl (7.5-11.1) 01/07/20 10:10 Sodium 139 mmol/L (136-145) 01/07/20 10:10 Potassium 4.4 mmol/L (3.5-5.1) 01/07/20 10:10 Chloride 108 mmol/L (98-107) H 01/07/20 10:10 Carbon Dioxide 26 mmol/L (21-32) 01/07/20 10:10 Anion Gap 5 MMOL/L (8-16) L 01/07/20 10:10 BUN 12.6 mg/dL (7-18) 01/07/20 10:10 Creatinine 1.3 mg/dL (0.55-1.3) 01/07/20 10:10 Est GFR (CKD-EPI)AfAm 76.91 01/07/20 10:10 Est GFR (CKD-EPI)NonAf 66.36 01/07/20 10:10 Random Glucose 113 mg/dL (74-106) H 01/07/20 10:10 Calcium 8.8 mg/dL (8.5-10.1) 01/07/20 10:10 Total Bilirubin 0.3 mg/dL (0.2-1) 01/07/20 10:10 AST 29 U/L (15-37) 01/07/20 10:10 ALT 32 U/L (13-61) 01/07/20 10:10 Alkaline Phosphatase 74 U/L (45-117) 01/07/20 10:10 Total Protein 8.3 g/dl (6.4-8.2) H 01/07/20 10:10 Albumin 3.8 g/dl (3.4-5.0) 01/07/20 10:10 Syphilis Serology Reactive (NONREACTIVE) A* 01/07/20 10:10 RPR Titer Reactive 1:1 (NONREACTIVE) H 01/07/20 10:10 COVID-19 (OZZY) Not detected (Not Detected) 01/07/20 10:00 Pertinent Admission Physical Exam Findings: Alcohol withdrawal symptoms - Medication Discharge Medications: Ambulatory Orders Quetiapine Fumarate [Seroquel -] 100 mg PO HS 03/24/18 Pravastatin Sodium [Pravachol -] 20 mg PO HS 05/25/18 Hydrochlorothiazide [Hctz -] 25 mg PO DAILY 04/07/19 Omeprazole 40 mg PO DAILY 02/11/20 Elviteg/Cob/Emtri/Tenof Alafen [Genvoya Tablet] 1 each PO DAILY 07/06/19 - Diagnosis (1) Alcohol dependence with uncomplicated withdrawal Current Visit: Yes Status: Chronic (2) Cannabis dependence, uncomplicated Current Visit: Yes Status: Chronic (3) Sedative, hypnotic or anxiolytic dependence with withdrawal, unspecified Current Visit: Yes Status: Chronic (4) Syphilis contact, treated Current Visit: Yes Status: Acute (5) Cannabis dependence Current Visit: Yes Status: Chronic (6) Cocaine dependence Current Visit: Yes Status: Chronic Qualifiers: Substance use status: uncomplicated Qualified Code(s): F14.20 - Cocaine dependence, uncomplicated (7) HIV (human immunodeficiency virus infection) Current Visit: Yes Status: Chronic Qualifiers: HIV symptom status: asymptomatic Qualified Code(s): Z21 - Asymptomatic human immunodeficiency virus [HIV] infection status (8) HLD (hyperlipidemia) Current Visit: Yes Status: Chronic Qualifiers: Hyperlipidemia type: other hyperlipidemia Qualified Code(s): E78.49 - Other hyperlipidemia; E78.4 - Other hyperlipidemia (9) HTN (hypertension) Current Visit: Yes Status: Chronic Qualifiers: Hypertension type: essential hypertension Qualified Code(s): I10 - Essential (primary) hypertension (10) Insomnia Current Visit: Yes Status: Chronic (11) Depression Current Visit: Yes Status: Chronic Qualifiers: Depression Type: unspecified Qualified Code(s): F32.9 - Major depressive disorder, single episode, unspecified (12) GERD (gastroesophageal reflux disease) Current Visit: Yes Status: Chronic Qualifiers: Esophagitis presence: without esophagitis Qualified Code(s): K21.9 - Gastro-esophageal reflux disease without esophagitis - AMA Did Patient Leave Against Medical Advice: Yes
[2020-01-09 19:51] VITALS: BP 145/93; PULSE 99; TEMP 97.9
[2020-01-10] MEDS ORDERED: chlordiazePOXIDE HCL 10 MG CAPSULE PO PRN
[2020-01-10] MEDS ORDERED: chlordiazePOXIDE HCL 10 MG CAPSULE PO SCH (05:00)
[2020-01-11] MEDS ORDERED: chlordiazePOXIDE HCL 10 MG CAPSULE PO SCH (05:00)
[2020-01-12] MEDS ORDERED: chlordiazePOXIDE HCL 10 MG CAPSULE PO ONE (05:00)
== END 2020-01-09 20:03 | disposition left against medical advice (07) | DRG 770 ==
LOC: YASAS 09:12 → Y3N 10:25
PROVIDERS: ADMIT Allergy & Immunology; ATTEND Allergy & Immunology
PROC: HZ2ZZZZ Detoxification Services for Substance Abuse Treatment (ICD-10-PCS; principal; 2020-01-07)
DX: F10.230 Alcohol dependence with withdrawal, uncomplicated (principal); F13.230 Sedative, hypnotic or anxiolytic dependence with withdrawal, uncomplicated; F14.20 Cocaine dependence, uncomplicated; F12.20 Cannabis dependence, uncomplicated; F17.210 Nicotine dependence, cigarettes, uncomplicated; F19.280 Other psychoactive substance dependence with psychoactive substance-induced anxiety disorder; F19.282 Other psychoactive substance dependence with psychoactive substance-induced sleep disorder; F19.24 Other psychoactive substance dependence with psychoactive substance-induced mood disorder; F32.9 Major depressive disorder, single episode, unspecified; Z21 Asymptomatic human immunodeficiency virus [HIV] infection status; I10 Essential (primary) hypertension; E78.5 Hyperlipidemia, unspecified; G47.00 Insomnia, unspecified; K21.9 Gastro-esophageal reflux disease without esophagitis; A53.0 Latent syphilis, unspecified as early or late; Z90.5 Acquired absence of kidney; Z90.49 Acquired absence of other specified parts of digestive tract; Z91.013 Allergy to seafood
CPT/HCPCS: 36415; 80053; 85027; 86593; 86780; U0003

== ENCOUNTER 2020-11-18 11:05 | Inpatient (IN) | payer OTHER ==
[2020-11-18 11:55] VITALS: BMI 39.1
[2020-11-18] MEDS ORDERED: ONDANSETRON *ODT* 4 MG TABLET ONE (12:47)
[2020-11-18] MEDS ORDERED: MENTHOL/PHENOL 1 EACH UD MM PRN (12:54)
[2020-11-18] MEDS ORDERED: MAGNESIUM CITRATE 300 ML BOTTLE PO PRN (12:54)
[2020-11-18] MEDS ORDERED: ONDANSETRON *ODT* 4 MG TABLET SL PRN (12:54)
[2020-11-18] MEDS ORDERED: ACETAMINOPHEN 325 MG TABLET (FP) PO PRN ×2 (12:54)
[2020-11-18] MEDS ORDERED: NICOTINE POLACRILEX 2 MG GUM BUC PRN (12:54)
[2020-11-18] MEDS ORDERED: IBUPROFEN 400 MG TABLET (FP) PO PRN (12:54)
[2020-11-18] MEDS ORDERED: MAGNESIUM HYDROX 2400MG/30ML ORAL SUSPENSION 30 ML CUP PO PRN (12:54)
[2020-11-18] MEDS ORDERED: TRIMETHOBENZAMIDE HCL 200MG/2ML INJ IM ONE ×2 (13:03→13:08)
[2020-11-18] MEDS: NICOTINE 7 MG/24 HOURS TOPICAL PATCH TD SCH (14:07)
[2020-11-18] MEDS: hydrOXYzine PAMOATE 25 MG CAPSULE (FP) PO SCH ×3 (14:13→21:41)
[2020-11-18] MEDS: HYDROCHLOROTHIAZIDE 25 MG TABLET (FP) PO SCH (14:13)
[2020-11-18] MEDS: PRENATAL VITAMINS W/ FOLIC ACID TABLET (FP) PO SCH (14:13)
[2020-11-18 14:28] LABS: HEMATOCRIT 38.8 % (35.4-49); HEMOGLOBIN 12.4 GM/dL (11.7-16.9); MCH 24.2 pg (25.7-33.7); MCHC 31.9 g/dl (32.0-35.9); MEAN PLT VOLUME 9.4 fl (7.5-11.1); PLATELET COUNT 285 10^3/uL (134-434); RBC 5.11 M/mm3 (4.00-5.60); RDW 16.9 % (11.9-15.9)
[2020-11-18 14:40] LABS: CALCIUM 8.8 mg/dL (8.5-10.1)
[2020-11-18 14:41] LABS: ALBUMIN 4.2 g/dl (3.4-5.0); BLOOD UREA NITROGEN 10.9 mg/dL (7-18)
[2020-11-18 14:44] LABS: CREATININE 1.3 mg/dL (0.55-1.3)
[2020-11-18 14:46] LABS: BILIRUBIN,TOTAL 0.3 mg/dL (0.2-1); TOT PROT 8.6 g/dl (6.4-8.2)
[2020-11-18] MEDS: ELVITEG/COB/EMTRI/TENOF (GENVOYA) TABLET (NF) PO SCH (15:28)
[2020-11-18] MEDS: MAG HYDROX/AL HYDROX/SIMETH 30 ML UNIT-DOSE CUP PO PRN (16:34)
[2020-11-18] MEDS ORDERED: PANTOPRAZOLE 20 MG TABLET PO ONE ×2 (17:05)
[2020-11-18] MEDS ORDERED: HYDROCHLOROTHIAZIDE 25 MG TABLET (FP) PO ONE (17:05)
[2020-11-18] MEDS: BISMUTH SUBSALICYLATE 262 MG/15 ML BTL PO PRN ×2 (19:46→21:52)
[2020-11-18] MEDS ORDERED: MELATONIN 5 MG TABLETS PO SCH (22:00)
[2020-11-18] MEDS: THIAMINE HCL 100 MG TABLET (FP) PO SCH (22:40)
[2020-11-18] MEDS: METHOCARBAMOL 500 MG TABLET PO PRN (22:40)
[2020-11-19] MEDS: hydrOXYzine PAMOATE 25 MG CAPSULE (FP) PO SCH ×5 (05:30→22:42)
[2020-11-19] MEDS: PANTOPRAZOLE 40 MG TABLET PO SCH (06:07)
[2020-11-19] MEDS: ELVITEG/COB/EMTRI/TENOF (GENVOYA) TABLET (NF) PO SCH (06:59)
[2020-11-19] MEDS ORDERED: PANTOPRAZOLE 40 MG TABLET PO SCH (10:00)
[2020-11-19] MEDS: diazePAM 5 MG TABLET PO SCH ×3 (10:27→22:42)
[2020-11-19] MEDS: PRENATAL VITAMINS W/ FOLIC ACID TABLET (FP) PO SCH (10:28)
[2020-11-19] MEDS: NICOTINE 7 MG/24 HOURS TOPICAL PATCH TD SCH (10:28)
[2020-11-19] MEDS: METHOCARBAMOL 500 MG TABLET PO PRN ×2 (10:28→20:25)
[2020-11-19] MEDS: HYDROCHLOROTHIAZIDE 25 MG TABLET (FP) PO SCH (10:28)
[2020-11-19] MEDS: THIAMINE HCL 100 MG TABLET (FP) PO SCH (22:42)
[2020-11-19] MEDS: MELATONIN 5 MG TABLETS PO PRN (22:42)
[2020-11-20] MEDS: hydrOXYzine PAMOATE 25 MG CAPSULE (FP) PO SCH ×2 (05:42→10:54)
[2020-11-20] MEDS: diazePAM 5 MG TABLET PO SCH ×4 (05:43→22:23)
[2020-11-20] MEDS: PANTOPRAZOLE 40 MG TABLET PO SCH (06:18)
[2020-11-20] MEDS: ELVITEG/COB/EMTRI/TENOF (GENVOYA) TABLET (NF) PO SCH (07:11)
[2020-11-20] MEDS: HYDROCHLOROTHIAZIDE 25 MG TABLET (FP) PO SCH (10:54)
[2020-11-20] MEDS: METHOCARBAMOL 500 MG TABLET PO PRN ×2 (10:55→18:13)
[2020-11-20] MEDS: PRENATAL VITAMINS W/ FOLIC ACID TABLET (FP) PO SCH (10:55)
[2020-11-20] MEDS: NICOTINE 7 MG/24 HOURS TOPICAL PATCH TD SCH (10:55)
[2020-11-20] MEDS ORDERED: hydrOXYzine PAMOATE 25 MG CAPSULE (FP) PO PRN (12:25)
[2020-11-20] MEDS: MAG HYDROX/AL HYDROX/SIMETH 30 ML UNIT-DOSE CUP PO PRN ×2 (13:26→22:25)
[2020-11-20] MEDS: THIAMINE HCL 100 MG TABLET (FP) PO SCH (22:23)
[2020-11-20] MEDS: MELATONIN 5 MG TABLETS PO PRN (22:24)
[2020-11-21] MEDS: diazePAM 5 MG TABLET PO SCH ×3 (06:21→22:18)
[2020-11-21] MEDS: PANTOPRAZOLE 40 MG TABLET PO SCH (06:21)
[2020-11-21] MEDS: METHOCARBAMOL 500 MG TABLET PO PRN ×2 (06:22→22:17)
[2020-11-21] MEDS: ELVITEG/COB/EMTRI/TENOF (GENVOYA) TABLET (NF) PO SCH (07:05)
[2020-11-21] MEDS: diazePAM 5 MG TABLET PO PRN ×2 (10:08→19:25)
[2020-11-21] MEDS: HYDROCHLOROTHIAZIDE 25 MG TABLET (FP) PO SCH (10:09)
[2020-11-21] MEDS: FAMOTIDINE 20 MG TABLET PO SCH ×2 (10:09→22:17)
[2020-11-21] MEDS: NICOTINE 7 MG/24 HOURS TOPICAL PATCH TD SCH (10:09)
[2020-11-21] MEDS: PRENATAL VITAMINS W/ FOLIC ACID TABLET (FP) PO SCH (10:09)
[2020-11-21] MEDS ORDERED: TRIMETHOBENZAMIDE HCL 200MG/2ML INJ IM ONE (20:22)
[2020-11-21] MEDS: THIAMINE HCL 100 MG TABLET (FP) PO SCH (22:17)
[2020-11-21] MEDS: MELATONIN 5 MG TABLETS PO PRN (22:17)
[2020-11-22] MEDS: diazePAM 5 MG TABLET PO SCH ×2 (05:58→17:52)
[2020-11-22] MEDS: METHOCARBAMOL 500 MG TABLET PO PRN ×2 (05:58→22:19)
[2020-11-22] MEDS: ELVITEG/COB/EMTRI/TENOF (GENVOYA) TABLET (NF) PO SCH (07:16)
[2020-11-22] MEDS: FAMOTIDINE 20 MG TABLET PO SCH ×2 (10:41→22:16)
[2020-11-22] MEDS: HYDROCHLOROTHIAZIDE 25 MG TABLET (FP) PO SCH (10:41)
[2020-11-22] MEDS: NICOTINE 7 MG/24 HOURS TOPICAL PATCH TD SCH (10:42)
[2020-11-22] MEDS: PRENATAL VITAMINS W/ FOLIC ACID TABLET (FP) PO SCH (10:42)
[2020-11-22] MEDS: NICOTINE 10 MG CARTRIDGE (INHALER) IH PRN (10:45)
[2020-11-22] MEDS: THIAMINE HCL 100 MG TABLET (FP) PO SCH (22:16)
[2020-11-22] MEDS: MELATONIN 5 MG TABLETS PO PRN (22:16)
[2020-11-22] MEDS: MAG HYDROX/AL HYDROX/SIMETH 30 ML UNIT-DOSE CUP PO PRN (23:43)
[2020-11-23] MEDS: METHOCARBAMOL 500 MG TABLET PO PRN (05:54)
[2020-11-23] MEDS: NICOTINE 10 MG CARTRIDGE (INHALER) IH PRN (05:57)
[2020-11-23] MEDS ORDERED: diazePAM 5 MG TABLET PO ONE (06:00)
[2020-11-23] MEDS: ELVITEG/COB/EMTRI/TENOF (GENVOYA) TABLET (NF) PO SCH (07:02)
[2020-11-23 10:04] VITALS: PULSE 112; TEMP 97.1
[2020-11-23] MEDS: FAMOTIDINE 20 MG TABLET PO SCH (10:20)
[2020-11-23] MEDS: NICOTINE 7 MG/24 HOURS TOPICAL PATCH TD SCH (10:20)
[2020-11-23] MEDS: HYDROCHLOROTHIAZIDE 25 MG TABLET (FP) PO SCH (10:20)
[2020-11-23] MEDS: PRENATAL VITAMINS W/ FOLIC ACID TABLET (FP) PO SCH (10:20)
[2020-11-23] MEDS ORDERED: HYDROCORTISONE 1% TOPICAL CREAM 30 GM TUBE TP SCH (12:00)
[2020-11-23 13:38] VITALS: BP 130/80
== END 2020-11-23 13:45 | disposition other institution (70) | DRG 773 ==
LOC: YASAS 11:05 → UNDOADMIN 12:46 → Y3N 12:46
PROVIDERS: ADMIT Allergy & Immunology; ATTEND Allergy & Immunology
PROC: HZ2ZZZZ Detoxification Services for Substance Abuse Treatment (ICD-10-PCS; principal; 2020-11-18)
DX: F11.23 Opioid dependence with withdrawal (principal); F10.230 Alcohol dependence with withdrawal, uncomplicated; F14.20 Cocaine dependence, uncomplicated; F12.20 Cannabis dependence, uncomplicated; F17.210 Nicotine dependence, cigarettes, uncomplicated; F19.282 Other psychoactive substance dependence with psychoactive substance-induced sleep disorder; F33.1 Major depressive disorder, recurrent, moderate; I10 Essential (primary) hypertension; Z21 Asymptomatic human immunodeficiency virus [HIV] infection status; K21.9 Gastro-esophageal reflux disease without esophagitis; E78.49 Other hyperlipidemia; E78.5 Hyperlipidemia, unspecified; Z91.013 Allergy to seafood; Z86.19 Personal history of other infectious and parasitic diseases; Z56.0 Unemployment, unspecified
CPT/HCPCS: 36415; 80053; 85027; 86593; 86780; 93005; 93010; C9803; Q0162; U0003; U0005

== ENCOUNTER 2020-11-23 13:45 | Inpatient (IN) | payer OTHER ==
[2020-11-23] MEDS ORDERED: P-EPHED 60MG/TRIPROLIDI 2.5MG TABLET PO PRN (17:45)
[2020-11-23] MEDS ORDERED: MAGNESIUM HYDROX 2400MG/30ML ORAL SUSPENSION 30 ML CUP PO PRN (17:45)
[2020-11-23] MEDS ORDERED: MAGNESIUM CITRATE 300 ML BOTTLE PO PRN (17:45)
[2020-11-23] MEDS ORDERED: guaiFENesin 200 MG/10 ML 10 ML UNIT-DOSE CUPS PO PRN (17:45)
[2020-11-23] MEDS ORDERED: IBUPROFEN 400 MG TABLET (FP) PO PRN (17:45)
[2020-11-23] MEDS ORDERED: MENTHOL/PHENOL 1 EACH UD MM PRN (17:45)
[2020-11-23] MEDS ORDERED: LOPERAMIDE HCL 2 MG CAPSULE PO PRN (17:45)
[2020-11-23] MEDS: THIAMINE HCL 100 MG TABLET (FP) PO SCH (21:10)
[2020-11-23] MEDS: MELATONIN 5 MG TABLETS PO SCH (21:10)
[2020-11-23] MEDS ORDERED: FAMOTIDINE 20 MG TABLET PO SCH (22:00)
[2020-11-23] MEDS: MAG HYDROX/AL HYDROX/SIMETH 30 ML UNIT-DOSE CUP PO PRN (22:10)
[2020-11-24] MEDS: MAG HYDROX/AL HYDROX/SIMETH 30 ML UNIT-DOSE CUP PO PRN ×3 (03:27→19:20)
[2020-11-24] MEDS ORDERED: PT OWN MED DRAWER 7, Y5N ONE (08:33)
[2020-11-24] MEDS: ELVITEG/COB/EMTRI/TENOF (GENVOYA) TABLET (NF) PO SCH (08:34)
[2020-11-24] MEDS: PRENATAL VITAMINS W/ FOLIC ACID TABLET (FP) PO SCH (09:53)
[2020-11-24] MEDS: FAMOTIDINE 20 MG TABLET PO SCH ×2 (09:53→19:16)
[2020-11-24] MEDS: HYDROCHLOROTHIAZIDE 25 MG TABLET (FP) PO SCH (09:53)
[2020-11-24] MEDS ORDERED: NICOTINE 10 MG CARTRIDGE (INHALER) IH PRN (12:30)
[2020-11-24] MEDS: DICYCLOMINE HCL 10 MG CAPSULE PO PRN ×2 (15:15→21:25)
[2020-11-24] MEDS: THIAMINE HCL 100 MG TABLET (FP) PO SCH (21:24)
[2020-11-24] MEDS: hydrOXYzine PAMOATE 25 MG CAPSULE (FP) PO PRN (21:24)
[2020-11-24] MEDS: MELATONIN 5 MG TABLETS PO SCH (21:24)
[2020-11-25] MEDS: FAMOTIDINE 20 MG TABLET PO SCH ×2 (06:12→17:47)
[2020-11-25] MEDS: DICYCLOMINE HCL 10 MG CAPSULE PO PRN ×3 (06:13→21:32)
[2020-11-25] MEDS: ELVITEG/COB/EMTRI/TENOF (GENVOYA) TABLET (NF) PO SCH (07:42)
[2020-11-25] MEDS: MAG HYDROX/AL HYDROX/SIMETH 30 ML UNIT-DOSE CUP PO PRN (09:04)
[2020-11-25] MEDS: HYDROCHLOROTHIAZIDE 25 MG TABLET (FP) PO SCH (09:39)
[2020-11-25] MEDS: PRENATAL VITAMINS W/ FOLIC ACID TABLET (FP) PO SCH (09:39)
[2020-11-25] MEDS: BISMUTH SUBSALICYLATE 262 MG/15 ML BTL PO PRN ×2 (14:19→21:35)
[2020-11-25 21:30] VITALS: BMI 38.2
[2020-11-25] MEDS ORDERED: PT OWN MED DRAWER 7, Y5N ONE (21:32)
[2020-11-25] MEDS: ACETAMINOPHEN 325 MG TABLET (FP) PO PRN (21:33)
[2020-11-25] MEDS: THIAMINE HCL 100 MG TABLET (FP) PO SCH (21:35)
[2020-11-25] MEDS: MELATONIN 5 MG TABLETS PO SCH (21:35)
[2020-11-26] MEDS: MAG HYDROX/AL HYDROX/SIMETH 30 ML UNIT-DOSE CUP PO PRN (00:48)
[2020-11-26] MEDS ORDERED: PT OWN MED DRAWER 7, Y5N ONE ×5 (03:55→22:36)
[2020-11-26] MEDS: DICYCLOMINE HCL 10 MG CAPSULE PO PRN ×3 (06:18→22:24)
[2020-11-26] MEDS: FAMOTIDINE 20 MG TABLET PO SCH ×2 (06:19→17:48)
[2020-11-26] MEDS: ELVITEG/COB/EMTRI/TENOF (GENVOYA) TABLET (NF) PO SCH (07:19)
[2020-11-26] MEDS: HYDROCHLOROTHIAZIDE 25 MG TABLET (FP) PO SCH (09:48)
[2020-11-26] MEDS: PRENATAL VITAMINS W/ FOLIC ACID TABLET (FP) PO SCH (09:48)
[2020-11-26] MEDS ORDERED: BISMUTH SUBSALICYLATE 262 MG/15 ML BTL ONE (14:57)
[2020-11-26] MEDS: BISMUTH SUBSALICYLATE 262 MG/15 ML BTL PO PRN ×2 (14:58→22:36)
[2020-11-26] MEDS: MELATONIN 5 MG TABLETS PO PRN (21:06)
[2020-11-26] MEDS: THIAMINE HCL 100 MG TABLET (FP) PO SCH (21:06)
[2020-11-27] MEDS: MAG HYDROX/AL HYDROX/SIMETH 30 ML UNIT-DOSE CUP PO PRN ×2 (01:23→13:12)
[2020-11-27] MEDS ORDERED: PT OWN MED DRAWER 7, Y5N ONE ×3 (04:10→18:26)
[2020-11-27] MEDS: DICYCLOMINE HCL 10 MG CAPSULE PO PRN ×2 (06:37→18:26)
[2020-11-27] MEDS: FAMOTIDINE 20 MG TABLET PO SCH ×2 (06:37→18:17)
[2020-11-27] MEDS: ELVITEG/COB/EMTRI/TENOF (GENVOYA) TABLET (NF) PO SCH (07:13)
[2020-11-27] MEDS: PRENATAL VITAMINS W/ FOLIC ACID TABLET (FP) PO SCH (09:37)
[2020-11-27] MEDS: HYDROCHLOROTHIAZIDE 25 MG TABLET (FP) PO SCH (09:37)
[2020-11-27] MEDS: ONDANSETRON *ODT* 4 MG TABLET SL PRN (09:38)
[2020-11-27] MEDS: MELATONIN 5 MG TABLETS PO PRN (21:21)
[2020-11-27] MEDS: THIAMINE HCL 100 MG TABLET (FP) PO SCH (21:21)
[2020-11-27] MEDS: hydrOXYzine PAMOATE 25 MG CAPSULE (FP) PO PRN (21:22)
[2020-11-28] MEDS ORDERED: PT OWN MED DRAWER 7, Y5N ONE ×4 (06:04→21:18)
[2020-11-28] MEDS: FAMOTIDINE 20 MG TABLET PO SCH (06:17)
[2020-11-28] MEDS: ONDANSETRON *ODT* 4 MG TABLET SL PRN ×2 (06:17→21:38)
[2020-11-28] MEDS: ELVITEG/COB/EMTRI/TENOF (GENVOYA) TABLET (NF) PO SCH (08:31)
[2020-11-28] MEDS: DICYCLOMINE HCL 10 MG CAPSULE PO PRN ×2 (09:40→21:17)
[2020-11-28] MEDS: PRENATAL VITAMINS W/ FOLIC ACID TABLET (FP) PO SCH (09:40)
[2020-11-28] MEDS: HYDROCHLOROTHIAZIDE 25 MG TABLET (FP) PO SCH (09:40)
[2020-11-28] MEDS: MAG HYDROX/AL HYDROX/SIMETH 30 ML UNIT-DOSE CUP PO PRN ×3 (09:40→22:26)
[2020-11-28] MEDS: HYDROCORTISONE 1% TOPICAL CREAM 30 GM TUBE TP SCH ×2 (10:48→21:16)
[2020-11-28] MEDS: MELATONIN 5 MG TABLETS PO PRN (21:17)
[2020-11-28] MEDS: THIAMINE HCL 100 MG TABLET (FP) PO SCH (21:18)
[2020-11-29] MEDS: ACETAMINOPHEN 325 MG TABLET (FP) PO PRN (02:52)
[2020-11-29] MEDS: MAG HYDROX/AL HYDROX/SIMETH 30 ML UNIT-DOSE CUP PO PRN ×3 (03:34→16:47)
[2020-11-29] MEDS ORDERED: PT OWN MED DRAWER 7, Y5N ONE ×3 (05:55→08:22)
[2020-11-29] MEDS: BISMUTH SUBSALICYLATE 262 MG/15 ML BTL PO PRN (06:39)
[2020-11-29] MEDS: DICYCLOMINE HCL 10 MG CAPSULE PO PRN (06:39)
[2020-11-29] MEDS: ELVITEG/COB/EMTRI/TENOF (GENVOYA) TABLET (NF) PO SCH (07:49)
[2020-11-29] MEDS: HYDROCHLOROTHIAZIDE 25 MG TABLET (FP) PO SCH (09:24)
[2020-11-29] MEDS: PRENATAL VITAMINS W/ FOLIC ACID TABLET (FP) PO SCH (09:25)
[2020-11-29] MEDS: HYDROCORTISONE 1% TOPICAL CREAM 30 GM TUBE TP SCH ×2 (09:25→21:33)
[2020-11-29] MEDS: FAMOTIDINE 20 MG TABLET PO SCH ×2 (11:17→21:33)
[2020-11-29] MEDS: ONDANSETRON *ODT* 4 MG TABLET SL PRN (21:33)
[2020-11-29] MEDS: MELATONIN 5 MG TABLETS PO PRN (21:33)
[2020-11-29] MEDS: THIAMINE HCL 100 MG TABLET (FP) PO SCH (21:34)
[2020-11-30] MEDS: MAG HYDROX/AL HYDROX/SIMETH 30 ML UNIT-DOSE CUP PO PRN ×2 (01:36→11:52)
[2020-11-30] MEDS ORDERED: PT OWN MED DRAWER 7, Y5N ONE ×3 (03:25→21:35)
[2020-11-30] MEDS: DICYCLOMINE HCL 10 MG CAPSULE PO PRN ×2 (03:25→21:35)
[2020-11-30] MEDS: ELVITEG/COB/EMTRI/TENOF (GENVOYA) TABLET (NF) PO SCH (08:12)
[2020-11-30] MEDS ORDERED: TRIMETHOBENZAMIDE HCL 200MG/2ML INJ IM ONE (09:25)
[2020-11-30] MEDS: HYDROCHLOROTHIAZIDE 25 MG TABLET (FP) PO SCH (10:06)
[2020-11-30] MEDS: FAMOTIDINE 20 MG TABLET PO SCH ×2 (10:06→21:33)
[2020-11-30] MEDS: HYDROCORTISONE 1% TOPICAL CREAM 30 GM TUBE TP SCH ×2 (10:07→21:33)
[2020-11-30] MEDS: PRENATAL VITAMINS W/ FOLIC ACID TABLET (FP) PO SCH (10:07)
[2020-11-30] MEDS: MELATONIN 5 MG TABLETS PO PRN (21:33)
[2020-11-30] MEDS: THIAMINE HCL 100 MG TABLET (FP) PO SCH (21:34)
[2020-12-01] MEDS ORDERED: PT OWN MED DRAWER 7, Y5N ONE ×6 (03:19→21:58)
[2020-12-01] MEDS: MAG HYDROX/AL HYDROX/SIMETH 30 ML UNIT-DOSE CUP PO PRN ×2 (06:35→16:14)
[2020-12-01] MEDS: DICYCLOMINE HCL 10 MG CAPSULE PO PRN ×2 (06:35→19:26)
[2020-12-01] MEDS: ELVITEG/COB/EMTRI/TENOF (GENVOYA) TABLET (NF) PO SCH (08:31)
[2020-12-01] MEDS: FAMOTIDINE 20 MG TABLET PO SCH ×2 (09:40→17:59)
[2020-12-01] MEDS: PRENATAL VITAMINS W/ FOLIC ACID TABLET (FP) PO SCH (09:40)
[2020-12-01] MEDS: HYDROCHLOROTHIAZIDE 25 MG TABLET (FP) PO SCH (09:40)
[2020-12-01] MEDS: HYDROCORTISONE 1% TOPICAL CREAM 30 GM TUBE TP SCH ×2 (09:40→21:06)
[2020-12-01] MEDS: THIAMINE HCL 100 MG TABLET (FP) PO SCH (21:06)
[2020-12-01] MEDS: MELATONIN 5 MG TABLETS PO PRN (21:06)
[2020-12-01] MEDS: METOCLOPRAMIDE HCL 10 MG TABLET (FP) PO SCH (22:00)
[2020-12-02] MEDS ORDERED: PT OWN MED DRAWER 7, Y5N ONE ×4 (03:25→17:57)
[2020-12-02] MEDS: FAMOTIDINE 20 MG TABLET PO SCH ×2 (06:32→17:56)
[2020-12-02] MEDS: DICYCLOMINE HCL 10 MG CAPSULE PO PRN ×3 (06:33→21:12)
[2020-12-02] MEDS: ELVITEG/COB/EMTRI/TENOF (GENVOYA) TABLET (NF) PO SCH (07:43)
[2020-12-02] MEDS: HYDROCHLOROTHIAZIDE 25 MG TABLET (FP) PO SCH (09:57)
[2020-12-02] MEDS: HYDROCORTISONE 1% TOPICAL CREAM 30 GM TUBE TP SCH ×2 (09:58→21:13)
[2020-12-02] MEDS: MAG HYDROX/AL HYDROX/SIMETH 30 ML UNIT-DOSE CUP PO PRN (09:59)
[2020-12-02] MEDS: PRENATAL VITAMINS W/ FOLIC ACID TABLET (FP) PO SCH (09:59)
[2020-12-02] MEDS: MELATONIN 5 MG TABLETS PO PRN (21:12)
[2020-12-02] MEDS: THIAMINE HCL 100 MG TABLET (FP) PO SCH (21:13)
[2020-12-02] MEDS: METOCLOPRAMIDE HCL 10 MG TABLET (FP) PO SCH (21:13)
[2020-12-03] MEDS: MAG HYDROX/AL HYDROX/SIMETH 30 ML UNIT-DOSE CUP PO PRN ×3 (03:33→18:56)
[2020-12-03] MEDS ORDERED: PT OWN MED DRAWER 7, Y5N ONE ×5 (05:50→17:48)
[2020-12-03] MEDS: DICYCLOMINE HCL 10 MG CAPSULE PO PRN ×2 (06:21→17:48)
[2020-12-03] MEDS: FAMOTIDINE 20 MG TABLET PO SCH ×2 (06:21→17:46)
[2020-12-03] MEDS: ELVITEG/COB/EMTRI/TENOF (GENVOYA) TABLET (NF) PO SCH (08:34)
[2020-12-03] MEDS: HYDROCORTISONE 1% TOPICAL CREAM 30 GM TUBE TP SCH ×2 (09:29→21:04)
[2020-12-03] MEDS: HYDROCHLOROTHIAZIDE 25 MG TABLET (FP) PO SCH (09:30)
[2020-12-03] MEDS: PRENATAL VITAMINS W/ FOLIC ACID TABLET (FP) PO SCH (09:30)
[2020-12-03] MEDS: MELATONIN 5 MG TABLETS PO PRN (21:02)
[2020-12-03] MEDS: THIAMINE HCL 100 MG TABLET (FP) PO SCH (21:03)
[2020-12-03] MEDS: METOCLOPRAMIDE HCL 10 MG TABLET (FP) PO SCH (21:03)
[2020-12-04] MEDS: MAG HYDROX/AL HYDROX/SIMETH 30 ML UNIT-DOSE CUP PO PRN ×2 (02:16→15:38)
[2020-12-04] MEDS ORDERED: PT OWN MED DRAWER 7, Y5N ONE ×5 (04:10→19:23)
[2020-12-04] MEDS: DICYCLOMINE HCL 10 MG CAPSULE PO PRN ×2 (06:23→18:10)
[2020-12-04] MEDS: FAMOTIDINE 20 MG TABLET PO SCH ×2 (06:24→18:10)
[2020-12-04] MEDS: ELVITEG/COB/EMTRI/TENOF (GENVOYA) TABLET (NF) PO SCH (08:33)
[2020-12-04] MEDS: HYDROCHLOROTHIAZIDE 25 MG TABLET (FP) PO SCH (09:49)
[2020-12-04] MEDS: PRENATAL VITAMINS W/ FOLIC ACID TABLET (FP) PO SCH (09:50)
[2020-12-04] MEDS: HYDROCORTISONE 1% TOPICAL CREAM 30 GM TUBE TP SCH ×2 (09:51→21:39)
[2020-12-04] MEDS: METOCLOPRAMIDE HCL 10 MG TABLET (FP) PO SCH (21:37)
[2020-12-04] MEDS: MELATONIN 5 MG TABLETS PO PRN (21:37)
[2020-12-04] MEDS: hydrOXYzine PAMOATE 25 MG CAPSULE (FP) PO PRN (21:37)
[2020-12-04] MEDS: BACITRACIN 0.9 GM PACKET TP SCH (21:39)
[2020-12-04] MEDS: THIAMINE HCL 100 MG TABLET (FP) PO SCH (21:39)
[2020-12-05] MEDS: FAMOTIDINE 20 MG TABLET PO SCH ×2 (06:05→17:59)
[2020-12-05] MEDS: MAG HYDROX/AL HYDROX/SIMETH 30 ML UNIT-DOSE CUP PO PRN ×3 (06:06→21:33)
[2020-12-05] MEDS: ELVITEG/COB/EMTRI/TENOF (GENVOYA) TABLET (NF) PO SCH (08:50)
[2020-12-05] MEDS: HYDROCHLOROTHIAZIDE 25 MG TABLET (FP) PO SCH (09:33)
[2020-12-05] MEDS: HYDROCORTISONE 1% TOPICAL CREAM 30 GM TUBE TP SCH ×2 (09:34→21:54)
[2020-12-05] MEDS: PRENATAL VITAMINS W/ FOLIC ACID TABLET (FP) PO SCH (09:34)
[2020-12-05] MEDS: BACITRACIN 0.9 GM PACKET TP SCH ×2 (09:34→21:31)
[2020-12-05] MEDS ORDERED: PT OWN MED DRAWER 7, Y5N ONE ×2 (09:36→19:04)
[2020-12-05] MEDS: NALTREXONE HCL 50 MG TABLET PO SCH (10:07)
[2020-12-05] MEDS: DICYCLOMINE HCL 10 MG CAPSULE PO PRN (17:56)
[2020-12-05] MEDS: MELATONIN 5 MG TABLETS PO PRN (21:32)
[2020-12-05] MEDS: hydrOXYzine PAMOATE 25 MG CAPSULE (FP) PO PRN (21:32)
[2020-12-05] MEDS: THIAMINE HCL 100 MG TABLET (FP) PO SCH (21:32)
[2020-12-05] MEDS: METOCLOPRAMIDE HCL 10 MG TABLET (FP) PO SCH (21:34)
[2020-12-06] MEDS ORDERED: PT OWN MED DRAWER 7, Y5N ONE ×2 (04:32→08:52)
[2020-12-06] MEDS: FAMOTIDINE 20 MG TABLET PO SCH (06:17)
[2020-12-06 06:30] VITALS: TEMP 97.2
[2020-12-06] MEDS: ELVITEG/COB/EMTRI/TENOF (GENVOYA) TABLET (NF) PO SCH (07:56)
[2020-12-06] MEDS: ONDANSETRON *ODT* 4 MG TABLET SL PRN (08:43)
[2020-12-06 09:34] VITALS: BP 119/79; PULSE 108
[2020-12-06] MEDS: HYDROCHLOROTHIAZIDE 25 MG TABLET (FP) PO SCH (09:46)
[2020-12-06] MEDS: NALTREXONE HCL 50 MG TABLET PO SCH (09:46)
[2020-12-06] MEDS: HYDROCORTISONE 1% TOPICAL CREAM 30 GM TUBE TP SCH (09:47)
[2020-12-06] MEDS: PRENATAL VITAMINS W/ FOLIC ACID TABLET (FP) PO SCH (09:47)
[2020-12-06] MEDS: BACITRACIN 0.9 GM PACKET TP SCH (09:47)
[2020-12-08] MEDS ORDERED: NALTREXONE MICROSPHERES (VIVITROL) 380 MG DISP.SYRIN IM ONE (06:00)
== END 2020-12-06 13:43 | disposition home or self-care (01) | DRG 772 ==
LOC: YASAS 13:45 → Y3E 13:46
PROVIDERS: ADMIT Allergy & Immunology; ATTEND Allergy & Immunology
PROC: HZ42ZZZ Group Counseling for Substance Abuse Treatment, Cognitive-Behavioral (ICD-10-PCS; principal; 2020-11-23)
DX: F10.20 Alcohol dependence, uncomplicated (principal); F32.9 Major depressive disorder, single episode, unspecified; Z21 Asymptomatic human immunodeficiency virus [HIV] infection status; I10 Essential (primary) hypertension; K21.9 Gastro-esophageal reflux disease without esophagitis; E74.89 Other specified disorders of carbohydrate metabolism; L73.8 Other specified follicular disorders; Z86.19 Personal history of other infectious and parasitic diseases
CPT/HCPCS: Q0162

== ENCOUNTER 2021-05-13 17:41 | Inpatient (IN) | payer OTHER ==
[2021-05-13] MEDS ORDERED: MAGNESIUM CITRATE 300 ML BOTTLE PO PRN (22:09)
[2021-05-13] MEDS ORDERED: ONDANSETRON *ODT* 4 MG TABLET SL PRN (22:09)
[2021-05-13] MEDS ORDERED: MAG HYDROX/AL HYDROX/SIMETH 30 ML UNIT-DOSE CUP PO PRN (22:09)
[2021-05-13] MEDS ORDERED: ACETAMINOPHEN 325 MG TABLET (FP) PO PRN ×2 (22:09)
[2021-05-13] MEDS ORDERED: MAGNESIUM HYDROX 2400MG/30ML ORAL SUSPENSION 30 ML CUP PO PRN (22:09)
[2021-05-13] MEDS ORDERED: BISMUTH SUBSALICYLATE 524 MG/30 ML PO PRN (22:09)
[2021-05-13] MEDS ORDERED: NICOTINE POLACRILEX 2 MG GUM BUC PRN (22:09)
[2021-05-13] MEDS ORDERED: IBUPROFEN 400 MG TABLET (FP) PO PRN (22:09)
[2021-05-14] MEDS ORDERED: chlordiazePOXIDE HCL 25 MG CAPSULE PO PRN (02:12)
[2021-05-14] MEDS: METHOCARBAMOL 500 MG TABLET PO PRN ×3 (06:55→20:08)
[2021-05-14] MEDS: chlordiazePOXIDE HCL 25 MG CAPSULE PO SCH ×4 (06:55→23:14)
[2021-05-14] MEDS ORDERED: METHOCARBAMOL 500 MG TABLET ONE (06:57)
[2021-05-14] MEDS ORDERED: chlordiazePOXIDE HCL 25 MG CAPSULE ONE (06:57)
[2021-05-14] MEDS ORDERED: IBUPROFEN 400 MG TABLET (FP) PO ONE (06:58)
[2021-05-14 07:03] VITALS: BMI 36.3
[2021-05-14] MEDS: PRENATAL VITAMINS W/ FOLIC ACID TABLET (FP) PO SCH (10:12)
[2021-05-14] MEDS: NICOTINE 14 MG/24 HOURS TOPICAL PATCH TD SCH (10:14)
[2021-05-14 10:35] LABS: HEMATOCRIT 37.8 % (35.4-49); HEMOGLOBIN 11.8 GM/dL (11.7-16.9); MCH 23.7 pg (25.7-33.7); MCHC 31.1 g/dl (32.0-35.9); MEAN CELL VOLUME 76.3 fl (80-96); PLATELET COUNT 264 10^3/uL (134-434); RBC 4.96 M/mm3 (4.00-5.60); RDW 19.8 % (11.9-15.9)
[2021-05-14 10:41] LABS: CALCIUM 8.6 mg/dL (8.5-10.1)
[2021-05-14 10:42] LABS: ALBUMIN 3.5 g/dl (3.4-5.0); BLOOD UREA NITROGEN 22.5 mg/dL (7-18)
[2021-05-14 10:45] LABS: BILIRUBIN,TOTAL 0.4 mg/dL (0.2-1); CREATININE 1.3 mg/dL (0.55-1.3); TOT PROT 7.3 g/dl (6.4-8.2)
[2021-05-14] MEDS: NIFEdipine E.R. 30 MG TABLET PO SCH (13:40)
[2021-05-14] MEDS: FAMOTIDINE 20 MG TABLET PO SCH ×2 (13:41→23:14)
[2021-05-14] MEDS: DARUNAVIR/COB/EMTRI/TENOF (SYMTUZA) TABLET (NF) PO SCH (13:41)
[2021-05-14] MEDS: guaiFENesin 200 MG/10 ML 10 ML UNIT-DOSE CUPS PO PRN ×2 (13:43→20:08)
[2021-05-14] MEDS: MENTHOL/PHENOL 1 EACH UD MM PRN (18:07)
[2021-05-14] MEDS ORDERED: MELATONIN 5 MG TABLETS PO SCH ×2 (22:00)
[2021-05-14] MEDS ORDERED: THIAMINE HCL 100 MG TABLET (FP) PO SCH (22:00)
[2021-05-15] MEDS: METHOCARBAMOL 500 MG TABLET PO PRN ×2 (06:03→17:34)
[2021-05-15] MEDS: chlordiazePOXIDE HCL 25 MG CAPSULE PO SCH ×3 (06:03→17:31)
[2021-05-15] MEDS: MENTHOL/PHENOL 1 EACH UD MM PRN (06:04)
[2021-05-15] MEDS: guaiFENesin 200 MG/10 ML 10 ML UNIT-DOSE CUPS PO PRN (06:04)
[2021-05-15] MEDS: DARUNAVIR/COB/EMTRI/TENOF (SYMTUZA) TABLET (NF) PO SCH (08:51)
[2021-05-15 09:23] VITALS: TEMP 97.7
[2021-05-15] MEDS: PRENATAL VITAMINS W/ FOLIC ACID TABLET (FP) PO SCH (10:39)
[2021-05-15] MEDS: NIFEdipine E.R. 30 MG TABLET PO SCH (10:39)
[2021-05-15] MEDS: FAMOTIDINE 20 MG TABLET PO SCH (10:39)
[2021-05-15] MEDS: NICOTINE 14 MG/24 HOURS TOPICAL PATCH TD SCH (10:40)
[2021-05-15 12:50] VITALS: PULSE 102
[2021-05-15 17:08] VITALS: BP 138/65
[2021-05-15] MEDS ORDERED: PANTOPRAZOLE 40 MG TABLET PO SCH (18:30)
[2021-05-15] MEDS ORDERED: PATIENT'S OWN MEDICATION (NON-FORMULARY) (Omeprazole 20 MG Capsule.Dr) PO SCH (18:45)
[2021-05-16] MEDS ORDERED: chlordiazePOXIDE HCL 10 MG CAPSULE PO PRN
[2021-05-16] MEDS ORDERED: chlordiazePOXIDE HCL 10 MG CAPSULE PO SCH (05:00)
[2021-05-17] MEDS ORDERED: chlordiazePOXIDE HCL 10 MG CAPSULE PO SCH (05:00)
[2021-05-18] MEDS ORDERED: chlordiazePOXIDE HCL 10 MG CAPSULE PO ONE (05:00)
== END 2021-05-15 19:15 | disposition left against medical advice (07) | DRG 770 ==
LOC: YASAS 17:41 → Y6N 05-14 06:49
PROVIDERS: ADMIT Allergy & Immunology; ATTEND Allergy & Immunology
PROC: HZ2ZZZZ Detoxification Services for Substance Abuse Treatment (ICD-10-PCS; principal; 2021-05-14)
DX: F10.230 Alcohol dependence with withdrawal, uncomplicated (principal); F14.20 Cocaine dependence, uncomplicated; F12.20 Cannabis dependence, uncomplicated; F17.210 Nicotine dependence, cigarettes, uncomplicated; F19.282 Other psychoactive substance dependence with psychoactive substance-induced sleep disorder; F19.280 Other psychoactive substance dependence with psychoactive substance-induced anxiety disorder; F19.24 Other psychoactive substance dependence with psychoactive substance-induced mood disorder; F32.A Depression, unspecified; F43.10 Post-traumatic stress disorder, unspecified; Z21 Asymptomatic human immunodeficiency virus [HIV] infection status; A53.0 Latent syphilis, unspecified as early or late; I10 Essential (primary) hypertension; K21.9 Gastro-esophageal reflux disease without esophagitis; E78.5 Hyperlipidemia, unspecified; R79.89 Other specified abnormal findings of blood chemistry; E66.9 Obesity, unspecified; Z68.36 Body mass index [BMI] 36.0-36.9, adult; Z86.19 Personal history of other infectious and parasitic diseases
CPT/HCPCS: 36415; 80053; 85027; 86593; 86780; 93005; 93010; C9803; U0003; U0005

== ENCOUNTER 2021-06-30 16:39 | Inpatient (IN) | payer OTHER ==
[2021-06-30 19:58] VITALS: BMI 36.3
[2021-06-30] MEDS ORDERED: METOPROLOL TARTRATE 25 MG TABLET (FP) PO ONE (20:56)
[2021-06-30] MEDS ORDERED: MAG HYDROX/AL HYDROX/SIMETH 30 ML UNIT-DOSE CUP PO PRN (20:57)
[2021-06-30] MEDS ORDERED: MENTHOL/PHENOL 1 EACH UD MM PRN (20:57)
[2021-06-30] MEDS ORDERED: MAGNESIUM CITRATE 300 ML BOTTLE PO PRN (20:57)
[2021-06-30] MEDS ORDERED: MAGNESIUM HYDROX 2400MG/30ML ORAL SUSPENSION 30 ML CUP PO PRN (20:57)
[2021-06-30] MEDS ORDERED: BISMUTH SUBSALICYLATE 524 MG/30 ML PO PRN (20:57)
[2021-06-30] MEDS ORDERED: IBUPROFEN 400 MG TABLET (FP) PO PRN (20:57)
[2021-06-30] MEDS ORDERED: ACETAMINOPHEN 325 MG TABLET (FP) PO PRN ×2 (20:57)
[2021-06-30] MEDS ORDERED: LOPERAMIDE HCL 2 MG CAPSULE PO PRN (20:57)
[2021-06-30] MEDS ORDERED: ONDANSETRON *ODT* 4 MG TABLET SL PRN (20:57)
[2021-06-30] MEDS ORDERED: diazePAM 5 MG TABLET PO PRN (21:00)
[2021-07-01] MEDS: diazePAM 5 MG TABLET PO SCH ×5 (02:09→22:50)
[2021-07-01] MEDS: METHOCARBAMOL 500 MG TABLET PO PRN ×3 (02:20→18:09)
[2021-07-01] MEDS: MELATONIN 5 MG TABLETS PO PRN ×2 (02:25→22:49)
[2021-07-01] MEDS: THIAMINE HCL 100 MG TABLET (FP) PO SCH ×2 (02:28→22:49)
[2021-07-01] MEDS: hydrOXYzine PAMOATE 25 MG CAPSULE (FP) PO PRN ×2 (06:25→22:49)
[2021-07-01] MEDS ORDERED: PANTOPRAZOLE 40 MG TABLET PO SCH (10:00)
[2021-07-01] MEDS: PRENATAL VITAMINS W/ FOLIC ACID TABLET (FP) PO SCH (10:27)
[2021-07-01] MEDS: DARUNAVIR/COB/EMTRI/TENOF (SYMTUZA) TABLET (NF) PO SCH (10:31)
[2021-07-01] MEDS: NIFEdipine E.R. 30 MG TABLET PO SCH (10:31)
[2021-07-01] MEDS: NICOTINE 14 MG/24 HOURS TOPICAL PATCH TD SCH (10:32)
[2021-07-01] MEDS: PANTOPRAZOLE 40 MG TABLET PO SCH (10:48)
[2021-07-01 10:55] LABS: HEMATOCRIT 34.1 % (35.4-49); HEMOGLOBIN 11.4 GM/dL (11.7-16.9); MCH 25.2 pg (25.7-33.7); MCHC 33.5 g/dl (32.0-35.9); MEAN CELL VOLUME 75.1 fl (80-96); MEAN PLT VOLUME 8.8 fl (7.5-11.1); PLATELET COUNT 204 10^3/uL (134-434); RBC 4.54 M/mm3 (4.00-5.60); RDW 19.6 % (11.9-15.9); WHITE BLOOD COUNT 5.5 K/mm3 (4.0-10.0)
[2021-07-01 11:10] LABS: CALCIUM 8.4 mg/dL (8.5-10.1)
[2021-07-01 11:11] LABS: ALBUMIN 3.2 g/dl (3.4-5.0); BLOOD UREA NITROGEN 15.8 mg/dL (7-18)
[2021-07-01 11:13] LABS: BILIRUBIN,TOTAL 0.2 mg/dL (0.2-1); CREATININE 1.2 mg/dL (0.55-1.3)
[2021-07-01 11:18] LABS: TOT PROT 6.4 g/dl (6.4-8.2)
[2021-07-02] MEDS ORDERED: diazePAM 5 MG TABLET PO SCH (06:00)
[2021-07-02] MEDS: METHOCARBAMOL 500 MG TABLET PO PRN ×2 (06:00→22:21)
[2021-07-02] MEDS: DARUNAVIR/COB/EMTRI/TENOF (SYMTUZA) TABLET (NF) PO SCH (07:57)
[2021-07-02] MEDS ORDERED: PANTOPRAZOLE 40 MG TABLET PO SCH (10:00)
[2021-07-02] MEDS: PRENATAL VITAMINS W/ FOLIC ACID TABLET (FP) PO SCH (10:48)
[2021-07-02] MEDS: PANTOPRAZOLE 40 MG TABLET PO SCH (10:49)
[2021-07-02] MEDS: NIFEdipine E.R. 30 MG TABLET PO SCH (10:49)
[2021-07-02] MEDS: NICOTINE 14 MG/24 HOURS TOPICAL PATCH TD SCH (10:50)
[2021-07-02] MEDS ORDERED: chlordiazePOXIDE HCL 25 MG CAPSULE PO SCH (11:30)
[2021-07-02] MEDS ORDERED: chlordiazePOXIDE HCL 10 MG CAPSULE PO PRN ×2 (11:31)
[2021-07-02] MEDS: FERROUS SO4 325 MG TABLET (FP) PO SCH ×2 (11:54→22:21)
[2021-07-02] MEDS ORDERED: FLU VACC QS2021-22(6MOS UP)/PF 60 MCG/0.5 ML SYRINGE IM ONE (12:00)
[2021-07-02] MEDS: CYANOCOBALAMIN 1,000 MCG TABLET (FP) PO SCH (14:52)
[2021-07-02] MEDS: chlordiazePOXIDE HCL 25 MG CAPSULE PO SCH ×2 (18:21→22:23)
[2021-07-02] MEDS: MELATONIN 5 MG TABLETS PO PRN (22:20)
[2021-07-02] MEDS: hydrOXYzine PAMOATE 25 MG CAPSULE (FP) PO PRN (22:21)
[2021-07-02] MEDS: THIAMINE HCL 100 MG TABLET (FP) PO SCH (22:50)
[2021-07-03] MEDS ORDERED: chlordiazePOXIDE HCL 10 MG CAPSULE PO SCH (05:00)
[2021-07-03] MEDS ORDERED: diazePAM 5 MG TABLET PO SCH (06:00)
[2021-07-03] MEDS: METHOCARBAMOL 500 MG TABLET PO PRN ×2 (06:16→17:42)
[2021-07-03] MEDS: chlordiazePOXIDE HCL 10 MG CAPSULE PO SCH ×4 (06:16→22:06)
[2021-07-03] MEDS: DARUNAVIR/COB/EMTRI/TENOF (SYMTUZA) TABLET (NF) PO SCH (07:13)
[2021-07-03] MEDS: FERROUS SO4 325 MG TABLET (FP) PO SCH ×2 (10:10→22:05)
[2021-07-03] MEDS: NICOTINE 14 MG/24 HOURS TOPICAL PATCH TD SCH (10:11)
[2021-07-03] MEDS: NIFEdipine E.R. 30 MG TABLET PO SCH (10:11)
[2021-07-03] MEDS: PANTOPRAZOLE 40 MG TABLET PO SCH (10:11)
[2021-07-03] MEDS: PRENATAL VITAMINS W/ FOLIC ACID TABLET (FP) PO SCH (10:11)
[2021-07-03] MEDS: CYANOCOBALAMIN 1,000 MCG TABLET (FP) PO SCH (10:11)
[2021-07-03 14:08] LABS: SARS-CoV-2 NAA Not Detected (Not Detected)
[2021-07-03] MEDS: hydrOXYzine PAMOATE 25 MG CAPSULE (FP) PO PRN ×2 (17:43→20:32)
[2021-07-03] MEDS: THIAMINE HCL 100 MG TABLET (FP) PO SCH (22:06)
[2021-07-03] MEDS: MELATONIN 5 MG TABLETS PO PRN (22:08)
[2021-07-04] MEDS ORDERED: chlordiazePOXIDE HCL 10 MG CAPSULE PO SCH ×3 (05:00)
[2021-07-04] MEDS: METHOCARBAMOL 500 MG TABLET PO PRN (05:56)
[2021-07-04] MEDS ORDERED: diazePAM 5 MG TABLET PO ONE (06:00)
[2021-07-04] MEDS: DARUNAVIR/COB/EMTRI/TENOF (SYMTUZA) TABLET (NF) PO SCH (08:38)
[2021-07-04 08:45] VITALS: BP 120/86; PULSE 101; TEMP 97.3
[2021-07-04] MEDS: PRENATAL VITAMINS W/ FOLIC ACID TABLET (FP) PO SCH (09:27)
[2021-07-04] MEDS: NIFEdipine E.R. 30 MG TABLET PO SCH (09:27)
[2021-07-04] MEDS: FERROUS SO4 325 MG TABLET (FP) PO SCH (09:27)
[2021-07-04] MEDS: NICOTINE 14 MG/24 HOURS TOPICAL PATCH TD SCH (09:27)
[2021-07-04] MEDS: PANTOPRAZOLE 40 MG TABLET PO SCH (09:28)
[2021-07-04] MEDS: CYANOCOBALAMIN 1,000 MCG TABLET (FP) PO SCH (09:28)
[2021-07-05] MEDS ORDERED: chlordiazePOXIDE HCL 10 MG CAPSULE PO ONE ×2 (05:00)
== END 2021-07-04 09:17 | disposition other institution (70) | DRG 774 ==
LOC: YASAS 16:39 → Y3N 23:01
PROVIDERS: ADMIT Allergy & Immunology; ATTEND Allergy & Immunology
PROC: HZ2ZZZZ Detoxification Services for Substance Abuse Treatment (ICD-10-PCS; principal; 2021-06-30)
DX: F10.230 Alcohol dependence with withdrawal, uncomplicated (principal); F14.20 Cocaine dependence, uncomplicated; F13.20 Sedative, hypnotic or anxiolytic dependence, uncomplicated; F12.20 Cannabis dependence, uncomplicated; F17.210 Nicotine dependence, cigarettes, uncomplicated; Z21 Asymptomatic human immunodeficiency virus [HIV] infection status; I10 Essential (primary) hypertension; Z86.19 Personal history of other infectious and parasitic diseases
CPT/HCPCS: 36415; 80053; 85027; 86593; 86780; C9803; U0003; U0005

== ENCOUNTER 2021-08-10 15:43 | Inpatient (IN) | payer OTHER ==
[2021-08-10 18:15] VITALS: BMI 35.5
[2021-08-10] MEDS ORDERED: ONDANSETRON *ODT* 4 MG TABLET SL PRN (20:38)
[2021-08-10] MEDS ORDERED: LOPERAMIDE HCL 2 MG CAPSULE PO PRN (20:38)
[2021-08-10] MEDS ORDERED: ACETAMINOPHEN 325 MG TABLET (FP) PO PRN ×2 (20:38)
[2021-08-10] MEDS ORDERED: BISMUTH SUBSALICYLATE 524 MG/30 ML PO PRN (20:38)
[2021-08-10] MEDS ORDERED: MELATONIN 5 MG TABLETS PO PRN (20:38)
[2021-08-10] MEDS ORDERED: MAGNESIUM HYDROX 2400MG/30ML ORAL SUSPENSION 30 ML CUP PO PRN (20:38)
[2021-08-10] MEDS ORDERED: BENZOCAINE/MENTHOL (CHLORASEPTIC ) LOZENGE MM PRN (20:38)
[2021-08-10] MEDS ORDERED: MAGNESIUM CITRATE 300 ML BOTTLE PO PRN (20:38)
[2021-08-10] MEDS ORDERED: IBUPROFEN 400 MG TABLET (FP) PO PRN (20:38)
[2021-08-10] MEDS ORDERED: chlordiazePOXIDE HCL 25 MG CAPSULE PO PRN (20:40)
[2021-08-11] MEDS: THIAMINE HCL 100 MG TABLET (FP) PO SCH ×2 (02:14→22:11)
[2021-08-11] MEDS: chlordiazePOXIDE HCL 25 MG CAPSULE PO SCH ×5 (02:25→22:11)
[2021-08-11] MEDS: MAG HYDROX/AL HYDROX/SIMETH 30 ML UNIT-DOSE CUP PO PRN ×2 (02:30→22:14)
[2021-08-11] MEDS: PANTOPRAZOLE 40 MG TABLET PO SCH (06:04)
[2021-08-11] MEDS: PRENATAL VITAMINS W/ FOLIC ACID TABLET (FP) PO SCH (10:20)
[2021-08-11] MEDS: HYDROCHLOROTHIAZIDE 25 MG TABLET (FP) PO SCH (10:20)
[2021-08-11] MEDS: METHOCARBAMOL 500 MG TABLET PO PRN ×2 (10:22→17:31)
[2021-08-11] MEDS: NIFEdipine E.R. 30 MG TABLET PO SCH (11:06)
[2021-08-11] MEDS: DARUNAVIR/COB/EMTRI/TENOF (SYMTUZA) TABLET (NF) PO SCH (11:07)
[2021-08-11] MEDS: NICOTINE POLACRILEX 2 MG GUM BUC PRN (11:16)
[2021-08-11 11:52] LABS: HEMATOCRIT 39.5 % (35.4-49); HEMOGLOBIN 12.5 GM/dL (11.7-16.9); MCH 24.3 pg (25.7-33.7); MCHC 31.6 g/dl (32.0-35.9); MEAN PLT VOLUME 9.1 fl (7.5-11.1); PLATELET COUNT 242 10^3/uL (134-434); RBC 5.13 M/mm3 (4.00-5.60); RDW 21.2 % (11.9-15.9); WHITE BLOOD COUNT 6.4 K/mm3 (4.0-10.0)
[2021-08-11 11:57] LABS: BLOOD UREA NITROGEN 14.4 mg/dL (7-18)
[2021-08-11 11:59] LABS: ALBUMIN 3.4 g/dl (3.4-5.0); CALCIUM 8.5 mg/dL (8.5-10.1)
[2021-08-11 12:00] LABS: CREATININE 1.2 mg/dL (0.55-1.3)
[2021-08-11 12:01] LABS: BILIRUBIN,TOTAL 0.2 mg/dL (0.2-1); TOT PROT 6.8 g/dl (6.4-8.2)
[2021-08-11] MEDS: MELATONIN 5 MG TABLETS PO SCH (22:13)
[2021-08-12] MEDS: chlordiazePOXIDE HCL 25 MG CAPSULE PO SCH ×4 (05:48→22:05)
[2021-08-12] MEDS: PANTOPRAZOLE 40 MG TABLET PO SCH (05:48)
[2021-08-12] MEDS: METHOCARBAMOL 500 MG TABLET PO PRN ×2 (05:49→22:09)
[2021-08-12] MEDS: MAG HYDROX/AL HYDROX/SIMETH 30 ML UNIT-DOSE CUP PO PRN (06:34)
[2021-08-12] MEDS: DARUNAVIR/COB/EMTRI/TENOF (SYMTUZA) TABLET (NF) PO SCH (07:17)
[2021-08-12] MEDS: PRENATAL VITAMINS W/ FOLIC ACID TABLET (FP) PO SCH (10:17)
[2021-08-12] MEDS: DICYCLOMINE HCL 10 MG CAPSULE PO PRN ×2 (10:17→22:09)
[2021-08-12] MEDS: NIFEdipine E.R. 30 MG TABLET PO SCH (10:19)
[2021-08-12] MEDS: HYDROCHLOROTHIAZIDE 25 MG TABLET (FP) PO SCH (10:19)
[2021-08-12] MEDS: hydrOXYzine PAMOATE 25 MG CAPSULE (FP) PO PRN (18:22)
[2021-08-12] MEDS: THIAMINE HCL 100 MG TABLET (FP) PO SCH (22:05)
[2021-08-12] MEDS: MELATONIN 5 MG TABLETS PO SCH (22:06)
[2021-08-13] MEDS ORDERED: chlordiazePOXIDE HCL 10 MG CAPSULE PO PRN
[2021-08-13] MEDS: MAG HYDROX/AL HYDROX/SIMETH 30 ML UNIT-DOSE CUP PO PRN (00:51)
[2021-08-13] MEDS: METHOCARBAMOL 500 MG TABLET PO PRN ×2 (04:59→15:48)
[2021-08-13] MEDS: PANTOPRAZOLE 40 MG TABLET PO SCH (04:59)
[2021-08-13] MEDS: chlordiazePOXIDE HCL 10 MG CAPSULE PO SCH ×4 (05:13→22:16)
[2021-08-13] MEDS: DARUNAVIR/COB/EMTRI/TENOF (SYMTUZA) TABLET (NF) PO SCH (07:11)
[2021-08-13] MEDS: PRENATAL VITAMINS W/ FOLIC ACID TABLET (FP) PO SCH (10:08)
[2021-08-13] MEDS: NIFEdipine E.R. 30 MG TABLET PO SCH (10:09)
[2021-08-13] MEDS: DICYCLOMINE HCL 10 MG CAPSULE PO PRN (10:09)
[2021-08-13] MEDS: HYDROCHLOROTHIAZIDE 25 MG TABLET (FP) PO SCH (10:09)
[2021-08-13 15:09] LABS: SARS-CoV-2 NAA Not Detected (Not Detected)
[2021-08-13] MEDS: MELATONIN 5 MG TABLETS PO SCH (22:16)
[2021-08-13] MEDS: THIAMINE HCL 100 MG TABLET (FP) PO SCH (22:16)
[2021-08-14] MEDS: MAG HYDROX/AL HYDROX/SIMETH 30 ML UNIT-DOSE CUP PO PRN (04:30)
[2021-08-14] MEDS ORDERED: chlordiazePOXIDE HCL 10 MG CAPSULE PO SCH (05:00)
[2021-08-14] MEDS: PANTOPRAZOLE 40 MG TABLET PO SCH (05:12)
[2021-08-14] MEDS: DARUNAVIR/COB/EMTRI/TENOF (SYMTUZA) TABLET (NF) PO SCH (07:28)
[2021-08-14 09:19] VITALS: TEMP 97.8
[2021-08-14] MEDS: NIFEdipine E.R. 30 MG TABLET PO SCH (10:06)
[2021-08-14] MEDS: METHOCARBAMOL 500 MG TABLET PO PRN (10:06)
[2021-08-14] MEDS: PRENATAL VITAMINS W/ FOLIC ACID TABLET (FP) PO SCH (10:06)
[2021-08-14] MEDS: hydrOXYzine PAMOATE 25 MG CAPSULE (FP) PO PRN (10:06)
[2021-08-14] MEDS: HYDROCHLOROTHIAZIDE 25 MG TABLET (FP) PO SCH (10:06)
[2021-08-14] MEDS: NICOTINE POLACRILEX 2 MG GUM BUC PRN (10:09)
[2021-08-14 12:45] VITALS: BP 130/80; PULSE 113
[2021-08-15] MEDS ORDERED: chlordiazePOXIDE HCL 10 MG CAPSULE PO ONE (05:00)
== END 2021-08-14 13:20 | disposition other institution (70) | DRG 774 ==
LOC: YASAS 15:43 → Y6N 23:41
PROVIDERS: ADMIT Allergy & Immunology; ATTEND Allergy & Immunology
PROC: HZ2ZZZZ Detoxification Services for Substance Abuse Treatment (ICD-10-PCS; principal; 2021-08-10)
DX: F10.230 Alcohol dependence with withdrawal, uncomplicated (principal); F13.230 Sedative, hypnotic or anxiolytic dependence with withdrawal, uncomplicated; F14.20 Cocaine dependence, uncomplicated; F12.20 Cannabis dependence, uncomplicated; F17.210 Nicotine dependence, cigarettes, uncomplicated; F33.1 Major depressive disorder, recurrent, moderate; F19.282 Other psychoactive substance dependence with psychoactive substance-induced sleep disorder; F19.24 Other psychoactive substance dependence with psychoactive substance-induced mood disorder; F32.A Depression, unspecified; Z21 Asymptomatic human immunodeficiency virus [HIV] infection status; E74.89 Other specified disorders of carbohydrate metabolism; I10 Essential (primary) hypertension; K21.9 Gastro-esophageal reflux disease without esophagitis; E66.9 Obesity, unspecified; Z68.35 Body mass index [BMI] 35.0-35.9, adult; Z86.19 Personal history of other infectious and parasitic diseases
CPT/HCPCS: 36415; 80053; 85027; 86593; 86780; C9803-CS; Q0162; U0003; U0005

== ENCOUNTER 2021-08-14 14:24 | Inpatient (IN) | payer OTHER ==
[2021-08-14] MEDS ORDERED: P-EPHED 60MG/TRIPROLIDI 2.5MG TABLET PO PRN (15:25)
[2021-08-14] MEDS ORDERED: ACETAMINOPHEN 325 MG TABLET (FP) PO PRN (15:25)
[2021-08-14] MEDS ORDERED: NICOTINE 10 MG CARTRIDGE (INHALER) IH PRN (15:25)
[2021-08-14] MEDS ORDERED: LOPERAMIDE HCL 2 MG CAPSULE PO PRN (15:25)
[2021-08-14] MEDS ORDERED: MAGNESIUM CITRATE 300 ML BOTTLE PO PRN (15:25)
[2021-08-14] MEDS ORDERED: BENZOCAINE/MENTHOL (CHLORASEPTIC ) LOZENGE MM PRN (15:25)
[2021-08-14] MEDS ORDERED: MAGNESIUM HYDROX 2400MG/30ML ORAL SUSPENSION 30 ML CUP PO PRN (15:25)
[2021-08-14] MEDS: QUEtiapine FUMARATE 25 MG TABLET PO SCH (21:14)
[2021-08-14] MEDS: hydrOXYzine PAMOATE 25 MG CAPSULE (FP) PO PRN (21:14)
[2021-08-14] MEDS: THIAMINE HCL 100 MG TABLET (FP) PO SCH (21:14)
[2021-08-14] MEDS: MAG HYDROX/AL HYDROX/SIMETH 30 ML UNIT-DOSE CUP PO PRN (21:46)
[2021-08-14] MEDS ORDERED: MELATONIN 5 MG TABLETS PO SCH (22:00)
[2021-08-15] MEDS: MAG HYDROX/AL HYDROX/SIMETH 30 ML UNIT-DOSE CUP PO PRN ×2 (03:59→21:18)
[2021-08-15] MEDS: PANTOPRAZOLE 40 MG TABLET PO SCH (06:27)
[2021-08-15] MEDS: NICOTINE 7 MG/24 HOURS TOPICAL PATCH TD SCH (11:00)
[2021-08-15] MEDS: HYDROCHLOROTHIAZIDE 25 MG TABLET (FP) PO SCH (11:00)
[2021-08-15] MEDS: PRENATAL VITAMINS W/ FOLIC ACID TABLET (FP) PO SCH (11:00)
[2021-08-15] MEDS: hydrOXYzine PAMOATE 25 MG CAPSULE (FP) PO PRN ×2 (11:03→21:18)
[2021-08-15] MEDS: DARUNAVIR/COB/EMTRI/TENOF (SYMTUZA) TABLET (NF) PO SCH (12:26)
[2021-08-15] MEDS: NIFEdipine E.R. 30 MG TABLET PO SCH (12:26)
[2021-08-15] MEDS: QUEtiapine FUMARATE 25 MG TABLET PO SCH (21:16)
[2021-08-15] MEDS: THIAMINE HCL 100 MG TABLET (FP) PO SCH (21:16)
[2021-08-16] MEDS: MAG HYDROX/AL HYDROX/SIMETH 30 ML UNIT-DOSE CUP PO PRN (03:20)
[2021-08-16] MEDS: PANTOPRAZOLE 40 MG TABLET PO SCH (06:23)
[2021-08-16] MEDS: DARUNAVIR/COB/EMTRI/TENOF (SYMTUZA) TABLET (NF) PO SCH (07:01)
[2021-08-16] MEDS: HYDROCHLOROTHIAZIDE 25 MG TABLET (FP) PO SCH (09:53)
[2021-08-16] MEDS: PRENATAL VITAMINS W/ FOLIC ACID TABLET (FP) PO SCH (09:53)
[2021-08-16] MEDS: NIFEdipine E.R. 30 MG TABLET PO SCH (09:53)
[2021-08-16] MEDS: NICOTINE 7 MG/24 HOURS TOPICAL PATCH TD SCH (09:53)
[2021-08-16] MEDS: QUEtiapine FUMARATE 25 MG TABLET PO SCH (11:25)
[2021-08-16] MEDS: THIAMINE HCL 100 MG TABLET (FP) PO SCH (21:03)
[2021-08-16] MEDS: hydrOXYzine PAMOATE 25 MG CAPSULE (FP) PO PRN (21:03)
[2021-08-16] MEDS: QUEtiapine FUMARATE 100 MG TABLET (FP) PO SCH (21:04)
[2021-08-17] MEDS: MAG HYDROX/AL HYDROX/SIMETH 30 ML UNIT-DOSE CUP PO PRN ×2 (01:23→17:07)
[2021-08-17] MEDS: PANTOPRAZOLE 40 MG TABLET PO SCH (06:22)
[2021-08-17] MEDS: DARUNAVIR/COB/EMTRI/TENOF (SYMTUZA) TABLET (NF) PO SCH (07:05)
[2021-08-17] MEDS: NIFEdipine E.R. 30 MG TABLET PO SCH (09:51)
[2021-08-17] MEDS: PRENATAL VITAMINS W/ FOLIC ACID TABLET (FP) PO SCH (09:51)
[2021-08-17] MEDS: NICOTINE 7 MG/24 HOURS TOPICAL PATCH TD SCH (09:51)
[2021-08-17] MEDS: QUEtiapine FUMARATE 25 MG TABLET PO SCH (09:51)
[2021-08-17] MEDS: HYDROCHLOROTHIAZIDE 25 MG TABLET (FP) PO SCH (09:51)
[2021-08-17] MEDS ORDERED: BISMUTH SUBSALICYLATE 262 MG/15 ML BTL PO PRN (12:31)
[2021-08-17] MEDS ORDERED: DICYCLOMINE HCL 10 MG CAPSULE PO PRN (12:47)
[2021-08-17] MEDS: METHOCARBAMOL 500 MG TABLET PO PRN (21:03)
[2021-08-17] MEDS: hydrOXYzine PAMOATE 25 MG CAPSULE (FP) PO PRN (21:03)
[2021-08-17] MEDS: THIAMINE HCL 100 MG TABLET (FP) PO SCH (21:03)
[2021-08-17] MEDS: QUEtiapine FUMARATE 100 MG TABLET (FP) PO SCH (21:05)
[2021-08-17 22:21] LABS: PH,URINE 6.5 (5.0-8.0); URINE APPEARANCE CLEAR; URINE BILIRUBIN NEGATIVE (NEGATIVE); URINE COLOR YELLOW; URINE GLUCOSE (UA) NEGATIVE (NEGATIVE); URINE KETONE NEGATIVE (NEGATIVE); URINE LEUK ESTERASE NEGATIVE (NEGATIVE); URINE NITRITE NEGATIVE (NEGATIVE); URINE PROTEIN NEGATIVE (NEGATIVE); URINE UROBILINOGEN 0.2 mg/dL (0.2-1.0)
[2021-08-18] MEDS: MAG HYDROX/AL HYDROX/SIMETH 30 ML UNIT-DOSE CUP PO PRN ×2 (02:28→21:07)
[2021-08-18] MEDS: PANTOPRAZOLE 40 MG TABLET PO SCH (06:04)
[2021-08-18] MEDS: DARUNAVIR/COB/EMTRI/TENOF (SYMTUZA) TABLET (NF) PO SCH (07:55)
[2021-08-18] MEDS: PRENATAL VITAMINS W/ FOLIC ACID TABLET (FP) PO SCH (09:50)
[2021-08-18] MEDS: NICOTINE 7 MG/24 HOURS TOPICAL PATCH TD SCH (09:50)
[2021-08-18] MEDS: HYDROCHLOROTHIAZIDE 25 MG TABLET (FP) PO SCH (09:51)
[2021-08-18] MEDS: QUEtiapine FUMARATE 25 MG TABLET PO SCH (09:51)
[2021-08-18] MEDS: NIFEdipine E.R. 30 MG TABLET PO SCH (10:21)
[2021-08-18] MEDS: THIAMINE HCL 100 MG TABLET (FP) PO SCH (21:05)
[2021-08-18] MEDS: QUEtiapine FUMARATE 100 MG TABLET (FP) PO SCH (21:06)
[2021-08-18] MEDS: METHOCARBAMOL 500 MG TABLET PO PRN (21:06)
[2021-08-18] MEDS: hydrOXYzine PAMOATE 25 MG CAPSULE (FP) PO PRN (21:06)
[2021-08-19] MEDS: PANTOPRAZOLE 40 MG TABLET PO SCH (06:00)
[2021-08-19] MEDS: DARUNAVIR/COB/EMTRI/TENOF (SYMTUZA) TABLET (NF) PO SCH (07:11)
[2021-08-19] MEDS: PRENATAL VITAMINS W/ FOLIC ACID TABLET (FP) PO SCH (09:53)
[2021-08-19] MEDS: QUEtiapine FUMARATE 25 MG TABLET PO SCH (09:54)
[2021-08-19] MEDS: NIFEdipine E.R. 30 MG TABLET PO SCH (09:54)
[2021-08-19] MEDS: NICOTINE 7 MG/24 HOURS TOPICAL PATCH TD SCH (09:54)
[2021-08-19] MEDS: HYDROCHLOROTHIAZIDE 25 MG TABLET (FP) PO SCH (09:54)
[2021-08-19] MEDS: MAG HYDROX/AL HYDROX/SIMETH 30 ML UNIT-DOSE CUP PO PRN ×2 (09:55→21:45)
[2021-08-19 14:08] LABS: SARS-CoV-2 NAA Not Detected (Not Detected)
[2021-08-19] MEDS: QUEtiapine FUMARATE 100 MG TABLET (FP) PO SCH (21:38)
[2021-08-19] MEDS: THIAMINE HCL 100 MG TABLET (FP) PO SCH (21:39)
[2021-08-19] MEDS: hydrOXYzine PAMOATE 25 MG CAPSULE (FP) PO PRN (21:39)
[2021-08-20] MEDS: PANTOPRAZOLE 40 MG TABLET PO SCH (06:26)
[2021-08-20] MEDS: DARUNAVIR/COB/EMTRI/TENOF (SYMTUZA) TABLET (NF) PO SCH (07:00)
[2021-08-20] MEDS: PRENATAL VITAMINS W/ FOLIC ACID TABLET (FP) PO SCH (10:01)
[2021-08-20] MEDS: HYDROCHLOROTHIAZIDE 25 MG TABLET (FP) PO SCH (10:02)
[2021-08-20] MEDS: NIFEdipine E.R. 30 MG TABLET PO SCH (10:02)
[2021-08-20] MEDS: QUEtiapine FUMARATE 25 MG TABLET PO SCH (10:02)
[2021-08-20] MEDS: NICOTINE 7 MG/24 HOURS TOPICAL PATCH TD SCH (10:03)
[2021-08-20] MEDS: MAG HYDROX/AL HYDROX/SIMETH 30 ML UNIT-DOSE CUP PO PRN ×2 (10:05→21:59)
[2021-08-20] MEDS: THIAMINE HCL 100 MG TABLET (FP) PO SCH (21:57)
[2021-08-20] MEDS: hydrOXYzine PAMOATE 25 MG CAPSULE (FP) PO PRN (21:57)
[2021-08-20] MEDS ORDERED: QUEtiapine FUMARATE 100 MG TABLET (FP) PO SCH (22:00)
[2021-08-21] MEDS: PANTOPRAZOLE 40 MG TABLET PO SCH (06:14)
[2021-08-21] MEDS: DARUNAVIR/COB/EMTRI/TENOF (SYMTUZA) TABLET (NF) PO SCH (07:00)
[2021-08-21] MEDS: PRENATAL VITAMINS W/ FOLIC ACID TABLET (FP) PO SCH (09:57)
[2021-08-21] MEDS: NICOTINE 7 MG/24 HOURS TOPICAL PATCH TD SCH (09:57)
[2021-08-21] MEDS: HYDROCHLOROTHIAZIDE 25 MG TABLET (FP) PO SCH (09:57)
[2021-08-21] MEDS: NIFEdipine E.R. 30 MG TABLET PO SCH (09:57)
[2021-08-21] MEDS: QUEtiapine FUMARATE 25 MG TABLET PO SCH ×2 (09:57→21:05)
[2021-08-21] MEDS: MAG HYDROX/AL HYDROX/SIMETH 30 ML UNIT-DOSE CUP PO PRN ×2 (09:59→21:05)
[2021-08-21] MEDS: THIAMINE HCL 100 MG TABLET (FP) PO SCH (21:03)
[2021-08-21] MEDS: hydrOXYzine PAMOATE 25 MG CAPSULE (FP) PO PRN (21:05)
[2021-08-22] MEDS: PANTOPRAZOLE 40 MG TABLET PO SCH (06:19)
[2021-08-22] MEDS: MAG HYDROX/AL HYDROX/SIMETH 30 ML UNIT-DOSE CUP PO PRN ×2 (06:20→21:05)
[2021-08-22] MEDS: DARUNAVIR/COB/EMTRI/TENOF (SYMTUZA) TABLET (NF) PO SCH (08:12)
[2021-08-22] MEDS: NICOTINE 7 MG/24 HOURS TOPICAL PATCH TD SCH (09:29)
[2021-08-22] MEDS: HYDROCHLOROTHIAZIDE 25 MG TABLET (FP) PO SCH (09:29)
[2021-08-22] MEDS: PRENATAL VITAMINS W/ FOLIC ACID TABLET (FP) PO SCH (09:29)
[2021-08-22] MEDS: QUEtiapine FUMARATE 25 MG TABLET PO SCH ×2 (09:29→21:04)
[2021-08-22] MEDS: NIFEdipine E.R. 30 MG TABLET PO SCH (09:29)
[2021-08-22] MEDS: NICOTINE POLACRILEX 2 MG GUM BUC PRN (09:31)
[2021-08-22] MEDS: THIAMINE HCL 100 MG TABLET (FP) PO SCH (21:03)
[2021-08-22] MEDS: hydrOXYzine PAMOATE 25 MG CAPSULE (FP) PO PRN (21:04)
[2021-08-23] MEDS: MAG HYDROX/AL HYDROX/SIMETH 30 ML UNIT-DOSE CUP PO PRN ×2 (03:32→21:06)
[2021-08-23] MEDS: PANTOPRAZOLE 40 MG TABLET PO SCH (06:08)
[2021-08-23] MEDS: DARUNAVIR/COB/EMTRI/TENOF (SYMTUZA) TABLET (NF) PO SCH (08:02)
[2021-08-23] MEDS: HYDROCHLOROTHIAZIDE 25 MG TABLET (FP) PO SCH (09:35)
[2021-08-23] MEDS: hydrOXYzine PAMOATE 25 MG CAPSULE (FP) PO PRN ×2 (09:35→21:05)
[2021-08-23] MEDS: QUEtiapine FUMARATE 25 MG TABLET PO SCH ×2 (09:35→21:05)
[2021-08-23] MEDS: PRENATAL VITAMINS W/ FOLIC ACID TABLET (FP) PO SCH (09:35)
[2021-08-23] MEDS: NIFEdipine E.R. 30 MG TABLET PO SCH (09:35)
[2021-08-23] MEDS: NICOTINE 7 MG/24 HOURS TOPICAL PATCH TD SCH (09:36)
[2021-08-23] MEDS: THIAMINE HCL 100 MG TABLET (FP) PO SCH (21:05)
[2021-08-24] MEDS: PANTOPRAZOLE 40 MG TABLET PO SCH (06:05)
[2021-08-24] MEDS: DARUNAVIR/COB/EMTRI/TENOF (SYMTUZA) TABLET (NF) PO SCH (07:13)
[2021-08-24] MEDS: PRENATAL VITAMINS W/ FOLIC ACID TABLET (FP) PO SCH (09:58)
[2021-08-24] MEDS: HYDROCHLOROTHIAZIDE 25 MG TABLET (FP) PO SCH (09:59)
[2021-08-24] MEDS: NIFEdipine E.R. 30 MG TABLET PO SCH (09:59)
[2021-08-24] MEDS: QUEtiapine FUMARATE 25 MG TABLET PO SCH ×2 (09:59→21:59)
[2021-08-24] MEDS: NICOTINE 7 MG/24 HOURS TOPICAL PATCH TD SCH (10:00)
[2021-08-24] MEDS: NICOTINE POLACRILEX 2 MG GUM BUC PRN (10:01)
[2021-08-24] MEDS: METHOCARBAMOL 500 MG TABLET PO PRN (17:51)
[2021-08-24] MEDS: THIAMINE HCL 100 MG TABLET (FP) PO SCH (21:58)
[2021-08-24] MEDS: hydrOXYzine PAMOATE 25 MG CAPSULE (FP) PO PRN (21:59)
[2021-08-24] MEDS: MAG HYDROX/AL HYDROX/SIMETH 30 ML UNIT-DOSE CUP PO PRN (21:59)
[2021-08-25] MEDS: PANTOPRAZOLE 40 MG TABLET PO SCH (06:16)
[2021-08-25] MEDS: HYDROCHLOROTHIAZIDE 25 MG TABLET (FP) PO SCH (09:49)
[2021-08-25] MEDS: NICOTINE 7 MG/24 HOURS TOPICAL PATCH TD SCH (09:49)
[2021-08-25] MEDS: QUEtiapine FUMARATE 25 MG TABLET PO SCH ×2 (09:49→21:15)
[2021-08-25] MEDS: PRENATAL VITAMINS W/ FOLIC ACID TABLET (FP) PO SCH (09:49)
[2021-08-25] MEDS: NIFEdipine E.R. 30 MG TABLET PO SCH (09:49)
[2021-08-25] MEDS: DARUNAVIR/COB/EMTRI/TENOF (SYMTUZA) TABLET (NF) PO SCH (09:50)
[2021-08-25] MEDS: NICOTINE POLACRILEX 2 MG GUM BUC PRN (09:50)
[2021-08-25] MEDS: THIAMINE HCL 100 MG TABLET (FP) PO SCH (21:15)
[2021-08-25] MEDS: hydrOXYzine PAMOATE 25 MG CAPSULE (FP) PO PRN (21:15)
[2021-08-25] MEDS: MAG HYDROX/AL HYDROX/SIMETH 30 ML UNIT-DOSE CUP PO PRN (21:16)
[2021-08-26] MEDS: PANTOPRAZOLE 40 MG TABLET PO SCH (06:11)
[2021-08-26] MEDS: DARUNAVIR/COB/EMTRI/TENOF (SYMTUZA) TABLET (NF) PO SCH (07:09)
[2021-08-26] MEDS: HYDROCHLOROTHIAZIDE 25 MG TABLET (FP) PO SCH (09:50)
[2021-08-26] MEDS: NIFEdipine E.R. 30 MG TABLET PO SCH (09:50)
[2021-08-26] MEDS: NICOTINE 7 MG/24 HOURS TOPICAL PATCH TD SCH (09:50)
[2021-08-26] MEDS: QUEtiapine FUMARATE 25 MG TABLET PO SCH ×2 (09:50→21:18)
[2021-08-26] MEDS: PRENATAL VITAMINS W/ FOLIC ACID TABLET (FP) PO SCH (09:50)
[2021-08-26] MEDS: IBUPROFEN 400 MG TABLET (FP) PO PRN (17:13)
[2021-08-26] MEDS: THIAMINE HCL 100 MG TABLET (FP) PO SCH (21:18)
[2021-08-26] MEDS: hydrOXYzine PAMOATE 25 MG CAPSULE (FP) PO PRN (21:18)
[2021-08-27] MEDS: MAG HYDROX/AL HYDROX/SIMETH 30 ML UNIT-DOSE CUP PO PRN ×3 (00:45→21:17)
[2021-08-27] MEDS: PANTOPRAZOLE 40 MG TABLET PO SCH (06:00)
[2021-08-27] MEDS: DARUNAVIR/COB/EMTRI/TENOF (SYMTUZA) TABLET (NF) PO SCH (07:46)
[2021-08-27] MEDS: NICOTINE 7 MG/24 HOURS TOPICAL PATCH TD SCH (10:00)
[2021-08-27] MEDS: PRENATAL VITAMINS W/ FOLIC ACID TABLET (FP) PO SCH (10:00)
[2021-08-27] MEDS: NIFEdipine E.R. 30 MG TABLET PO SCH (10:01)
[2021-08-27] MEDS: QUEtiapine FUMARATE 25 MG TABLET PO SCH ×2 (10:02→21:16)
[2021-08-27] MEDS: HYDROCHLOROTHIAZIDE 25 MG TABLET (FP) PO SCH (10:02)
[2021-08-27] MEDS: NALTREXONE HCL 50 MG TABLET PO SCH (12:46)
[2021-08-27] MEDS: THIAMINE HCL 100 MG TABLET (FP) PO SCH (21:15)
[2021-08-28] MEDS: PANTOPRAZOLE 40 MG TABLET PO SCH (06:07)
[2021-08-28] MEDS: DARUNAVIR/COB/EMTRI/TENOF (SYMTUZA) TABLET (NF) PO SCH (07:05)
[2021-08-28] MEDS: NICOTINE 7 MG/24 HOURS TOPICAL PATCH TD SCH (10:07)
[2021-08-28] MEDS: NALTREXONE HCL 50 MG TABLET PO SCH (10:07)
[2021-08-28] MEDS: HYDROCHLOROTHIAZIDE 25 MG TABLET (FP) PO SCH (10:07)
[2021-08-28] MEDS: PRENATAL VITAMINS W/ FOLIC ACID TABLET (FP) PO SCH (10:07)
[2021-08-28] MEDS: QUEtiapine FUMARATE 25 MG TABLET PO SCH ×2 (10:07→21:23)
[2021-08-28] MEDS: NIFEdipine E.R. 30 MG TABLET PO SCH (10:08)
[2021-08-28] MEDS: NICOTINE POLACRILEX 2 MG GUM BUC PRN (10:08)
[2021-08-28] MEDS: hydrOXYzine PAMOATE 25 MG CAPSULE (FP) PO PRN (21:22)
[2021-08-28] MEDS: THIAMINE HCL 100 MG TABLET (FP) PO SCH (21:22)
[2021-08-28] MEDS: MAG HYDROX/AL HYDROX/SIMETH 30 ML UNIT-DOSE CUP PO PRN (21:24)
[2021-08-29] MEDS: PANTOPRAZOLE 40 MG TABLET PO SCH (06:09)
[2021-08-29] MEDS: DARUNAVIR/COB/EMTRI/TENOF (SYMTUZA) TABLET (NF) PO SCH (07:07)
[2021-08-29] MEDS: NICOTINE 7 MG/24 HOURS TOPICAL PATCH TD SCH (10:26)
[2021-08-29] MEDS: NIFEdipine E.R. 30 MG TABLET PO SCH (10:26)
[2021-08-29] MEDS: PRENATAL VITAMINS W/ FOLIC ACID TABLET (FP) PO SCH (10:26)
[2021-08-29] MEDS: NALTREXONE HCL 50 MG TABLET PO SCH (10:26)
[2021-08-29] MEDS: HYDROCHLOROTHIAZIDE 25 MG TABLET (FP) PO SCH (10:26)
[2021-08-29] MEDS: QUEtiapine FUMARATE 25 MG TABLET PO SCH ×2 (10:26→21:57)
[2021-08-29] MEDS: MAG HYDROX/AL HYDROX/SIMETH 30 ML UNIT-DOSE CUP PO PRN (21:58)
[2021-08-29] MEDS: THIAMINE HCL 100 MG TABLET (FP) PO SCH (21:58)
[2021-08-29] MEDS: hydrOXYzine PAMOATE 25 MG CAPSULE (FP) PO PRN (21:58)
[2021-08-30] MEDS: PANTOPRAZOLE 40 MG TABLET PO SCH (06:08)
[2021-08-30] MEDS: DARUNAVIR/COB/EMTRI/TENOF (SYMTUZA) TABLET (NF) PO SCH (07:42)
[2021-08-30] MEDS: NIFEdipine E.R. 30 MG TABLET PO SCH (10:05)
[2021-08-30] MEDS: PRENATAL VITAMINS W/ FOLIC ACID TABLET (FP) PO SCH (10:05)
[2021-08-30] MEDS: NICOTINE 7 MG/24 HOURS TOPICAL PATCH TD SCH (10:05)
[2021-08-30] MEDS: MAG HYDROX/AL HYDROX/SIMETH 30 ML UNIT-DOSE CUP PO PRN ×2 (10:07→22:10)
[2021-08-30] MEDS: HYDROCHLOROTHIAZIDE 25 MG TABLET (FP) PO SCH (10:07)
[2021-08-30] MEDS: NALTREXONE HCL 50 MG TABLET PO SCH (10:08)
[2021-08-30] MEDS: QUEtiapine FUMARATE 25 MG TABLET PO SCH ×2 (10:09→22:10)
[2021-08-30] MEDS: NICOTINE POLACRILEX 2 MG GUM BUC PRN (10:09)
[2021-08-30] MEDS: THIAMINE HCL 100 MG TABLET (FP) PO SCH (22:09)
[2021-08-30] MEDS: hydrOXYzine PAMOATE 25 MG CAPSULE (FP) PO PRN (22:10)
[2021-08-31] MEDS: MAG HYDROX/AL HYDROX/SIMETH 30 ML UNIT-DOSE CUP PO PRN ×2 (03:49→21:28)
[2021-08-31] MEDS: PANTOPRAZOLE 40 MG TABLET PO SCH (06:06)
[2021-08-31] MEDS: DARUNAVIR/COB/EMTRI/TENOF (SYMTUZA) TABLET (NF) PO SCH (07:24)
[2021-08-31] MEDS: QUEtiapine FUMARATE 25 MG TABLET PO SCH ×2 (10:12→21:27)
[2021-08-31] MEDS: HYDROCHLOROTHIAZIDE 25 MG TABLET (FP) PO SCH (10:12)
[2021-08-31] MEDS: PRENATAL VITAMINS W/ FOLIC ACID TABLET (FP) PO SCH (10:12)
[2021-08-31] MEDS: NICOTINE 7 MG/24 HOURS TOPICAL PATCH TD SCH (10:12)
[2021-08-31] MEDS: NALTREXONE HCL 50 MG TABLET PO SCH (10:12)
[2021-08-31] MEDS: NIFEdipine E.R. 30 MG TABLET PO SCH (10:12)
[2021-08-31] MEDS: NICOTINE POLACRILEX 2 MG GUM BUC PRN (10:14)
[2021-08-31] MEDS: THIAMINE HCL 100 MG TABLET (FP) PO SCH (21:26)
[2021-08-31] MEDS: hydrOXYzine PAMOATE 25 MG CAPSULE (FP) PO PRN (21:27)
[2021-09-01] MEDS: PANTOPRAZOLE 40 MG TABLET PO SCH (06:02)
[2021-09-01] MEDS: DARUNAVIR/COB/EMTRI/TENOF (SYMTUZA) TABLET (NF) PO SCH (07:11)
[2021-09-01] MEDS: PRENATAL VITAMINS W/ FOLIC ACID TABLET (FP) PO SCH (09:52)
[2021-09-01] MEDS: NIFEdipine E.R. 30 MG TABLET PO SCH (09:53)
[2021-09-01] MEDS: NICOTINE 7 MG/24 HOURS TOPICAL PATCH TD SCH (09:53)
[2021-09-01] MEDS: HYDROCHLOROTHIAZIDE 25 MG TABLET (FP) PO SCH (09:53)
[2021-09-01] MEDS: QUEtiapine FUMARATE 25 MG TABLET PO SCH ×2 (09:53→21:40)
[2021-09-01] MEDS: NALTREXONE HCL 50 MG TABLET PO SCH (09:53)
[2021-09-01] MEDS: hydrOXYzine PAMOATE 25 MG CAPSULE (FP) PO PRN (21:40)
[2021-09-01] MEDS: THIAMINE HCL 100 MG TABLET (FP) PO SCH (21:40)
[2021-09-01] MEDS: MAG HYDROX/AL HYDROX/SIMETH 30 ML UNIT-DOSE CUP PO PRN (21:41)
[2021-09-02] MEDS: PANTOPRAZOLE 40 MG TABLET PO SCH (06:05)
[2021-09-02] MEDS: DARUNAVIR/COB/EMTRI/TENOF (SYMTUZA) TABLET (NF) PO SCH (07:09)
[2021-09-02] MEDS: QUEtiapine FUMARATE 25 MG TABLET PO SCH ×3 (09:54→21:22)
[2021-09-02] MEDS: PRENATAL VITAMINS W/ FOLIC ACID TABLET (FP) PO SCH (09:54)
[2021-09-02] MEDS: NALTREXONE HCL 50 MG TABLET PO SCH (09:54)
[2021-09-02] MEDS: NICOTINE 7 MG/24 HOURS TOPICAL PATCH TD SCH (09:54)
[2021-09-02] MEDS: HYDROCHLOROTHIAZIDE 25 MG TABLET (FP) PO SCH (09:54)
[2021-09-02] MEDS: NIFEdipine E.R. 30 MG TABLET PO SCH (09:55)
[2021-09-02] MEDS: NICOTINE POLACRILEX 2 MG GUM BUC PRN (09:55)
[2021-09-02] MEDS: THIAMINE HCL 100 MG TABLET (FP) PO SCH (21:21)
[2021-09-02] MEDS: hydrOXYzine PAMOATE 25 MG CAPSULE (FP) PO PRN (21:22)
[2021-09-02] MEDS: MAG HYDROX/AL HYDROX/SIMETH 30 ML UNIT-DOSE CUP PO PRN (21:23)
[2021-09-03] MEDS: QUEtiapine FUMARATE 25 MG TABLET PO SCH ×3 (06:07→21:33)
[2021-09-03] MEDS: PANTOPRAZOLE 40 MG TABLET PO SCH (06:07)
[2021-09-03] MEDS: DARUNAVIR/COB/EMTRI/TENOF (SYMTUZA) TABLET (NF) PO SCH (07:06)
[2021-09-03] MEDS: NIFEdipine E.R. 30 MG TABLET PO SCH (10:17)
[2021-09-03] MEDS: HYDROCHLOROTHIAZIDE 25 MG TABLET (FP) PO SCH (10:17)
[2021-09-03] MEDS: PRENATAL VITAMINS W/ FOLIC ACID TABLET (FP) PO SCH (10:17)
[2021-09-03] MEDS: NICOTINE 7 MG/24 HOURS TOPICAL PATCH TD SCH (10:17)
[2021-09-03] MEDS: NALTREXONE HCL 50 MG TABLET PO SCH (10:17)
[2021-09-03] MEDS: NICOTINE POLACRILEX 2 MG GUM BUC PRN (10:18)
[2021-09-03] MEDS: MAG HYDROX/AL HYDROX/SIMETH 30 ML UNIT-DOSE CUP PO PRN (21:33)
[2021-09-03] MEDS: THIAMINE HCL 100 MG TABLET (FP) PO SCH (21:33)
[2021-09-03] MEDS: hydrOXYzine PAMOATE 25 MG CAPSULE (FP) PO PRN (21:34)
[2021-09-04] MEDS: QUEtiapine FUMARATE 25 MG TABLET PO SCH ×3 (06:35→21:41)
[2021-09-04] MEDS: PANTOPRAZOLE 40 MG TABLET PO SCH (06:35)
[2021-09-04] MEDS: DARUNAVIR/COB/EMTRI/TENOF (SYMTUZA) TABLET (NF) PO SCH (07:06)
[2021-09-04] MEDS: NALTREXONE HCL 50 MG TABLET PO SCH (09:26)
[2021-09-04] MEDS: HYDROCHLOROTHIAZIDE 25 MG TABLET (FP) PO SCH (09:26)
[2021-09-04] MEDS: NIFEdipine E.R. 30 MG TABLET PO SCH (09:26)
[2021-09-04] MEDS: PRENATAL VITAMINS W/ FOLIC ACID TABLET (FP) PO SCH (09:26)
[2021-09-04] MEDS: MAG HYDROX/AL HYDROX/SIMETH 30 ML UNIT-DOSE CUP PO PRN ×2 (09:26→21:41)
[2021-09-04] MEDS: NICOTINE 7 MG/24 HOURS TOPICAL PATCH TD SCH (09:27)
[2021-09-04] MEDS: THIAMINE HCL 100 MG TABLET (FP) PO SCH (21:41)
[2021-09-04] MEDS: hydrOXYzine PAMOATE 25 MG CAPSULE (FP) PO PRN (21:41)
[2021-09-05] MEDS: QUEtiapine FUMARATE 25 MG TABLET PO SCH ×3 (05:58→21:22)
[2021-09-05] MEDS: IBUPROFEN 400 MG TABLET (FP) PO PRN (05:58)
[2021-09-05] MEDS: guaiFENesin 200 MG/10 ML 10 ML UNIT-DOSE CUPS PO PRN ×2 (06:00→13:17)
[2021-09-05] MEDS: PANTOPRAZOLE 40 MG TABLET PO SCH (06:00)
[2021-09-05] MEDS: DARUNAVIR/COB/EMTRI/TENOF (SYMTUZA) TABLET (NF) PO SCH (07:14)
[2021-09-05] MEDS: PRENATAL VITAMINS W/ FOLIC ACID TABLET (FP) PO SCH (10:12)
[2021-09-05] MEDS: NICOTINE 7 MG/24 HOURS TOPICAL PATCH TD SCH (10:12)
[2021-09-05] MEDS: NALTREXONE HCL 50 MG TABLET PO SCH (10:12)
[2021-09-05] MEDS: NIFEdipine E.R. 30 MG TABLET PO SCH (10:12)
[2021-09-05] MEDS: HYDROCHLOROTHIAZIDE 25 MG TABLET (FP) PO SCH (10:12)
[2021-09-05] MEDS: MAG HYDROX/AL HYDROX/SIMETH 30 ML UNIT-DOSE CUP PO PRN ×2 (10:16→16:23)
[2021-09-05] MEDS: hydrOXYzine PAMOATE 25 MG CAPSULE (FP) PO PRN (21:22)
[2021-09-05] MEDS: THIAMINE HCL 100 MG TABLET (FP) PO SCH (21:23)
[2021-09-06] MEDS: PANTOPRAZOLE 40 MG TABLET PO SCH (06:10)
[2021-09-06] MEDS: QUEtiapine FUMARATE 25 MG TABLET PO SCH ×3 (06:10→21:48)
[2021-09-06] MEDS: DARUNAVIR/COB/EMTRI/TENOF (SYMTUZA) TABLET (NF) PO SCH (07:05)
[2021-09-06] MEDS: NICOTINE 7 MG/24 HOURS TOPICAL PATCH TD SCH (09:54)
[2021-09-06] MEDS: PRENATAL VITAMINS W/ FOLIC ACID TABLET (FP) PO SCH (09:54)
[2021-09-06] MEDS: HYDROCHLOROTHIAZIDE 25 MG TABLET (FP) PO SCH (09:55)
[2021-09-06] MEDS: NALTREXONE HCL 50 MG TABLET PO SCH (09:55)
[2021-09-06] MEDS: NIFEdipine E.R. 30 MG TABLET PO SCH (09:56)
[2021-09-06] MEDS: guaiFENesin 200 MG/10 ML 10 ML UNIT-DOSE CUPS PO PRN ×3 (09:57→22:31)
[2021-09-06] MEDS: hydrOXYzine PAMOATE 25 MG CAPSULE (FP) PO PRN (21:48)
[2021-09-06] MEDS: THIAMINE HCL 100 MG TABLET (FP) PO SCH (21:48)
[2021-09-07] MEDS: PANTOPRAZOLE 40 MG TABLET PO SCH (06:10)
[2021-09-07] MEDS: QUEtiapine FUMARATE 25 MG TABLET PO SCH ×3 (06:10→22:05)
[2021-09-07 06:55] VITALS: TEMP 96.9
[2021-09-07] MEDS: DARUNAVIR/COB/EMTRI/TENOF (SYMTUZA) TABLET (NF) PO SCH (07:40)
[2021-09-07] MEDS: HYDROCHLOROTHIAZIDE 25 MG TABLET (FP) PO SCH (10:07)
[2021-09-07] MEDS: PRENATAL VITAMINS W/ FOLIC ACID TABLET (FP) PO SCH (10:07)
[2021-09-07] MEDS: NIFEdipine E.R. 30 MG TABLET PO SCH (10:07)
[2021-09-07] MEDS: NALTREXONE HCL 50 MG TABLET PO SCH (10:07)
[2021-09-07] MEDS: NICOTINE 7 MG/24 HOURS TOPICAL PATCH TD SCH (10:08)
[2021-09-07] MEDS: guaiFENesin 200 MG/10 ML 10 ML UNIT-DOSE CUPS PO PRN (10:11)
[2021-09-07] MEDS ORDERED: NALTREXONE MICROSPHERES (VIVITROL) 380 MG DISP.SYRIN IM ONE (13:00)
[2021-09-07] MEDS: MAG HYDROX/AL HYDROX/SIMETH 30 ML UNIT-DOSE CUP PO PRN (22:05)
[2021-09-07] MEDS: hydrOXYzine PAMOATE 25 MG CAPSULE (FP) PO PRN (22:05)
[2021-09-07] MEDS: THIAMINE HCL 100 MG TABLET (FP) PO SCH (22:05)
[2021-09-08] MEDS: PANTOPRAZOLE 40 MG TABLET PO SCH (06:11)
[2021-09-08] MEDS: QUEtiapine FUMARATE 25 MG TABLET PO SCH (06:11)
[2021-09-08] MEDS: DARUNAVIR/COB/EMTRI/TENOF (SYMTUZA) TABLET (NF) PO SCH (07:03)
[2021-09-08 09:43] VITALS: BP 135/84; PULSE 107
== END 2021-09-08 09:02 | disposition home or self-care (01) | DRG 772 ==
LOC: YASAS 14:24 → Y5N 14:26
PROVIDERS: ADMIT Allergy & Immunology; ATTEND Allergy & Immunology
PROC: HZ42ZZZ Group Counseling for Substance Abuse Treatment, Cognitive-Behavioral (ICD-10-PCS; principal; 2021-08-14)
DX: F10.20 Alcohol dependence, uncomplicated (principal); F14.20 Cocaine dependence, uncomplicated; F13.20 Sedative, hypnotic or anxiolytic dependence, uncomplicated; F12.20 Cannabis dependence, uncomplicated; F17.210 Nicotine dependence, cigarettes, uncomplicated; F33.1 Major depressive disorder, recurrent, moderate; F19.24 Other psychoactive substance dependence with psychoactive substance-induced mood disorder; F43.10 Post-traumatic stress disorder, unspecified; F30.10 Manic episode without psychotic symptoms, unspecified; R44.3 Hallucinations, unspecified; Z21 Asymptomatic human immunodeficiency virus [HIV] infection status; E78.5 Hyperlipidemia, unspecified; I10 Essential (primary) hypertension; K21.9 Gastro-esophageal reflux disease without esophagitis; Z62.810 Personal history of physical and sexual abuse in childhood; E66.9 Obesity, unspecified; Z68.35 Body mass index [BMI] 35.0-35.9, adult; Z86.19 Personal history of other infectious and parasitic diseases
CPT/HCPCS: 81003; 82962; 87086; C9803-CS; J2315; U0003; U0005

== ENCOUNTER 2021-10-15 12:47 | Inpatient (IN) | payer OTHER ==
[2021-10-15 13:30] VITALS: BMI 35.6
[2021-10-15] MEDS ORDERED: MAGNESIUM CITRATE 300 ML BOTTLE PO PRN (14:38)
[2021-10-15] MEDS ORDERED: MAGNESIUM HYDROX 2400MG/30ML ORAL SUSPENSION 30 ML CUP PO PRN (14:38)
[2021-10-15] MEDS ORDERED: NICOTINE 10 MG CARTRIDGE (INHALER) IH PRN (14:38)
[2021-10-15] MEDS ORDERED: ACETAMINOPHEN 325 MG TABLET (FP) PO PRN ×2 (14:38)
[2021-10-15] MEDS ORDERED: MAG HYDROX/AL HYDROX/SIMETH 30 ML UNIT-DOSE CUP PO PRN (14:38)
[2021-10-15] MEDS ORDERED: DICYCLOMINE HCL 10 MG CAPSULE PO PRN (14:38)
[2021-10-15] MEDS ORDERED: IBUPROFEN 400 MG TABLET (FP) PO PRN (14:38)
[2021-10-15] MEDS ORDERED: BENZOCAINE/MENTHOL (CHLORASEPTIC ) LOZENGE MM PRN (14:38)
[2021-10-15] MEDS ORDERED: IBUPROFEN 600 MG TABLET (FP) PO PRN (14:38)
[2021-10-15] MEDS ORDERED: BISMUTH SUBSALICYLATE 262 MG/15 ML BTL PO PRN (14:38)
[2021-10-15] MEDS ORDERED: chlordiazePOXIDE HCL 25 MG CAPSULE PO PRN (14:38)
[2021-10-15] MEDS ORDERED: LOPERAMIDE HCL 2 MG CAPSULE PO PRN (14:38)
[2021-10-15] MEDS ORDERED: chlordiazePOXIDE HCL 25 MG CAPSULE ONE (15:20)
[2021-10-15] MEDS: chlordiazePOXIDE HCL 25 MG CAPSULE PO SCH ×2 (17:33→22:36)
[2021-10-15] MEDS: hydrOXYzine PAMOATE 25 MG CAPSULE (FP) PO SCH ×2 (17:33→22:37)
[2021-10-15] MEDS: METHOCARBAMOL 500 MG TABLET PO PRN (17:34)
[2021-10-15] MEDS: MELATONIN 5 MG TABLETS PO SCH (22:36)
[2021-10-15] MEDS: THIAMINE HCL 100 MG TABLET (FP) PO SCH (22:36)
[2021-10-16] MEDS: chlordiazePOXIDE HCL 25 MG CAPSULE PO SCH ×4 (05:44→22:38)
[2021-10-16] MEDS: PANTOPRAZOLE 40 MG TABLET PO SCH ×2 (05:44→10:44)
[2021-10-16] MEDS: hydrOXYzine PAMOATE 25 MG CAPSULE (FP) PO SCH ×5 (05:45→22:37)
[2021-10-16] MEDS: METHOCARBAMOL 500 MG TABLET PO PRN ×2 (05:45→17:36)
[2021-10-16 10:21] LABS: HEMOGLOBIN 14.2 GM/dL (11.7-16.9); MCH 25.8 pg (25.7-33.7); MCHC 32.4 g/dl (32.0-35.9); MEAN CELL VOLUME 79.9 fl (80-96); MEAN PLT VOLUME 9.3 fl (7.5-11.1); PLATELET COUNT 164 10^3/uL (134-434); RDW 20.2 % (11.9-15.9); WHITE BLOOD COUNT 3.6 K/mm3 (4.0-10.0)
[2021-10-16 10:31] LABS: CALCIUM 9.2 mg/dL (8.5-10.1)
[2021-10-16 10:32] LABS: ALBUMIN 3.9 g/dl (3.4-5.0); BLOOD UREA NITROGEN 12.6 mg/dL (7-18)
[2021-10-16 10:34] LABS: CREATININE 1.4 mg/dL (0.55-1.3)
[2021-10-16 10:36] LABS: BILIRUBIN,TOTAL 0.5 mg/dL (0.2-1); TOT PROT 7.7 g/dl (6.4-8.2)
[2021-10-16] MEDS: NIFEdipine E.R. 30 MG TABLET PO SCH (10:44)
[2021-10-16] MEDS: PRENATAL VITAMINS W/ FOLIC ACID TABLET (FP) PO SCH (10:44)
[2021-10-16] MEDS: DARUNAVIR/COB/EMTRI/TENOF (SYMTUZA) TABLET (NF) PO SCH (10:44)
[2021-10-16] MEDS: HYDROCHLOROTHIAZIDE 25 MG TABLET (FP) PO SCH (10:45)
[2021-10-16] MEDS ORDERED: QUEtiapine FUMARATE 25 MG TABLET PO ONE (11:01)
[2021-10-16] MEDS: QUEtiapine FUMARATE 25 MG TABLET PO SCH ×2 (15:02→22:37)
[2021-10-16] MEDS: METHYL SALICYLATE/MENTHOL OINT 30 GM TUBE TP SCH ×2 (15:02→22:37)
[2021-10-16] MEDS: ONDANSETRON *ODT* 4 MG TABLET SL PRN (20:00)
[2021-10-16] MEDS: MELATONIN 5 MG TABLETS PO SCH (22:38)
[2021-10-16] MEDS: THIAMINE HCL 100 MG TABLET (FP) PO SCH (23:10)
[2021-10-17] MEDS: ONDANSETRON *ODT* 4 MG TABLET SL PRN (02:19)
[2021-10-17] MEDS: chlordiazePOXIDE HCL 25 MG CAPSULE PO SCH ×4 (06:13→22:37)
[2021-10-17] MEDS: QUEtiapine FUMARATE 25 MG TABLET PO SCH ×3 (06:14→22:36)
[2021-10-17] MEDS: hydrOXYzine PAMOATE 25 MG CAPSULE (FP) PO SCH ×5 (06:14→22:36)
[2021-10-17] MEDS: DARUNAVIR/COB/EMTRI/TENOF (SYMTUZA) TABLET (NF) PO SCH (07:00)
[2021-10-17] MEDS: PANTOPRAZOLE 40 MG TABLET PO SCH (07:03)
[2021-10-17] MEDS: PRENATAL VITAMINS W/ FOLIC ACID TABLET (FP) PO SCH (11:13)
[2021-10-17] MEDS: NIFEdipine E.R. 30 MG TABLET PO SCH (11:13)
[2021-10-17] MEDS: HYDROCHLOROTHIAZIDE 25 MG TABLET (FP) PO SCH (11:13)
[2021-10-17] MEDS: METHYL SALICYLATE/MENTHOL OINT 30 GM TUBE TP SCH ×2 (12:05→22:35)
[2021-10-17] MEDS: MELATONIN 5 MG TABLETS PO SCH (22:36)
[2021-10-17] MEDS: THIAMINE HCL 100 MG TABLET (FP) PO SCH (22:36)
[2021-10-17] MEDS: METHOCARBAMOL 500 MG TABLET PO PRN (22:40)
[2021-10-18] MEDS ORDERED: chlordiazePOXIDE HCL 10 MG CAPSULE PO PRN
[2021-10-18] MEDS: METHOCARBAMOL 500 MG TABLET PO PRN ×2 (05:57→11:17)
[2021-10-18] MEDS: PANTOPRAZOLE 40 MG TABLET PO SCH (05:58)
[2021-10-18] MEDS: QUEtiapine FUMARATE 25 MG TABLET PO SCH ×2 (05:58→13:36)
[2021-10-18] MEDS: chlordiazePOXIDE HCL 10 MG CAPSULE PO SCH ×2 (05:58→10:38)
[2021-10-18] MEDS: hydrOXYzine PAMOATE 25 MG CAPSULE (FP) PO SCH ×3 (05:58→13:36)
[2021-10-18] MEDS: DARUNAVIR/COB/EMTRI/TENOF (SYMTUZA) TABLET (NF) PO SCH (07:24)
[2021-10-18] MEDS: HYDROCHLOROTHIAZIDE 25 MG TABLET (FP) PO SCH (10:38)
[2021-10-18] MEDS: PRENATAL VITAMINS W/ FOLIC ACID TABLET (FP) PO SCH (10:38)
[2021-10-18] MEDS: METHYL SALICYLATE/MENTHOL OINT 30 GM TUBE TP SCH (10:42)
[2021-10-18] MEDS: NIFEdipine E.R. 30 MG TABLET PO SCH (10:56)
[2021-10-18] MEDS ORDERED: LIDOCAINE VISCOUS 2% ORAL/TOP 15 ML UNIT-DOSE CUP MM PRN (13:07)
[2021-10-18 13:39] VITALS: BP 120/73; PULSE 107; TEMP 97.9
[2021-10-19] MEDS ORDERED: chlordiazePOXIDE HCL 10 MG CAPSULE PO SCH (05:00)
[2021-10-20] MEDS ORDERED: chlordiazePOXIDE HCL 10 MG CAPSULE PO ONE (05:00)
== END 2021-10-18 16:30 | disposition left against medical advice (07) | DRG 770 ==
LOC: YASAS 12:47 → Y3N 15:19
PROVIDERS: ADMIT Allergy & Immunology; ATTEND Psychiatry & Neurology Psychiatry
PROC: HZ2ZZZZ Detoxification Services for Substance Abuse Treatment (ICD-10-PCS; principal; 2021-10-15)
DX: F10.230 Alcohol dependence with withdrawal, uncomplicated (principal); F12.20 Cannabis dependence, uncomplicated; F17.210 Nicotine dependence, cigarettes, uncomplicated; I10 Essential (primary) hypertension; Z21 Asymptomatic human immunodeficiency virus [HIV] infection status; K21.9 Gastro-esophageal reflux disease without esophagitis; E78.2 Mixed hyperlipidemia; K02.9 Dental caries, unspecified; G47.00 Insomnia, unspecified; Z91.013 Allergy to seafood; Z62.810 Personal history of physical and sexual abuse in childhood; Z91.14 Patient's other noncompliance with medication regimen; Z86.19 Personal history of other infectious and parasitic diseases; Z86.69 Personal history of other diseases of the nervous system and sense organs; Z56.0 Unemployment, unspecified
CPT/HCPCS: 36415; 80053; 85027; 86593; 86780; 87811; C9803-CS; Q0162; U0003; U0005

== ENCOUNTER 2021-12-21 17:14 | Inpatient (IN) | payer OTHER ==
[2021-12-21 17:46] VITALS: BMI 36.8
[2021-12-21] MEDS ORDERED: MAGNESIUM HYDROX 2400MG/30ML ORAL SUSPENSION 30 ML CUP PO PRN (19:44)
[2021-12-21] MEDS ORDERED: MAG HYDROX/AL HYDROX/SIMETH 30 ML UNIT-DOSE CUP PO PRN (19:44)
[2021-12-21] MEDS ORDERED: MAGNESIUM CITRATE 300 ML BOTTLE PO PRN (19:44)
[2021-12-21] MEDS ORDERED: ACETAMINOPHEN 325 MG TABLET (FP) PO PRN ×2 (19:44)
[2021-12-21] MEDS ORDERED: LOPERAMIDE HCL 2 MG CAPSULE PO PRN (19:44)
[2021-12-21] MEDS ORDERED: BISMUTH SUBSALICYLATE 524 MG/30 ML PO PRN (19:44)
[2021-12-21] MEDS ORDERED: DICYCLOMINE HCL 10 MG CAPSULE PO PRN (19:44)
[2021-12-21] MEDS ORDERED: IBUPROFEN 600 MG TABLET (FP) PO PRN (19:44)
[2021-12-21] MEDS ORDERED: IBUPROFEN 400 MG TABLET (FP) PO PRN (19:44)
[2021-12-21] MEDS ORDERED: P-EPHED 60MG/TRIPROLIDI 2.5MG TABLET PO PRN (19:44)
[2021-12-21] MEDS ORDERED: BENZOCAINE/MENTHOL (CHLORASEPTIC ) LOZENGE MM PRN (19:44)
[2021-12-21] MEDS ORDERED: NICOTINE POLACRILEX 2 MG GUM BUC PRN (19:44)
[2021-12-21] MEDS ORDERED: guaiFENesin 200 MG/10 ML 10 ML UNIT-DOSE CUPS PO PRN (19:44)
[2021-12-21] MEDS ORDERED: chlordiazePOXIDE HCL 25 MG CAPSULE PO PRN (19:46)
[2021-12-21] MEDS: MELATONIN 5 MG TABLETS PO PRN (22:16)
[2021-12-21] MEDS: chlordiazePOXIDE HCL 25 MG CAPSULE PO SCH (22:17)
[2021-12-21] MEDS ORDERED: METOPROLOL TARTRATE 50 MG TABLET (FP) PO ONE (22:53)
[2021-12-21] MEDS: THIAMINE HCL 100 MG TABLET (FP) PO SCH (23:13)
[2021-12-22] MEDS: chlordiazePOXIDE HCL 25 MG CAPSULE PO SCH ×4 (05:35→22:07)
[2021-12-22] MEDS: METHOCARBAMOL 500 MG TABLET PO PRN ×3 (05:35→22:08)
[2021-12-22] MEDS: PRENATAL VITAMINS W/ FOLIC ACID TABLET (FP) PO SCH (10:07)
[2021-12-22] MEDS: HYDROCHLOROTHIAZIDE 25 MG TABLET (FP) PO SCH (11:34)
[2021-12-22] MEDS: DARUNAVIR/COB/EMTRI/TENOF (SYMTUZA) TABLET (NF) PO SCH (11:35)
[2021-12-22 12:42] LABS: HEMATOCRIT 44.6 % (35.4-49); HEMOGLOBIN 14.2 GM/dL (11.7-16.9); MCH 27.3 pg (25.7-33.7); MCHC 31.9 g/dl (32.0-35.9); MEAN CELL VOLUME 85.5 fl (80-96); MEAN PLT VOLUME 8.9 fl (7.5-11.1); PLATELET COUNT 214 10^3/uL (134-434); RBC 5.21 M/mm3 (4.00-5.60); RDW 18.5 % (11.9-15.9); WHITE BLOOD COUNT 5.8 K/mm3 (4.0-10.0)
[2021-12-22 13:27] LABS: ALBUMIN 3.8 g/dl (3.4-5.0); BLOOD UREA NITROGEN 12.9 mg/dL (7-18); CALCIUM 8.9 mg/dL (8.5-10.1)
[2021-12-22 13:29] LABS: TOT PROT 7.5 g/dl (6.4-8.2)
[2021-12-22 13:30] LABS: CREATININE 1.2 mg/dL (0.55-1.3)
[2021-12-22 13:32] LABS: BILIRUBIN,TOTAL 0.4 mg/dL (0.2-1)
[2021-12-22] MEDS: hydrOXYzine PAMOATE 25 MG CAPSULE (FP) PO PRN (13:54)
[2021-12-22] MEDS: MELATONIN 5 MG TABLETS PO PRN (22:07)
[2021-12-22] MEDS: THIAMINE HCL 100 MG TABLET (FP) PO SCH (22:07)
[2021-12-23] MEDS: METHOCARBAMOL 500 MG TABLET PO PRN ×2 (06:07→18:18)
[2021-12-23] MEDS: chlordiazePOXIDE HCL 25 MG CAPSULE PO SCH ×4 (06:07→22:06)
[2021-12-23] MEDS: hydrOXYzine PAMOATE 25 MG CAPSULE (FP) PO PRN ×3 (06:08→22:06)
[2021-12-23] MEDS: DARUNAVIR/COB/EMTRI/TENOF (SYMTUZA) TABLET (NF) PO SCH (07:31)
[2021-12-23 08:10] VITALS: RESP 18
[2021-12-23] MEDS: PRENATAL VITAMINS W/ FOLIC ACID TABLET (FP) PO SCH (10:32)
[2021-12-23] MEDS: HYDROCHLOROTHIAZIDE 25 MG TABLET (FP) PO SCH (10:33)
[2021-12-23] MEDS: ONDANSETRON *ODT* 4 MG TABLET SL PRN (10:36)
[2021-12-23] MEDS: NIFEdipine E.R. 30 MG TABLET PO SCH (13:01)
[2021-12-23] MEDS ORDERED: NICOTINE 10 MG CARTRIDGE (INHALER) IH PRN (21:11)
[2021-12-23] MEDS: QUEtiapine FUMARATE 25 MG TABLET PO SCH (22:05)
[2021-12-23] MEDS: THIAMINE HCL 100 MG TABLET (FP) PO SCH (22:05)
[2021-12-23] MEDS: MELATONIN 5 MG TABLETS PO PRN (22:05)
[2021-12-24] MEDS ORDERED: chlordiazePOXIDE HCL 10 MG CAPSULE PO PRN
[2021-12-24] MEDS: ONDANSETRON *ODT* 4 MG TABLET SL PRN (01:34)
[2021-12-24] MEDS: chlordiazePOXIDE HCL 10 MG CAPSULE PO SCH ×3 (05:37→17:55)
[2021-12-24] MEDS: METHOCARBAMOL 500 MG TABLET PO PRN (05:38)
[2021-12-24] MEDS: QUEtiapine FUMARATE 25 MG TABLET PO SCH ×2 (05:38→13:57)
[2021-12-24] MEDS: DARUNAVIR/COB/EMTRI/TENOF (SYMTUZA) TABLET (NF) PO SCH (07:41)
[2021-12-24] MEDS: HYDROCHLOROTHIAZIDE 25 MG TABLET (FP) PO SCH (10:21)
[2021-12-24] MEDS: NIFEdipine E.R. 30 MG TABLET PO SCH (10:21)
[2021-12-24] MEDS: PRENATAL VITAMINS W/ FOLIC ACID TABLET (FP) PO SCH (10:22)
[2021-12-24] MEDS ORDERED: PANTOPRAZOLE 40 MG TABLET PO SCH (13:45)
[2021-12-24] MEDS: hydrOXYzine PAMOATE 25 MG CAPSULE (FP) PO PRN ×2 (13:57→17:56)
[2021-12-24 17:18] VITALS: BP 105/58; PULSE 108; TEMP 97.3
[2021-12-25] MEDS ORDERED: chlordiazePOXIDE HCL 10 MG CAPSULE PO SCH (05:00)
[2021-12-26] MEDS ORDERED: chlordiazePOXIDE HCL 10 MG CAPSULE PO ONE (05:00)
== END 2021-12-24 20:05 | disposition home or self-care (01) | DRG 774 ==
LOC: YASAS 17:14 → Y3N 20:32
PROVIDERS: ADMIT Allergy & Immunology; ATTEND Psychiatry & Neurology Psychiatry
PROC: HZ2ZZZZ Detoxification Services for Substance Abuse Treatment (ICD-10-PCS; principal; 2021-12-21)
DX: F10.230 Alcohol dependence with withdrawal, uncomplicated (principal); F14.20 Cocaine dependence, uncomplicated; F12.20 Cannabis dependence, uncomplicated; F17.210 Nicotine dependence, cigarettes, uncomplicated; I10 Essential (primary) hypertension; Z21 Asymptomatic human immunodeficiency virus [HIV] infection status; K21.9 Gastro-esophageal reflux disease without esophagitis; G47.00 Insomnia, unspecified; Z91.013 Allergy to seafood; Z86.59 Personal history of other mental and behavioral disorders; Z62.810 Personal history of physical and sexual abuse in childhood; Z86.19 Personal history of other infectious and parasitic diseases; Z86.69 Personal history of other diseases of the nervous system and sense organs; Z56.0 Unemployment, unspecified
CPT/HCPCS: 36415; 80053; 85027; 86593; 86780; 87811; C9803-CS; Q0162; U0003; U0005

== ENCOUNTER 2022-01-20 10:53 | Inpatient (IN) | payer OTHER ==
[2022-01-20 13:13] VITALS: BMI 36.0
[2022-01-20] MEDS ORDERED: LOPERAMIDE HCL 2 MG CAPSULE PO PRN (15:07)
[2022-01-20] MEDS ORDERED: IBUPROFEN 400 MG TABLET (FP) PO PRN (15:07)
[2022-01-20] MEDS ORDERED: BENZOCAINE/MENTHOL (CHLORASEPTIC ) LOZENGE MM PRN (15:07)
[2022-01-20] MEDS ORDERED: MAGNESIUM CITRATE 300 ML BOTTLE PO PRN (15:07)
[2022-01-20] MEDS ORDERED: MAGNESIUM HYDROX 2400MG/30ML ORAL SUSPENSION 30 ML CUP PO PRN (15:07)
[2022-01-20] MEDS ORDERED: IBUPROFEN 600 MG TABLET (FP) PO PRN (15:07)
[2022-01-20] MEDS ORDERED: NICOTINE 10 MG CARTRIDGE (INHALER) IH PRN (15:07)
[2022-01-20] MEDS ORDERED: NALOXONE HCL (KLOXXADO) 8 MG SPRAY NS PRN (15:07)
[2022-01-20] MEDS ORDERED: BISMUTH SUBSALICYLATE 262 MG/15 ML BTL PO PRN (15:07)
[2022-01-20] MEDS ORDERED: ACETAMINOPHEN 325 MG TABLET (FP) PO PRN ×2 (15:07)
[2022-01-20] MEDS ORDERED: diazePAM 5 MG TABLET PO PRN (15:07)
[2022-01-20] MEDS ORDERED: PATIENT'S OWN MEDICATION (NON-FORMULARY) (Omeprazole Magnesium [Prilosec Otc] 20 MG Tablet PO SCH (15:30)
[2022-01-20] MEDS: diazePAM 5 MG TABLET PO SCH ×2 (17:21→22:23)
[2022-01-20] MEDS: METHOCARBAMOL 500 MG TABLET PO PRN (17:21)
[2022-01-20] MEDS: hydrOXYzine PAMOATE 25 MG CAPSULE (FP) PO SCH ×2 (17:21→22:23)
[2022-01-20] MEDS: PRENATAL VITAMINS W/ FOLIC ACID TABLET (FP) PO SCH (17:22)
[2022-01-20] MEDS: MAG HYDROX/AL HYDROX/SIMETH 30 ML UNIT-DOSE CUP PO PRN (19:26)
[2022-01-20] MEDS: THIAMINE HCL 100 MG TABLET (FP) PO SCH (22:23)
[2022-01-20] MEDS: MELATONIN 5 MG TABLETS PO SCH (22:24)
[2022-01-20] MEDS: DICYCLOMINE HCL 10 MG CAPSULE PO PRN (22:25)
[2022-01-20] MEDS: ONDANSETRON *ODT* 4 MG TABLET SL PRN (22:25)
[2022-01-21] MEDS: hydrOXYzine PAMOATE 25 MG CAPSULE (FP) PO SCH ×5 (05:52→22:16)
[2022-01-21] MEDS: diazePAM 5 MG TABLET PO SCH (05:52)
[2022-01-21] MEDS: MAG HYDROX/AL HYDROX/SIMETH 30 ML UNIT-DOSE CUP PO PRN (05:54)
[2022-01-21] MEDS: DARUNAVIR/COB/EMTRI/TENOF (SYMTUZA) TABLET (NF) PO SCH (07:03)
[2022-01-21] MEDS ORDERED: PANTOPRAZOLE 40 MG TABLET PO SCH (10:00)
[2022-01-21] MEDS ORDERED: LORazepam 1 MG TABLET PO PRN (10:04)
[2022-01-21] MEDS: NIFEdipine E.R. 30 MG TABLET PO SCH (10:17)
[2022-01-21] MEDS: PRENATAL VITAMINS W/ FOLIC ACID TABLET (FP) PO SCH (10:17)
[2022-01-21] MEDS: HYDROCHLOROTHIAZIDE 25 MG TABLET (FP) PO SCH (10:17)
[2022-01-21] MEDS: LORazepam 2 MG TABLET PO SCH ×3 (10:19→22:16)
[2022-01-21] MEDS: NICOTINE 14 MG/24 HOURS TOPICAL PATCH TD SCH (10:21)
[2022-01-21] MEDS: ONDANSETRON *ODT* 4 MG TABLET SL PRN ×2 (10:21→17:46)
[2022-01-21 10:59] LABS: HEMATOCRIT 42.9 % (35.4-49); HEMOGLOBIN 13.7 GM/dL (11.7-16.9); MCH 27.5 pg (25.7-33.7); MCHC 31.8 g/dl (32.0-35.9); MEAN CELL VOLUME 86.5 fl (80-96); MEAN PLT VOLUME 9.5 fl (7.5-11.1); PLATELET COUNT 172 10^3/uL (134-434); RBC 4.96 M/mm3 (4.00-5.60); RDW 18.7 % (11.9-15.9); WHITE BLOOD COUNT 5.4 K/mm3 (4.0-10.0)
[2022-01-21 11:13] LABS: ALBUMIN 3.3 g/dl (3.4-5.0); BLOOD UREA NITROGEN 11.9 mg/dL (7-18)
[2022-01-21 11:14] LABS: TOT PROT 6.6 g/dl (6.4-8.2)
[2022-01-21 11:16] LABS: CALCIUM 8.6 mg/dL (8.5-10.1); CREATININE 1.2 mg/dL (0.55-1.3)
[2022-01-21] MEDS: QUEtiapine FUMARATE 25 MG TABLET PO SCH ×2 (14:15→22:16)
[2022-01-21] MEDS: METHOCARBAMOL 500 MG TABLET PO PRN (17:46)
[2022-01-21] MEDS: THIAMINE HCL 100 MG TABLET (FP) PO SCH (22:16)
[2022-01-21] MEDS: MELATONIN 5 MG TABLETS PO SCH (22:16)
[2022-01-22] MEDS: QUEtiapine FUMARATE 25 MG TABLET PO SCH ×3 (05:43→22:04)
[2022-01-22] MEDS: LORazepam 1 MG TABLET PO SCH ×2 (05:43→10:10)
[2022-01-22] MEDS: hydrOXYzine PAMOATE 25 MG CAPSULE (FP) PO SCH ×2 (05:43→10:07)
[2022-01-22] MEDS: PANTOPRAZOLE 40 MG TABLET PO SCH (05:43)
[2022-01-22] MEDS ORDERED: diazePAM 5 MG TABLET PO SCH (06:00)
[2022-01-22] MEDS: DARUNAVIR/COB/EMTRI/TENOF (SYMTUZA) TABLET (NF) PO SCH (07:50)
[2022-01-22] MEDS: PRENATAL VITAMINS W/ FOLIC ACID TABLET (FP) PO SCH (10:07)
[2022-01-22] MEDS: HYDROCHLOROTHIAZIDE 25 MG TABLET (FP) PO SCH (10:07)
[2022-01-22] MEDS: NIFEdipine E.R. 30 MG TABLET PO SCH (10:07)
[2022-01-22] MEDS: NICOTINE 14 MG/24 HOURS TOPICAL PATCH TD SCH (10:08)
[2022-01-22] MEDS: ONDANSETRON *ODT* 4 MG TABLET SL PRN (10:09)
[2022-01-22] MEDS: METHOCARBAMOL 500 MG TABLET PO PRN (10:09)
[2022-01-22] MEDS ORDERED: chlordiazePOXIDE HCL 25 MG CAPSULE PO PRN (10:11)
[2022-01-22] MEDS: chlordiazePOXIDE HCL 25 MG CAPSULE PO SCH ×3 (11:06→22:03)
[2022-01-22] MEDS: MAG HYDROX/AL HYDROX/SIMETH 30 ML UNIT-DOSE CUP PO PRN (17:39)
[2022-01-22] MEDS: MELATONIN 5 MG TABLETS PO SCH (22:02)
[2022-01-22] MEDS: DICYCLOMINE HCL 10 MG CAPSULE PO PRN (22:03)
[2022-01-22] MEDS: THIAMINE HCL 100 MG TABLET (FP) PO SCH (22:04)
[2022-01-22] MEDS: hydrOXYzine PAMOATE 25 MG CAPSULE (FP) PO PRN (22:06)
[2022-01-23] MEDS ORDERED: LORazepam 0.5 MG TABLET PO PRN
[2022-01-23] MEDS: MAG HYDROX/AL HYDROX/SIMETH 30 ML UNIT-DOSE CUP PO PRN ×2 (01:10→22:10)
[2022-01-23] MEDS ORDERED: LORazepam 0.5 MG TABLET PO SCH (05:00)
[2022-01-23] MEDS: PANTOPRAZOLE 40 MG TABLET PO SCH (05:50)
[2022-01-23] MEDS: QUEtiapine FUMARATE 25 MG TABLET PO SCH ×3 (05:50→22:08)
[2022-01-23] MEDS: chlordiazePOXIDE HCL 10 MG CAPSULE PO SCH ×4 (05:50→22:09)
[2022-01-23] MEDS: METHOCARBAMOL 500 MG TABLET PO PRN ×2 (05:52→13:30)
[2022-01-23] MEDS ORDERED: diazePAM 5 MG TABLET PO SCH (06:00)
[2022-01-23] MEDS: DARUNAVIR/COB/EMTRI/TENOF (SYMTUZA) TABLET (NF) PO SCH (07:08)
[2022-01-23] MEDS: NICOTINE 14 MG/24 HOURS TOPICAL PATCH TD SCH (10:28)
[2022-01-23] MEDS: PRENATAL VITAMINS W/ FOLIC ACID TABLET (FP) PO SCH (10:28)
[2022-01-23] MEDS: NIFEdipine E.R. 30 MG TABLET PO SCH (10:28)
[2022-01-23] MEDS: HYDROCHLOROTHIAZIDE 25 MG TABLET (FP) PO SCH (10:28)
[2022-01-23] MEDS: hydrOXYzine PAMOATE 25 MG CAPSULE (FP) PO PRN ×3 (13:30→22:08)
[2022-01-23] MEDS: THIAMINE HCL 100 MG TABLET (FP) PO SCH (22:08)
[2022-01-23] MEDS: MELATONIN 5 MG TABLETS PO SCH (22:08)
[2022-01-24] MEDS ORDERED: LORazepam 0.5 MG TABLET PO ONE (05:00)
[2022-01-24] MEDS: QUEtiapine FUMARATE 25 MG TABLET PO SCH ×2 (05:29→13:17)
[2022-01-24] MEDS: PANTOPRAZOLE 40 MG TABLET PO SCH (05:29)
[2022-01-24] MEDS: chlordiazePOXIDE HCL 10 MG CAPSULE PO SCH ×2 (05:29→17:23)
[2022-01-24] MEDS: hydrOXYzine PAMOATE 25 MG CAPSULE (FP) PO PRN ×2 (05:31→13:17)
[2022-01-24] MEDS ORDERED: diazePAM 5 MG TABLET PO ONE (06:00)
[2022-01-24] MEDS: DARUNAVIR/COB/EMTRI/TENOF (SYMTUZA) TABLET (NF) PO SCH (07:10)
[2022-01-24] MEDS: MAG HYDROX/AL HYDROX/SIMETH 30 ML UNIT-DOSE CUP PO PRN (07:11)
[2022-01-24] MEDS: HYDROCHLOROTHIAZIDE 25 MG TABLET (FP) PO SCH (10:28)
[2022-01-24] MEDS: NIFEdipine E.R. 30 MG TABLET PO SCH (10:28)
[2022-01-24] MEDS: PRENATAL VITAMINS W/ FOLIC ACID TABLET (FP) PO SCH (10:28)
[2022-01-24] MEDS: NICOTINE 14 MG/24 HOURS TOPICAL PATCH TD SCH (10:29)
[2022-01-24] MEDS ORDERED: DOCUSATE SODIUM 100 MG CAPSULE (FP) PO SCH (14:00)
[2022-01-24 17:01] VITALS: BP 132/99; PULSE 108; RESP 19; TEMP 97.8
[2022-01-25] MEDS ORDERED: chlordiazePOXIDE HCL 10 MG CAPSULE PO ONE (05:00)
== END 2022-01-24 19:02 | disposition home or self-care (01) | DRG 774 ==
LOC: YASAS 10:53 → Y6N 15:17
PROVIDERS: ADMIT Allergy & Immunology; ATTEND Surgery
PROC: HZ2ZZZZ Detoxification Services for Substance Abuse Treatment (ICD-10-PCS; principal; 2022-01-20)
DX: F10.230 Alcohol dependence with withdrawal, uncomplicated (principal); F13.230 Sedative, hypnotic or anxiolytic dependence with withdrawal, uncomplicated; F14.20 Cocaine dependence, uncomplicated; F12.20 Cannabis dependence, uncomplicated; F17.210 Nicotine dependence, cigarettes, uncomplicated; F32.A Depression, unspecified; Z21 Asymptomatic human immunodeficiency virus [HIV] infection status; I10 Essential (primary) hypertension; K21.9 Gastro-esophageal reflux disease without esophagitis; E66.9 Obesity, unspecified; Z68.36 Body mass index [BMI] 36.0-36.9, adult; Z62.810 Personal history of physical and sexual abuse in childhood; Z86.19 Personal history of other infectious and parasitic diseases
CPT/HCPCS: 36415; 80053; 85027; 86593; 86780; C9803-CS; Q0162; U0003; U0005

== ENCOUNTER 2022-03-02 15:45 | Inpatient (IN) | payer OTHER ==
[2022-03-02 17:10] VITALS: BMI 36.0
[2022-03-02] MEDS ORDERED: BENZOCAINE/MENTHOL (CHLORASEPTIC ) LOZENGE MM PRN (17:33)
[2022-03-02] MEDS ORDERED: BISMUTH SUBSALICYLATE 524 MG/30 ML PO PRN (17:33)
[2022-03-02] MEDS ORDERED: ONDANSETRON *ODT* 4 MG TABLET SL PRN (17:33)
[2022-03-02] MEDS ORDERED: MAGNESIUM CITRATE 300 ML BOTTLE PO PRN (17:33)
[2022-03-02] MEDS ORDERED: IBUPROFEN 600 MG TABLET (FP) PO PRN (17:33)
[2022-03-02] MEDS ORDERED: chlordiazePOXIDE HCL 25 MG CAPSULE PO PRN (17:33)
[2022-03-02] MEDS ORDERED: MAGNESIUM HYDROX 2400MG/30ML ORAL SUSPENSION 30 ML CUP PO PRN (17:33)
[2022-03-02] MEDS ORDERED: ACETAMINOPHEN 325 MG TABLET (FP) PO PRN (17:33)
[2022-03-02] MEDS ORDERED: NICOTINE 10 MG CARTRIDGE (INHALER) IH PRN (17:33)
[2022-03-02] MEDS ORDERED: IBUPROFEN 400 MG TABLET (FP) PO PRN (17:33)
[2022-03-02] MEDS ORDERED: LOPERAMIDE HCL 2 MG CAPSULE PO PRN (17:33)
[2022-03-02] MEDS ORDERED: DICYCLOMINE HCL 10 MG CAPSULE PO PRN (17:33)
[2022-03-02] MEDS: METHOCARBAMOL 500 MG TABLET PO PRN (18:59)
[2022-03-02] MEDS: hydrOXYzine PAMOATE 25 MG CAPSULE (FP) PO PRN (22:02)
[2022-03-02] MEDS: MELATONIN 5 MG TABLETS PO SCH (22:02)
[2022-03-02] MEDS: chlordiazePOXIDE HCL 25 MG CAPSULE PO SCH (22:03)
[2022-03-02] MEDS: THIAMINE HCL 100 MG TABLET (FP) PO SCH (22:03)
[2022-03-02] MEDS: ACETAMINOPHEN 325 MG TABLET (FP) PO PRN (22:04)
[2022-03-03] MEDS: chlordiazePOXIDE HCL 25 MG CAPSULE PO SCH ×4 (05:51→22:16)
[2022-03-03] MEDS: PRENATAL VITAMINS W/ FOLIC ACID TABLET (FP) PO SCH (10:45)
[2022-03-03] MEDS ORDERED: PANTOPRAZOLE 20 MG TABLET PO SCH (12:00)
[2022-03-03] MEDS: HYDROCHLOROTHIAZIDE 25 MG TABLET (FP) PO SCH (12:17)
[2022-03-03] MEDS: DARUNAVIR/COB/EMTRI/TENOF (SYMTUZA) TABLET (NF) PO SCH (12:17)
[2022-03-03] MEDS: NIFEdipine E.R. 30 MG TABLET PO SCH (12:17)
[2022-03-03] MEDS: hydrOXYzine PAMOATE 25 MG CAPSULE (FP) PO PRN (12:18)
[2022-03-03] MEDS: METHOCARBAMOL 500 MG TABLET PO PRN ×2 (12:42→22:18)
[2022-03-03 15:38] LABS: HEMATOCRIT 43.2 % (35.4-49); HEMOGLOBIN 14.3 GM/dL (11.7-16.9); MCH 28.6 pg (25.7-33.7); MEAN CELL VOLUME 86.8 fl (80-96); MEAN PLT VOLUME 8.8 fl (7.5-11.1); PLATELET COUNT 256 10^3/uL (134-434); RBC 4.98 M/mm3 (4.00-5.60); RDW 17.3 % (11.9-15.9); WHITE BLOOD COUNT 5.8 K/mm3 (4.0-10.0)
[2022-03-03 16:21] LABS: ALBUMIN 3.4 g/dl (3.4-5.0); CALCIUM 9.1 mg/dL (8.5-10.1)
[2022-03-03 16:22] LABS: BLOOD UREA NITROGEN 22.5 mg/dL (7-18)
[2022-03-03 16:24] LABS: CREATININE 1.3 mg/dL (0.55-1.3)
[2022-03-03 16:26] LABS: BILIRUBIN,TOTAL 0.3 mg/dL (0.2-1); TOT PROT 6.9 g/dl (6.4-8.2)
[2022-03-03] MEDS: MAG HYDROX/AL HYDROX/SIMETH 30 ML UNIT-DOSE CUP PO PRN (17:51)
[2022-03-03] MEDS ORDERED: TRIMETHOBENZAMIDE HCL 200MG/2ML INJ IM ONE (20:27)
[2022-03-03] MEDS: THIAMINE HCL 100 MG TABLET (FP) PO SCH (22:16)
[2022-03-03] MEDS: MELATONIN 5 MG TABLETS PO SCH (22:16)
[2022-03-04] MEDS: chlordiazePOXIDE HCL 25 MG CAPSULE PO SCH ×4 (05:17→22:24)
[2022-03-04] MEDS: METHOCARBAMOL 500 MG TABLET PO PRN ×3 (05:18→22:23)
[2022-03-04] MEDS: DARUNAVIR/COB/EMTRI/TENOF (SYMTUZA) TABLET (NF) PO SCH (07:00)
[2022-03-04] MEDS: PANTOPRAZOLE 40 MG TABLET PO SCH (07:00)
[2022-03-04] MEDS: PRENATAL VITAMINS W/ FOLIC ACID TABLET (FP) PO SCH (10:26)
[2022-03-04] MEDS: HYDROCHLOROTHIAZIDE 25 MG TABLET (FP) PO SCH (10:26)
[2022-03-04] MEDS: NIFEdipine E.R. 30 MG TABLET PO SCH (10:26)
[2022-03-04] MEDS: ACETAMINOPHEN 325 MG TABLET (FP) PO PRN (10:28)
[2022-03-04] MEDS: QUEtiapine FUMARATE 25 MG TABLET PO SCH ×2 (14:06→22:23)
[2022-03-04] MEDS: hydrOXYzine PAMOATE 25 MG CAPSULE (FP) PO PRN (20:25)
[2022-03-04] MEDS: THIAMINE HCL 100 MG TABLET (FP) PO SCH (22:23)
[2022-03-04] MEDS: MELATONIN 5 MG TABLETS PO SCH (22:23)
[2022-03-04] MEDS: MAG HYDROX/AL HYDROX/SIMETH 30 ML UNIT-DOSE CUP PO PRN (22:24)
[2022-03-05] MEDS ORDERED: chlordiazePOXIDE HCL 10 MG CAPSULE PO PRN
[2022-03-05] MEDS: PANTOPRAZOLE 40 MG TABLET PO SCH (05:33)
[2022-03-05] MEDS: QUEtiapine FUMARATE 25 MG TABLET PO SCH ×2 (05:33→13:44)
[2022-03-05] MEDS: METHOCARBAMOL 500 MG TABLET PO PRN (05:33)
[2022-03-05] MEDS: chlordiazePOXIDE HCL 10 MG CAPSULE PO SCH ×2 (05:34→10:13)
[2022-03-05] MEDS: DARUNAVIR/COB/EMTRI/TENOF (SYMTUZA) TABLET (NF) PO SCH (07:08)
[2022-03-05] MEDS: HYDROCHLOROTHIAZIDE 25 MG TABLET (FP) PO SCH (10:12)
[2022-03-05] MEDS: NIFEdipine E.R. 30 MG TABLET PO SCH (10:12)
[2022-03-05] MEDS: PRENATAL VITAMINS W/ FOLIC ACID TABLET (FP) PO SCH (10:12)
[2022-03-05] MEDS: MAG HYDROX/AL HYDROX/SIMETH 30 ML UNIT-DOSE CUP PO PRN (10:14)
[2022-03-05] MEDS: ACETAMINOPHEN 325 MG TABLET (FP) PO PRN (10:14)
[2022-03-05] MEDS ORDERED: PNEUMOCOCCAL 23 VACCINE 0.5 ML VIAL IM ONE (12:00)
[2022-03-05] MEDS ORDERED: FLU VACC QS2022-23(6MOS UP)/PF 60 MCG/0.5 ML SYRINGE IM ONE (12:00)
[2022-03-05] MEDS ORDERED: PNEUMOC 20-VAL CONJ-DIP CRM/PF 0.5 ML SYRINGE IM ONE (12:00)
[2022-03-05 17:08] VITALS: BP 124/81; PULSE 107; RESP 18; TEMP 96.6
[2022-03-06] MEDS ORDERED: chlordiazePOXIDE HCL 10 MG CAPSULE PO SCH (05:00)
[2022-03-07] MEDS ORDERED: chlordiazePOXIDE HCL 10 MG CAPSULE PO ONE (05:00)
== END 2022-03-05 18:08 | disposition home or self-care (01) | DRG 774 ==
LOC: YASAS 15:45 → Y3N 18:31
PROVIDERS: ADMIT Allergy & Immunology; ATTEND Psychiatry & Neurology Psychiatry
PROC: HZ2ZZZZ Detoxification Services for Substance Abuse Treatment (ICD-10-PCS; principal; 2022-03-02)
DX: F10.230 Alcohol dependence with withdrawal, uncomplicated (principal); F14.20 Cocaine dependence, uncomplicated; F12.20 Cannabis dependence, uncomplicated; F17.210 Nicotine dependence, cigarettes, uncomplicated; F33.1 Major depressive disorder, recurrent, moderate; Z21 Asymptomatic human immunodeficiency virus [HIV] infection status; I10 Essential (primary) hypertension; E78.2 Mixed hyperlipidemia; K21.9 Gastro-esophageal reflux disease without esophagitis; E66.9 Obesity, unspecified; Z68.36 Body mass index [BMI] 36.0-36.9, adult; Z62.810 Personal history of physical and sexual abuse in childhood; Z86.19 Personal history of other infectious and parasitic diseases
CPT/HCPCS: 36415; 80053; 85027; 86593; 86780; 87811; 90732; C9803-CS; G0009; Q0162; Q2036; U0003; U0005

== ENCOUNTER 2022-06-04 09:59 | Inpatient (IN) | payer OTHER ==
[2022-06-04 10:19] VITALS: BMI 36.0
[2022-06-04] MEDS ORDERED: DICYCLOMINE HCL 10 MG CAPSULE PO PRN (10:53)
[2022-06-04] MEDS ORDERED: IBUPROFEN 600 MG TABLET (FP) PO PRN (10:53)
[2022-06-04] MEDS ORDERED: NALOXONE HCL (KLOXXADO) 8 MG SPRAY NS PRN (10:53)
[2022-06-04] MEDS ORDERED: BENZOCAINE/MENTHOL (CHLORASEPTIC ) LOZENGE MM PRN (10:53)
[2022-06-04] MEDS ORDERED: ONDANSETRON *ODT* 4 MG TABLET SL PRN (10:53)
[2022-06-04] MEDS ORDERED: IBUPROFEN 400 MG TABLET (FP) PO PRN (10:53)
[2022-06-04] MEDS ORDERED: ACETAMINOPHEN 325 MG TABLET (FP) PO PRN ×2 (10:53)
[2022-06-04] MEDS ORDERED: LOPERAMIDE HCL 2 MG CAPSULE PO PRN (10:53)
[2022-06-04] MEDS ORDERED: MAGNESIUM HYDROX 2400MG/30ML ORAL SUSPENSION 30 ML CUP PO PRN (10:53)
[2022-06-04] MEDS ORDERED: BISMUTH SUBSALICYLATE 524 MG/30 ML PO PRN (10:53)
[2022-06-04] MEDS ORDERED: POLYETHYLENE GLYCOL (HEALTHYLAX) 3350 17 GM PACKET PO PRN (10:53)
[2022-06-04] MEDS ORDERED: chlordiazePOXIDE HCL 25 MG CAPSULE PO PRN (10:58)
[2022-06-04] MEDS: METHOCARBAMOL 500 MG TABLET PO PRN (12:03)
[2022-06-04] MEDS: hydrOXYzine PAMOATE 25 MG CAPSULE (FP) PO PRN (13:37)
[2022-06-04] MEDS: QUEtiapine FUMARATE 25 MG TABLET PO SCH ×2 (14:36→22:58)
[2022-06-04] MEDS: chlordiazePOXIDE HCL 25 MG CAPSULE PO SCH ×2 (17:08→22:58)
[2022-06-04 19:02] LABS: HEMATOCRIT 43.2 % (35.4-49); HEMOGLOBIN 14.8 GM/dL (11.7-16.9); MCH 30.3 pg (25.7-33.7); MCHC 34.3 g/dl (32.0-35.9); MEAN CELL VOLUME 88.3 fl (80-96); MEAN PLT VOLUME 8.7 fl (7.5-11.1); PLATELET COUNT 282 10^3/uL (134-434); RDW 17.4 % (11.9-15.9); WHITE BLOOD COUNT 7.8 K/mm3 (4.0-10.0)
[2022-06-04] MEDS: MAG HYDROX/AL HYDROX/SIMETH 30 ML UNIT-DOSE CUP PO PRN (19:19)
[2022-06-04 19:27] LABS: BLOOD UREA NITROGEN 20.7 mg/dL (7-18); CALCIUM 9.2 mg/dL (8.5-10.1)
[2022-06-04 19:28] LABS: ALBUMIN 3.8 g/dl (3.4-5.0)
[2022-06-04 19:31] LABS: CREATININE 1.4 mg/dL (0.55-1.3)
[2022-06-04 19:32] LABS: BILIRUBIN,TOTAL 0.3 mg/dL (0.2-1); TOT PROT 7.8 g/dl (6.4-8.2)
[2022-06-04] MEDS: MELATONIN 5 MG TABLETS PO SCH (22:58)
[2022-06-04] MEDS: THIAMINE HCL 100 MG TABLET (FP) PO SCH (22:58)
[2022-06-04] MEDS ORDERED: PANTOPRAZOLE 20 MG TABLET PO ONE (23:30)
[2022-06-05] MEDS: MAG HYDROX/AL HYDROX/SIMETH 30 ML UNIT-DOSE CUP PO PRN ×3 (00:51→21:58)
[2022-06-05] MEDS: QUEtiapine FUMARATE 25 MG TABLET PO SCH ×3 (05:36→21:56)
[2022-06-05] MEDS: chlordiazePOXIDE HCL 25 MG CAPSULE PO SCH ×4 (05:36→22:00)
[2022-06-05] MEDS: PATIENT'S OWN MEDICATION (NON-FORMULARY) (Darunavir/Cob/Emtri/Tenof Alaf 1 EACH Tablet) PO SCH (07:09)
[2022-06-05] MEDS ORDERED: PANTOPRAZOLE 20 MG TABLET PO SCH (10:00)
[2022-06-05] MEDS: PRENATAL VITAMINS W/ FOLIC ACID TABLET (FP) PO SCH (10:24)
[2022-06-05] MEDS: HYDROCHLOROTHIAZIDE 25 MG TABLET (FP) PO SCH (10:26)
[2022-06-05] MEDS: NICOTINE 21 MG/24 HOURS TOPICAL PATCH TD SCH (10:26)
[2022-06-05] MEDS: NIFEdipine E.R. 90 MG TABLET PO SCH (10:26)
[2022-06-05] MEDS ORDERED: PATIENT'S OWN MEDICATION (NON-FORMULARY) (Omeprazole Magnesium [Prilosec Otc] 20 MG Tablet PO SCH ×2 (11:00→11:14)
[2022-06-05] MEDS: METHOCARBAMOL 500 MG TABLET PO PRN ×2 (11:42→20:03)
[2022-06-05] MEDS: PATIENT'S OWN MEDICATION (NON-FORMULARY) (Omeprazole Magnesium [Prilosec Otc] 20 MG Tablet PO SCH (11:56)
[2022-06-05] MEDS: hydrOXYzine PAMOATE 25 MG CAPSULE (FP) PO PRN (20:03)
[2022-06-05] MEDS: MELATONIN 5 MG TABLETS PO SCH (21:56)
[2022-06-05] MEDS: THIAMINE HCL 100 MG TABLET (FP) PO SCH (21:56)
[2022-06-06] MEDS: chlordiazePOXIDE HCL 25 MG CAPSULE PO SCH ×3 (05:35→17:19)
[2022-06-06] MEDS: QUEtiapine FUMARATE 25 MG TABLET PO SCH ×2 (05:35→13:44)
[2022-06-06] MEDS: PATIENT'S OWN MEDICATION (NON-FORMULARY) (Darunavir/Cob/Emtri/Tenof Alaf 1 EACH Tablet) PO SCH (07:23)
[2022-06-06] MEDS: PRENATAL VITAMINS W/ FOLIC ACID TABLET (FP) PO SCH (10:24)
[2022-06-06] MEDS: HYDROCHLOROTHIAZIDE 25 MG TABLET (FP) PO SCH (10:25)
[2022-06-06] MEDS: PATIENT'S OWN MEDICATION (NON-FORMULARY) (Omeprazole Magnesium [Prilosec Otc] 20 MG Tablet PO SCH (10:25)
[2022-06-06] MEDS: NICOTINE 21 MG/24 HOURS TOPICAL PATCH TD SCH (10:25)
[2022-06-06] MEDS: NIFEdipine E.R. 90 MG TABLET PO SCH (10:26)
[2022-06-06] MEDS: METHOCARBAMOL 500 MG TABLET PO PRN (10:28)
[2022-06-06 17:11] VITALS: RESP 18
[2022-06-06 19:06] VITALS: BP 112/68; PULSE 115; TEMP 97.8
[2022-06-07] MEDS ORDERED: chlordiazePOXIDE HCL 10 MG CAPSULE PO PRN
[2022-06-07] MEDS ORDERED: chlordiazePOXIDE HCL 10 MG CAPSULE PO SCH (05:00)
[2022-06-07] MEDS ORDERED: PATIENT'S OWN MEDICATION (NON-FORMULARY) (Omeprazole Magnesium [Prilosec Otc] 20 MG Tablet PO SCH (06:00)
[2022-06-07] MEDS ORDERED: PANTOPRAZOLE 40 MG TABLET PO SCH ×2 (06:00)
[2022-06-08] MEDS ORDERED: chlordiazePOXIDE HCL 10 MG CAPSULE PO SCH (05:00)
[2022-06-09] MEDS ORDERED: chlordiazePOXIDE HCL 10 MG CAPSULE PO ONE (05:00)
== END 2022-06-06 19:35 | disposition left against medical advice (07) | DRG 770 ==
LOC: YASAS 09:59 → Y6N 11:05
PROVIDERS: ADMIT Allergy & Immunology; ATTEND Surgery
PROC: HZ2ZZZZ Detoxification Services for Substance Abuse Treatment (ICD-10-PCS; principal; 2022-06-04)
DX: F10.230 Alcohol dependence with withdrawal, uncomplicated (principal); F13.230 Sedative, hypnotic or anxiolytic dependence with withdrawal, uncomplicated; F14.20 Cocaine dependence, uncomplicated; F12.20 Cannabis dependence, uncomplicated; F17.210 Nicotine dependence, cigarettes, uncomplicated; F19.280 Other psychoactive substance dependence with psychoactive substance-induced anxiety disorder; F19.282 Other psychoactive substance dependence with psychoactive substance-induced sleep disorder; F33.1 Major depressive disorder, recurrent, moderate; F43.10 Post-traumatic stress disorder, unspecified; Z21 Asymptomatic human immunodeficiency virus [HIV] infection status; E78.5 Hyperlipidemia, unspecified; I10 Essential (primary) hypertension; K21.9 Gastro-esophageal reflux disease without esophagitis; Z62.810 Personal history of physical and sexual abuse in childhood; E66.9 Obesity, unspecified; Z68.36 Body mass index [BMI] 36.0-36.9, adult; Z86.19 Personal history of other infectious and parasitic diseases; Z90.5 Acquired absence of kidney
CPT/HCPCS: 36415; 80053; 85027; 86593; 86780; 87811; 93005; 93010; C9803-CS; Q0162; U0003; U0005

== ENCOUNTER 2022-08-08 09:41 | Inpatient (IN) | payer OTHER ==
[2022-08-08] MEDS ORDERED: IBUPROFEN 400 MG TABLET (FP) PO PRN (11:21)
[2022-08-08] MEDS ORDERED: MAGNESIUM HYDROX 2400MG/30ML ORAL SUSPENSION 30 ML CUP PO PRN (11:21)
[2022-08-08] MEDS ORDERED: IBUPROFEN 600 MG TABLET (FP) PO PRN (11:21)
[2022-08-08] MEDS ORDERED: NICOTINE 10 MG CARTRIDGE (INHALER) IH PRN (11:21)
[2022-08-08] MEDS ORDERED: BISMUTH SUBSALICYLATE 524 MG/30 ML PO PRN (11:21)
[2022-08-08] MEDS ORDERED: NALOXONE HCL 0.4 MG/ML VIAL IM PRN (11:21)
[2022-08-08] MEDS ORDERED: NICOTINE POLACRILEX 2 MG GUM BUC PRN (11:21)
[2022-08-08] MEDS ORDERED: LOPERAMIDE HCL 2 MG CAPSULE PO PRN (11:21)
[2022-08-08] MEDS ORDERED: POLYETHYLENE GLYCOL (HEALTHYLAX) 3350 17 GM PACKET PO PRN (11:21)
[2022-08-08] MEDS ORDERED: guaiFENesin 600 MG TABLET.ER (FP) PO PRN (11:21)
[2022-08-08] MEDS ORDERED: BENZOCAINE/MENTHOL (CHLORASEPTIC ) LOZENGE MM PRN (11:21)
[2022-08-08] MEDS ORDERED: ONDANSETRON *ODT* 4 MG TABLET SL PRN (11:21)
[2022-08-08] MEDS ORDERED: chlordiazePOXIDE HCL 25 MG CAPSULE PO PRN (11:21)
[2022-08-08] MEDS ORDERED: BENZONATATE 200 MG CAPSULE PO PRN (11:21)
[2022-08-08] MEDS ORDERED: ACETAMINOPHEN 325 MG TABLET (FP) PO PRN (11:21)
[2022-08-08] MEDS ORDERED: hydrOXYzine PAMOATE 25 MG CAPSULE (FP) PO PRN (11:21)
[2022-08-08] MEDS ORDERED: NALOXONE HCL (KLOXXADO) 8 MG SPRAY NS PRN (11:21)
[2022-08-08] MEDS ORDERED: MAG HYDROX/AL HYDROX/SIMETH 30 ML UNIT-DOSE CUP PO PRN (11:21)
[2022-08-08 11:39] VITALS: BMI 35.4
[2022-08-08] MEDS: chlordiazePOXIDE HCL 25 MG CAPSULE PO SCH ×3 (11:56→22:23)
[2022-08-08] MEDS ORDERED: chlordiazePOXIDE HCL 25 MG CAPSULE ONE (12:07)
[2022-08-08] MEDS: DICYCLOMINE HCL 10 MG CAPSULE PO PRN ×2 (12:29→19:26)
[2022-08-08] MEDS: METHOCARBAMOL 500 MG TABLET PO PRN ×2 (12:29→22:26)
[2022-08-08] MEDS: HYDROCHLOROTHIAZIDE 25 MG TABLET (FP) PO SCH (12:29)
[2022-08-08] MEDS: NIFEdipine E.R. 90 MG TABLET PO SCH (12:39)
[2022-08-08] MEDS: DARUNAVIR/COB/EMTRI/TENOF (SYMTUZA) TABLET (NF) PO SCH (15:10)
[2022-08-08] MEDS: QUEtiapine FUMARATE 25 MG TABLET PO SCH ×2 (15:11→22:23)
[2022-08-08] MEDS ORDERED: THIAMINE HCL 100 MG TABLET (FP) PO SCH (22:00)
[2022-08-08] MEDS ORDERED: MELATONIN 5 MG TABLETS PO SCH (22:00)
[2022-08-09] MEDS: chlordiazePOXIDE HCL 25 MG CAPSULE PO SCH ×3 (05:38→17:38)
[2022-08-09] MEDS: QUEtiapine FUMARATE 25 MG TABLET PO SCH ×2 (05:38→14:02)
[2022-08-09] MEDS ORDERED: PRENATAL VITAMINS W/ FOLIC ACID TABLET (FP) PO SCH (10:00)
[2022-08-09] MEDS: DARUNAVIR/COB/EMTRI/TENOF (SYMTUZA) TABLET (NF) PO SCH (10:41)
[2022-08-09] MEDS: HYDROCHLOROTHIAZIDE 25 MG TABLET (FP) PO SCH (10:41)
[2022-08-09] MEDS ORDERED: PANTOPRAZOLE 40 MG TABLET PO SCH (11:15)
[2022-08-09] MEDS: NIFEdipine E.R. 90 MG TABLET PO SCH (11:34)
[2022-08-09] MEDS: METHOCARBAMOL 500 MG TABLET PO PRN ×2 (11:36→17:39)
[2022-08-09 11:37] LABS: CALCIUM 9.5 mg/dL (8.5-10.1)
[2022-08-09 11:38] LABS: ALBUMIN 3.6 g/dl (3.4-5.0); BLOOD UREA NITROGEN 15.2 mg/dL (7-18)
[2022-08-09 11:39] LABS: HEMATOCRIT 40.2 % (35.4-49); MCH 30.5 pg (25.7-33.7); MCHC 34.8 g/dl (32.0-35.9); MEAN CELL VOLUME 87.6 fl (80-96); MEAN PLT VOLUME 9.5 fl (7.5-11.1); PLATELET COUNT 205 10^3/uL (134-434); RBC 4.58 M/mm3 (4.00-5.60); RDW 16.6 % (11.9-15.9); WHITE BLOOD COUNT 6.1 K/mm3 (4.0-10.0)
[2022-08-09 11:41] LABS: CREATININE 1.2 mg/dL (0.55-1.3)
[2022-08-09 11:43] LABS: BILIRUBIN,TOTAL 0.3 mg/dL (0.2-1); TOT PROT 7.2 g/dl (6.4-8.2)
[2022-08-09 17:46] VITALS: BP 101/62; PULSE 94; RESP 18; TEMP 98.7
[2022-08-10] MEDS ORDERED: chlordiazePOXIDE HCL 25 MG CAPSULE PO SCH (05:00)
[2022-08-11] MEDS ORDERED: chlordiazePOXIDE HCL 10 MG CAPSULE PO PRN
[2022-08-11] MEDS ORDERED: chlordiazePOXIDE HCL 10 MG CAPSULE PO SCH (05:00)
[2022-08-12] MEDS ORDERED: chlordiazePOXIDE HCL 10 MG CAPSULE PO SCH (05:00)
[2022-08-13] MEDS ORDERED: chlordiazePOXIDE HCL 10 MG CAPSULE PO ONE (05:00)
== END 2022-08-09 19:45 | disposition left against medical advice (07) | DRG 770 ==
LOC: YASAS 09:41 → Y3N 11:43
PROVIDERS: ADMIT Allergy & Immunology; ATTEND Surgery
PROC: HZ2ZZZZ Detoxification Services for Substance Abuse Treatment (ICD-10-PCS; principal; 2022-08-08)
DX: F10.230 Alcohol dependence with withdrawal, uncomplicated (principal); F14.20 Cocaine dependence, uncomplicated; F13.20 Sedative, hypnotic or anxiolytic dependence, uncomplicated; F12.20 Cannabis dependence, uncomplicated; F17.210 Nicotine dependence, cigarettes, uncomplicated; F33.1 Major depressive disorder, recurrent, moderate; F19.282 Other psychoactive substance dependence with psychoactive substance-induced sleep disorder; F19.280 Other psychoactive substance dependence with psychoactive substance-induced anxiety disorder; F43.10 Post-traumatic stress disorder, unspecified; Z21 Asymptomatic human immunodeficiency virus [HIV] infection status; E78.5 Hyperlipidemia, unspecified; I10 Essential (primary) hypertension; K21.9 Gastro-esophageal reflux disease without esophagitis; Z86.19 Personal history of other infectious and parasitic diseases; Z79.899 Other long term (current) drug therapy; E66.9 Obesity, unspecified; Z68.35 Body mass index [BMI] 35.0-35.9, adult; Z90.5 Acquired absence of kidney
CPT/HCPCS: 36415; 80053; 85027; 86593; 86780; 87811; C9803-CS; Q0162; U0003; U0005

== ENCOUNTER 2022-10-23 13:06 | Inpatient (IN) | payer OTHER ==
[2022-10-23 13:37] VITALS: BMI 35.6
[2022-10-23] MEDS ORDERED: NALOXONE HCL 0.4 MG/ML VIAL IM PRN (14:11)
[2022-10-23] MEDS ORDERED: MAGNESIUM HYDROX 2400MG/30ML ORAL SUSPENSION 30 ML CUP PO PRN (14:11)
[2022-10-23] MEDS ORDERED: BENZOCAINE/MENTHOL (CHLORASEPTIC ) LOZENGE MM PRN (14:11)
[2022-10-23] MEDS ORDERED: NALOXONE HCL (KLOXXADO) 8 MG SPRAY NS PRN (14:11)
[2022-10-23] MEDS ORDERED: BISMUTH SUBSALICYLATE 524 MG/30 ML PO PRN (14:11)
[2022-10-23] MEDS ORDERED: BENZONATATE 200 MG CAPSULE PO PRN (14:11)
[2022-10-23] MEDS ORDERED: MAG HYDROX/AL HYDROX/SIMETH 30 ML UNIT-DOSE CUP PO PRN (14:11)
[2022-10-23] MEDS ORDERED: ONDANSETRON *ODT* 4 MG TABLET SL PRN (14:11)
[2022-10-23] MEDS ORDERED: POLYETHYLENE GLYCOL (HEALTHYLAX) 3350 17 GM PACKET PO PRN (14:11)
[2022-10-23] MEDS ORDERED: NICOTINE 10 MG CARTRIDGE (INHALER) IH PRN (14:11)
[2022-10-23] MEDS ORDERED: NICOTINE 21 MG/24 HOURS TOPICAL PATCH TD PRN (14:11)
[2022-10-23] MEDS ORDERED: hydrOXYzine PAMOATE 25 MG CAPSULE (FP) PO PRN (14:11)
[2022-10-23] MEDS ORDERED: chlordiazePOXIDE HCL 25 MG CAPSULE PO PRN (14:11)
[2022-10-23] MEDS ORDERED: guaiFENesin 600 MG TABLET.ER (FP) PO PRN (14:11)
[2022-10-23] MEDS ORDERED: LOPERAMIDE HCL 2 MG CAPSULE PO PRN (14:11)
[2022-10-23] MEDS ORDERED: DICYCLOMINE HCL 10 MG CAPSULE PO PRN (14:11)
[2022-10-23] MEDS ORDERED: DARUNAVIR/COB/EMTRI/TENOF (SYMTUZA) TABLET (NF) PO SCH (15:00)
[2022-10-23] MEDS: METHOCARBAMOL 500 MG TABLET PO PRN (17:31)
[2022-10-23] MEDS: chlordiazePOXIDE HCL 25 MG CAPSULE PO SCH ×2 (17:32→22:40)
[2022-10-23] MEDS: DARUNAVIR/COB/EMTRI/TENOF (SYMTUZA) TABLET (NF) PO SCH (18:42)
[2022-10-23] MEDS: ACETAMINOPHEN 325 MG TABLET (FP) PO PRN (19:24)
[2022-10-23] MEDS ORDERED: MELATONIN 5 MG TABLETS PO SCH (22:00)
[2022-10-23] MEDS ORDERED: THIAMINE HCL 100 MG TABLET (FP) PO SCH (22:00)
[2022-10-24] MEDS: chlordiazePOXIDE HCL 25 MG CAPSULE PO SCH ×3 (05:52→17:27)
[2022-10-24] MEDS: PANTOPRAZOLE 40 MG TABLET PO SCH ×2 (05:56→10:48)
[2022-10-24] MEDS: METHOCARBAMOL 500 MG TABLET PO PRN ×2 (05:56→13:56)
[2022-10-24] MEDS: DARUNAVIR/COB/EMTRI/TENOF (SYMTUZA) TABLET (NF) PO SCH (07:11)
[2022-10-24] MEDS ORDERED: PRENATAL VITAMINS W/ FOLIC ACID TABLET (FP) PO SCH (10:00)
[2022-10-24] MEDS ORDERED: NIFEdipine E.R. 90 MG TABLET PO SCH (10:00)
[2022-10-24] MEDS: ACETAMINOPHEN 325 MG TABLET (FP) PO PRN (10:54)
[2022-10-24 11:59] LABS: HEMATOCRIT 40.1 % (35.4-49); MCH 28.4 pg (25.7-33.7); MCHC 32.3 g/dl (32.0-35.9); MEAN CELL VOLUME 87.9 fl (80-96); MEAN PLT VOLUME 9.9 fl (7.5-11.1); PLATELET COUNT 223 10^3/uL (134-434); RBC 4.56 M/mm3 (4.00-5.60); RDW 14.9 % (11.9-15.9); WHITE BLOOD COUNT 5.9 K/mm3 (4.0-10.0)
[2022-10-24 12:13] LABS: CALCIUM 8.4 mg/dL (8.5-10.1)
[2022-10-24 12:14] LABS: ALBUMIN 3.5 g/dl (3.4-5.0); BLOOD UREA NITROGEN 17.7 mg/dL (7-18)
[2022-10-24 12:17] LABS: CREATININE 1.3 mg/dL (0.55-1.3)
[2022-10-24 12:18] LABS: BILIRUBIN,TOTAL 0.3 mg/dL (0.2-1); TOT PROT 6.8 g/dl (6.4-8.2)
[2022-10-24] MEDS ORDERED: QUEtiapine FUMARATE 25 MG TABLET PO SCH (14:00)
[2022-10-24 21:19] VITALS: BP 114/76; PULSE 111; RESP 17; TEMP 98.6
[2022-10-25] MEDS ORDERED: chlordiazePOXIDE HCL 25 MG CAPSULE PO SCH (05:00)
[2022-10-25] MEDS ORDERED: PANTOPRAZOLE 40 MG TABLET PO SCH (10:00)
[2022-10-25] MEDS ORDERED: HYDROCHLOROTHIAZIDE 25 MG TABLET (FP) PO SCH (10:00)
[2022-10-25] MEDS ORDERED: PATIENT'S OWN MEDICATION (NON-FORMULARY) (Omeprazole Magnesium [Omeprazole Magnesium] 20 M PO SCH (10:00)
[2022-10-26] MEDS ORDERED: chlordiazePOXIDE HCL 10 MG CAPSULE PO PRN
[2022-10-26] MEDS ORDERED: chlordiazePOXIDE HCL 10 MG CAPSULE PO SCH (05:00)
[2022-10-27] MEDS ORDERED: chlordiazePOXIDE HCL 10 MG CAPSULE PO SCH (05:00)
[2022-10-28] MEDS ORDERED: chlordiazePOXIDE HCL 10 MG CAPSULE PO ONE (05:00)
== END 2022-10-24 20:45 | disposition left against medical advice (07) | DRG 770 ==
LOC: YASAS 13:06 → Y6N 14:39
PROVIDERS: ADMIT Allergy & Immunology; ATTEND Surgery
PROC: HZ2ZZZZ Detoxification Services for Substance Abuse Treatment (ICD-10-PCS; principal; 2022-10-23)
DX: F10.230 Alcohol dependence with withdrawal, uncomplicated (principal); F13.230 Sedative, hypnotic or anxiolytic dependence with withdrawal, uncomplicated; F14.20 Cocaine dependence, uncomplicated; F12.20 Cannabis dependence, uncomplicated; F17.210 Nicotine dependence, cigarettes, uncomplicated; F19.24 Other psychoactive substance dependence with psychoactive substance-induced mood disorder; F32.A Depression, unspecified; B20 Human immunodeficiency virus [HIV] disease; Z79.899 Other long term (current) drug therapy; E78.5 Hyperlipidemia, unspecified; I10 Essential (primary) hypertension; K21.9 Gastro-esophageal reflux disease without esophagitis; D50.9 Iron deficiency anemia, unspecified; Z62.810 Personal history of physical and sexual abuse in childhood; E66.9 Obesity, unspecified; Z68.35 Body mass index [BMI] 35.0-35.9, adult; Z86.19 Personal history of other infectious and parasitic diseases; Z91.013 Allergy to seafood
CPT/HCPCS: 36415; 80053; 85027; 86593; 86780; 87635; 87811

== ENCOUNTER 2022-12-06 10:52 | Inpatient (IN) | payer OTHER ==
[2022-12-06 12:01] VITALS: BMI 36.3
[2022-12-06] MEDS ORDERED: IBUPROFEN 600 MG TABLET (FP) PO PRN (12:40)
[2022-12-06] MEDS ORDERED: BISMUTH SUBSALICYLATE 524 MG/30 ML PO PRN (12:40)
[2022-12-06] MEDS ORDERED: LOPERAMIDE HCL 2 MG CAPSULE PO PRN (12:40)
[2022-12-06] MEDS ORDERED: DICYCLOMINE HCL 10 MG CAPSULE PO PRN (12:40)
[2022-12-06] MEDS ORDERED: NICOTINE POLACRILEX 2 MG GUM BUC PRN (12:40)
[2022-12-06] MEDS ORDERED: ACETAMINOPHEN 325 MG TABLET (FP) PO PRN (12:40)
[2022-12-06] MEDS ORDERED: NALOXONE HCL (KLOXXADO) 8 MG SPRAY NS PRN (12:40)
[2022-12-06] MEDS ORDERED: guaiFENesin 600 MG TABLET.ER (FP) PO PRN (12:40)
[2022-12-06] MEDS ORDERED: NALOXONE HCL 0.4 MG/ML VIAL IM PRN (12:40)
[2022-12-06] MEDS ORDERED: MAGNESIUM HYDROX 2400MG/30ML ORAL SUSPENSION 30 ML CUP PO PRN (12:40)
[2022-12-06] MEDS ORDERED: ONDANSETRON *ODT* 4 MG TABLET SL PRN (12:40)
[2022-12-06] MEDS ORDERED: IBUPROFEN 400 MG TABLET (FP) PO PRN (12:40)
[2022-12-06] MEDS ORDERED: BENZOCAINE/MENTHOL (CHLORASEPTIC ) LOZENGE MM PRN (12:40)
[2022-12-06] MEDS ORDERED: POLYETHYLENE GLYCOL (HEALTHYLAX) 3350 17 GM PACKET PO PRN (12:40)
[2022-12-06] MEDS ORDERED: BENZONATATE 200 MG CAPSULE PO PRN (12:40)
[2022-12-06] MEDS: METHOCARBAMOL 500 MG TABLET PO PRN (15:32)
[2022-12-06] MEDS: diazePAM 5 MG TABLET PO SCH ×2 (17:19→22:08)
[2022-12-06] MEDS: MELATONIN 5 MG TABLETS PO SCH (22:08)
[2022-12-06] MEDS: THIAMINE HCL 100 MG TABLET (FP) PO SCH (22:08)
[2022-12-07] MEDS: METHOCARBAMOL 500 MG TABLET PO PRN (05:25)
[2022-12-07] MEDS: diazePAM 5 MG TABLET PO SCH ×4 (05:25→22:07)
[2022-12-07] MEDS: MAG HYDROX/AL HYDROX/SIMETH 30 ML UNIT-DOSE CUP PO PRN (05:26)
[2022-12-07] MEDS ORDERED: PANTOPRAZOLE 20 MG TABLET PO SCH (07:00)
[2022-12-07] MEDS: NICOTINE 14 MG/24 HOURS TOPICAL PATCH TD SCH (10:02)
[2022-12-07] MEDS: PRENATAL VITAMINS W/ FOLIC ACID TABLET (FP) PO SCH (10:03)
[2022-12-07] MEDS ORDERED: QUEtiapine FUMARATE 25 MG TABLET PO ONE (10:12)
[2022-12-07 10:17] LABS: HEMATOCRIT 40.7 % (35.4-49); HEMOGLOBIN 13.7 GM/dL (11.7-16.9); MCH 28.1 pg (25.7-33.7); MCHC 33.7 g/dl (32.0-35.9); MEAN CELL VOLUME 83.3 fl (80-96); MEAN PLT VOLUME 9.3 fl (7.5-11.1); PLATELET COUNT 152 10^3/uL (134-434); RBC 4.88 M/mm3 (4.00-5.60); RDW 16.2 % (11.9-15.9); WHITE BLOOD COUNT 4.7 K/mm3 (4.0-10.0)
[2022-12-07 10:30] LABS: POTASSIUM 3.6 mmol/L (3.5-5.1)
[2022-12-07 10:35] LABS: ALBUMIN 3.6 g/dl (3.4-5.0); CALCIUM 8.7 mg/dL (8.5-10.1)
[2022-12-07 10:36] LABS: BLOOD UREA NITROGEN 16.3 mg/dL (7-18)
[2022-12-07 10:38] LABS: CREATININE 1.6 mg/dL (0.55-1.3)
[2022-12-07 10:40] LABS: BILIRUBIN,TOTAL 0.5 mg/dL (0.2-1); TOT PROT 7.1 g/dl (6.4-8.2)
[2022-12-07] MEDS: HYDROCHLOROTHIAZIDE 25 MG TABLET (FP) PO SCH (11:00)
[2022-12-07] MEDS: DARUNAVIR/COB/EMTRI/TENOF (SYMTUZA) TABLET (NF) PO SCH (11:14)
[2022-12-07] MEDS: NIFEdipine E.R. 90 MG TABLET PO SCH (11:14)
[2022-12-07] MEDS: QUEtiapine FUMARATE 25 MG TABLET PO SCH ×2 (13:09→22:06)
[2022-12-07] MEDS ORDERED: PANTOPRAZOLE 20 MG TABLET PO ONE (15:17)
[2022-12-07] MEDS: diazePAM 5 MG TABLET PO PRN (18:31)
[2022-12-07] MEDS: THIAMINE HCL 100 MG TABLET (FP) PO SCH (22:06)
[2022-12-07] MEDS: MELATONIN 5 MG TABLETS PO SCH (22:06)
[2022-12-08] MEDS: diazePAM 5 MG TABLET PO PRN ×2 (02:12→10:12)
[2022-12-08] MEDS: METHOCARBAMOL 500 MG TABLET PO PRN (05:18)
[2022-12-08] MEDS: diazePAM 5 MG TABLET PO SCH ×3 (05:18→21:57)
[2022-12-08] MEDS: QUEtiapine FUMARATE 25 MG TABLET PO SCH ×3 (05:20→21:56)
[2022-12-08] MEDS: MAG HYDROX/AL HYDROX/SIMETH 30 ML UNIT-DOSE CUP PO PRN (05:24)
[2022-12-08] MEDS: DARUNAVIR/COB/EMTRI/TENOF (SYMTUZA) TABLET (NF) PO SCH (07:44)
[2022-12-08] MEDS ORDERED: PANTOPRAZOLE 40 MG TABLET PO SCH ×2 (10:00→10:31)
[2022-12-08] MEDS: NIFEdipine E.R. 90 MG TABLET PO SCH (10:10)
[2022-12-08] MEDS: PRENATAL VITAMINS W/ FOLIC ACID TABLET (FP) PO SCH (10:10)
[2022-12-08] MEDS: HYDROCHLOROTHIAZIDE 25 MG TABLET (FP) PO SCH (10:11)
[2022-12-08] MEDS: NICOTINE 14 MG/24 HOURS TOPICAL PATCH TD SCH (10:11)
[2022-12-08] MEDS: THIAMINE HCL 100 MG TABLET (FP) PO SCH (21:56)
[2022-12-08] MEDS: SUVOREXANT 10 MG TABLET PO PRN (22:00)
[2022-12-09] MEDS: diazePAM 5 MG TABLET PO SCH ×2 (05:22→17:11)
[2022-12-09] MEDS: QUEtiapine FUMARATE 25 MG TABLET PO SCH ×3 (05:22→21:43)
[2022-12-09] MEDS: PANTOPRAZOLE 40 MG TABLET PO SCH ×2 (06:19→10:10)
[2022-12-09] MEDS: DARUNAVIR/COB/EMTRI/TENOF (SYMTUZA) TABLET (NF) PO SCH (08:30)
[2022-12-09] MEDS: PRENATAL VITAMINS W/ FOLIC ACID TABLET (FP) PO SCH (10:10)
[2022-12-09] MEDS: NIFEdipine E.R. 90 MG TABLET PO SCH (10:10)
[2022-12-09] MEDS: HYDROCHLOROTHIAZIDE 25 MG TABLET (FP) PO SCH (10:10)
[2022-12-09] MEDS: diazePAM 5 MG TABLET PO PRN (10:11)
[2022-12-09] MEDS: METHOCARBAMOL 500 MG TABLET PO PRN (10:11)
[2022-12-09] MEDS: NICOTINE 14 MG/24 HOURS TOPICAL PATCH TD SCH (10:13)
[2022-12-09] MEDS: SUVOREXANT 10 MG TABLET PO PRN (21:43)
[2022-12-09] MEDS: MAG HYDROX/AL HYDROX/SIMETH 30 ML UNIT-DOSE CUP PO PRN (21:43)
[2022-12-09] MEDS: THIAMINE HCL 100 MG TABLET (FP) PO SCH (21:43)
[2022-12-10] MEDS: MAG HYDROX/AL HYDROX/SIMETH 30 ML UNIT-DOSE CUP PO PRN (03:47)
[2022-12-10] MEDS: QUEtiapine FUMARATE 25 MG TABLET PO SCH (05:21)
[2022-12-10] MEDS ORDERED: diazePAM 5 MG TABLET PO ONE (06:00)
[2022-12-10] MEDS: DARUNAVIR/COB/EMTRI/TENOF (SYMTUZA) TABLET (NF) PO SCH (07:18)
[2022-12-10] MEDS: HYDROCHLOROTHIAZIDE 25 MG TABLET (FP) PO SCH (09:00)
[2022-12-10] MEDS: NICOTINE 14 MG/24 HOURS TOPICAL PATCH TD SCH (09:00)
[2022-12-10] MEDS: NIFEdipine E.R. 90 MG TABLET PO SCH (09:00)
[2022-12-10] MEDS: PANTOPRAZOLE 40 MG TABLET PO SCH (09:00)
[2022-12-10] MEDS: PRENATAL VITAMINS W/ FOLIC ACID TABLET (FP) PO SCH (09:00)
[2022-12-10 09:25] VITALS: BP 126/90; PULSE 112; RESP 17; TEMP 97.8
== END 2022-12-10 09:10 | disposition home or self-care (01) | DRG 774 ==
LOC: YASAS 10:52 → Y6N 14:48
PROVIDERS: ADMIT Allergy & Immunology; ATTEND Allergy & Immunology
PROC: HZ2ZZZZ Detoxification Services for Substance Abuse Treatment (ICD-10-PCS; principal; 2022-12-06)
DX: F10.230 Alcohol dependence with withdrawal, uncomplicated (principal); F13.20 Sedative, hypnotic or anxiolytic dependence, uncomplicated; F14.20 Cocaine dependence, uncomplicated; F17.210 Nicotine dependence, cigarettes, uncomplicated; B20 Human immunodeficiency virus [HIV] disease; I10 Essential (primary) hypertension; K21.9 Gastro-esophageal reflux disease without esophagitis; E66.9 Obesity, unspecified; Z68.36 Body mass index [BMI] 36.0-36.9, adult; Z79.899 Other long term (current) drug therapy; Z86.19 Personal history of other infectious and parasitic diseases
CPT/HCPCS: 36415; 80053; 85027; 86593; 86780; 87635; 87811; Q0162

== ENCOUNTER 2023-02-05 13:03 | Inpatient (IN) | payer OTHER ==
[2023-02-05 14:32] VITALS: BMI 35.2
[2023-02-05] MEDS ORDERED: DICYCLOMINE HCL 10 MG CAPSULE PO PRN (16:18)
[2023-02-05] MEDS ORDERED: BENZOCAINE/MENTHOL (CHLORASEPTIC ) LOZENGE MM PRN (16:18)
[2023-02-05] MEDS ORDERED: MAGNESIUM HYDROX 2400MG/30ML ORAL SUSPENSION 30 ML CUP PO PRN (16:18)
[2023-02-05] MEDS ORDERED: guaiFENesin 600 MG TABLET.ER (FP) PO PRN (16:18)
[2023-02-05] MEDS ORDERED: BENZONATATE 200 MG CAPSULE PO PRN (16:18)
[2023-02-05] MEDS ORDERED: NALOXONE HCL 0.4 MG/ML VIAL IM PRN (16:18)
[2023-02-05] MEDS ORDERED: MAG HYDROX/AL HYDROX/SIMETH 30 ML UNIT-DOSE CUP PO PRN (16:18)
[2023-02-05] MEDS ORDERED: METHOCARBAMOL 500 MG TABLET PO PRN (16:18)
[2023-02-05] MEDS ORDERED: NALOXONE HCL (KLOXXADO) 8 MG SPRAY NS PRN (16:18)
[2023-02-05] MEDS ORDERED: BISMUTH SUBSALICYLATE 524 MG/30 ML PO PRN (16:18)
[2023-02-05] MEDS ORDERED: chlordiazePOXIDE HCL 25 MG CAPSULE PO PRN (16:18)
[2023-02-05] MEDS ORDERED: IBUPROFEN 400 MG TABLET (FP) PO PRN (16:18)
[2023-02-05] MEDS ORDERED: LOPERAMIDE HCL 2 MG CAPSULE PO PRN (16:18)
[2023-02-05] MEDS ORDERED: NICOTINE POLACRILEX 2 MG GUM BUC PRN (16:18)
[2023-02-05] MEDS ORDERED: ACETAMINOPHEN 325 MG TABLET (FP) PO PRN (16:18)
[2023-02-05] MEDS ORDERED: POLYETHYLENE GLYCOL (HEALTHYLAX) 3350 17 GM PACKET PO PRN (16:18)
[2023-02-05] MEDS ORDERED: IBUPROFEN 600 MG TABLET (FP) PO PRN (16:18)
[2023-02-05] MEDS ORDERED: ONDANSETRON *ODT* 4 MG TABLET SL PRN (16:18)
[2023-02-05] MEDS: chlordiazePOXIDE HCL 25 MG CAPSULE PO SCH ×2 (17:54→22:14)
[2023-02-05] MEDS: THIAMINE HCL 100 MG TABLET (FP) PO SCH (22:13)
[2023-02-05] MEDS: MELATONIN 5 MG TABLETS PO SCH (22:13)
[2023-02-06] MEDS: PANTOPRAZOLE 40 MG TABLET PO SCH (05:06)
[2023-02-06] MEDS: chlordiazePOXIDE HCL 25 MG CAPSULE PO SCH ×4 (05:07→22:10)
[2023-02-06 09:33] LABS: HEMATOCRIT 37.4 % (35.4-49); MCH 26.7 pg (25.7-33.7); MCHC 32.2 g/dl (32.0-35.9); MEAN PLT VOLUME 8.8 fl (7.5-11.1); PLATELET COUNT 270 10^3/uL (134-434); RBC 4.51 M/mm3 (4.00-5.60); RDW 18.2 % (11.9-15.9); WHITE BLOOD COUNT 6.8 K/mm3 (4.0-10.0)
[2023-02-06 09:40] LABS: POTASSIUM 3.9 mmol/L (3.5-5.1)
[2023-02-06 09:56] LABS: CALCIUM 8.3 mg/dL (8.5-10.1)
[2023-02-06 09:57] LABS: ALBUMIN 3.1 g/dl (3.4-5.0); BLOOD UREA NITROGEN 16.6 mg/dL (7-18)
[2023-02-06 10:00] LABS: CREATININE 1.3 mg/dL (0.55-1.3)
[2023-02-06 10:01] LABS: TOT PROT 6.8 g/dl (6.4-8.2)
[2023-02-06 10:02] LABS: BILIRUBIN,TOTAL 0.3 mg/dL (0.2-1)
[2023-02-06] MEDS: PRENATAL VITAMINS W/ FOLIC ACID TABLET (FP) PO SCH (10:24)
[2023-02-06] MEDS: NIFEdipine E.R. 90 MG TABLET PO SCH (10:24)
[2023-02-06] MEDS: NICOTINE 14 MG/24 HOURS TOPICAL PATCH TD SCH (10:25)
[2023-02-06] MEDS: HYDROCHLOROTHIAZIDE 25 MG TABLET (FP) PO SCH (10:25)
[2023-02-06] MEDS: QUEtiapine FUMARATE 25 MG TABLET PO SCH ×2 (13:05→22:10)
[2023-02-06] MEDS: PATIENT'S OWN MEDICATION (NON-FORMULARY) (Darunavir/Cob/Emtri/Tenof Alaf 1 EACH Tablet) PO SCH (15:14)
[2023-02-06 17:28] VITALS: RESP 18
[2023-02-06] MEDS: THIAMINE HCL 100 MG TABLET (FP) PO SCH (22:10)
[2023-02-06] MEDS: hydrOXYzine PAMOATE 25 MG CAPSULE (FP) PO PRN (22:11)
[2023-02-06] MEDS: MELATONIN 5 MG TABLETS PO SCH (22:13)
[2023-02-07] MEDS: QUEtiapine FUMARATE 25 MG TABLET PO SCH ×2 (05:39→13:48)
[2023-02-07] MEDS: chlordiazePOXIDE HCL 25 MG CAPSULE PO SCH ×3 (05:39→17:31)
[2023-02-07] MEDS: PANTOPRAZOLE 40 MG TABLET PO SCH (05:39)
[2023-02-07] MEDS ORDERED: PATIENT'S OWN MEDICATION (NON-FORMULARY) (Omeprazole Magnesium [Omeprazole Magnesium] 20 M PO SCH (06:00)
[2023-02-07] MEDS: PATIENT'S OWN MEDICATION (NON-FORMULARY) (Darunavir/Cob/Emtri/Tenof Alaf 1 EACH Tablet) PO SCH (10:33)
[2023-02-07] MEDS: PRENATAL VITAMINS W/ FOLIC ACID TABLET (FP) PO SCH (10:34)
[2023-02-07] MEDS: NIFEdipine E.R. 90 MG TABLET PO SCH (10:34)
[2023-02-07] MEDS: HYDROCHLOROTHIAZIDE 25 MG TABLET (FP) PO SCH (10:34)
[2023-02-07] MEDS: NICOTINE 14 MG/24 HOURS TOPICAL PATCH TD SCH (10:37)
[2023-02-07] MEDS ORDERED: TRIMETHOBENZAMIDE HCL 200MG/2ML INJ IM PRN (13:26)
[2023-02-07] MEDS ORDERED: CALCIUM CARBONATE 650 MG TABLET PO SCH (13:45)
[2023-02-07] MEDS: hydrOXYzine PAMOATE 25 MG CAPSULE (FP) PO PRN (14:42)
[2023-02-07 16:58] VITALS: BP 109/68; PULSE 103; TEMP 98.7
[2023-02-08] MEDS ORDERED: chlordiazePOXIDE HCL 10 MG CAPSULE PO PRN
[2023-02-08] MEDS ORDERED: chlordiazePOXIDE HCL 10 MG CAPSULE PO SCH (05:00)
[2023-02-09] MEDS ORDERED: chlordiazePOXIDE HCL 10 MG CAPSULE PO SCH (05:00)
[2023-02-10] MEDS ORDERED: chlordiazePOXIDE HCL 10 MG CAPSULE PO ONE (05:00)
== END 2023-02-07 18:25 | disposition left against medical advice (07) | DRG 770 ==
LOC: YASAS 13:03 → Y6N 16:31
PROVIDERS: ADMIT Allergy & Immunology; ATTEND Surgery
PROC: HZ2ZZZZ Detoxification Services for Substance Abuse Treatment (ICD-10-PCS; principal; 2023-02-05)
DX: F10.230 Alcohol dependence with withdrawal, uncomplicated (principal); F13.20 Sedative, hypnotic or anxiolytic dependence, uncomplicated; F17.210 Nicotine dependence, cigarettes, uncomplicated; F19.280 Other psychoactive substance dependence with psychoactive substance-induced anxiety disorder; F19.282 Other psychoactive substance dependence with psychoactive substance-induced sleep disorder; Z21 Asymptomatic human immunodeficiency virus [HIV] infection status; E83.51 Hypocalcemia; E78.2 Mixed hyperlipidemia; I10 Essential (primary) hypertension; K21.9 Gastro-esophageal reflux disease without esophagitis; R76.8 Other specified abnormal immunological findings in serum; Z86.19 Personal history of other infectious and parasitic diseases; Z62.810 Personal history of physical and sexual abuse in childhood
CPT/HCPCS: 36415; 80053; 85027; 86593; 86780; 87635; 87811; Q0162

== ENCOUNTER 2023-03-12 12:01 | Inpatient (IN) | payer OTHER ==
[2023-03-12 12:43] VITALS: BMI 37.9
[2023-03-12] MEDS ORDERED: BENZONATATE 200 MG CAPSULE PO PRN (15:04)
[2023-03-12] MEDS ORDERED: BENZOCAINE/MENTHOL (CHLORASEPTIC ) LOZENGE MM PRN (15:04)
[2023-03-12] MEDS ORDERED: DICYCLOMINE HCL 10 MG CAPSULE PO PRN (15:04)
[2023-03-12] MEDS ORDERED: NICOTINE POLACRILEX 2 MG GUM BUC PRN (15:04)
[2023-03-12] MEDS ORDERED: ONDANSETRON *ODT* 4 MG TABLET SL PRN (15:04)
[2023-03-12] MEDS ORDERED: ACETAMINOPHEN 325 MG TABLET (FP) PO PRN (15:04)
[2023-03-12] MEDS ORDERED: BISMUTH SUBSALICYLATE 524 MG/30 ML PO PRN (15:04)
[2023-03-12] MEDS ORDERED: LOPERAMIDE HCL 2 MG CAPSULE PO PRN (15:04)
[2023-03-12] MEDS ORDERED: NALOXONE HCL (KLOXXADO) 8 MG SPRAY NS PRN (15:04)
[2023-03-12] MEDS ORDERED: POLYETHYLENE GLYCOL (HEALTHYLAX) 3350 17 GM PACKET PO PRN (15:04)
[2023-03-12] MEDS ORDERED: chlordiazePOXIDE HCL 25 MG CAPSULE PO PRN (15:04)
[2023-03-12] MEDS ORDERED: NALOXONE HCL 0.4 MG/ML VIAL IM PRN (15:04)
[2023-03-12] MEDS ORDERED: IBUPROFEN 400 MG TABLET (FP) PO PRN (15:04)
[2023-03-12] MEDS ORDERED: MAGNESIUM HYDROX 2400MG/30ML ORAL SUSPENSION 30 ML CUP PO PRN (15:04)
[2023-03-12] MEDS ORDERED: guaiFENesin 600 MG TABLET.ER (FP) PO PRN (15:04)
[2023-03-12] MEDS: chlordiazePOXIDE HCL 25 MG CAPSULE PO SCH ×2 (17:13→22:45)
[2023-03-12] MEDS: IBUPROFEN 600 MG TABLET (FP) PO PRN (17:15)
[2023-03-12] MEDS: THIAMINE HCL 100 MG TABLET (FP) PO SCH (22:45)
[2023-03-12] MEDS: MELATONIN 5 MG TABLETS PO SCH (22:46)
[2023-03-13] MEDS: IBUPROFEN 600 MG TABLET (FP) PO PRN ×3 (04:04→20:47)
[2023-03-13] MEDS: chlordiazePOXIDE HCL 25 MG CAPSULE PO SCH ×4 (05:42→22:00)
[2023-03-13] MEDS: PANTOPRAZOLE 40 MG TABLET PO SCH (05:42)
[2023-03-13] MEDS: DARUNAVIR/COB/EMTRI/TENOF ALAF 1 EACH TABLET PO SCH (07:46)
[2023-03-13] MEDS: PRENATAL VITAMINS W/ FOLIC ACID TABLET (FP) PO SCH (09:56)
[2023-03-13] MEDS: NIFEdipine E.R. 90 MG TABLET PO SCH (09:57)
[2023-03-13] MEDS: HYDROCHLOROTHIAZIDE 25 MG TABLET (FP) PO SCH (09:57)
[2023-03-13] MEDS: NICOTINE 21 MG/24 HOURS TOPICAL PATCH TD SCH (09:59)
[2023-03-13] MEDS: METHOCARBAMOL 500 MG TABLET PO PRN (10:01)
[2023-03-13] MEDS ORDERED: PATIENT'S OWN MEDICATION (NON-FORMULARY) (Darunavir/Cob/Emtri/Tenof Alaf 1 EACH Tablet) PO ONE (11:45)
[2023-03-13] MEDS ORDERED: DARUNAVIR/COB/EMTRI/TENOF ALAF 1 EACH TABLET PO ONE (12:00)
[2023-03-13] MEDS: CLINDAMYCIN HCL 150 MG CAPSULE (FP) PO SCH ×2 (13:40→21:56)
[2023-03-13 15:31] LABS: HEMATOCRIT 34.9 % (35.4-49); HEMOGLOBIN 11.5 GM/dL (11.7-16.9); MCH 26.9 pg (25.7-33.7); MEAN CELL VOLUME 81.4 fl (80-96); MEAN PLT VOLUME 8.6 fl (7.5-11.1); PLATELET COUNT 206 10^3/uL (134-434); RBC 4.28 M/mm3 (4.00-5.60); WHITE BLOOD COUNT 8.2 K/mm3 (4.0-10.0)
[2023-03-13 15:34] LABS: CHLORIDE 109 mmol/L (98-107); POTASSIUM 3.8 mmol/L (3.5-5.1); SODIUM 138 mmol/L (136-145)
[2023-03-13 15:37] LABS: ANION GAP 3 mmol/L (4-13); BLOOD UREA NITROGEN 12.6 mg/dL (7-18); CALCIUM 8.5 mg/dL (8.5-10.1); CO2 27 mmol/L (21-32); GLUCOSE,RANDOM 113 mg/dL (74-106)
[2023-03-13 15:40] LABS: CREATININE 1.1 mg/dL (0.55-1.3); SGOT/AST 14 U/L (15-37); SGPT/ALT 19 U/L (13-61)
[2023-03-13 15:41] LABS: BILIRUBIN,TOTAL 0.7 mg/dL (0.2-1); TOT PROT 6.7 g/dl (6.4-8.2)
[2023-03-13 15:43] LABS: ALK PHOS 73 U/L (45-117)
[2023-03-13] MEDS: hydrOXYzine PAMOATE 25 MG CAPSULE (FP) PO PRN (20:47)
[2023-03-13] MEDS: MELATONIN 5 MG TABLETS PO SCH (21:58)
[2023-03-13] MEDS: THIAMINE HCL 100 MG TABLET (FP) PO SCH (22:00)
[2023-03-14] MEDS: chlordiazePOXIDE HCL 25 MG CAPSULE PO SCH ×4 (05:29→22:01)
[2023-03-14] MEDS: PANTOPRAZOLE 40 MG TABLET PO SCH (05:30)
[2023-03-14] MEDS: CLINDAMYCIN HCL 150 MG CAPSULE (FP) PO SCH ×3 (05:30→22:01)
[2023-03-14] MEDS: IBUPROFEN 600 MG TABLET (FP) PO PRN ×2 (05:33→17:24)
[2023-03-14] MEDS: DARUNAVIR/COB/EMTRI/TENOF ALAF 1 EACH TABLET PO SCH (07:49)
[2023-03-14] MEDS: PRENATAL VITAMINS W/ FOLIC ACID TABLET (FP) PO SCH (10:09)
[2023-03-14] MEDS: MAG HYDROX/AL HYDROX/SIMETH 30 ML UNIT-DOSE CUP PO PRN ×2 (10:09→23:00)
[2023-03-14] MEDS: METHOCARBAMOL 500 MG TABLET PO PRN (10:10)
[2023-03-14] MEDS: HYDROCHLOROTHIAZIDE 25 MG TABLET (FP) PO SCH (10:10)
[2023-03-14] MEDS: NIFEdipine E.R. 90 MG TABLET PO SCH (10:10)
[2023-03-14] MEDS: hydrOXYzine PAMOATE 25 MG CAPSULE (FP) PO PRN (10:10)
[2023-03-14] MEDS: NICOTINE 21 MG/24 HOURS TOPICAL PATCH TD SCH (10:11)
[2023-03-14] MEDS: THIAMINE HCL 100 MG TABLET (FP) PO SCH (22:01)
[2023-03-14] MEDS: MELATONIN 5 MG TABLETS PO SCH (22:02)
[2023-03-15] MEDS ORDERED: chlordiazePOXIDE HCL 10 MG CAPSULE PO PRN
[2023-03-15] MEDS: IBUPROFEN 600 MG TABLET (FP) PO PRN (01:42)
[2023-03-15] MEDS: METHOCARBAMOL 500 MG TABLET PO PRN ×2 (01:42→22:05)
[2023-03-15] MEDS: CLINDAMYCIN HCL 150 MG CAPSULE (FP) PO SCH ×3 (05:41→22:02)
[2023-03-15] MEDS: PANTOPRAZOLE 40 MG TABLET PO SCH (05:41)
[2023-03-15] MEDS: chlordiazePOXIDE HCL 10 MG CAPSULE PO SCH ×4 (05:41→22:03)
[2023-03-15] MEDS: DARUNAVIR/COB/EMTRI/TENOF ALAF 1 EACH TABLET PO SCH (07:36)
[2023-03-15] MEDS: hydrOXYzine PAMOATE 25 MG CAPSULE (FP) PO PRN ×2 (10:02→17:47)
[2023-03-15] MEDS: NIFEdipine E.R. 90 MG TABLET PO SCH (10:02)
[2023-03-15] MEDS: PRENATAL VITAMINS W/ FOLIC ACID TABLET (FP) PO SCH (10:02)
[2023-03-15] MEDS: HYDROCHLOROTHIAZIDE 25 MG TABLET (FP) PO SCH (10:03)
[2023-03-15] MEDS: NICOTINE 21 MG/24 HOURS TOPICAL PATCH TD SCH (10:03)
[2023-03-15] MEDS: MAG HYDROX/AL HYDROX/SIMETH 30 ML UNIT-DOSE CUP PO PRN ×2 (10:06→17:47)
[2023-03-15] MEDS: THIAMINE HCL 100 MG TABLET (FP) PO SCH (22:03)
[2023-03-15] MEDS: MELATONIN 5 MG TABLETS PO SCH (22:04)
[2023-03-16] MEDS ORDERED: chlordiazePOXIDE HCL 10 MG CAPSULE PO SCH ×2 (05:00→06:00)
[2023-03-16] MEDS: PANTOPRAZOLE 40 MG TABLET PO SCH (05:31)
[2023-03-16] MEDS: CLINDAMYCIN HCL 150 MG CAPSULE (FP) PO SCH (05:31)
[2023-03-16] MEDS: DARUNAVIR/COB/EMTRI/TENOF ALAF 1 EACH TABLET PO SCH (07:12)
[2023-03-16] MEDS: NIFEdipine E.R. 90 MG TABLET PO SCH (09:22)
[2023-03-16] MEDS: PRENATAL VITAMINS W/ FOLIC ACID TABLET (FP) PO SCH (09:22)
[2023-03-16] MEDS: HYDROCHLOROTHIAZIDE 25 MG TABLET (FP) PO SCH (09:22)
[2023-03-16] MEDS: NICOTINE 21 MG/24 HOURS TOPICAL PATCH TD SCH (09:22)
[2023-03-16 10:04] VITALS: BP 124/81; PULSE 96; RESP 16; TEMP 98.2
[2023-03-17] MEDS ORDERED: chlordiazePOXIDE HCL 10 MG CAPSULE PO SCH (05:00)
[2023-03-17] MEDS ORDERED: chlordiazePOXIDE HCL 10 MG CAPSULE PO ONE (05:00)
[2023-03-18] MEDS ORDERED: chlordiazePOXIDE HCL 10 MG CAPSULE PO ONE (06:00)
== END 2023-03-16 09:30 | disposition home or self-care (01) | DRG 774 ==
LOC: YASAS 12:01 → Y6N 15:37
PROVIDERS: ADMIT Allergy & Immunology; ATTEND Surgery
PROC: HZ2ZZZZ Detoxification Services for Substance Abuse Treatment (ICD-10-PCS; principal; 2023-03-12)
DX: F10.230 Alcohol dependence with withdrawal, uncomplicated (principal); F13.230 Sedative, hypnotic or anxiolytic dependence with withdrawal, uncomplicated; F14.20 Cocaine dependence, uncomplicated; F12.20 Cannabis dependence, uncomplicated; F17.210 Nicotine dependence, cigarettes, uncomplicated; Z21 Asymptomatic human immunodeficiency virus [HIV] infection status; I10 Essential (primary) hypertension; K21.9 Gastro-esophageal reflux disease without esophagitis; K61.2 Anorectal abscess; Z86.19 Personal history of other infectious and parasitic diseases; Z90.5 Acquired absence of kidney
CPT/HCPCS: 36415; 80053; 80307; 83036; 85027; 86593; 86780; 87635; 87811

== ENCOUNTER 2023-09-17 12:34 | Inpatient (IN) | payer OTHER ==
[2023-09-17 12:58] VITALS: BMI 36.8
[2023-09-17] MEDS ORDERED: BENZONATATE 200 MG CAPSULE PO PRN (13:38)
[2023-09-17] MEDS ORDERED: ACETAMINOPHEN 325 MG TABLET (FP) PO PRN (13:38)
[2023-09-17] MEDS ORDERED: BISMUTH SUBSALICYLATE 524 MG/30 ML PO PRN (13:38)
[2023-09-17] MEDS ORDERED: LOPERAMIDE HCL 2 MG CAPSULE PO PRN (13:38)
[2023-09-17] MEDS ORDERED: BENZOCAINE/MENTHOL (CHLORASEPTIC ) LOZENGE MM PRN (13:38)
[2023-09-17] MEDS ORDERED: NICOTINE POLACRILEX 2 MG LOZENGE BC PRN (13:38)
[2023-09-17] MEDS ORDERED: MAGNESIUM HYDROX 2400MG/30ML ORAL SUSPENSION 30 ML CUP PO PRN (13:38)
[2023-09-17] MEDS ORDERED: IBUPROFEN 400 MG TABLET (FP) PO PRN (13:38)
[2023-09-17] MEDS ORDERED: POLYETHYLENE GLYCOL (HEALTHYLAX) 3350 17 GM PACKET PO PRN (13:38)
[2023-09-17] MEDS ORDERED: P-EPHED 60MG/TRIPROLIDI 2.5MG TABLET PO PRN (13:38)
[2023-09-17] MEDS ORDERED: DICYCLOMINE HCL 10 MG CAPSULE PO PRN (13:38)
[2023-09-17] MEDS ORDERED: guaiFENesin 600 MG TABLET.ER (FP) PO PRN (13:38)
[2023-09-17] MEDS ORDERED: METHOCARBAMOL 500 MG TABLET ONE (14:39)
[2023-09-17] MEDS ORDERED: ONDANSETRON *ODT* 4 MG TABLET ONE (14:40)
[2023-09-17] MEDS: ONDANSETRON *ODT* 4 MG TABLET SL PRN (14:44)
[2023-09-17] MEDS: METHOCARBAMOL 500 MG TABLET PO PRN (14:45)
[2023-09-17] MEDS: hydrOXYzine PAMOATE 25 MG CAPSULE (FP) PO PRN (18:50)
[2023-09-17] MEDS: THIAMINE 100 MG TABLET PO SCH (21:44)
[2023-09-17] MEDS: MELATONIN 5 MG TABLETS PO SCH (21:44)
[2023-09-18] MEDS: PANTOPRAZOLE 40 MG TABLET PO SCH (05:45)
[2023-09-18 08:03] LABS: CHLORIDE 111 mmol/L (98-107); POTASSIUM 3.9 mmol/L (3.5-5.1); SODIUM 143 mmol/L (136-145)
[2023-09-18 08:05] LABS: ALBUMIN 3.2 g/dl (3.4-5.0); ANION GAP 5 mmol/L (4-13); BLOOD UREA NITROGEN 19.1 mg/dL (7-18); CALCIUM 8.2 mg/dL (8.5-10.1); CO2 27 mmol/L (21-32); GLUCOSE,RANDOM 105 mg/dL (74-106)
[2023-09-18 08:08] LABS: CREATININE 1.3 mg/dL (0.55-1.3); SGOT/AST 38 U/L (15-37); SGPT/ALT 27 U/L (13-61)
[2023-09-18 08:10] LABS: BILIRUBIN,TOTAL 0.3 mg/dL (0.2-1); TOT PROT 6.7 g/dl (6.4-8.2)
[2023-09-18 08:11] LABS: ALK PHOS 93 U/L (45-117)
[2023-09-18 08:31] LABS: HEMATOCRIT 35.7 % (35.4-49); HEMOGLOBIN 11.3 GM/dL (11.7-16.9); MCH 24.5 pg (25.7-33.7); MCHC 31.6 g/dl (32.0-35.9); MEAN CELL VOLUME 77.4 fl (80-96); MEAN PLT VOLUME 9.1 fl (7.5-11.1); PLATELET COUNT 226 10^3/uL (134-434); RBC 4.61 M/mm3 (4.00-5.60); RDW 17.6 % (11.9-15.9); WHITE BLOOD COUNT 6.9 K/mm3 (4.0-10.0)
[2023-09-18] MEDS ORDERED: chlordiazePOXIDE HCL 25 MG CAPSULE PO PRN (09:19)
[2023-09-18] MEDS ORDERED: PATIENT'S OWN MEDICATION (NON-FORMULARY) (Dolutegravir Sodium/Lamivudine [Dovato 50-300 Mg PO SCH (10:00)
[2023-09-18] MEDS: DOLUTEGRAVIR SODIUM 50 MG TABLET (NON-FORMULARY) PO SCH (10:07)
[2023-09-18] MEDS: FOLIC ACID 1 MG TABLET (FP) PO SCH (10:08)
[2023-09-18] MEDS: HYDROCHLOROTHIAZIDE 25 MG TABLET (FP) PO SCH (10:08)
[2023-09-18] MEDS: lamiVUDine 150 MG TABLET PO SCH (10:09)
[2023-09-18] MEDS: PRENATAL VITAMINS W/ FOLIC ACID TABLET (FP) PO SCH (10:10)
[2023-09-18] MEDS: chlordiazePOXIDE HCL 25 MG CAPSULE PO SCH (11:28)
[2023-09-18] MEDS: PATIENT'S OWN MEDICATION (NON-FORMULARY) (Omeprazole [Omeprazole] 20 MG Tablet.Dr) PO SCH (12:53)
[2023-09-18] MEDS: QUEtiapine FUMARATE 25 MG TABLET PO SCH (13:01)
[2023-09-18] MEDS: NIFEdipine E.R. 90 MG TABLET PO SCH (13:34)
[2023-09-19] MEDS: chlordiazePOXIDE HCL 10 MG CAPSULE PO SCH (05:42)
[2023-09-19] MEDS: MAG HYDROX/AL HYDROX/SIMETH 30 ML UNIT-DOSE CUP PO PRN (06:38)
[2023-09-20] MEDS: IBUPROFEN 600 MG TABLET (FP) PO PRN (04:28)
[2023-09-20] MEDS: chlordiazePOXIDE HCL 10 MG CAPSULE PO SCH (05:19)
[2023-09-20] MEDS: PATIENT'S OWN MEDICATION (NON-FORMULARY) (Omeprazole [Omeprazole] 40 MG) PO SCH (06:05)
[2023-09-20] MEDS: NICOTINE POLACRILEX 2 MG GUM BUC PRN (09:23)
[2023-09-21] MEDS: chlordiazePOXIDE HCL 10 MG CAPSULE PO ONE (05:35)
[2023-09-21 09:52] VITALS: BP 118/67; PULSE 97; RESP 17; TEMP 97.8
== END 2023-09-21 10:20 | disposition home or self-care (01) | DRG 774 ==
LOC: YASAS 12:34 → Y6N 14:17
PROVIDERS: ADMIT Allergy & Immunology; ATTEND Surgery
PROC: HZ2ZZZZ Detoxification Services for Substance Abuse Treatment (ICD-10-PCS; principal; 2023-09-17)
DX: F10.230 Alcohol dependence with withdrawal, uncomplicated (principal); F14.20 Cocaine dependence, uncomplicated; F12.20 Cannabis dependence, uncomplicated; F17.210 Nicotine dependence, cigarettes, uncomplicated; F33.1 Major depressive disorder, recurrent, moderate; F25.1 Schizoaffective disorder, depressive type; F19.282 Other psychoactive substance dependence with psychoactive substance-induced sleep disorder; F43.10 Post-traumatic stress disorder, unspecified; Z21 Asymptomatic human immunodeficiency virus [HIV] infection status; E78.5 Hyperlipidemia, unspecified; I10 Essential (primary) hypertension; K21.9 Gastro-esophageal reflux disease without esophagitis; Z62.810 Personal history of physical and sexual abuse in childhood; Z63.8 Other specified problems related to primary support group; Z79.899 Other long term (current) drug therapy
CPT/HCPCS: 36415; 80053; 80305; 80307; 85027; 86593; 86780; 93005; 93010; Q0162

== ENCOUNTER 2023-11-10 10:31 | Inpatient (IN) | payer OTHER ==
[2023-11-10 11:24] VITALS: BMI 37.9
[2023-11-10] MEDS ORDERED: NICOTINE POLACRILEX 2 MG GUM BUC PRN (12:45)
[2023-11-10] MEDS ORDERED: IBUPROFEN 600 MG TABLET (FP) PO PRN (12:45)
[2023-11-10] MEDS ORDERED: ACETAMINOPHEN 325 MG TABLET (FP) PO PRN (12:45)
[2023-11-10] MEDS ORDERED: ONDANSETRON *ODT* 4 MG TABLET SL PRN (12:45)
[2023-11-10] MEDS ORDERED: guaiFENesin 600 MG TABLET.ER (FP) PO PRN (12:45)
[2023-11-10] MEDS ORDERED: MAGNESIUM HYDROX 2400MG/30ML ORAL SUSPENSION 30 ML CUP PO PRN (12:45)
[2023-11-10] MEDS ORDERED: IBUPROFEN 400 MG TABLET (FP) PO PRN (12:45)
[2023-11-10] MEDS ORDERED: BENZONATATE 200 MG CAPSULE PO PRN (12:45)
[2023-11-10] MEDS ORDERED: BISMUTH SUBSALICYLATE 262 MG/15 ML BTL PO PRN (12:45)
[2023-11-10] MEDS ORDERED: NALOXONE HCL 0.4 MG/ML VIAL IM PRN (12:45)
[2023-11-10] MEDS ORDERED: LOPERAMIDE HCL 2 MG CAPSULE PO PRN (12:45)
[2023-11-10] MEDS ORDERED: BENZOCAINE/MENTHOL (CHLORASEPTIC ) LOZENGE MM PRN (12:45)
[2023-11-10] MEDS ORDERED: NALOXONE (NARCAN) HCL 4 MG/0.1 ML SPRAY NS PRN (12:45)
[2023-11-10] MEDS ORDERED: POLYETHYLENE GLYCOL (HEALTHYLAX) 3350 17 GM PACKET PO PRN (12:45)
[2023-11-10] MEDS: MAG HYDROX/AL HYDROX/SIMETH 30 ML UNIT-DOSE CUP PO PRN (14:05)
[2023-11-10] MEDS: METHOCARBAMOL 500 MG TABLET PO PRN (14:05)
[2023-11-10] MEDS: hydrOXYzine PAMOATE 25 MG CAPSULE (FP) PO PRN (14:05)
[2023-11-10] MEDS: DICYCLOMINE HCL 10 MG CAPSULE PO PRN (17:31)
[2023-11-10] MEDS: MELATONIN 5 MG TABLETS PO SCH (22:44)
[2023-11-10] MEDS: THIAMINE 100 MG TABLET PO SCH (22:44)
[2023-11-11] MEDS: NICOTINE 14 MG/24 HOURS TOPICAL PATCH TD SCH (09:39)
[2023-11-11] MEDS: PRENATAL VITAMINS W/ FOLIC ACID TABLET (FP) PO SCH (09:39)
[2023-11-11] MEDS ORDERED: chlordiazePOXIDE HCL 25 MG CAPSULE PO PRN (10:37)
[2023-11-11] MEDS: HYDROCHLOROTHIAZIDE 25 MG TABLET (FP) PO SCH (11:03)
[2023-11-11] MEDS: chlordiazePOXIDE HCL 25 MG CAPSULE PO SCH (11:03)
[2023-11-11] MEDS: NIFEdipine E.R. 90 MG TABLET PO SCH (11:34)
[2023-11-11 12:07] LABS: HEMATOCRIT 39.8 % (35.4-49); HEMOGLOBIN 13.1 GM/dL (11.7-16.9); MCH 25.8 pg (25.7-33.7); MCHC 32.8 g/dl (32.0-35.9); MEAN CELL VOLUME 78.7 fl (80-96); MEAN PLT VOLUME 9.3 fl (7.5-11.1); PLATELET COUNT 208 10^3/uL (134-434); RBC 5.06 M/mm3 (4.00-5.60); RDW 22.1 % (11.9-15.9); WHITE BLOOD COUNT 6.7 K/mm3 (4.0-10.0)
[2023-11-11] MEDS: PATIENT'S OWN MEDICATION (NON-FORMULARY) (Omeprazole [Omeprazole] 20 MG Tablet.Dr) PO SCH (12:07)
[2023-11-11] MEDS: PATIENT'S OWN MEDICATION (NON-FORMULARY) (Dolutegravir Sodium/Lamivudine [Dovato 50-300 Mg PO SCH (12:08)
[2023-11-11 13:49] LABS: POTASSIUM 3.4 mmol/L (3.5-5.1)
[2023-11-11 13:51] LABS: BLOOD UREA NITROGEN 22.8 mg/dL (7-18); CALCIUM 8.8 mg/dL (8.5-10.1)
[2023-11-11 13:52] LABS: ALBUMIN 4.4 g/dl (3.4-5.0)
[2023-11-11 13:54] LABS: CREATININE 1.6 mg/dL (0.55-1.3)
[2023-11-11 13:56] LABS: BILIRUBIN,TOTAL 0.5 mg/dL (0.2-1); TOT PROT 7.9 g/dl (6.4-8.2)
[2023-11-11] MEDS: QUEtiapine FUMARATE 25 MG TABLET PO SCH (13:56)
[2023-11-11 17:25] VITALS: BP 112/77; PULSE 94; RESP 17; TEMP 97.6
[2023-11-12] MEDS ORDERED: NIFEDIPINE PO SCH (10:00)
[2023-11-13] MEDS ORDERED: chlordiazePOXIDE HCL 25 MG CAPSULE PO SCH (05:00)
[2023-11-14] MEDS ORDERED: chlordiazePOXIDE HCL 10 MG CAPSULE PO PRN
[2023-11-14] MEDS ORDERED: chlordiazePOXIDE HCL 10 MG CAPSULE PO SCH (05:00)
[2023-11-15] MEDS ORDERED: chlordiazePOXIDE HCL 10 MG CAPSULE PO SCH (05:00)
[2023-11-16] MEDS ORDERED: chlordiazePOXIDE HCL 10 MG CAPSULE PO ONE (05:00)
== END 2023-11-11 19:11 | disposition left against medical advice (07) | DRG 770 ==
LOC: YASAS 10:31 → Y6N 13:16
PROVIDERS: ADMIT Allergy & Immunology; ATTEND Family Medicine Addiction Medicine
PROC: HZ2ZZZZ Detoxification Services for Substance Abuse Treatment (ICD-10-PCS; principal; 2023-11-10)
DX: F10.230 Alcohol dependence with withdrawal, uncomplicated (principal); F14.20 Cocaine dependence, uncomplicated; F12.20 Cannabis dependence, uncomplicated; F17.210 Nicotine dependence, cigarettes, uncomplicated; F33.1 Major depressive disorder, recurrent, moderate; F19.282 Other psychoactive substance dependence with psychoactive substance-induced sleep disorder; F43.10 Post-traumatic stress disorder, unspecified; Z21 Asymptomatic human immunodeficiency virus [HIV] infection status; E78.5 Hyperlipidemia, unspecified; I10 Essential (primary) hypertension; K21.9 Gastro-esophageal reflux disease without esophagitis; Z62.810 Personal history of physical and sexual abuse in childhood; Z63.8 Other specified problems related to primary support group; Z86.19 Personal history of other infectious and parasitic diseases
CPT/HCPCS: 36415; 80053; 80305; 80307; 85027; 86593; 86780; 93005; 93010

== ENCOUNTER 2023-12-18 09:43 | Inpatient (IN) | payer OTHER ==
[2023-12-18 10:08] VITALS: BMI 37.5
[2023-12-18] MEDS ORDERED: chlordiazePOXIDE HCL 25 MG CAPSULE PO PRN (11:19)
[2023-12-18] MEDS ORDERED: IBUPROFEN 600 MG TABLET (FP) PO PRN (11:19)
[2023-12-18] MEDS ORDERED: POLYETHYLENE GLYCOL (HEALTHYLAX) 3350 17 GM PACKET PO PRN (11:19)
[2023-12-18] MEDS ORDERED: NALOXONE (NARCAN) HCL 4 MG/0.1 ML SPRAY NS PRN (11:19)
[2023-12-18] MEDS ORDERED: BENZOCAINE/MENTHOL (CHLORASEPTIC ) LOZENGE MM PRN (11:19)
[2023-12-18] MEDS ORDERED: BENZONATATE 200 MG CAPSULE PO PRN (11:19)
[2023-12-18] MEDS ORDERED: MAGNESIUM HYDROX 2400MG/30ML ORAL SUSPENSION 30 ML CUP PO PRN (11:19)
[2023-12-18] MEDS ORDERED: ACETAMINOPHEN 325 MG TABLET (FP) PO PRN (11:19)
[2023-12-18] MEDS ORDERED: guaiFENesin 600 MG TABLET.ER (FP) PO PRN (11:19)
[2023-12-18] MEDS ORDERED: NALOXONE HCL 0.4 MG/ML VIAL IM PRN (11:19)
[2023-12-18] MEDS ORDERED: LOPERAMIDE HCL 2 MG CAPSULE PO PRN (11:19)
[2023-12-18] MEDS: METHOCARBAMOL 500 MG TABLET PO PRN (13:12)
[2023-12-18] MEDS: hydrOXYzine PAMOATE 25 MG CAPSULE (FP) PO PRN (13:12)
[2023-12-18] MEDS: chlordiazePOXIDE HCL 25 MG CAPSULE PO SCH (17:30)
[2023-12-18] MEDS: ONDANSETRON *ODT* 4 MG TABLET SL PRN (17:33)
[2023-12-18] MEDS: IBUPROFEN 400 MG TABLET (FP) PO PRN (17:34)
[2023-12-18] MEDS: MELATONIN 5 MG TABLETS PO SCH (22:04)
[2023-12-18] MEDS: QUEtiapine FUMARATE 25 MG TABLET PO SCH (22:04)
[2023-12-18] MEDS: THIAMINE 100 MG TABLET PO SCH (22:04)
[2023-12-19] MEDS: MAG HYDROX/AL HYDROX/SIMETH 30 ML UNIT-DOSE CUP PO PRN (04:37)
[2023-12-19] MEDS: FAMOTIDINE 20 MG TABLET PO ONE (07:24)
[2023-12-19] MEDS ORDERED: PATIENT'S OWN MEDICATION (NON-FORMULARY) (Dolutegravir Sodium/Lamivudine [Dovato 50-300 Mg PO SCH (10:00)
[2023-12-19] MEDS ORDERED: PANTOPRAZOLE 20 MG TABLET PO SCH (10:00)
[2023-12-19] MEDS: DOLUTEGRAVIR SODIUM 50 MG TABLET (NON-FORMULARY) PO SCH (10:02)
[2023-12-19] MEDS: NIFEdipine E.R. 90 MG TABLET PO SCH (10:03)
[2023-12-19] MEDS: HYDROCHLOROTHIAZIDE 25 MG TABLET (FP) PO SCH (10:03)
[2023-12-19] MEDS: PRENATAL VITAMINS W/ FOLIC ACID TABLET (FP) PO SCH (10:04)
[2023-12-19 11:04] LABS: HEMATOCRIT 35.8 % (35.4-49); HEMOGLOBIN 11.7 GM/dL (11.7-16.9); MCH 26.3 pg (25.7-33.7); MCHC 32.6 g/dl (32.0-35.9); MEAN CELL VOLUME 80.9 fl (80-96); MEAN PLT VOLUME 8.6 fl (7.5-11.1); PLATELET COUNT 232 10^3/uL (134-434); RBC 4.43 M/mm3 (4.00-5.60); RDW 21.5 % (11.9-15.9); WHITE BLOOD COUNT 6.2 K/mm3 (4.0-10.0)
[2023-12-19 11:06] LABS: CHLORIDE 110 mmol/L (98-107); POTASSIUM 4.2 mmol/L (3.5-5.1); SODIUM 141 mmol/L (136-145)
[2023-12-19 11:10] LABS: CALCIUM 8.6 mg/dL (8.5-10.1)
[2023-12-19 11:11] LABS: ALBUMIN 3.2 g/dl (3.4-5.0); ANION GAP 7 mmol/L (4-13); BLOOD UREA NITROGEN 18.3 mg/dL (7-18); CO2 25 mmol/L (21-32); GLUCOSE,RANDOM 102 mg/dL (74-106)
[2023-12-19 11:14] LABS: CREATININE 1.1 mg/dL (0.55-1.3); SGOT/AST 37 U/L (15-37); SGPT/ALT 41 U/L (13-61)
[2023-12-19 11:15] LABS: BILIRUBIN,TOTAL 0.3 mg/dL (0.2-1); TOT PROT 6.5 g/dl (6.4-8.2)
[2023-12-19 11:17] LABS: ALK PHOS 82 U/L (45-117)
[2023-12-19] MEDS: BISMUTH SUBSALICYLATE 524 MG/30 ML PO PRN (23:26)
[2023-12-20] MEDS: DICYCLOMINE HCL 10 MG CAPSULE PO PRN (02:18)
[2023-12-20] MEDS: PANTOPRAZOLE 20 MG TABLET PO SCH (05:31)
[2023-12-20] MEDS: chlordiazePOXIDE HCL 25 MG CAPSULE PO SCH (05:31)
[2023-12-20] MEDS: NALTREXONE HCL 50 MG TABLET PO SCH (14:26)
[2023-12-20] MEDS: SUVOREXANT 10 MG TABLET PO PRN (22:05)
[2023-12-21] MEDS ORDERED: chlordiazePOXIDE HCL 10 MG CAPSULE PO PRN
[2023-12-21] MEDS: chlordiazePOXIDE HCL 10 MG CAPSULE PO SCH (05:51)
[2023-12-21] MEDS: PANTOPRAZOLE 40 MG TABLET PO SCH (05:52)
[2023-12-21] MEDS: diazePAM 5 MG TABLET PO PRN (13:28)
[2023-12-21] MEDS: diazePAM 5 MG TABLET PO SCH (17:15)
[2023-12-22] MEDS ORDERED: chlordiazePOXIDE HCL 10 MG CAPSULE PO SCH (05:00)
[2023-12-22] MEDS: diazePAM 5 MG TABLET PO SCH (05:39)
[2023-12-22] MEDS: FOLIC ACID 1 MG TABLET (FP) PO SCH (09:24)
[2023-12-23] MEDS ORDERED: chlordiazePOXIDE HCL 10 MG CAPSULE PO ONE (05:00)
[2023-12-23] MEDS: diazePAM 5 MG TABLET PO ONE (05:36)
[2023-12-23 08:59] VITALS: BP 125/79; PULSE 108; RESP 16; TEMP 97.1
== END 2023-12-23 09:30 | disposition other institution (70) | DRG 774 ==
LOC: YASAS 09:43 → Y6N 11:01
PROVIDERS: ADMIT Surgery; ATTEND Surgery
PROC: HZ2ZZZZ Detoxification Services for Substance Abuse Treatment (ICD-10-PCS; principal; 2023-12-18)
DX: F10.230 Alcohol dependence with withdrawal, uncomplicated (principal); F13.230 Sedative, hypnotic or anxiolytic dependence with withdrawal, uncomplicated; F14.20 Cocaine dependence, uncomplicated; F12.20 Cannabis dependence, uncomplicated; F17.210 Nicotine dependence, cigarettes, uncomplicated; F33.1 Major depressive disorder, recurrent, moderate; F41.9 Anxiety disorder, unspecified; Z21 Asymptomatic human immunodeficiency virus [HIV] infection status; D64.9 Anemia, unspecified; I10 Essential (primary) hypertension; K21.9 Gastro-esophageal reflux disease without esophagitis; E86.0 Dehydration; Z62.810 Personal history of physical and sexual abuse in childhood; Z63.8 Other specified problems related to primary support group; Z79.899 Other long term (current) drug therapy; Z59.02 Unsheltered homelessness
CPT/HCPCS: 36415; 80053; 80305; 80307; 85027; 86593; 86780; 93005; 93010; Q0162

== ENCOUNTER 2024-02-11 10:01 | Inpatient (IN) | payer OTHER ==
[2024-02-11 10:44] VITALS: BMI 36.9
[2024-02-11] MEDS ORDERED: BENZOCAINE/MENTHOL (CHLORASEPTIC ) LOZENGE MM PRN (12:58)
[2024-02-11] MEDS ORDERED: NALOXONE (NYS OPIOID OVERDOSE PROGRAM) 4 MG/0.1 ML SPRAY NS PRN (12:58)
[2024-02-11] MEDS ORDERED: guaiFENesin 600 MG TABLET.ER (FP) PO PRN (12:58)
[2024-02-11] MEDS ORDERED: POLYETHYLENE GLYCOL (HEALTHYLAX) 3350 17 GM PACKET PO PRN (12:58)
[2024-02-11] MEDS ORDERED: IBUPROFEN 400 MG TABLET (FP) PO PRN (12:58)
[2024-02-11] MEDS ORDERED: LOPERAMIDE HCL 2 MG CAPSULE PO PRN (12:58)
[2024-02-11] MEDS ORDERED: IBUPROFEN 600 MG TABLET (FP) PO PRN (12:58)
[2024-02-11] MEDS ORDERED: ACETAMINOPHEN 325 MG TABLET (FP) PO PRN (12:58)
[2024-02-11] MEDS ORDERED: ONDANSETRON *ODT* 4 MG TABLET SL PRN (12:58)
[2024-02-11] MEDS ORDERED: BENZONATATE 200 MG CAPSULE PO PRN (12:58)
[2024-02-11] MEDS ORDERED: DICYCLOMINE HCL 10 MG CAPSULE PO PRN (12:58)
[2024-02-11] MEDS ORDERED: MAGNESIUM HYDROX 2400MG/30ML ORAL SUSPENSION 30 ML CUP PO PRN (12:58)
[2024-02-11] MEDS ORDERED: NALOXONE (NARCAN) HCL 4 MG/0.1 ML SPRAY NS PRN (12:58)
[2024-02-11] MEDS ORDERED: LORazepam 2 MG TABLET ONE (13:29)
[2024-02-11] MEDS: LORazepam 2 MG TABLET PO ONE (13:32)
[2024-02-11] MEDS: DOLUTEGRAVIR SODIUM 50 MG TABLET (NON-FORMULARY) PO SCH (14:21)
[2024-02-11] MEDS: HYDROCHLOROTHIAZIDE 25 MG TABLET (FP) PO SCH (14:21)
[2024-02-11] MEDS: PANTOPRAZOLE 40 MG TABLET PO ONE (14:38)
[2024-02-11] MEDS: NIFEdipine E.R. 90 MG TABLET PO SCH (14:38)
[2024-02-11] MEDS: PANTOPRAZOLE 40 MG TABLET PO SCH (14:40)
[2024-02-11] MEDS: METHOCARBAMOL 500 MG TABLET PO PRN (17:21)
[2024-02-11] MEDS: LORazepam 2 MG TABLET PO SCH (17:21)
[2024-02-11] MEDS: MAG HYDROX/AL HYDROX/SIMETH 30 ML UNIT-DOSE CUP PO PRN (18:29)
[2024-02-11] MEDS: BISMUTH SUBSALICYLATE 524 MG/30 ML PO PRN (21:13)
[2024-02-11] MEDS: THIAMINE 100 MG TABLET PO SCH (22:07)
[2024-02-11] MEDS: MELATONIN 5 MG TABLETS PO SCH (22:07)
[2024-02-12] MEDS ORDERED: PANTOPRAZOLE 40 MG TABLET PO SCH (06:00)
[2024-02-12] MEDS: PRENATAL VITAMINS W/ FOLIC ACID TABLET (FP) PO SCH (10:08)
[2024-02-12] MEDS: NICOTINE 21 MG/24 HOURS TOPICAL PATCH TD PRN (10:12)
[2024-02-12 11:12] LABS: HEMATOCRIT 40.5 % (35.4-49); HEMOGLOBIN 12.8 GM/dL (11.7-16.9); MCH 25.7 pg (25.7-33.7); MCHC 31.7 g/dl (32.0-35.9); MEAN PLT VOLUME 8.7 fl (7.5-11.1); PLATELET COUNT 230 10^3/uL (134-434); RDW 17.3 % (11.9-15.9); WHITE BLOOD COUNT 6.6 K/mm3 (4.0-10.0)
[2024-02-12 11:17] LABS: CHLORIDE 105 mmol/L (98-107); POTASSIUM 4.3 mmol/L (3.5-5.1); SODIUM 138 mmol/L (136-145)
[2024-02-12 11:27] LABS: CALCIUM 9.5 mg/dL (8.5-10.1)
[2024-02-12 11:28] LABS: ALBUMIN 3.7 g/dl (3.4-5.0); ANION GAP 5 mmol/L (4-13); BLOOD UREA NITROGEN 13.7 mg/dL (7-18); CO2 28 mmol/L (21-32); GLUCOSE,RANDOM 94 mg/dL (74-106)
[2024-02-12 11:31] LABS: CREATININE 1.2 mg/dL (0.55-1.3); SGOT/AST 20 U/L (15-37); SGPT/ALT 26 U/L (13-61)
[2024-02-12 11:32] LABS: BILIRUBIN,TOTAL 0.4 mg/dL (0.2-1); TOT PROT 7.1 g/dl (6.4-8.2)
[2024-02-12 11:34] LABS: ALK PHOS 76 U/L (45-117)
[2024-02-12] MEDS: QUEtiapine FUMARATE 25 MG TABLET PO SCH (13:49)
[2024-02-12] MEDS: LORazepam 1 MG TABLET PO PRN (20:20)
[2024-02-12] MEDS: FAMOTIDINE 20 MG TABLET PO PRN (21:34)
[2024-02-13] MEDS: LORazepam 1 MG TABLET PO SCH (05:56)
[2024-02-13] MEDS: FLU VACCINE (FLULAVAL) PF 45 MCG/0.5 ML SYRINGE 2024-2025 IM ONE (11:21)
[2024-02-14] MEDS ORDERED: LORazepam 0.5 MG TABLET PO PRN
[2024-02-14] MEDS: LORazepam 0.5 MG TABLET PO SCH (05:40)
[2024-02-15] MEDS: LORazepam 0.5 MG TABLET PO ONE (05:58)
[2024-02-15 09:31] VITALS: BP 159/91; PULSE 112; RESP 20; TEMP 98.2
== END 2024-02-15 09:13 | disposition other institution (70) | DRG 774 ==
LOC: YASAS 10:01 → Y3N 12:54
PROVIDERS: ADMIT Surgery; ATTEND Surgery
PROC: HZ2ZZZZ Detoxification Services for Substance Abuse Treatment (ICD-10-PCS; principal; 2024-02-11)
DX: F10.230 Alcohol dependence with withdrawal, uncomplicated (principal); F13.230 Sedative, hypnotic or anxiolytic dependence with withdrawal, uncomplicated; F14.20 Cocaine dependence, uncomplicated; F16.20 Hallucinogen dependence, uncomplicated; F12.20 Cannabis dependence, uncomplicated; F17.210 Nicotine dependence, cigarettes, uncomplicated; F33.1 Major depressive disorder, recurrent, moderate; Z21 Asymptomatic human immunodeficiency virus [HIV] infection status; E78.2 Mixed hyperlipidemia; I10 Essential (primary) hypertension; K21.9 Gastro-esophageal reflux disease without esophagitis; Z62.810 Personal history of physical and sexual abuse in childhood; Z63.8 Other specified problems related to primary support group
CPT/HCPCS: 36415; 80053; 80305; 80307; 85027; 86593; 86780; 90656; 93005; 93010; G0008

== ENCOUNTER 2024-04-11 09:21 | Inpatient (IN) | payer OTHER ==
[2024-04-11 09:43] VITALS: BMI 36.9
[2024-04-11] MEDS ORDERED: ACETAMINOPHEN 325 MG TABLET (FP) PO PRN (11:14)
[2024-04-11] MEDS ORDERED: BENZOCAINE/MENTHOL (CHLORASEPTIC ) LOZENGE MM PRN (11:14)
[2024-04-11] MEDS ORDERED: NALOXONE (NARCAN) HCL 4 MG/0.1 ML SPRAY NS PRN (11:14)
[2024-04-11] MEDS ORDERED: guaiFENesin 600 MG TABLET.ER (FP) PO PRN (11:14)
[2024-04-11] MEDS ORDERED: NICOTINE POLACRILEX 2 MG GUM BUC PRN (11:14)
[2024-04-11] MEDS ORDERED: POLYETHYLENE GLYCOL (HEALTHYLAX) 3350 17 GM PACKET PO PRN (11:14)
[2024-04-11] MEDS ORDERED: MAGNESIUM HYDROX 2400MG/30ML ORAL SUSPENSION 30 ML CUP PO PRN (11:14)
[2024-04-11] MEDS ORDERED: DICYCLOMINE HCL 10 MG CAPSULE PO PRN (11:14)
[2024-04-11] MEDS ORDERED: IBUPROFEN 600 MG TABLET (FP) PO PRN (11:14)
[2024-04-11] MEDS ORDERED: BENZONATATE 200 MG CAPSULE PO PRN (11:14)
[2024-04-11] MEDS ORDERED: LOPERAMIDE HCL 2 MG CAPSULE PO PRN (11:14)
[2024-04-11] MEDS ORDERED: BISMUTH SUBSALICYLATE 524 MG/30 ML PO PRN (11:14)
[2024-04-11] MEDS: IBUPROFEN 400 MG TABLET (FP) PO PRN (13:38)
[2024-04-11] MEDS: METHOCARBAMOL 500 MG TABLET PO PRN (13:38)
[2024-04-11] MEDS: hydrOXYzine PAMOATE 25 MG CAPSULE (FP) PO PRN (13:38)
[2024-04-11] MEDS: ONDANSETRON *ODT* 4 MG TABLET SL PRN (13:39)
[2024-04-11] MEDS: chlordiazePOXIDE HCL 25 MG CAPSULE PO SCH (17:25)
[2024-04-11] MEDS: THIAMINE 100 MG TABLET PO SCH (22:34)
[2024-04-11] MEDS: QUEtiapine FUMARATE 25 MG TABLET PO SCH (22:34)
[2024-04-11] MEDS: MELATONIN 5 MG TABLETS PO SCH (22:35)
[2024-04-12] MEDS: PANTOPRAZOLE 40 MG TABLET PO SCH (06:14)
[2024-04-12] MEDS: DOLUTEGRAVIR SODIUM 50 MG TABLET (NON-FORMULARY) PO SCH (07:39)
[2024-04-12] MEDS ORDERED: PATIENT'S OWN MEDICATION (NON-FORMULARY) (Dolutegravir Sodium/Lamivudine [Dovato 50-300 Mg PO SCH (10:00)
[2024-04-12] MEDS: PRENATAL VITAMINS W/ FOLIC ACID TABLET (FP) PO SCH (10:40)
[2024-04-12] MEDS: HYDROCHLOROTHIAZIDE 25 MG TABLET (FP) PO SCH (10:41)
[2024-04-12] MEDS: NICOTINE 14 MG/24 HOURS TOPICAL PATCH TD SCH (10:41)
[2024-04-12 11:15] LABS: POTASSIUM 3.6 mmol/L (3.5-5.1)
[2024-04-12 11:20] LABS: HEMATOCRIT 40.4 % (35.4-49); MCH 26.2 pg (25.7-33.7); MCHC 32.2 g/dl (32.0-35.9); MEAN CELL VOLUME 81.2 fl (80-96); MEAN PLT VOLUME 8.7 fl (7.5-11.1); PLATELET COUNT 169 10^3/uL (134-434); RBC 4.98 M/mm3 (4.00-5.60); RDW 18.8 % (11.9-15.9); WHITE BLOOD COUNT 2.9 K/mm3 (4.0-10.0)
[2024-04-12 11:25] LABS: CALCIUM 9.1 mg/dL (8.5-10.1)
[2024-04-12 11:26] LABS: ALBUMIN 4.1 g/dl (3.4-5.0); BLOOD UREA NITROGEN 14.1 mg/dL (7-18)
[2024-04-12 11:29] LABS: CREATININE 1.2 mg/dL (0.55-1.3)
[2024-04-12 11:30] LABS: BILIRUBIN,TOTAL 0.7 mg/dL (0.2-1); TOT PROT 7.4 g/dl (6.4-8.2)
[2024-04-12] MEDS: NIFEdipine E.R. 90 MG TABLET PO SCH (13:59)
[2024-04-13] MEDS: MAG HYDROX/AL HYDROX/SIMETH 30 ML UNIT-DOSE CUP PO PRN (03:03)
[2024-04-13] MEDS: chlordiazePOXIDE HCL 25 MG CAPSULE PO SCH (05:48)
[2024-04-13 08:53] VITALS: RESP 18
[2024-04-13] MEDS: chlordiazePOXIDE HCL 25 MG CAPSULE PO PRN (13:36)
[2024-04-13 17:48] VITALS: BP 121/82; PULSE 108; TEMP 97.1
[2024-04-13] MEDS: NALOXONE (NYS OPIOID OVERDOSE PROGRAM) 4 MG/0.1 ML SPRAY NS SCH (18:30)
[2024-04-14] MEDS ORDERED: chlordiazePOXIDE HCL 10 MG CAPSULE PO PRN
[2024-04-14] MEDS ORDERED: chlordiazePOXIDE HCL 10 MG CAPSULE PO SCH (05:00)
[2024-04-15] MEDS ORDERED: chlordiazePOXIDE HCL 10 MG CAPSULE PO SCH (05:00)
[2024-04-16] MEDS ORDERED: chlordiazePOXIDE HCL 10 MG CAPSULE PO ONE (05:00)
== END 2024-04-13 18:30 | disposition left against medical advice (07) | DRG 770 ==
LOC: YASAS 09:21 → Y6N 12:21
PROVIDERS: ADMIT Allergy & Immunology; ATTEND Surgery
PROC: HZ2ZZZZ Detoxification Services for Substance Abuse Treatment (ICD-10-PCS; principal; 2024-04-11)
DX: F10.230 Alcohol dependence with withdrawal, uncomplicated (principal); F13.230 Sedative, hypnotic or anxiolytic dependence with withdrawal, uncomplicated; F14.20 Cocaine dependence, uncomplicated; F12.20 Cannabis dependence, uncomplicated; F17.210 Nicotine dependence, cigarettes, uncomplicated; F32.9 Major depressive disorder, single episode, unspecified; F43.10 Post-traumatic stress disorder, unspecified; Z21 Asymptomatic human immunodeficiency virus [HIV] infection status; I10 Essential (primary) hypertension; K21.9 Gastro-esophageal reflux disease without esophagitis; Z62.810 Personal history of physical and sexual abuse in childhood; Z63.8 Other specified problems related to primary support group; Z90.5 Acquired absence of kidney; Z90.49 Acquired absence of other specified parts of digestive tract
CPT/HCPCS: 36415; 80053; 80307; 85027; 86593; 86780; 93005; 93010; Q0162

== ENCOUNTER 2024-06-09 13:13 | Inpatient (IN) | payer OTHER ==
[2024-06-09 13:42] VITALS: BMI 35.6
[2024-06-09] MEDS ORDERED: ONDANSETRON *ODT* 4 MG TABLET SL PRN (15:57)
[2024-06-09] MEDS ORDERED: POLYETHYLENE GLYCOL (HEALTHYLAX) 3350 17 GM PACKET PO PRN (15:57)
[2024-06-09] MEDS ORDERED: IBUPROFEN 600 MG TABLET (FP) PO PRN (15:57)
[2024-06-09] MEDS ORDERED: BENZOCAINE/MENTHOL (CHLORASEPTIC ) LOZENGE MM PRN (15:57)
[2024-06-09] MEDS ORDERED: P-EPHED 60MG/TRIPROLIDI 2.5MG TABLET PO PRN (15:57)
[2024-06-09] MEDS ORDERED: IBUPROFEN 400 MG TABLET (FP) PO PRN (15:57)
[2024-06-09] MEDS ORDERED: NALOXONE (NARCAN) HCL 4 MG/0.1 ML SPRAY NS PRN (15:57)
[2024-06-09] MEDS ORDERED: guaiFENesin 600 MG TABLET.ER (FP) PO PRN (15:57)
[2024-06-09] MEDS ORDERED: ACETAMINOPHEN 325 MG TABLET (FP) PO PRN (15:57)
[2024-06-09] MEDS ORDERED: LOPERAMIDE HCL 2 MG CAPSULE PO PRN (15:57)
[2024-06-09] MEDS ORDERED: DICYCLOMINE HCL 10 MG CAPSULE PO PRN (15:57)
[2024-06-09] MEDS ORDERED: BENZONATATE 200 MG CAPSULE PO PRN (15:57)
[2024-06-09] MEDS ORDERED: BISMUTH SUBSALICYLATE 524 MG/30 ML PO PRN (15:57)
[2024-06-09] MEDS ORDERED: MAGNESIUM HYDROX 2400MG/30ML ORAL SUSPENSION 30 ML CUP PO PRN (15:57)
[2024-06-09] MEDS ORDERED: diazePAM 5 MG TABLET ONE (17:14)
[2024-06-09] MEDS: diazePAM 5 MG TABLET PO SCH (17:19)
[2024-06-09] MEDS: METHOCARBAMOL 500 MG TABLET PO PRN (17:30)
[2024-06-09] MEDS: THIAMINE 100 MG TABLET PO SCH (22:18)
[2024-06-09] MEDS: MELATONIN 5 MG TABLETS PO SCH (22:18)
[2024-06-10] MEDS: PANTOPRAZOLE 40 MG TABLET PO SCH (05:18)
[2024-06-10 09:28] LABS: CHLORIDE 104 mmol/L (98-107); POTASSIUM 3.7 mmol/L (3.5-5.1); SODIUM 140 mmol/L (136-145)
[2024-06-10 09:31] LABS: CALCIUM 8.9 mg/dL (8.5-10.1)
[2024-06-10 09:32] LABS: ALBUMIN 3.4 g/dl (3.4-5.0); ANION GAP 9 mmol/L (4-13); BLOOD UREA NITROGEN 13.9 mg/dL (7-18); CO2 27 mmol/L (21-32); GLUCOSE,RANDOM 106 mg/dL (74-106); HEMATOCRIT 37.6 % (35.4-49); HEMOGLOBIN 12.3 GM/dL (11.7-16.9); MCH 25.1 pg (25.7-33.7); MCHC 32.7 g/dl (32.0-35.9); MEAN CELL VOLUME 76.9 fl (80-96); PLATELET COUNT 205 10^3/uL (134-434); RBC 4.89 M/mm3 (4.00-5.60); WHITE BLOOD COUNT 6.2 K/mm3 (4.0-10.0)
[2024-06-10 09:35] LABS: CREATININE 1.1 mg/dL (0.55-1.3); SGOT/AST 24 U/L (15-37); SGPT/ALT 23 U/L (13-61)
[2024-06-10 09:37] LABS: BILIRUBIN,TOTAL 0.4 mg/dL (0.2-1)
[2024-06-10 09:38] LABS: ALK PHOS 74 U/L (45-117)
[2024-06-10] MEDS ORDERED: PATIENT'S OWN MEDICATION (NON-FORMULARY) (Dolutegravir Sodium/Lamivudine [Dovato 50-300 Mg PO SCH (10:00)
[2024-06-10] MEDS: lamiVUDine 150 MG TABLET PO SCH (10:06)
[2024-06-10] MEDS: DOLUTEGRAVIR SODIUM 50 MG TABLET (NON-FORMULARY) PO SCH (10:06)
[2024-06-10] MEDS: HYDROCHLOROTHIAZIDE 25 MG TABLET (FP) PO SCH (10:06)
[2024-06-10] MEDS: PRENATAL VITAMINS W/ FOLIC ACID TABLET (FP) PO SCH (10:06)
[2024-06-10] MEDS: NIFEdipine E.R. 90 MG TABLET PO SCH (10:06)
[2024-06-10] MEDS: QUEtiapine FUMARATE 25 MG TABLET PO SCH (13:48)
[2024-06-10] MEDS: diazePAM 5 MG TABLET PO PRN (13:50)
[2024-06-11] MEDS: MAG HYDROX/AL HYDROX/SIMETH 30 ML UNIT-DOSE CUP PO PRN (03:26)
[2024-06-11] MEDS: diazePAM 5 MG TABLET PO SCH (05:21)
[2024-06-11 18:58] VITALS: BP 120/90; PULSE 128; RESP 18; TEMP 97.8
[2024-06-12] MEDS ORDERED: diazePAM 5 MG TABLET PO SCH (06:00)
[2024-06-13] MEDS ORDERED: diazePAM 5 MG TABLET PO ONE (06:00)
== END 2024-06-11 18:56 | disposition left against medical advice (07) | DRG 770 ==
LOC: YASAS 13:13 → Y3N 16:56
PROVIDERS: ADMIT Allergy & Immunology; ATTEND Allergy & Immunology
PROC: HZ2ZZZZ Detoxification Services for Substance Abuse Treatment (ICD-10-PCS; principal; 2024-06-09)
DX: F10.230 Alcohol dependence with withdrawal, uncomplicated (principal); F14.20 Cocaine dependence, uncomplicated; F12.20 Cannabis dependence, uncomplicated; F16.20 Hallucinogen dependence, uncomplicated; F17.210 Nicotine dependence, cigarettes, uncomplicated; Z21 Asymptomatic human immunodeficiency virus [HIV] infection status; I10 Essential (primary) hypertension; K21.9 Gastro-esophageal reflux disease without esophagitis; Z86.19 Personal history of other infectious and parasitic diseases; Z62.810 Personal history of physical and sexual abuse in childhood; Z79.899 Other long term (current) drug therapy
CPT/HCPCS: 36415; 80053; 80305; 80307; 85027; 86593; 86780

== ENCOUNTER 2024-08-27 11:26 | Inpatient (IN) | payer OTHER ==
[2024-08-27 11:58] VITALS: BMI 37.9
[2024-08-27] MEDS ORDERED: NALOXONE (NARCAN) HCL 4 MG/0.1 ML SPRAY NS PRN (12:23)
[2024-08-27] MEDS ORDERED: BISMUTH SUBSALICYLATE 262 MG/15 ML BTL PO PRN (12:23)
[2024-08-27] MEDS ORDERED: diazePAM 5 MG TABLET PO PRN (12:23)
[2024-08-27] MEDS ORDERED: methaDONE HCL 10 MG TABLET (FOR DETOX USE ONLY) PO PRN (12:23)
[2024-08-27] MEDS ORDERED: DICYCLOMINE HCL 10 MG CAPSULE PO PRN (12:23)
[2024-08-27] MEDS ORDERED: BENZOCAINE/MENTHOL (CHLORASEPTIC ) LOZENGE MM PRN (12:23)
[2024-08-27] MEDS ORDERED: POLYETHYLENE GLYCOL (HEALTHYLAX) 3350 17 GM PACKET PO PRN (12:23)
[2024-08-27] MEDS ORDERED: BENZONATATE 200 MG CAPSULE PO PRN (12:23)
[2024-08-27] MEDS ORDERED: guaiFENesin 600 MG TABLET.ER (FP) PO PRN (12:23)
[2024-08-27] MEDS ORDERED: methaDONE HCL 10 MG TABLET (FOR DETOX USE ONLY) ONE (14:26)
[2024-08-27] MEDS ORDERED: diazePAM 5 MG TABLET ONE (14:26)
[2024-08-27] MEDS ORDERED: cloNIDine HCL 0.1 MG TABLET ONE (14:27)
[2024-08-27] MEDS ORDERED: PRENATAL VITAMINS W/ FOLIC ACID TABLET (FP) PO ONE (14:27)
[2024-08-27] MEDS ORDERED: BUPRENORPHINE/NALOXONE 0.5 MG/0.125 MG FILM ONE (14:27)
[2024-08-27] MEDS: methaDONE HCL 10 MG TABLET (FOR DETOX USE ONLY) PO ONE (14:30)
[2024-08-27] MEDS: PRENATAL VITAMINS W/ FOLIC ACID TABLET (FP) PO SCH (14:31)
[2024-08-27] MEDS: BUPRENORPHINE/NALOXONE 0.5 MG/0.125 MG FILM SL ONE ×2 (14:31→22:30)
[2024-08-27] MEDS: diazePAM 5 MG TABLET PO SCH (14:32)
[2024-08-27] MEDS: cloNIDine HCL 0.1 MG TABLET PO SCH (14:32)
[2024-08-27] MEDS: NICOTINE 14 MG/24 HOURS TOPICAL PATCH TD SCH (15:38)
[2024-08-27] MEDS: IBUPROFEN 400 MG TABLET (FP) PO PRN (19:29)
[2024-08-27] MEDS: MAG HYDROX/AL HYDROX/SIMETH 30 ML UNIT-DOSE CUP PO PRN (20:29)
[2024-08-27] MEDS: ACAMPROSATE CALCIUM 333 MG TABLET.DR PO SCH (22:29)
[2024-08-27] MEDS: THIAMINE 100 MG TABLET PO SCH (22:30)
[2024-08-27] MEDS: MELATONIN 5 MG TABLETS PO SCH (22:30)
[2024-08-27] MEDS: METHOCARBAMOL 500 MG TABLET PO PRN (22:31)
[2024-08-28] MEDS: PANTOPRAZOLE 40 MG TABLET PO SCH (05:54)
[2024-08-28] MEDS: IBUPROFEN 600 MG TABLET (FP) PO PRN (05:58)
[2024-08-28] MEDS: DOLUTEGRAVIR SODIUM 50 MG TABLET (NON-FORMULARY) PO SCH (07:03)
[2024-08-28] MEDS: BICTEGRAV/EMTRICIT/TENOFOV (BIKTARVY) 50-200-25 MG TABLET PO SCH (08:51)
[2024-08-28] MEDS: BUPRENORPHINE/NALOXONE 0.5 MG/0.125 MG FILM SL SCH (09:56)
[2024-08-28] MEDS: HYDROCHLOROTHIAZIDE 25 MG TABLET (FP) PO SCH (09:56)
[2024-08-28] MEDS ORDERED: PATIENT'S OWN MEDICATION (NON-FORMULARY) (Dolutegravir Sodium/Lamivudine [Dovato 50-300 Mg PO SCH (10:00)
[2024-08-28] MEDS: NIFEdipine E.R. 90 MG TABLET PO SCH (11:02)
[2024-08-28 11:34] LABS: HEMATOCRIT 38.4 % (40.1-51.0); HEMOGLOBIN 11.9 g/dL (13.7-17.5); MEAN CELL VOLUME 79.8 fl (79.0-92.2); PLATELET COUNT 262 x10^3/uL (163-337)
[2024-08-28 11:41] LABS: POTASSIUM 4.2 mmol/L (3.5-5.1)
[2024-08-28 11:44] LABS: CALCIUM 9.2 mg/dL (8.5-10.1)
[2024-08-28 11:45] LABS: ALBUMIN 3.7 g/dl (3.4-5.0); BLOOD UREA NITROGEN 11.6 mg/dL (7-18)
[2024-08-28 11:48] LABS: CREATININE 1.2 mg/dL (0.55-1.3)
[2024-08-28 11:49] LABS: BILIRUBIN,TOTAL 0.4 mg/dL (0.2-1)
[2024-08-28 11:50] LABS: TOT PROT 7.7 g/dl (6.4-8.2)
[2024-08-28] MEDS: QUEtiapine FUMARATE 25 MG TABLET PO SCH (13:35)
[2024-08-28] MEDS: LOPERAMIDE HCL 2 MG CAPSULE PO PRN (13:37)
[2024-08-28] MEDS: ONDANSETRON *ODT* 4 MG TABLET SL PRN (17:13)
[2024-08-29] MEDS: diazePAM 5 MG TABLET PO SCH (05:59)
[2024-08-29] MEDS: BUPRENORPHINE/NALOXONE 2 MG/0.5 MG FILM PACKET SL SCH (09:19)
[2024-08-29] MEDS: methaDONE HCL 10 MG TABLET (FOR DETOX USE ONLY) PO ONE (09:20)
[2024-08-29] MEDS: MAGNESIUM HYDROX 2400MG/30ML ORAL SUSPENSION 30 ML CUP PO PRN (19:57)
[2024-08-29] MEDS: ACETAMINOPHEN 325 MG TABLET (FP) PO PRN (22:07)
[2024-08-30] MEDS: diazePAM 5 MG TABLET PO SCH (06:00)
[2024-08-30] MEDS: BUPRENORPHINE/NALOXONE 4 MG/1 MG FILM PACKET SL SCH (10:20)
[2024-08-30] MEDS: hydrOXYzine PAMOATE 25 MG CAPSULE (FP) PO PRN (17:42)
[2024-08-31] MEDS: diazePAM 5 MG TABLET PO ONE (06:09)
[2024-08-31] MEDS: BUPRENORPHINE/NALOXONE 8 MG/2 MG FILM PACKET SL SCH (10:31)
[2024-08-31] MEDS: methaDONE HCL 10 MG TABLET (FOR DETOX USE ONLY) PO ONE (10:32)
[2024-08-31] MEDS ORDERED: chlorproMAZINE HCL 25 MG TABLET PO PRN (12:31)
[2024-08-31 13:18] VITALS: BP 139/84; PULSE 94; RESP 17; TEMP 97.6
[2024-09-01] MEDS ORDERED: BUPRENORPHINE/NALOXONE 8 MG/2 MG FILM PACKET SL SCH (10:00)
== END 2024-08-31 13:55 | disposition other institution (70) | DRG 773 ==
LOC: YASAS 11:26 → Y6N 14:41
PROVIDERS: ADMIT Allergy & Immunology; ATTEND Allergy & Immunology
PROC: HZ2ZZZZ Detoxification Services for Substance Abuse Treatment (ICD-10-PCS; principal; 2024-08-27)
DX: F11.23 Opioid dependence with withdrawal (principal); F10.230 Alcohol dependence with withdrawal, uncomplicated; F14.20 Cocaine dependence, uncomplicated; F13.20 Sedative, hypnotic or anxiolytic dependence, uncomplicated; F19.282 Other psychoactive substance dependence with psychoactive substance-induced sleep disorder; F33.1 Major depressive disorder, recurrent, moderate; F43.10 Post-traumatic stress disorder, unspecified; Z21 Asymptomatic human immunodeficiency virus [HIV] infection status; E78.5 Hyperlipidemia, unspecified; I10 Essential (primary) hypertension; K21.9 Gastro-esophageal reflux disease without esophagitis; R76.8 Other specified abnormal immunological findings in serum; Z86.19 Personal history of other infectious and parasitic diseases; Z62.810 Personal history of physical and sexual abuse in childhood; Z63.8 Other specified problems related to primary support group; Z79.899 Other long term (current) drug therapy
CPT/HCPCS: 36415; 80053; 80305; 80307; 85027; 86593; 86780; 87811; 93005; 93010; Q0162